=== PATIENT | female | born 1980 | race Caucasian/White ===

== ENCOUNTER 2017-06-19 18:15 | Inpatient (IN) | payer MEDICAID, OTHER ==
[~2017-06-19] VITALS: Ht 167.6 cm; Wt 62.0 kg
[2017-06-19 20:43] VITALS: BP 112/57
[2017-06-19] MEDS ORDERED: CYCLOBENZAPRINE 10 MG (FLEXERIL) TAB PO PRN (21:15)
[2017-06-19] MEDS: ALPRAZolam 1 MG (XANAX) TAB PO PRN (21:39)
[2017-06-19] MEDS: HYDROcodone/APAP 10 MG/325 MG (LORTAB) TAB PO PRN (21:40)
--- NOTE | 2017-06-20 04:54 | HISTORY AND PHYSICAL ---
DATE OF SERVICE: CHIEF COMPLAINT: Generalized weakness. HISTORY OF PRESENT ILLNESS: The patient is a 37-year-old female who was in her usual state of health until this past December when she developed progressive weakness. 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 She subsequently went on to rehab in [place], [place], and then also rehab at [facility] so as to be closer to her home in [place], [place]. She then went home, but her found it difficult to care for her as she was still nonambulatory and needed some assistance. Subsequently, the patient went to a local care center where she developed delirium due to her UTI with resulting admission to [facility] on 06/07/2017. Her UTI has now been treated. She is cognitively clear, but left with increased weakness from all this. She takes gabapentin and hydrocodone for neuropathic pain in her legs and hands and she is dependent for transfers at this point. She is now referred to inpatient rehabilitation unit with a goal of improving her strength and endurance prior to discharge home with her spouse and young children so as to lessen the burden of the caregivers. Her works as a senior mechanical engineer in [place], [place]. They live in a one-story home in [place], [place].She indicates that she had been on long acting Morphine sulphate in the past. PAST MEDICAL HISTORY: She reports that she has been healthy otherwise up until now. She does have tachycardia, leukocytosis and hallucinations associated with her UTI and her urine culture was positive for E. coli, which responded to Macrodantin and cephalosporins. The hospitalist from [facility] in [place], [place], discussed the case with Dr. Tineo today prior to transfer.The patient is currently on Hydrocodone for pain and flexeril for spasms and Gabapentin for neuropathic pain.She sandy currently on meds for anxiety and depression. PAST SURGICAL HISTORY: She denies any knee, hip or spinal surgery in the past.She has had rt rotator cuff repair in the past as well as a hysterectomy and a cholecystectomy. ALLERGIES: DOXYCYCLINE. FAMILY HISTORY: Denies any neurologic family history. SOCIAL HISTORY: Has a supportive spouse and young children. Had been independent and healthy prior to December. REVIEW OF SYSTEMS: Ten-point review of systems significant for weakness, neuropathic pain, aching pain depression and anxiety. MEDICATIONS: 1. Abilify 2.5 mg p.o. daily. 2. Remeron 15 mg p.o. at bedtime. 3. Coreg 6.25 mg p.o. b.i.d. 4. Simethicone 80 mg p.o. every 6 hours as needed for gas. 5. Hydrocodone/APAP 10/325 one tablet p.o. every 4 hours p.r.n. severe pain. 6. Senokot-S, 2 tablets p.o. b.i.d. 7. MiraLax 17 grams p.o. b.i.d. 9. Multivitamins with minerals 1 tablet p.o. daily. 10. Melatonin 9 mg p.o. at bedtime. 11. Mag-Ox 400 mg p.o. b.i.d. 12. Vitamin C 500 mg p.o. b.i.d. 13. Vitamin D 50,000 units p.o. every Friday. 14. Lidoderm patch topically daily, off in 12 hours to affected area. 15. Lotrisone cream b.i.d. as needed. 16. Vitamin E 400 units p.o. daily. 17. Vitamin A 10,000 units every morning. 18. Vitamin B6 50 mg p.o. daily. 19. Nystatin powder topically 3 times a day. 20. Xanax 1 mg p.o. every 6 hours p.r.n. as needed for anxiety. 21. Vitamin B1 100 mg p.o. daily. 22. Flexeril 10 mg p.o. t.i.d. as needed for spasms. 23. Folic acid 1 mg p.o. daily. 24. Zinc sulfate 220 mg p.o. daily. 25. Trazodone 100 mg p.o. at bedtime. 26. Gabapentin 800 mg p.o. every 6 hours p.r.n. pain. PHYSICAL EXAMINATION: GENERAL: Significant for a pleasant female, appearing her stated age, alert and oriented, in no acute distress, sitting up in bed. VITAL SIGNS: She is afebrile, pulse is 98, respirations 16, blood pressure 131/81. O2 sat 98% on room air. HEENT: Vision, speech, hearing grossly intact. No oral lesion is noted. NECK: Supple without mass. HEART: Regular rhythm. LUNGS: Clear. ABDOMEN: Soft, nontender. Bowel sounds present. EXTREMITIES: No leg edema. No calf tenderness. MUSCULOSKELETAL: The patient has functional and active range of motion in all 4 extremities. She does lack active dorsiflexion in both ankles. NEUROLOGIC: She has generalized weakness, lower extremities more than upper extremities and lacks dorsiflexion at both ankles with associated flexion contractures She has been provided with boots set at neutral. Sensation is grossly intact to touch, but she reports neuropathic-type pain in both legs and hands.Also an aching tight feeling in legs for which she takes flexeril and pain meds. Cognition appears grossly intact. IMPRESSION: 1. Delirium secondary to urinary tract infection, treated. 2. Late effects of Guillain-De Soto syndrome. 3Hypoklaemia as of 06-20-17-replacement ordered 4. 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 We will focus on wheelchair level of function and provide a strengthening program focusing on upper extremities to improve transfers and generalized conditioning program. The patient will have PT and OT 90 minutes per day each discipline 5 days a week for 2 weeks for gait as tolerated, strengthening, conditioning, balance, ADLs, any patient family caregiver training necessary, any adaptive equipment and training necessary a Stretching program as well for ankle contractures.. Speech therapy to do cognitive assessment and treat as indicated. Rehabilitation nursing to assist with bowel, bladder, skin care, medication administration, pain management. coordinator volunteer services to assist with discharge planning, community re-entry. Reviewed labs this morning and replaced K. Consult Dr. Saenz to assist with medical management as needed. The patient's admission to this rehab unit has been approved by her [place] Medicaid managed plan with the above goals in mind- specifically W/C level of function and Transfer training /family training The patients spouse works as a dynamometer mechanic in [employer] [facility] and their children are fairly young and school age.Pain management. DIET: Regular. CODE STATUS: Full code. Plan of care was discussed with the patient and spouse on evening of admission. Job ID: [id number] DocumentID: [id number] Dictated Date: 06/19/2017 21:57:51 Design Printer Balloon Date: 06/20/2017 04:53:58 Dictated By: ALEXUS TINEO MD MTDD
[2017-06-20 05:35] LABS: BASOPHILS % (AUTO) 0 % (0-10); EOSINOPHILS # (AUTO) 0.1 10^3/uL (0.0-0.3); EOSINOPHILS % (AUTO) 2 % (0-10); LYMPHOCYTES # (AUTO) 2.2 X 10^3 (1.0-4.0); LYMPHOCYTES % (AUTO) 41 % (12-44); MEAN CORPUSCULAR HEMOGLOBIN 32 PG (25-34); MEAN CORPUSCULAR HGB CONC 33 G/DL (32-36); MEAN CORPUSCULAR VOLUME 99 FL (80-99); MEAN PLATELET VOLUME 9.6 FL (7.4-10.4); MONOCYTES # (AUTO) 0.4 X 10^3 (0.0-1.0); MONOCYTES % (AUTO) 8 % (0-12); NEUTROPHILS # (AUTO) 2.6 X 10^3 (1.8-7.8); NEUTROPHILS % (AUTO) 48 % (42-75); PLATELET COUNT 214 10^3/uL (130-400); RED BLOOD COUNT 2.76 10^6/uL (4.35-5.85); RED CELL DISTRIBUTION WIDTH 15.1 % (10.0-14.5); WHITE BLOOD COUNT 5.3 10^3/uL (4.3-11.0)
[2017-06-20 05:55] LABS: ALANINE AMINOTRANSFERASE 43 U/L (0-55); ALBUMIN 2.8 GM/DL (3.2-4.5); ANION GAP 8 MMOL/L (5-14); ASPARTATE AMINO TRANSFERASE 101 U/L (5-34); BILIRUBIN,TOTAL 0.4 MG/DL (0.1-1.0); BLOOD UREA NITROGEN 4 MG/DL (7-18); BUN/CREATININE RATIO 5; CALCIUM 11.5 MG/DL (8.5-10.1); CARBON DIOXIDE 28 MMOL/L (21-32); CHLORIDE 106 MMOL/L (98-107); CREATININE SERUM 0.73 MG/DL (0.60-1.30); GFR ESTIMATED > 60; GLUCOSE 91 MG/DL (70-105); POTASSIUM 3.2 MMOL/L (3.6-5.0); SODIUM 142 MMOL/L (135-145); TOTAL PROTEIN 6.2 GM/DL (6.4-8.2)
[2017-06-20 06:00] VITALS: BP 128/86
[2017-06-20] MEDS: THIAMINE 100 MG (VITAMIN B-1) TAB PO SCH (06:12)
[2017-06-20] MEDS: MULTIVIT W/MINERALS TAB (THERAGRAN M) PO SCH (06:12)
[2017-06-20] MEDS: ZINC SULFATE 220 MG CAPSULE PO SCH (06:12)
[2017-06-20] MEDS: HYDROcodone/APAP 10 MG/325 MG (LORTAB) TAB PO PRN ×4 (06:15→20:58)
[2017-06-20] MEDS ORDERED: KCL 20 MEQ TAB (K-DUR) PO NR (08:15)
--- NOTE | 2017-06-20 08:28 | Consultation ---
History of Present Illness History of Present Illness Patient Consulted On(merary/time) 06/20/17 08:25 Time Seen by Provider: 08:20 History of Present Illness patient got Camila Poe last December. Patient's problems is with the legs the most in the hands is much. Surgeries right rotator cuff, hysterectomy, gallbladder,. Family history denies asthma TB diabetes heart disease lung disease cancer. Denies headaches dizziness fainting. Heart denies heart murmur chest pain shortness of breath lungs denies asthma TB coughing congestion and wheezing Allergies and Home Medications Allergies Coded Allergies: doxycycline (Verified Allergy, Intermediate, 06/19/17) Past Tgpkeah-Xufuwa-Qnojmc Hx Patient Social History Alcohol Use: Denies Use Recreational Drug Use: No Smoking Status: Never a Smoker Recent Foreign Travel: No Contact w/Someone Who Travel: No Recent Infectious Disease Expo: No Recent Hopitalizations: Yes ([facility] 1 day ago, [facility] 6 mo ago) Immunizations Up To Date Date of Pneumonia Vaccine: Sep 15, 2014 Seasonal Allergies Seasonal Allergies: No Surgeries History of Surgeries: Yes (Hysterectomy) Respiratory History of Respiratory Disorde: No Cardiovascular History of Cardiac Disorders: No Neurological History of Neurological Disord: Yes (Guillain-[place] syndrome) Reproductive System Sexually Transmitted Disease: No Genitourinary History of Genitourinary Disor: Yes (Cystocele) Genitourinary Disorders: UTI-Chronic Gastrointestinal History of Gastrointestinal Di: Yes Gastrointestinal Disorders: Gastroesophageal Reflux, Ulcer Musculoskeletal History of Musculoskeletal Dis: Yes (Severe lower extremity pain and weakness) Endocrine History of Endocrine Disorders: No HEENT History of HEENT Disorders: No Cancer History of Cancer: No Psychosocial History of Psychiatric Problem: Yes Behavioral Health Disorders: Anxiety, Depression Integumentary History of Skin or Integumenta: No Blood Transfusions History of Blood Disorders: No Adverse Reaction to a Blood Tr: No Family Medical History Family Medial History: Anxiety disorder 19 MOTHER FHx: depression 19 MOTHER Review of Systems-General Constitutional: weakness, other (inability to walk) EENTM: no symptoms reported Respiratory: no symptoms reported Cardiovascular: no symptoms reported Genitourinary: no symptoms reported : No Physical Exam-General Problems Physical Exam Vital Signs Vital Sign - Last 12Hours 06/19/17 20:43 Temp 97.5 Pulse 89 Resp 18 B/P (MAP) 112/57 Pulse Ox 98 O2 Delivery Room Air O2 Flow Rate 98.00 Capillary Refill : General Appearance: WD/WN, no apparent distress Eyes: Bilateral Eye Normal Inspection HEENT: normal ENT inspection Neck: non-tender, full range of motion Respiratory: chest non-tender, lungs clear, normal breath sounds, no respiratory distress, no accessory muscle use Cardiovascular: regular rate, rhythm Gastrointestinal: non tender, soft Assessment/Plan Assessment/Plan Admission Diagnosis/Plan [place] Poe syndrome. History of UTI causing hallucinations Clinical Quality Measures DVT/VTE Risk/Contraindication: Risk Factor Score Per Nursin RFS Level Per Nursing on Admit: 2=Moderate AFSANEH QUIJANO DO Jun 20, 2017 08:28
[2017-06-20] MEDS: SENNA W/DOCUSATE (SENOKOT S) TABLET PO SCH ×2 (08:57→20:59)
[2017-06-20] MEDS: VITAMIN E 400 INTLU CAP PO SCH (08:57)
[2017-06-20] MEDS: VITAMIN D2 50,000 UNITS (1.25 MG) CAP PO SCH (08:57)
[2017-06-20] MEDS: ASCORBIC ACID (VIT C) 500 MG TABLET PO SCH ×2 (08:57→20:59)
[2017-06-20] MEDS: ARIPIPRAZOLE 2 MG (ABILIFY) TAB PO SCH (08:57)
[2017-06-20] MEDS: PYRIDOXINE (VITAMIN B-6) 50 MG TABLET PO SCH (08:57)
[2017-06-20] MEDS: GABAPENTIN 600 MG (NEURONTIN) TAB PO SCH ×2 (08:57→20:59)
[2017-06-20] MEDS: FOLIC ACID 1 MG TAB PO SCH (08:57)
[2017-06-20] MEDS: LIDOCAINE (LIDODERM) 5% PATCH TOP SCH (08:59)
[2017-06-20] MEDS ORDERED: CARVEDILOL 3.125 MG (COREG) TABLET PO SCH (09:00)
[2017-06-20] MEDS: BETAMETHASONE/CLOTRIM CREAM (LOTRISONE) 45 GM TP SCH ×2 (09:02→21:03)
[2017-06-20] MEDS: POLYETHYLENE GLYCOL 17 GM (MIRALAX) PACK PO SCH ×2 (09:02→20:59)
[2017-06-20] MEDS: ALPRAZolam 1 MG (XANAX) TAB PO PRN ×2 (10:34→17:19)
--- NOTE | 2017-06-20 10:43 | ST Cognitive Linguistic Eval ---
Speech Evaluation-General Medical Diagnosis Weakness/Debility Onset Date: Jun 20, 2017 Therapy Diagnosis Therapy Diagnosis: Cognitive Linguistic Skills WNL Precautions Precautions/Isolations: Fall Prevention, Standard Precautions Referral Referring Physician: Dr. Austin Tineo Reason for Referral: Evaluation/Treatment Cognitive Evaluation Medical History Guillain [place] Reviewed History: Yes Speech PLF-Current Status Prior Level of Function Per patient, she experienced "a little confusion" following her initial hospitalization, however, she has returned to baseline at this time. The patient denied swallowing difficulties at this time. Subjective The patient was admitted to [facility] with a diagnosis of weakness and debility. The patient greeted the clinician appropriately and was agreeable to participation in the cognitive evaluation. To note: The patient demonstrates emotional periods throughout the evaluation, tearing up on several occasions. Per patient, "I am just ready to go home." Language Eval: Auditory Comprehends Simple Yes/No Ques: Functional Indent/Objects Multiple Saleh: Functional Ident/Pics in Multiple Saleh: Functional Follows 1-Step Commands: Functional Follows Complex Directions: Mild (Repetition required for increased accuracy.) Follows General Conversations: Functional Language Eval: Verbal Language Completes Spontaneous Greeting: Functional Produces Auto, Serial Info: Functional Imitates Simple Words/Phrases: Functional Word Finding: Functional Requests Basic Needs: Functional States Basic Personal Info: Functional Cognitive Patient Orientation The patient is oriented to month, day of week, and year. The patient stated she was in [place], however, self-corrected to the [place]. Objective Cognitive Domain Attention: Mild Memory: WNL Problem Solving: Functional (The patient does require redirection to task.) Objective Impression At this time, the patient demonstrates cognitive linguistic skills grossly within normal limits. The patient participated in limited periods of the evaluation, as she became tearful throughout. The patient stated her emotional state was secondary to her desire to return home. Communication/Social Cognition Comprehension: 4 Expression: 5 Social Interaction: 3 Problem Solvin Memory: 5 Speech Patient Assess Expression of Ideas/Wants: Expression (4) Understanding V[place]al Content: Usually Understands (3) Brief Interview-Mental Status: Yes Repetition of Three Words: Three (3) Temporal Orientation: Year: Correct (3) Temporal Orientation: Month: Accurate within 5 days(2) Temporal Orientation: Day: Correct (1) Recall : Wear to say "Sock": Yes, no cue required (2) Recall : Color: Yes, no cue required (2) Recall : Bed: Yes, no cue required (2) Speech-Plan Treatment Plan Speech Therapy Treatment Plan: Discontinue ST Evaluation, only. Frequency: Modified Program (IRF) (Evaluation, only.) Estimated Hrs Per Day: Other (Evaluation, only.) Rehab Potential: Guarded Safety Risks/Education Teaching Recipient: Patient Teaching Methods: Discussion Response to Teaching: Verbalize Understanding Education Topics Provided: Results, Recommendations, Plan of Care Time Speech Therapy Time In: 08:15 Speech Therapy Time Out: 08:30 Total Billed Time: 15 Billed Treatment Time 1, LAM HINOJOSA Jun 20, 2017 10:43
--- NOTE | 2017-06-20 12:06 | Physical Therapy Evaluation ---
PT Evaluation-General Medical Diagnosis Admission Date Jun 19, 2017 at 21:03 Medical Diagnosis: Weakness/Debility Onset Date: Dec 14, 2016 (sometime in december) Therapy Diagnosis Therapy Diagnosis: weakness/debility Height/Weight Height (Feet): 5 Height (Inches): 6.00 Weight (Pounds): 127 Weight (Ounces): 5.0 Precautions Precautions/Isolations: Fall Prevention, Standard Precautions Referral Physician: Noman Reason for Referral: Evaluation/Treatment Medical History Additional Medical History Guillain [place] Syndrome, Chronic UTI, gastroesophagial reflux, , Surgeries: right rotator cuff, hyserectomy, gall bladder. Current History Pt has been getting progressively weaker since December due to Guillain [place] Syndrome Reviewed History: Yes Social History Home: Single Level Current Living Status: Significant Other Entry Into Home: Level Entry PT Steps Into Home: 0 PT Steps Inside Home: 1 Pt lives with and 3 children, ages 10-16. Prior/Core FIM Prior Level of Function Functional [place] Measure 0=Not Assessed/NA 4=Minimal Assistance 1=Total Assistance 5=Supervision or Setup 2=Maximal Assistance 6=Modified [place] 3=Moderate Assistance 7=Complete [place] Bed Mobility: 6 Transfers (B,C,W/C) (FIM): 1 Gait: 1 Locomotion: 1 Wheelchair Mobility: 6 Patient has been progressively weaker since December. Pt has been non-ambulatory and using wheelchair since 05/01. PT Evaluation-Current Subjective Pt was laying in bed prior to treatment and agreeable to PT. Pt is very anxious throughout treatment. Pt becomes emotional 3x, tearing up throughout treatment about current condition and wanting to go home. Pain Numeric Pain Scale: 5-Moderate Pain Location Body Site: Foot Pain Description: Ache Pt/Family Goals to return home with independence with functional mobility Objective Patient Orientation: Normal For Age ROM/Strength ROM Lower Extremities LLE: (ankle has 34 degree plantarflexion contracture, inversion contracture, knee flexion 90 degree flexion) RLE: (ankle has 35 degree plantarflexion contracture, inversion contracture, knee flexion 88 degree flexion) Strenght Lower Extremities LLE: (DF 1/5, knee flexion 2+/5, knee extension 4/5, hip flexion 3+/5) RLE: (DF 1/5, knee flexion 2/5, knee extension 4/5, hip flexion 3+/5) Integumentary/Posture Integumentary refer to nursing note Bowel Incontinence: No Neuromuscular (Tone, Coordination, Reflexes) not tested Sensory Vision: Functional Hearing: Functional Sensation Right Upper Extremit: Intact Sensation Left Upper Extremity: Intact Sensation Right Lower Extremit: Intact Sensation Left Lower Extremity: Intact Transfers Functional [place] Measure 0=Not Assessed/NA 4=Minimal Assistance 1=Total Assistance 5=Supervision or Setup 2=Maximal Assistance 6=Modified [place] 3=Moderate Assistance 7=Complete IndependenceIRFPAI Quality Coding Scale 6 Independent with activity with or without an assistive device 5 Patient requires set up or clean up by helper. Patient completes activity by themselves 4 Supervision or touching assist (CGA). [place] provide cues , steadying assist 3 The helper provides less than half the effort to complete the activity 2 The helper provides more than half the effort to complete the activity 1 Dependent. The helper does all the effort to complete an activity 7 Patient refused to complete or attempt activity 9 The patient did not perform the activity before the current illness or injury 88 Not attempted due to Medical conditions or safety concerns Transfers (B, C, W/C) (FIM): 1 Scootin Rollin Supine to/from Sit: 2 Sit to/from Stand: 1 Pt completes transfers with total dependence, pt is verbally cued to assist with arms. Pt completes bed mobility with max assist, requires help lifting legs up to bed. Gait Does the Patient Walk?: No and Walking Goal IS indicated Mode of Locomotion: Both Anticipated Mode of Locomotion: Both Gait (FIM): 0 Comments/Gait Description Pt unable to attempt ambulation due to strength deficits. Pt stands in parallel bars with max assist. Pt ankles are in plantarflexion and inversion. Pt tolerates 5 seconds of standing before needing to sit due to pain and weakness. Wheelchair Training Does the Pt Use a Wheelchair?: Yes Wheelchair (FIM): 5 Wheelchair Distance (FIM): 3=150 ft Distance: 200' Wheelchair Level of Assist: 5 Wheel 50 ft with 2 turns (QC): 5 Wheel 150 ft (QC): 5 Type of Wheelchair: Manual Pt is able to propel wheelchair using arms with supervision for safety. Pt reports she has difficulty propelling over uneven surfaces or carpet due to weakness in arms. Stairs If not tested on admit;explain Pt unable to attempt due to strength deficits. Balance Sitting Static: Fair Sitting Dynamic: Fair Standing Static: Poor Standing Dynamic: Poor Treatment Pt completes transfer training using sliding board and max assist. Pt requires verbal cues for sequencing, hand placement and safety. Assessment/Needs Pt has decreased strength, balance, endurance, and ROM. Pt's gait, bed mobility and transfers are impaired. Pt therapy will include strengthening, therapeutic exercises, balance exercises, ROM, transfer training, bed mobility, and gait training to maximize functional mobility and independence. Rehab Potential: Fair PT Short Term Goals Short Term Goals Time Frame: Jun 27, 2017 Transfers (B,C,W/C) (FIM): 3 Gait (FIM): 1 Distance (FIM): 1=up to 49 ft Wheelchair (FIM): 6 Wheelchair Level of Assist: 6 PT Linux Systems Administrator Goals Penitentiary Goals PT Linux Systems Administrator Goals Time Frame: Jul 11, 2017 Transfers (B,C,W/C) (FIM): 4 Sit to Lying (QC): 4 Lying-Sitting on Side/Bed(QC): 4 Sit to Stand (QC): 4 Rollin Roll Left to Right (QC): 4 Chair/Gqu-gc-Wdear Xfer(QC): 4 Car Transfer (QC): 4 Does the Patient Walk: No and Walking Goal IS indicated Gait (FIM): 2 Gait distance (FIM): 3=473-27 ft Distance: 50' Walk 10 feet (QC): 3 Walk 10ft-Uneven Surface(QC): 3 Walk 50ft with 2 Turns (QC): 3 Gait Level of Assist: 4 Gait Assistive Device: FWW PT Plan Problem List Problem List: Activity Tolerance, Functional Strength, Safety, Balance, Gait, Transfer, Bed Mobility, ROM Treatment/Plan Treatment Plan: Continue Plan of Care Treatment Plan: Bed Mobility, Education, Functional Activity Yris, Functional Strength, Group Therapy, Gait, Safety, Therapeutic Exercise, Transfers Treatment Duration: Jul 11, 2017 Frequency: At least 5 of 7 days/Wk (IRF) Estimated Hrs Per Day: 1.5 hours per day Patient and/or Family Agrees t: Yes Safety Risks/Education Patient Education: Transfer Techniques, Reviewed Precautions, Correct Positioning, W/C Management, Disease Process, Safety Issues Teaching Recipient: Patient Teaching Methods: Demonstration, Discussion Response to Teaching: Verbalize Understanding, Reinforcement Needed Discharge Recommendations Plan Pt therapy will include strengthening, therapeutic exercises, balance exercises , ROM, safety education, transfer training, bed mobility, and gait training to maximize functional mobility and independence. Therapy D/C Recommendations: Home w/ Family Support, Group Home (TCU/NH) Time/GCodes Time In: 1100 Time Out: 1201 Total Billed Treatment Time: 61 Total Billed Treatment 1 visit EVM 16 FA [facility] 10 GERALDO FERRER PT Jun 20, 2017 12:06
--- NOTE | 2017-06-20 12:08 | PM&R Post Admission Assessment ---
Post Admission Physician Asses The preadmission screen agrees with the post admission assessment that the patient is a good candidate for inpatient rehabilitation. The patient will have a comprehensive program of inpatient rehabilitation with a goal of maximizing level of functional independence prior to discharge home with family. The patient will have PT/OT ninety minutes per day, each discipline, five days a week for gait, strengthening, conditioning, balance, ADLs, any patient/family/caregiver training as necessary. Speech therapy to do cognitive assessment and treat as indicated. Rehabilitation nursing to assist with bowel, bladder, skin, , medication administration, pain management. Sheep Farm Manager to assist with discharge planning, community reentry. SCD's for DVT prophylaxis. She appears to be well motivated to participate in three hours of therapy a day. She should be able to tolerate three hours of therapy a day from a medical standpoint. She should benefit from the three hours of therapy a day. She has a reasonable discharge plan, reasonable discharge rehabilitation goals and a supportive family. She has various comorbidities that need to be closely monitored with medications and treatments adjusted on a daily basis as needed. These include: Chronic pain as a rsult of GBS Contractures both ankles Anemia Hypokalemia Anxiety/depression Barriers to discharge for this patient who had been independent prior to this are for her to be modified independent to SBA for ADLs and mobility skills at the w/c level of function prior to discharge home with family, so as to lessen the burden of the caregivers. Risks for this patient include: 1. Fall 2. Fracture 3. DVT 4. Pulmonary embolism 5. Worsening anxiety and depression 6. Skin breakdown 7. Contractures 8. Poorly controlled pain 9. Urinary retention 10. Recurrent UTI 11. Respiratory infection 12. Aspiration Estimated Length of Stay: 14 days Prognosis: Rehab prognosis appears good for goal of discharge home with family modified independent to SBA for ADLs and mobility skills at the w/c level of function. ALEXUS MERCADO MD Jun 20, 2017 12:08
--- NOTE | 2017-06-20 12:15 | PM & R (SOAP) Progress Note ---
Subjective Time Seen by Provider: 09:30 Subjective/Events-last exam Patient was seen in her room,Case discussed with RN RN reports patient tearful re poor pain control States that she has been on Morphine po at home prior to this due to aching pain in legs uses Gabapentin for neuropathic pain and flexeril fos spasms.Patient has significant flexion contractures both ankles Patient has been w/c based and nonambulatory since 05-01-17,Patient dependent for transfers at this time. Review of Systems Musculoskeletal: leg pain Neurological: Weakness Objective Exam Last Set of Vital Signs Vital Signs Date Time Temp Pulse Resp B/P (MAP) Pulse Ox O2 Delivery O2 Flow Rate FiO2 06/20/17 06:00 99.0 107 14 128/86 94 Room Air 06/19/17 20:43 98.00 Capillary Refill : I&O Intake and Output 06/21/17 00:00 Intake Total 200 ml Output Total 400 ml Balance -200 ml Intake Oral 200 ml Output Urine Total 400 ml General: Alert, Oriented X3, Cooperative, Mild Distress HEENT: Atraumatic, PERRLA, EOMI, Mucous Memb Moist/Wisdom Neck: Supple, No JVD Lungs: Clear to Auscultation Heart: Regular Rate Abdomen: Normal Bowel Sounds, Soft, No Tenderness Extremities: No Edema, Other (contractures both ankles) Neuro: Sensation Intact, Other (Cant st Leg raise bilaterally Has flex contractures both ankles) Results Lab Laboratory Tests 06/20/17 05:15: White Blood Count 5.3, Red Blood Count 2.76L, Hemoglobin 8.9L, Hematocrit 27L, Mean Corpuscular Volume 99, Mean Corpuscular Hemoglobin 32, Mean Corpuscular Hemoglobin Concent 33, Red Cell Distribution Width 15.1H, Platelet Count 214, Mean Platelet Volume 9.6, Neutrophils (%) (Auto) 48, Lymphocytes (%) (Auto) 41, Monocytes (%) (Auto) 8, Eosinophils (%) (Auto) 2, Basophils (%) (Auto) 0, Neutrophils # (Auto) 2.6, Lymphocytes # (Auto) 2.2, Monocytes # (Auto) 0.4, Eosinophils # (Auto) 0.1, Basophils # (Auto) 0.0, Sodium Level 142, Potassium Level 3.2L, Chloride Level 106, Carbon Dioxide Level 28, Anion Gap 8, Blood Urea Nitrogen 4L, Creatinine 0.73, Estimat Glomerular Filtration Rate > 60, BUN/ Creatinine Ratio 5, Glucose Level 91, Calcium Level 11.5H, Total Bilirubin 0.4, Aspartate Amino Transf (AST/SGOT) 101H, Alanine Aminotransferase (ALT/SGPT) 43, Alkaline Phosphatase 391H, Total Protein 6.2L, Albumin 2.8L Assessment/Plan Assessment 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 ALEXUS MERCADO MD Jun 20, 2017 12:14
[2017-06-20] MEDS ORDERED: SENN-40 PO (13:12)
[2017-06-20] MEDS ORDERED: MORP15TA69 PO (13:12)
[2017-06-20] MEDS ORDERED: ZINC220T PO (13:12)
[2017-06-20] MEDS ORDERED: VITA400C60 PO (13:12)
[2017-06-20] MEDS ORDERED: ASCO-262 PO (13:12)
[2017-06-20] MEDS ORDERED: ACET325T38 PO (13:12)
[2017-06-20] MEDS ORDERED: CLOT15CR6 TP (13:12)
[2017-06-20] MEDS ORDERED: MAGN400T39 PO (13:12)
[2017-06-20] MEDS ORDERED: LIDO700A45 TP (13:12)
[2017-06-20] MEDS ORDERED: DIPH25CA79 PO (13:12)
[2017-06-20] MEDS ORDERED: VITA-203 PO (13:12)
[2017-06-20] MEDS ORDERED: HYDR-3820 PO (13:12)
[2017-06-20] MEDS ORDERED: PYRI50TA10 PO (13:12)
[2017-06-20] MEDS ORDERED: MULT-640 PO (13:12)
[2017-06-20] MEDS ORDERED: NYST1POW4 TOP (13:12)
[2017-06-20] MEDS ORDERED: MAG30ORA2 PO (13:12)
[2017-06-20] MEDS ORDERED: MELA3TAB PO (13:12)
[2017-06-20] MEDS ORDERED: THIA100T7 PO (13:12)
[2017-06-20] MEDS ORDERED: POLY17PO6 PO (13:12)
[2017-06-20] MEDS ORDERED: ZINC50TA4 PO (13:12)
[2017-06-20] MEDS ORDERED: FOLI1TAB24 PO (13:12)
[2017-06-20] MEDS ORDERED: TRAZ100T92 PO (13:12)
[2017-06-20] MEDS ORDERED: CYCL10TA9 PO (13:12)
[2017-06-20] MEDS ORDERED: SIME80TA16 PO (13:12)
[2017-06-20] MEDS ORDERED: ALPR1TAB7 PO (13:12)
[2017-06-20] MEDS ORDERED: GABA800T2 PO (13:12)
--- NOTE | 2017-06-20 13:14 | Occupational Therapy Eval ---
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 Pt can feed herself and perform UE ADLs. Dresses lower body while in bed. Pt states she completes pivot transfers with assistance. Pt states she completed rehab and returned home in April, but had been in and out of the hospital. Has most recently been in SNF. Pt has spouse (who works during day) and three children at home ages 16, 12, and 10. DME/Equipment: Bedside Commode, Shower, Tub/Shower DME/Equipment Comments manual w/c. OT Current Status Subjective Pt in bed with RN present when therapist arrives. Pt is tearful throughout session. Wants to go home and has many questions about returning home. Pt reports 8/10 pain in bilateral LE, states she has pins and needles sensation in feet. Mental Status/Objective Patient Orientation: Person, Place Current Glasses/Contacts: No Hearing Aids: No Dentures/Partials: Yes Hand Dominance: Right Upper Extremity ROM Pt has some stiffness and decreased ROM and in wrists and hands, but remainder is grossly functional. Upper Extremity Coordination Decreased Upper Extremity Strength grossly 3+/5 - 4-/5 ADL-Treatment ADL-Current Pt's meal tray arrived during session. Pt requires assist to open packages, but is able to feed self after set up. Supine to sit with moderate assistance. Pt requests shower this morning. Pivot transfer EOB to shower chair with total assistance. to shower via rolling shower chair. Pt able to wash bilateral UE, chest, abdomen, and no area, but requires assist for all other areas. Increased time required for bathing. Transfer to EOB with total assistance. Pt donned shirt with minimal assistance while seated EOB. Sit to supine with assist for bilateral LE. Pt donned underwear and shorts while in bed. Dependent to complete task. Pt rolled left and right with minimal assistance during pant hike. Total assist to doff/don socks. Pt requires increased time for all ADL tasks. Pt is often tearful when talking about her current abilities and future plans. Pt has frequent complaints of pain in LE, requests pain meds. RN notified. Pt resting in bed with needs met after session. Functional [place] Measure 0=Not Assessed/NA 4=Minimal Assistance 1=Total Assistance 5=Supervision or Setup 2=Maximal Assistance 6=Modified [place] 3=Moderate Assistance 7=Complete IndependenceIRFPAI Quality Coding Scale 6 Independent with activity with or without an assistive device 5 Patient requires set up or clean up by helper. Patient completes activity by themselves 4 Supervision or touching assist (CGA). [place] provide cues , steadying assist 3 The helper provides less than half the effort to complete the activity 2 The helper provides more than half the effort to complete the activity 1 Dependent. The helper does all the effort to complete an activity 7 Patient refused to complete or attempt activity 9 The patient did not perform the activity before the current illness or injury 88 Not attempted due to Medical conditions or safety concerns Eating (FIM): 5 Eating (QC): 5 Bathing (FIM): 3 Bathing Location: L Arm, R Arm, Chest, Abdomen, Perineal Area Shower/Bathe Self (QC): 3 Upper Body Dressing (FIM): 4 Upper Body Dressing (QC): 3 Lower Body Dressing (FIM): 1 Lower Body Dressing (QC): 1 On/Off Footwear (QC): 1 Shower Transfer (FIM): 1 Education OT Patient Education: Rehab process Teaching Recipient: Patient Teaching Methods: Discussion Response to Teaching: Verbalize Understanding OT Short Term Goals Short Term Goals Time Frame: Jun 27, 2017 Lower Body Dressing(FIM): 2 Toileting(FIM): 2 Toilet/Commode Transfer(FIM): 2 Shower Transfer(FIM): 2 Additional Short Term Goals: 2-Verbalize Understanding, 3-ImproveStrength/Yris 1=Demonstrate adherence to instructed precautions during ADL tasks. 2=Patient will verbalize/demonstrate understanding of assistive devices/ modifications for ADL. 3=Patient will improve strength/tolerance for activity to enable patient to perform ADL's. OT Shelter Goals Petroleum Analyst Goals Time Frame: Jul 11, 2017 Eating (FIM): 5 Eating (QC): 5 Groomin Oral Hygiene (QC): 5 Bathing(FIM): 4 Shower/Bathe Self (QC): 4 Upper Body Dressing(FIM): 5 Upper Body Dressing (QC): 5 Lower Body Dressing(FIM): 4 Lower Body Dressing (QC): 3 On/Off Footwear (QC): 4 Toileting(FIM): 4 Toileting Hygiene (QC): 4 Toilet/Commode Transfer(FIM): 4 Toilet/Commode Transfer (QC): 4 Shower Transfer(FIM): 4 Additional Goals: 1-Demonstrate ADL Tasks, 2-Verbalize Understanding, 3- ImproveStrength/Yris 1=Demonstrate adherence to instructed precautions during ADL tasks. 2=Patient will verbalize/demonstrate understanding of assistive devices/ modifications for ADL. 3=Patient will improve strength/tolerance for activity to enable patient to perform ADL's. OT Education/Plan Problem List/Assessment Assessment: Decreased Activ Tolerance, Decreased UE Strength, Dependent Transfers, Impaired Coordination, Impaired Funct Balance, Impaired I ADL's, Impaired Self-Care Skills Pt demonstrates impaired strength, mobility, activity tolerance, and ADL functioning. Pt to benefit from skilled OT intervention for ADL training, transfers, strengthening, adaptive equipment instruction as needed, and safety education to improve level of independence and allow safe discharge plan. Discharge Recommendations Plan/Recommendations: Continue POC Treatment Plan/Plan of Care Treatment,Training & Education: Yes Patient would benefit from OT for education, treatment and training to promote independence in ADL's, mobility, safety and/or upper extremity function for ADL' s. Plan of Care: ADL Retraining, Functional Mobility, Group Exercise/Act as Ind, UE Funct Exercise/Act Treatment Duration: Jul 11, 2017 Frequency: At least 5 of 7 days/Wk (IRF) Estimated Hrs Per Day: 1.5 hours per day Agreement: Yes Rehab Potential: Fair Time/GCodes Start Time: 09:00 Stop Time: 10:30 Total Time Billed (hr/min): 90 Billed Treatment Time 1 visit, EVM(15minutes), ADLx5(75minutes) SERENA MARES OT Jun 20, 2017 13:14
[2017-06-20] MEDS ORDERED: VITAMIN D 50,000 PO (13:24)
[2017-06-20] MEDS: morphine ER 15 MG (MS CONTIN) TAB PO SCH ×2 (13:26→21:26)
--- NOTE | 2017-06-20 15:11 | Physical Therapy Daily Note ---
PT Daily Note-Current Subjective Pt is lying in bed prior to tx and agreeable to PT. Pt reports she needs to use bathroom and completes toileting in bedpan during treatment. Pt was anxious throughout treatment about pain and current condition. Pt was lying in bed with nurse call, phone, tray, all needs met post tx. Pain Numeric Pain Scale: 8 Location Body Site: Generalized Pain Description: Ache Mental Status Patient Orientation: Normal For Age Transfers Functional [place] Measure 0=Not Assessed/NA 4=Minimal Assistance 1=Total Assistance 5=Supervision or Setup 2=Maximal Assistance 6=Modified [place] 3=Moderate Assistance 7=Complete IndependenceIRFPAI Quality Coding Scale 6 Independent with activity with or without an assistive device 5 Patient requires set up or clean up by helper. Patient completes activity by themselves 4 Supervision or touching assist (CGA). [place] provide cues , steadying assist 3 The helper provides less than half the effort to complete the activity 2 The helper provides more than half the effort to complete the activity 1 Dependent. The helper does all the effort to complete an activity 7 Patient refused to complete or attempt activity 9 The patient did not perform the activity before the current illness or injury 88 Not attempted due to Medical conditions or safety concerns Scootin Rollin Exercises Supine Ex: Bridging, Ankle pumps, Quad Set, Glut sets, Lower trunk rotation, Heel Slides, Short Arc Quads, Straight leg raise, Hip abd/add Supine Reps: 15 Treatments Pt completes toileting in bedpan during treatment. Pt also completes bed mobility and supine LE strengthening exercises. Assessment Current Status: Fair Progress Pt has to be verbally cued to stay on task throughout treatment, pt tends to chat a lot and gets distracted. Pt is mostly pleasant but will get emotional for brief periods of time due to pain and weakness. PT Short Term Goals Short Term Goals Time Frame: Jun 27, 2017 Gait (FIM): 1 Distance (FIM): 1=up to 49 ft Wheelchair (FIM): 6 Wheelchair Level of Assist: 6 PT Legal Department Manager Goals Legal Department Manager Goals PT Intermediate Goals Time Frame: Jul 11, 2017 Transfers (B,C,W/C) (FIM): 4 Sit to Lying (QC): 4 Lying-Sitting on Side/Bed(QC): 4 Sit to Stand (QC): 4 Rollin Roll Left to Right (QC): 4 Chair/Jys-bl-Ecpkh Xfer(QC): 4 Car Transfer (QC): 4 Does the Patient Walk: No and Walking Goal IS indicated Gait (FIM): 2 Gait distance (FIM): 7=617-03 ft Distance: 50' Walk 10 feet (QC): 3 Walk 10ft-Uneven Surface(QC): 3 Walk 50ft with 2 Turns (QC): 3 Gait Level of Assist: 4 Gait Assistive Device: FWW PT Plan Problem List Problem List: Activity Tolerance, Functional Strength, Safety, Balance, Gait, Transfer, Bed Mobility, ROM Treatment/Plan Treatment Plan: Continue Plan of Care Treatment Plan: Bed Mobility, Education, Functional Activity Yris, Functional Strength, Group Therapy, Gait, Safety, Therapeutic Exercise, Transfers Treatment Duration: Jul 11, 2017 Frequency: At least 5 of 7 days/Wk (IRF) Estimated Hrs Per Day: 1.5 hours per day Patient and/or Family Agrees t: Yes Safety Risks/Education Patient Education: Transfer Techniques, Reviewed Precautions, Correct Positioning, Safety Issues Teaching Recipient: Patient Teaching Methods: Demonstration, Discussion Response to Teaching: Verbalize Understanding, Reinforcement Needed Time/GCodes Time In: 1433 Time Out: 1502 Total Billed Treatment Time: 29 Total Billed Treatment 1 visit 15 FA 14 EX GERALDO FERRER PT Jun 20, 2017 15:11
[2017-06-20] MEDS: CYCLOBENZAPRINE 10 MG (FLEXERIL) TAB PO PRN ×2 (15:53→20:58)
[2017-06-20 18:49] VITALS: BP 95/61
[2017-06-20 20:56] VITALS: BP 110/66
[2017-06-20] MEDS: MELATONIN 3 MG TABLET PO SCH (20:58)
[2017-06-20] MEDS: CARVEDILOL 6.25 MG (COREG) TAB PO SCH (20:59)
[2017-06-20] MEDS: traZODone 100 MG (DESYREL) TAB PO SCH (20:59)
[2017-06-20] MEDS: MIRTAZAPINE 15 MG (REMERON) TAB PO SCH (20:59)
[2017-06-21] MEDS: HYDROcodone/APAP 10 MG/325 MG (LORTAB) TAB PO PRN ×3 (01:22→17:10)
[2017-06-21] MEDS: ALPRAZolam 1 MG (XANAX) TAB PO PRN ×3 (01:27→21:13)
[2017-06-21 05:00] VITALS: BP 103/70
[2017-06-21] MEDS: morphine ER 15 MG (MS CONTIN) TAB PO SCH ×3 (05:43→21:13)
[2017-06-21] MEDS: THIAMINE 100 MG (VITAMIN B-1) TAB PO SCH (05:43)
[2017-06-21] MEDS: CYCLOBENZAPRINE 10 MG (FLEXERIL) TAB PO PRN ×2 (05:44→17:10)
[2017-06-21] MEDS: MULTIVIT W/MINERALS TAB (THERAGRAN M) PO SCH (05:44)
[2017-06-21] MEDS: ZINC SULFATE 220 MG CAPSULE PO SCH (05:44)
[2017-06-21] MEDS: BETAMETHASONE/CLOTRIM CREAM (LOTRISONE) 45 GM TP SCH ×2 (09:44→20:15)
[2017-06-21] MEDS: CARVEDILOL 6.25 MG (COREG) TAB PO SCH ×2 (09:44→20:14)
[2017-06-21] MEDS: PYRIDOXINE (VITAMIN B-6) 50 MG TABLET PO SCH (09:44)
[2017-06-21] MEDS: SENNA W/DOCUSATE (SENOKOT S) TABLET PO SCH ×2 (09:44→20:14)
[2017-06-21] MEDS: VITAMIN E 400 INTLU CAP PO SCH (09:44)
[2017-06-21] MEDS: ASCORBIC ACID (VIT C) 500 MG TABLET PO SCH ×2 (09:44→20:14)
[2017-06-21] MEDS: ARIPIPRAZOLE 2 MG (ABILIFY) TAB PO SCH (09:44)
[2017-06-21] MEDS: FOLIC ACID 1 MG TAB PO SCH (09:44)
[2017-06-21] MEDS: GABAPENTIN 600 MG (NEURONTIN) TAB PO SCH ×2 (09:44→20:14)
[2017-06-21] MEDS: LIDOCAINE (LIDODERM) 5% PATCH TOP SCH (09:45)
[2017-06-21] MEDS: POLYETHYLENE GLYCOL 17 GM (MIRALAX) PACK PO SCH ×2 (09:49→20:15)
--- NOTE | 2017-06-21 11:31 | Occupational Ther Daily Note ---
OT Current Status-Daily Note Subjective Pt sitting in w/c, agrees to treatment. Pt reports 5/10 generalized pain. Mental Status/Objective Functional [place] Measure 0=Not Assessed/NA 4=Minimal Assistance 1=Total Assistance 5=Supervision or Setup 2=Maximal Assistance 6=Modified [place] 3=Moderate Assistance 7=Complete [place] ADL-Treatment Pt sitting in w/c eating when therapist arrived. Pt requires assist to open soda cans, but is able to feed self after set up. Pt declined bathing today. Pt transferred w/c to toilet with max assist. Pt able to use grab bars to pull up from chair and assist with balance. Assist required to pull pants down/up. Pt able to complete toileting hygiene. Total assist to transfer back to w/c. Pt sat at sink to complete grooming tasks. Pt washed hands, washed face, and combed hair with SBA. Pt requests to put hair up in ponytail, requires assist for task secondary to decreased coordination. Pt doffed shirt and donned clean shirt with set up. Functional [place] Measure 0=Not Assessed/NA 4=Minimal Assistance 1=Total Assistance 5=Supervision or Setup 2=Maximal Assistance 6=Modified [place] 3=Moderate Assistance 7=Complete IndependenceIRFPAI Quality Coding Scale 6 Independent with activity with or without an assistive device 5 Patient requires set up or clean up by helper. Patient completes activity by themselves 4 Supervision or touching assist (CGA). [place] provide cues , steadying assist 3 The helper provides less than half the effort to complete the activity 2 The helper provides more than half the effort to complete the activity 1 Dependent. The helper does all the effort to complete an activity 7 Patient refused to complete or attempt activity 9 The patient did not perform the activity before the current illness or injury 88 Not attempted due to Medical conditions or safety concerns Grooming (FIM): 4 Upper Body (FIM): 5 Upper Body Dressing (QC): 5 Toileting (FIM): 2 Toileting Hygiene (QC): 2 Toilet/Commode Transfer (FIM): 1 Toilet Transfer (QC): 1 Other Treatment Pt requests to go outside this morning, RN notified and agreeable. Pt performed w/c mobility to elevator with increased time. Pt able to push button on elevator with minimal assistance for positioning. Pt was taken outside with assist to get over threshold of door. Pt able to propel w/c with minimal assistance on sidewalk. Pt fatigues quickly and requires occasional rest breaks secondary to fatigue and pain in hands. Pt to therapy gym via w/c. Arm bike x5 minutes to increase overall strength and activity tolerance needed for functional tasks. Pt completed task with minimal resistance and slow pace. No rest breaks needed. Pt completed tabletop peg activity with bilateral hands to increase coordination skills. Pt able to place pegs into pegboard with increased. Pt has mild difficulty with task. Pt completed fine motor task with nuts and bolts to increase coordination/manipulation skills. Pt has difficulty with grasp at times and occasionally drops them, but is able to complete activity with increased time and effort. Pt requests to sit in recliner after session. Dependent transfer w/c to chair. Pt sitting in chair with needs met after session. OT Short Term Goals Short Term Goals Time Frame: Jun 27, 2017 Lower Body Dressing(FIM): 2 Toileting(FIM): 2 Toilet/Commode Transfer(FIM): 2 Shower Transfer(FIM): 2 Additional Short Term Goals: 2-Verbalize Understanding, 3-ImproveStrength/Yris 1=Demonstrate adherence to instructed precautions during ADL tasks. 2=Patient will verbalize/demonstrate understanding of assistive devices/ modifications for ADL. 3=Patient will improve strength/tolerance for activity to enable patient to perform ADL's. OT Halfway Goals Bolt Sorter Goals Time Frame: Jul 11, 2017 Eating (FIM): 5 Eating (QC): 5 Groomin Oral Hygiene (QC): 5 Bathing(FIM): 4 Shower/Bathe Self (QC): 4 Upper Body Dressing(FIM): 5 Upper Body Dressing (QC): 5 Lower Body Dressing(FIM): 4 Lower Body Dressing (QC): 3 On/Off Footwear (QC): 4 Toileting(FIM): 4 Toileting Hygiene (QC): 4 Toilet/Commode Transfer(FIM): 4 Toilet/Commode Transfer (QC): 4 Shower Transfer(FIM): 4 Additional Goals: 1-Demonstrate ADL Tasks, 2-Verbalize Understanding, 3- ImproveStrength/Yris 1=Demonstrate adherence to instructed precautions during ADL tasks. 2=Patient will verbalize/demonstrate understanding of assistive devices/ modifications for ADL. 3=Patient will improve strength/tolerance for activity to enable patient to perform ADL's. OT Education/Plan Discharge Recommendations Plan/Recommendations: Continue POC Treatment Plan/Plan of Care Patient would benefit from OT for education, treatment and training to promote independence in ADL's, mobility, safety and/or upper extremity function for ADL' s. Plan of Care: ADL Retraining, Functional Mobility, Group Exercise/Act as Ind, UE Funct Exercise/Act Treatment Duration: Jul 11, 2017 Frequency: At least 5 of 7 days/Wk (IRF) Estimated Hrs Per Day: 1.5 hours per day Agreement: Yes Rehab Potential: Fair Time/GCodes Start Time: 10:10 Stop Time: 11:40 Total Time Billed (hr/min): 90 Billed Treatment Time 1 visit, ADLx2(30minutes), FAx2(30minutes), EXx2(30minutes) SERENA MARES OT Jun 21, 2017 11:31
--- NOTE | 2017-06-21 13:05 | Physical Therapy Daily Note ---
PT Daily Note-Current Subjective Pt agreeable. Pain rated 4-5/10 upon arrival and 6-7/10 following treatment session located in legs. Pt occasionally and briefly emotional stating "I hope you guys don't get tired of me. I hope my fiance doesn't get tired of me." Mental Status Patient Orientation: Person, Place, Situation Pt lucy remember past hospitals she has spent time in. Transfers Functional [place] Measure 0=Not Assessed/NA 4=Minimal Assistance 1=Total Assistance 5=Supervision or Setup 2=Maximal Assistance 6=Modified [place] 3=Moderate Assistance 7=Complete IndependenceIRFPAI Quality Coding Scale 6 Independent with activity with or without an assistive device 5 Patient requires set up or clean up by helper. Patient completes activity by themselves 4 Supervision or touching assist (CGA). [place] provide cues , steadying assist 3 The helper provides less than half the effort to complete the activity 2 The helper provides more than half the effort to complete the activity 1 Dependent. The helper does all the effort to complete an activity 7 Patient refused to complete or attempt activity 9 The patient did not perform the activity before the current illness or injury 88 Not attempted due to Medical conditions or safety concerns Transfers squat pivot intially max A of 1, progressed to mod A of 1 over the course of the treatment. Transfers made bed->w/c, w/c<->nu-step, w/c<->toilet. Wheelchair Training Type of Wheelchair: Manual Pt practiced [facility] mobility 2 x 200ft. Practiced and instructed in proper approach, vc's for position and proximity to destination. Pt required min A for positoning only. Pt demonstrates ability to propel [facility] room to gym and back around obstacle and people without issue. Exercises NuStep Minutes: 20 NuStep Workload: 4 Treatments Mod A to don underware and shorts, max A to don socks and shoes. Gentle passive stretching (B) ankles, knee toward chest, hamstring, hip adductors x 20 each. Pt instructed in self stretching calves with blanket or belt. Pt demonstrated each x 30 sec. Ther ex: heel slide, hip abd, bridge, SAQ, alternating SLR, LTR, crunches x 20 each. Bathroom privileges: Mod A transfers w/c to and from toilet. Extra person to don/doff pants. Pt able to complete pericare and flush toilet. Assessment Current Status: Good Progress Pt marry well. Pt emotional at times but very brief. Pt demonstrated good participation. Pt up in w/c post therapy session with all needs met and call light in reach. PT Short Term Goals Short Term Goals Time Frame: Jun 27, 2017 Gait (FIM): 1 Distance (FIM): 1=up to 49 ft Wheelchair (FIM): 6 Wheelchair Level of Assist: 6 PT Half-Way Goals Pockets And Pieces Necktie Operator Goals PT Pockets And Pieces Necktie Operator Goals Time Frame: Jul 11, 2017 Transfers (B,C,W/C) (FIM): 4 Sit to Lying (QC): 4 Lying-Sitting on Side/Bed(QC): 4 Sit to Stand (QC): 4 Rollin Roll Left to Right (QC): 4 Chair/Akr-uq-Utqsy Xfer(QC): 4 Car Transfer (QC): 4 Does the Patient Walk: No and Walking Goal IS indicated Gait (FIM): 2 Gait distance (FIM): 7=088-30 ft Distance: 50' Walk 10 feet (QC): 3 Walk 10ft-Uneven Surface(QC): 3 Walk 50ft with 2 Turns (QC): 3 Gait Level of Assist: 4 Gait Assistive Device: FWW PT Plan Treatment/Plan Treatment Plan: Continue Plan of Care Treatment Plan: Bed Mobility, Education, Functional Activity Yris, Functional Strength, Group Therapy, Gait, Safety, Therapeutic Exercise, Transfers Treatment Duration: Jul 11, 2017 Frequency: At least 5 of 7 days/Wk (IRF) Estimated Hrs Per Day: 1.5 hours per day Patient and/or Family Agrees t: Yes Time/GCodes Time In: 745 Time Out: 915 Total Billed Treatment Time: 90 Total Billed Treatment 1, FA x 30min, Ther ex 30 min, [facility] x 30 min BRANDI YOU CPTA Jun 21, 2017 13:05
[2017-06-21 18:00] VITALS: BP 101/63
[2017-06-21] MEDS: traZODone 100 MG (DESYREL) TAB PO SCH (20:14)
[2017-06-21] MEDS: MIRTAZAPINE 15 MG (REMERON) TAB PO SCH (20:14)
[2017-06-21] MEDS: MELATONIN 3 MG TABLET PO SCH (20:14)
[2017-06-22] MEDS: HYDROcodone/APAP 10 MG/325 MG (LORTAB) TAB PO PRN ×3 (03:34→17:31)
[2017-06-22] MEDS: morphine ER 15 MG (MS CONTIN) TAB PO SCH ×3 (05:16→22:08)
[2017-06-22 05:25] VITALS: BP 107/66
[2017-06-22] MEDS: THIAMINE 100 MG (VITAMIN B-1) TAB PO SCH (06:00)
[2017-06-22] MEDS: ZINC SULFATE 220 MG CAPSULE PO SCH (06:00)
[2017-06-22] MEDS: MULTIVIT W/MINERALS TAB (THERAGRAN M) PO SCH (06:00)
[2017-06-22] MEDS: ALPRAZolam 1 MG (XANAX) TAB PO PRN ×2 (07:00→17:31)
[2017-06-22] MEDS: ARIPIPRAZOLE 2 MG (ABILIFY) TAB PO SCH (09:43)
[2017-06-22] MEDS: CARVEDILOL 6.25 MG (COREG) TAB PO SCH ×2 (09:43→20:29)
[2017-06-22] MEDS: FOLIC ACID 1 MG TAB PO SCH (09:43)
[2017-06-22] MEDS: ASCORBIC ACID (VIT C) 500 MG TABLET PO SCH ×2 (09:43→20:29)
[2017-06-22] MEDS: GABAPENTIN 600 MG (NEURONTIN) TAB PO SCH ×2 (09:43→20:31)
[2017-06-22] MEDS: SENNA W/DOCUSATE (SENOKOT S) TABLET PO SCH ×2 (09:44→20:29)
[2017-06-22] MEDS: VITAMIN E 400 INTLU CAP PO SCH (09:44)
[2017-06-22] MEDS: PYRIDOXINE (VITAMIN B-6) 50 MG TABLET PO SCH (09:44)
[2017-06-22] MEDS: LIDOCAINE (LIDODERM) 5% PATCH TOP SCH (09:50)
[2017-06-22] MEDS: BETAMETHASONE/CLOTRIM CREAM (LOTRISONE) 45 GM TP SCH ×2 (09:50→21:14)
[2017-06-22] MEDS: POLYETHYLENE GLYCOL 17 GM (MIRALAX) PACK PO SCH ×2 (09:50→20:29)
[2017-06-22] MEDS: CYCLOBENZAPRINE 10 MG (FLEXERIL) TAB PO PRN ×2 (11:42→20:29)
[2017-06-22 18:02] VITALS: BP 105/71
[2017-06-22] MEDS: traZODone 100 MG (DESYREL) TAB PO SCH (20:30)
[2017-06-22] MEDS: MELATONIN 3 MG TABLET PO SCH (20:30)
[2017-06-22] MEDS: MIRTAZAPINE 15 MG (REMERON) TAB PO SCH (20:30)
[2017-06-22] MEDS ORDERED: morphine IMMEDIATE RELEASE 15 MG TABLET PO PRN (20:30)
[2017-06-22] MEDS: morphine IMMEDIATE RELEASE 15 MG TABLET PO PRN (23:07)
[2017-06-23] MEDS: morphine IMMEDIATE RELEASE 15 MG TABLET PO PRN ×2 (02:56→08:03)
[2017-06-23 06:02] VITALS: BP 109/73
[2017-06-23] MEDS: morphine ER 15 MG (MS CONTIN) TAB PO SCH ×3 (06:04→22:07)
[2017-06-23] MEDS: MULTIVIT W/MINERALS TAB (THERAGRAN M) PO SCH (06:04)
[2017-06-23] MEDS: ZINC SULFATE 220 MG CAPSULE PO SCH (06:04)
[2017-06-23] MEDS: THIAMINE 100 MG (VITAMIN B-1) TAB PO SCH (06:04)
[2017-06-23] MEDS: ALPRAZolam 1 MG (XANAX) TAB PO PRN ×3 (06:04→22:07)
[2017-06-23] MEDS: FOLIC ACID 1 MG TAB PO SCH (07:51)
[2017-06-23] MEDS: BETAMETHASONE/CLOTRIM CREAM (LOTRISONE) 45 GM TP SCH ×2 (07:51→22:09)
[2017-06-23] MEDS: CARVEDILOL 6.25 MG (COREG) TAB PO SCH ×2 (07:51→22:06)
[2017-06-23] MEDS: PYRIDOXINE (VITAMIN B-6) 50 MG TABLET PO SCH (07:51)
[2017-06-23] MEDS: VITAMIN E 400 INTLU CAP PO SCH (07:51)
[2017-06-23] MEDS: CYCLOBENZAPRINE 10 MG (FLEXERIL) TAB PO PRN ×2 (07:51→18:15)
[2017-06-23] MEDS: ARIPIPRAZOLE 2 MG (ABILIFY) TAB PO SCH (07:51)
[2017-06-23] MEDS: SENNA W/DOCUSATE (SENOKOT S) TABLET PO SCH ×2 (07:51→22:06)
[2017-06-23] MEDS: ASCORBIC ACID (VIT C) 500 MG TABLET PO SCH ×2 (07:52→22:07)
[2017-06-23] MEDS: LIDOCAINE (LIDODERM) 5% PATCH TOP SCH (07:52)
[2017-06-23] MEDS: GABAPENTIN 600 MG (NEURONTIN) TAB PO SCH ×2 (07:52→22:07)
[2017-06-23] MEDS: POLYETHYLENE GLYCOL 17 GM (MIRALAX) PACK PO SCH ×2 (07:54→22:07)
--- NOTE | 2017-06-23 08:31 | Progress Note (SOAP) ---
Subjective Time Seen by Provider: 08:25 Subjective/Events-last exam Camila Poe. Patient working. 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 . 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 Patient a work in progress Clinical Quality Measures DVT/VTE Risk/Contraindication: Risk Factor Score Per Nursin RFS Level Per Nursing on Admit: 2=Moderate AFSANEH QUIJANO DO Jun 23, 2017 08:31
--- NOTE | 2017-06-23 08:32 | Physical Therapy Daily Note ---
PT Daily Note-Current Subjective Pt is lying in bed prior to tx and agreeable to PT. Pt reports 6/10 pain and that she has just received pain medications from nursing. Pt is sitting in wheelchair with nurse call, phone, tray, all needs met post tx. Patient has some bandages on her feet but states she just has some red spots and the bandages are a preventative measure. Pain Numeric Pain Scale: 6 Location Body Site: Generalized Pain Description: Ache Mental Status Patient Orientation: Normal For Age Transfers Functional [place] Measure 0=Not Assessed/NA 4=Minimal Assistance 1=Total Assistance 5=Supervision or Setup 2=Maximal Assistance 6=Modified [place] 3=Moderate Assistance 7=Complete IndependenceIRFPAI Quality Coding Scale 6 Independent with activity with or without an assistive device 5 Patient requires set up or clean up by helper. Patient completes activity by themselves 4 Supervision or touching assist (CGA). [place] provide cues , steadying assist 3 The helper provides less than half the effort to complete the activity 2 The helper provides more than half the effort to complete the activity 1 Dependent. The helper does all the effort to complete an activity 7 Patient refused to complete or attempt activity 9 The patient did not perform the activity before the current illness or injury 88 Not attempted due to Medical conditions or safety concerns Transfers (B, C, W/C) (FIM): 2 Scootin Sit to/from Stand: 2 Bed to/from Chair: 2 Pt completes sliding board transfers x8 with mod assist and verbal cues for hand placement and sequencing. Pt is cued to lean forward and use hands to assist. Treatments Pt completes transfer training to increase functional mobility. Pt uses sliding board and mod assist. Assessment Current Status: Good Progress Pt transfers are improving. PT Short Term Goals Short Term Goals Time Frame: Jun 27, 2017 Gait (FIM): 1 Distance (FIM): 1=up to 49 ft Wheelchair (FIM): 6 Wheelchair Level of Assist: 6 PT System Controller Goals System Controller Goals PT System Controller Goals Time Frame: Jul 11, 2017 Transfers (B,C,W/C) (FIM): 4 Sit to Lying (QC): 4 Lying-Sitting on Side/Bed(QC): 4 Sit to Stand (QC): 4 Rollin Roll Left to Right (QC): 4 Chair/Obz-sg-Hwcpt Xfer(QC): 4 Car Transfer (QC): 4 Does the Patient Walk: No and Walking Goal IS indicated Gait (FIM): 2 Gait distance (FIM): 9=539-83 ft Distance: 50' Walk 10 feet (QC): 3 Walk 10ft-Uneven Surface(QC): 3 Walk 50ft with 2 Turns (QC): 3 Gait Level of Assist: 4 Gait Assistive Device: FWW PT Plan Problem List Problem List: Activity Tolerance, Functional Strength, Safety, Balance, Gait, Transfer, Bed Mobility, ROM Treatment/Plan Treatment Plan: Continue Plan of Care Treatment Plan: Bed Mobility, Education, Functional Activity Yris, Functional Strength, Group Therapy, Gait, Safety, Therapeutic Exercise, Transfers Treatment Duration: Jul 11, 2017 Frequency: At least 5 of 7 days/Wk (IRF) Estimated Hrs Per Day: 1.5 hours per day Patient and/or Family Agrees t: Yes Safety Risks/Education Patient Education: Transfer Techniques, Reviewed Precautions, Correct Positioning, W/C Management, Safety Issues Teaching Recipient: Patient Teaching Methods: Demonstration, Discussion Response to Teaching: Verbalize Understanding, Reinforcement Needed Time/GCodes Time In: 800 Time Out: 831 Total Billed Treatment Time: 31 Total Billed Treatment 1 visit 31 GERALDO CEJA PT Jun 23, 2017 08:32
[2017-06-23] MEDS ORDERED: morphine IMMEDIATE RELEASE 15 MG TABLET PO PRN (08:45)
--- NOTE | 2017-06-23 11:43 | Occupational Ther Daily Note ---
OT Current Status-Daily Note Subjective Pt in bed, agrees to treatment. Pt reports 6/10 generalized pain. Mental Status/Objective Functional [place] Measure 0=Not Assessed/NA 4=Minimal Assistance 1=Total Assistance 5=Supervision or Setup 2=Maximal Assistance 6=Modified [place] 3=Moderate Assistance 7=Complete [place] ADL-Treatment Pt performs supine to sit with minimal assistance. Stand pivot transfer EOB to w /c with maximal assistance. Pt performed w/c mobility to therapy gym with SBA and increased time. Arm bike [id number] to increase overall strength and activity tolerance needed for ADLs and transfers. Pt performed activity with slow pace and minimal resistance. No rest breaks needed. Pt propelled w/c to therapy kitchen with SBA. Assist was required to get cup out of cabinet, but pt then able to fill cup with ice with SBA at w/c level. Pt then decided she would like to shower this morning. Pt sit to stand with mod assist using grab bar, total assist to pull pants down. Pt transferred w/c <->shower bench with max assist using grab bars. Seated bathing completed with increased time. Upper body bathing completed with set up. Pt able to wash no area and bilateral upper legs with SBA. Pt weight shifted right and left to wash buttocks. Used long handled sponge to wash lower legs and feet. Assist required to dry feet and buttocks. Pt donned pullover shirt with set up. Stood with grab bar for pant hike, required total assist to pull pants up over hips. Total assist to don shoes and socks. Pt transferred w/c <-> BSC over toilet with maximal assistance. Pt able to complete toileting hygiene, but requires assist for clothing management. Pt transferred to recliner chair with max assist. Sitting in chair with needs met after session. Functional [place] Measure 0=Not Assessed/NA 4=Minimal Assistance 1=Total Assistance 5=Supervision or Setup 2=Maximal Assistance 6=Modified [place] 3=Moderate Assistance 7=Complete IndependenceIRFPAI Quality Coding Scale 6 Independent with activity with or without an assistive device 5 Patient requires set up or clean up by helper. Patient completes activity by themselves 4 Supervision or touching assist (CGA). [place] provide cues , steadying assist 3 The helper provides less than half the effort to complete the activity 2 The helper provides more than half the effort to complete the activity 1 Dependent. The helper does all the effort to complete an activity 7 Patient refused to complete or attempt activity 9 The patient did not perform the activity before the current illness or injury 88 Not attempted due to Medical conditions or safety concerns Bathing (FIM): 3 Upper Body (FIM): 5 Upper Body Dressing (QC): 5 Lower Body Dressing (FIM): 1 Lower Body Dressing (QC): 1 On/Off Footwear (QC): 1 Toileting (FIM): 2 Toileting Hygiene (QC): 2 Toilet/Commode Transfer (FIM): 2 Toilet Transfer (QC): 2 Shower Transfer(FIM): 2 OT Short Term Goals Short Term Goals Time Frame: Jun 27, 2017 Lower Body Dressing(FIM): 2 Toileting(FIM): 2 Toilet/Commode Transfer(FIM): 2 Shower Transfer(FIM): 2 Additional Short Term Goals: 2-Verbalize Understanding, 3-ImproveStrength/Yris 1=Demonstrate adherence to instructed precautions during ADL tasks. 2=Patient will verbalize/demonstrate understanding of assistive devices/ modifications for ADL. 3=Patient will improve strength/tolerance for activity to enable patient to perform ADL's. OT Para Machine Operator Goals Para Machine Operator Goals Time Frame: Jul 11, 2017 Eating (FIM): 5 Eating (QC): 5 Groomin Oral Hygiene (QC): 5 Bathing(FIM): 4 Shower/Bathe Self (QC): 4 Upper Body Dressing(FIM): 5 Upper Body Dressing (QC): 5 Lower Body Dressing(FIM): 4 Lower Body Dressing (QC): 3 On/Off Footwear (QC): 4 Toileting(FIM): 4 Toileting Hygiene (QC): 4 Toilet/Commode Transfer(FIM): 4 Toilet/Commode Transfer (QC): 4 Shower Transfer(FIM): 4 Additional Goals: 1-Demonstrate ADL Tasks, 2-Verbalize Understanding, 3- ImproveStrength/Yris 1=Demonstrate adherence to instructed precautions during ADL tasks. 2=Patient will verbalize/demonstrate understanding of assistive devices/ modifications for ADL. 3=Patient will improve strength/tolerance for activity to enable patient to perform ADL's. OT Education/Plan Discharge Recommendations Plan/Recommendations: Continue POC Treatment Plan/Plan of Care Patient would benefit from OT for education, treatment and training to promote independence in ADL's, mobility, safety and/or upper extremity function for ADL' s. Plan of Care: ADL Retraining, Functional Mobility, Group Exercise/Act as Ind, UE Funct Exercise/Act Treatment Duration: Jul 11, 2017 Frequency: At least 5 of 7 days/Wk (IRF) Estimated Hrs Per Day: 1.5 hours per day Agreement: Yes Rehab Potential: Fair Time/GCodes Start Time: 10:15 Stop Time: 11:45 Total Time Billed (hr/min): 90 Billed Treatment Time 1 visit, FA(15minutes), EX(10minutes), ADLx4(65minutes) SERENA MARES OT Jun 23, 2017 11:43
--- NOTE | 2017-06-23 14:01 | Physical Therapy Daily Note ---
PT Daily Note-Current Subjective Pt is sitting in chair prior to tx and agreeable to PT. Pt reports 6/10 pain in arms and all throughout LEs. Pt is anxious and emotional throughout treatment, upset about current condition and weakness. Pt is lying in bed post tx with nurse call, phone, tray, all needs met post tx. Pain Numeric Pain Scale: 6 Location Body Site: Foot Pain Description: Ache Comment: Pt reports 6/10 pain in arms and all throughout LEs Mental Status Patient Orientation: Normal For Age Transfers Functional [place] Measure 0=Not Assessed/NA 4=Minimal Assistance 1=Total Assistance 5=Supervision or Setup 2=Maximal Assistance 6=Modified [place] 3=Moderate Assistance 7=Complete IndependenceIRFPAI Quality Coding Scale 6 Independent with activity with or without an assistive device 5 Patient requires set up or clean up by helper. Patient completes activity by themselves 4 Supervision or touching assist (CGA). [place] provide cues , steadying assist 3 The helper provides less than half the effort to complete the activity 2 The helper provides more than half the effort to complete the activity 1 Dependent. The helper does all the effort to complete an activity 7 Patient refused to complete or attempt activity 9 The patient did not perform the activity before the current illness or injury 88 Not attempted due to Medical conditions or safety concerns Scootin Rollin Supine to/from Sit: 4 Sit to/from Stand: 2 Bed to/from Chair: 2 Pt is max assist with sit<>stand and transfers. Pt completes bed mobility (sit<> supine, rolling, scooting)x4 with min assist. Exercises Supine Ex: Bridging (5), Heel Slides, Hip abd/add Supine Reps: 15 Seated Therapy Exercises: Ankle pumps (15), Long arc quads, Hip flexion, Hip abd/add, Glut set Treatments Pt completes toileting during treatment. PT attempts to stand pt in stand assist lift, but patient is not tolerant of pain. Pt completes bed mobility, seated, and supine exercises to increase functional LE strength. PT also manually stretches patient with ankle dorsiflexion and knee flexion, 3 sets of 1 min 30 seconds. Assessment Current Status: Poor Progress No change in mobility. Patient is very anxious throughout treatment, nervous about falling, and upset/tearful about weakness. PT Short Term Goals Short Term Goals Time Frame: Jun 27, 2017 Gait (FIM): 1 Distance (FIM): 1=up to 49 ft Wheelchair (FIM): 6 Wheelchair Level of Assist: 6 PT Quality Assurance Advisor Goals Usp Goals PT Usp Goals Time Frame: Jul 11, 2017 Transfers (B,C,W/C) (FIM): 4 Sit to Lying (QC): 4 Lying-Sitting on Side/Bed(QC): 4 Sit to Stand (QC): 4 Rollin Roll Left to Right (QC): 4 Chair/Ovm-iv-Pzvll Xfer(QC): 4 Car Transfer (QC): 4 Does the Patient Walk: No and Walking Goal IS indicated Gait (FIM): 2 Gait distance (FIM): 2=801-08 ft Distance: 50' Walk 10 feet (QC): 3 Walk 10ft-Uneven Surface(QC): 3 Walk 50ft with 2 Turns (QC): 3 Gait Level of Assist: 4 Gait Assistive Device: FWW PT Plan Problem List Problem List: Activity Tolerance, Functional Strength, Safety, Balance, Gait, Transfer, Bed Mobility, ROM Treatment/Plan Treatment Plan: Continue Plan of Care Treatment Plan: Bed Mobility, Education, Functional Activity Yris, Functional Strength, Group Therapy, Gait, Safety, Therapeutic Exercise, Transfers Treatment Duration: Jul 11, 2017 Frequency: At least 5 of 7 days/Wk (IRF) Estimated Hrs Per Day: 1.5 hours per day Patient and/or Family Agrees t: Yes Safety Risks/Education Patient Education: Transfer Techniques, Reviewed Precautions, Correct Positioning, W/C Management, Safety Issues Teaching Recipient: Patient Teaching Methods: Demonstration, Discussion Response to Teaching: Verbalize Understanding, Reinforcement Needed Time/GCodes Time In: 1300 Time Out: 1359 Total Billed Treatment Time: 59 Total Billed Treatment 1 visit FA 30 EX 29 GERALDO FERRER PT Jun 23, 2017 14:01
--- NOTE | 2017-06-23 17:54 | PM & R (SOAP) Progress Note ---
Subjective Time Seen by Provider: 17:45 Subjective/Events-last exam Patient was seen in her room this evening Patient mod assist for transfers.Pain control better with MS IR added for breakthrough pain Review of Systems Musculoskeletal: leg pain Neurological: Weakness Objective Exam Last Set of Vital Signs Vital Signs Date Time Temp Pulse Resp B/P (MAP) Pulse Ox O2 Delivery O2 Flow Rate FiO2 06/23/17 06:02 97.9 105 18 109/73 97 Room Air 06/19/17 20:43 98.00 Capillary Refill : I&O Intake and Output 06/24/17 00:00 Intake Total 450 ml Balance 450 ml Intake Oral 450 ml # Voids 5 General: Alert, Oriented X3, Cooperative, Mild Distress HEENT: Atraumatic, PERRLA, EOMI, Mucous Memb Moist/[place] Neck: Supple, No JVD Lungs: Clear to Auscultation Heart: Regular Rate Abdomen: Normal Bowel Sounds, Soft, No Tenderness Extremities: No Edema, Other (contractures both ankles) Neuro: Sensation Intact, Other (Cant st Leg raise bilaterally Has flex contractures both ankles) Assessment/Plan Assessment 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
--- NOTE | 2017-06-23 18:05 | Individualized Plan of Care ---
Individualized Plan of Care Rehab Nursing IPOC Order Admission Date Jun 19, 2017 at 21:03 Current Orders Orders Admission-Acute Rehab Unit (06/19/17 20:56) Vital Signs: Routine 08,16,00 (06/19/17 20:56) Sequential Compression Device 08,20 (06/19/17 20:56) Scheduler Conveyor-Inpt Rehab (06/19/17 20:56) Rehab Nursing Orders-Ipoc (06/19/17 20:56) Physical Therapy Rehab Orders (06/19/17 20:56) Occupational Therapy Rehab Ord (06/19/17 20:56) Speech Therapy Rehab Orders (06/19/17 20:56) General/Regular (06/20/17 Breakfast) Intake & Output 06,14,22 (06/19/17 20:56) Precautions (Aru) (06/19/17 20:56) Weekly Weight (Lbs) WEEK (06/19/17 20:56) Cbc With Automated Diff (06/20/17 06:00) Comprehensive Metabolic Panel (06/20/17 06:00) Consult Physician (06/19/17 21:01) Aripiprazole Tablet (Abilify Tablet) (06/20/17 09:00) Mirtazapine Tablet (Remeron Tablet) (06/20/17 21:00) Carvedilol Tablet (Coreg Tablet) (06/20/17 09:00) Hydrocodone/Apap 10/325 Tablet (Lortab 1 (06/19/17 21:15) Senna S Tablet (Senokot S Tablet) (06/20/17 09:00) Polyethylene Glycol Powder Pkt (Miralax (06/20/17 09:00) Therapeutic Multivitamin Tab (Vitamins, (06/20/17 07:00) Melatonin Tablet (Melatonin Tablet) (06/20/17 21:00) Ascorbic Acid Tablet (Vitamin C Tablet) (06/20/17 09:00) Ergocalciferol Capsule (Vitamin D2 Capsu (06/20/17 09:00) Lidocaine Patch (Lidoderm 5% Patch) (06/20/17 09:00) Betamethasone/Clotrimazole Crm (Lotrison (06/20/17 09:00) D-Alpha Tochopheryl Capsule (Vitamin E C (06/20/17 09:00) Pyridoxine Tablet (Vitamin B-6 Tablet) (06/20/17 09:00) Thiamine Tablet (Vitamin B-1 Tablet) (06/20/17 07:00) Cyclobenzaprine Tablet (Flexeril Tablet) (06/19/17 21:15) Folic Acid Tablet (Folic Acid Tablet) (06/20/17 09:00) Zinc Sulfate Capsule (Zinc 50 Mg Capsule (06/20/17 07:00) Trazodone Tablet (Desyrel Tablet) (06/20/17 21:00) Gabapentin Capsule/Tablet (Neurontin Cap (06/20/17 09:00) Pharmacy Communication (Pharmacy Communi (06/19/17 21:15) Alprazolam Tablet (Xanax Tablet) (06/19/17 21:30) Dvt/Vte Risk - Notifiy Physici ONCE (06/20/17 08:00) Potassium Chloride (Tablet) (K Dur Table (06/20/17 08:15) Cyclobenzaprine Tablet (Flexeril Tablet) (06/20/17 09:15) Morphine Er Tablet (Ms Contin Tablet) (06/20/17 14:00) Patient Visit (06/20/17 ) Speech Sound Lang Comp (06/20/17 ) Behavorial Health Consult (06/20/17 12:19) Ensure High Protein (06/20/17 Dinner) Carvedilol Tablet (Coreg Tablet) (06/20/17 21:00) Patient Visit (06/20/17 ) Pt Eval Moderate Complexity (06/20/17 ) Functional Activities, Ea 15 (06/20/17 ) Exercise Therap, Ea 15 Min (06/20/17 ) Wheelchair Mgmt/Propulsn 15min (06/20/17 ) Patient Visit (06/21/17 ) Wheelchair Mgmt/Propulsn 15min (06/21/17 ) Functional Activities, Ea 15 (06/21/17 ) Morphine Immediate Release Tab (Morphine (06/22/17 20:30) Morphine Immediate Release Tab (Morphine (06/22/17 21:30) Exercise Therap, Ea 15 Min (06/21/17 ) Morphine Immediate Release Tab (Morphine (06/23/17 08:45) Patient Visit (06/23/17 ) Functional Activities, Ea 15 (06/23/17 ) Exercise Therap, Ea 15 Min (06/23/17 ) Rehab Nursing Orders: Diseage Management, Edu in Press Rel Techn, Hydration Management, Nutrition Management, Pain Management Other Nursing Orders: Monitor for Opioid induced constipation and for urinary retention Intensity of Therapy to be met Patient to be seen: Min.3h per day/5 of 7d PT IPOC Problem List: Activity Tolerance, Functional Strength, Safety, Balance, Gait, Transfer, Bed Mobility, ROM Treatment Plan: Continue Plan of Care Bed Mobility, Education, Functional Activity Yris, Functional Strength, Group Therapy, Gait, Safety, Therapeutic Exercise, Transfers Treatment Duration: Jul 11, 2017 Frequency: At least 5 of 7 days/Wk (IRF) Estimated Hrs Per Day: 1.5 hours per day OT IPOC Problems: Decreased Activ Tolerance, Decreased UE Strength, Dependent Transfers , Impaired Coordination, Impaired Funct Balance, Impaired I ADL's, Impaired Self -Care Skills OT Treatment, Training and Edu: Yes Plan of Care: ADL Retraining, Functional Mobility, Group Exercise/Act as Ind, UE Funct Exercise/Act Treatment Duration: Jul 11, 2017 Frequency: At least 5 of 7 days/Wk (IRF) Estimated Hrs Per Day: 1.[address] IPOC Speech Therapy Treatment Plan: Discontinue ST Treatment Duration: Jun 20, 2017 Frequency: Modified Program (IRF) (Evaluation, only.) Estimated Hrs Per Day: Other (Evaluation, only.) Scheduler Conveyor/Case Mgmt Scheduler Conveyor/Case Managemen: Discharge Planning, Patient/Family Counseling Physician IPOC Medical Issues being managed closely and that require the 24 hour availability of a physician: Hypokalemia 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 Medical Issues: Bowel/Bladder Function, DVT Prophylaxis, Falls Precautions, Fluid/Electrolyte/Nutrition Balance, Infection Protection, Pain Management, Other (List) (as per above) Brief Synthesis of Preadmission Screen, Post-Admission Evaluation, and Therapy Evaluations: 37 yo female with GBS since this past December who has had recurrent utis with the last one associated with delirium requiring hosptilalization at OSH for treatment Has chronic neuropathic pain for which she takes Gabapentin and Morphine Patients spouse works as a control valve mechanic in [place] and patient nonambulatory but had been more Independent for w/c transfers prior to this Medical Prognosis: Good Anticipated Length of Stay: 07-11-17 Rehab Goals Modified Independent to supervision for adls and mobility skills at the W/ Clevel of function with enhanced pain control Anticipated discharge destinat: Home with spouse and [facility] ALEXUS MERCADO MD Jun 23, 2017 18:05
[2017-06-23] MEDS: morphine (ROXINOL) 10 MG/0.5 ML oral conc 0.5 ML PO PRN (18:33)
[2017-06-23 18:40] VITALS: BP 103/69
[2017-06-23] MEDS: MELATONIN 3 MG TABLET PO SCH (22:06)
[2017-06-23] MEDS: traZODone 100 MG (DESYREL) TAB PO SCH (22:06)
[2017-06-23] MEDS: MIRTAZAPINE 15 MG (REMERON) TAB PO SCH (22:07)
[2017-06-24] MEDS: morphine (ROXINOL) 10 MG/0.5 ML oral conc 0.5 ML PO PRN ×4 (01:37→21:00)
[2017-06-24] MEDS: ALPRAZolam 1 MG (XANAX) TAB PO PRN ×3 (03:57→20:23)
[2017-06-24] MEDS: CYCLOBENZAPRINE 10 MG (FLEXERIL) TAB PO PRN ×3 (03:57→20:22)
[2017-06-24] MEDS: MULTIVIT W/MINERALS TAB (THERAGRAN M) PO SCH (06:11)
[2017-06-24] MEDS: morphine ER 15 MG (MS CONTIN) TAB PO SCH ×3 (06:11→21:00)
[2017-06-24] MEDS: THIAMINE 100 MG (VITAMIN B-1) TAB PO SCH (06:11)
[2017-06-24] MEDS: ZINC SULFATE 220 MG CAPSULE PO SCH (06:11)
[2017-06-24 06:43] VITALS: BP 94/64
[2017-06-24] MEDS: ASCORBIC ACID (VIT C) 500 MG TABLET PO SCH ×2 (07:58→20:22)
[2017-06-24] MEDS: GABAPENTIN 600 MG (NEURONTIN) TAB PO SCH ×2 (07:58→20:23)
[2017-06-24] MEDS: ARIPIPRAZOLE 2 MG (ABILIFY) TAB PO SCH (07:59)
[2017-06-24] MEDS: VITAMIN E 400 INTLU CAP PO SCH (07:59)
[2017-06-24] MEDS: POLYETHYLENE GLYCOL 17 GM (MIRALAX) PACK PO SCH ×2 (07:59→20:27)
[2017-06-24] MEDS: FOLIC ACID 1 MG TAB PO SCH (07:59)
[2017-06-24] MEDS: SENNA W/DOCUSATE (SENOKOT S) TABLET PO SCH ×2 (07:59→20:23)
[2017-06-24] MEDS: BETAMETHASONE/CLOTRIM CREAM (LOTRISONE) 45 GM TP SCH ×2 (08:00→20:27)
[2017-06-24] MEDS: LIDOCAINE (LIDODERM) 5% PATCH TOP SCH (08:03)
[2017-06-24 08:04] VITALS: BP 96/59
[2017-06-24] MEDS: PYRIDOXINE (VITAMIN B-6) 50 MG TABLET PO SCH (08:07)
--- NOTE | 2017-06-24 08:36 | PM & R (SOAP) Progress Note ---
Subjective Time Seen by Provider: 07:50 Subjective/Events-last exam Patient was seen in common area of unit Requesting pain med for breakthrough pain in legs Sitting in w/c in NAD Discussed with RN 10 mg to be given Patient self-propelling w/c on unit using upper limbs Objective Exam Last Set of Vital Signs Vital Signs Date Time Temp Pulse Resp B/P (MAP) Pulse Ox O2 Delivery O2 Flow Rate FiO2 06/24/17 08:04 110 96/59 98 06/24/17 06:43 98.6 18 Room Air 06/19/17 20:43 98.00 Capillary Refill : I&O Intake and Output 06/24/17 23:59 Intake Total 300 ml Balance 300 ml Intake Oral 300 ml # Voids 4 # Bowel Movements 1 General: Alert, Oriented X3, Cooperative, Mild Distress HEENT: Atraumatic, PERRLA, EOMI, Mucous Memb Moist/[place] Neck: Supple, No JVD Lungs: Clear to Auscultation Heart: Regular Rate Abdomen: Normal Bowel Sounds, Soft, No Tenderness Extremities: No Edema, Other (contractures both ankles) Neuro: Sensation Intact, Other (Cant st Leg raise bilaterally Has flex contractures both ankles) Assessment/Plan Assessment 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 07-02-17 ALEXUS MERCADO MD Jun 24, 2017 08:36
--- NOTE | 2017-06-24 08:57 | Progress Note (SOAP) ---
Subjective Time Seen by Provider: 08:50 Objective Exam Vital Signs Date Time Temp Pulse Resp B/P (MAP) Pulse Ox O2 Delivery O2 Flow Rate FiO2 06/24/17 08:04 110 96/59 98 06/24/17 06:43 98.6 101 18 94/64 100 Room Air 06/23/17 21:09 Room Air 06/23/17 18:40 97.3 115 16 103/69 96 Room Air Capillary Refill : General Appearance: No Apparent Distress HEENT: Normal ENT Inspection Neck: Full Range of Motion, Normal Inspection Assessment/Plan Assessment/Plan Assess & Plan/Chief Complaint 06/24/17. Patient doing better with therapy o of upper extremities. Camila Poe. History of hallucinations. Patient legs needs more work Clinical Quality Measures DVT/VTE Risk/Contraindication: Risk Factor Score Per Nursin RFS Level Per Nursing on Admit: 2=Moderate AFSANEH QUIJANO DO Jun 24, 2017 08:57
--- NOTE | 2017-06-24 09:31 | Occupational Ther Daily Note ---
OT Current Status-Daily Note Subjective Pt up in w/c, maneuvering around ARU. Pt was asking physician to increase dosage on break thru pain meds. Nrsg notified that pt wanted pain meds. Pt rated pain at 4-5/10. Pt in tears at times. Pt agreed to therapy. Pt requested some sweat pants, EDWARD looked for some and could not find any. Mental Status/Objective Patient Orientation: Person, Place, Time, Situation Functional [place] Measure 0=Not Assessed/NA 4=Minimal Assistance 1=Total Assistance 5=Supervision or Setup 2=Maximal Assistance 6=Modified [place] 3=Moderate Assistance 7=Complete [place] ADL-Treatment Max A to transfer from w/c to shower bench. Pt doffed shirt by self. Pt pulled self up slightly off of bench, assist to pull pants over hips. Assist to doff sock/shoes. Pt able to complete shower with SBA, assist to dry feet. During transfer from shower to w/c (max A), nrsg assisted with drying pt's buttocks. Pt able to don shirt by self. Max A to don pants, assist x2 to hike over hips. Pt able to don socks with assist to keep LE crossed over knee. Assist to don/doff shoes. Pt c/o pain in lower legs and feet. Massage to area , tightness noted in arch of B feet. Increase swelling noted, no pitting. Pt left in care of PT after OT session. All needs met. Functional [place] Measure 0=Not Assessed/NA 4=Minimal Assistance 1=Total Assistance 5=Supervision or Setup 2=Maximal Assistance 6=Modified [place] 3=Moderate Assistance 7=Complete IndependenceIRFPAI Quality Coding Scale 6 Independent with activity with or without an assistive device 5 Patient requires set up or clean up by helper. Patient completes activity by themselves 4 Supervision or touching assist (CGA). [place] provide cues , steadying assist 3 The helper provides less than half the effort to complete the activity 2 The helper provides more than half the effort to complete the activity 1 Dependent. The helper does all the effort to complete an activity 7 Patient refused to complete or attempt activity 9 The patient did not perform the activity before the current illness or injury 88 Not attempted due to Medical conditions or safety concerns Bathing (FIM): 1 (Completed all with SBA except 2 person assist to dry buttocks.) Upper Body (FIM): 5 Upper Body Dressing (QC): 4 Lower Body Dressing (FIM): 1 Toileting (FIM): 1 Transfers (B, C, W/C) (FIM): 2 Toilet/Commode Transfer (FIM): 2 Shower Transfer(FIM): 2 OT Short Term Goals Short Term Goals Time Frame: Jun 27, 2017 Lower Body Dressing(FIM): 2 Toileting(FIM): 2 Toilet/Commode Transfer(FIM): 2 Shower Transfer(FIM): 2 Additional Short Term Goals: 2-Verbalize Understanding, 3-ImproveStrength/Yris 1=Demonstrate adherence to instructed precautions during ADL tasks. 2=Patient will verbalize/demonstrate understanding of assistive devices/ modifications for ADL. 3=Patient will improve strength/tolerance for activity to enable patient to perform ADL's. OT Review Coordinator Goals Review Coordinator Goals Time Frame: Jul 11, 2017 Eating (FIM): 5 Eating (QC): 5 Groomin Oral Hygiene (QC): 5 Bathing(FIM): 4 Shower/Bathe Self (QC): 4 Upper Body Dressing(FIM): 5 Upper Body Dressing (QC): 5 Lower Body Dressing(FIM): 4 Lower Body Dressing (QC): 3 On/Off Footwear (QC): 4 Toileting(FIM): 4 Toileting Hygiene (QC): 4 Toilet/Commode Transfer(FIM): 4 Toilet/Commode Transfer (QC): 4 Shower Transfer(FIM): 4 Additional Goals: 1-Demonstrate ADL Tasks, 2-Verbalize Understanding, 3- ImproveStrength/Yris 1=Demonstrate adherence to instructed precautions during ADL tasks. 2=Patient will verbalize/demonstrate understanding of assistive devices/ modifications for ADL. 3=Patient will improve strength/tolerance for activity to enable patient to perform ADL's. OT Education/Plan Discharge Recommendations Plan/Recommendations: Continue POC Treatment Plan/Plan of Care Patient would benefit from OT for education, treatment and training to promote independence in ADL's, mobility, safety and/or upper extremity function for ADL' s. Plan of Care: ADL Retraining, Functional Mobility, Group Exercise/Act as Ind, UE Funct Exercise/Act Treatment Duration: Jul 11, 2017 Frequency: At least 5 of 7 days/Wk (IRF) Estimated Hrs Per Day: 1.5 hours per day Agreement: Yes Rehab Potential: Fair Time/GCodes Start Time: 07:58 Stop Time: 09:00 Total Time Billed (hr/min): 62 Billed Treatment Time 1 visit-ADL 3 (50 min) FA 1 (12 min) JAME SIERRA Jun 24, 2017 09:31
--- NOTE | 2017-06-24 10:05 | Physical Therapy Daily Note ---
PT Daily Note-Current Subjective Pt is sitting in wheelchair prior to PT (just finished with OT) and agreeable to tx. Pt is sitting in chair in room with nurse call, phone, tray, all needs met post tx. Pain Numeric Pain Scale: 6 Location Body Site: Generalized Pain Description: Ache Comment: arms, legs, feet Mental Status Patient Orientation: Normal For Age Transfers Functional [place] Measure 0=Not Assessed/NA 4=Minimal Assistance 1=Total Assistance 5=Supervision or Setup 2=Maximal Assistance 6=Modified [place] 3=Moderate Assistance 7=Complete IndependenceIRFPAI Quality Coding Scale 6 Independent with activity with or without an assistive device 5 Patient requires set up or clean up by helper. Patient completes activity by themselves 4 Supervision or touching assist (CGA). [place] provide cues , steadying assist 3 The helper provides less than half the effort to complete the activity 2 The helper provides more than half the effort to complete the activity 1 Dependent. The helper does all the effort to complete an activity 7 Patient refused to complete or attempt activity 9 The patient did not perform the activity before the current illness or injury 88 Not attempted due to Medical conditions or safety concerns Transfers (B, C, W/C) (FIM): 2 Scootin Sit to/from Stand: 3 Bed to/from Chair: 2 Pt completes squat pivot transfers with max assist. Pt requires verbal cues for hand placement, safety and sequencing. Exercises Seated Therapy Exercises: Sit to stand, Long arc quads, Hip flexion, Hip abd/ add, Glut set Seated Reps: 15 Standing: Sit to Stand Standing Reps: 4 NuStep Minutes: 15 NuStep Workload: 5 Treatments Pt completes seated exercises and tx on Nustep to increase functional LE strengthening and endurance. Pt completes 4 sit<>stands in parallel bars. Pt uses heel lift to allow patient to stand without excessive stretching of her bilateral plantarflexion contractures. Pt tolerates 45-60 seconds of standing each time. Patient tends to hyperextend knees, push hips out and leans backs, is verbally cued to bring hips in and stand up straight. Assessment Current Status: Good Progress Pt gets discouraged very easily, requires encouragement throughout treatment. Pt is very emotional and anxious throughout treatment, reports high levels of pain. PT Short Term Goals Short Term Goals Time Frame: Jun 27, 2017 Gait (FIM): 1 Distance (FIM): 1=up to 49 ft Wheelchair (FIM): 6 Wheelchair Level of Assist: 6 PT Fci Goals Molder Apprentice Goals PT Fci Goals Time Frame: Jul 11, 2017 Transfers (B,C,W/C) (FIM): 4 Sit to Lying (QC): 4 Lying-Sitting on Side/Bed(QC): 4 Sit to Stand (QC): 4 Rollin Roll Left to Right (QC): 4 Chair/Sye-su-Yyhwr Xfer(QC): 4 Car Transfer (QC): 4 Does the Patient Walk: No and Walking Goal IS indicated Gait (FIM): 2 Gait distance (FIM): 3=228-01 ft Distance: 50' Walk 10 feet (QC): 3 Walk 10ft-Uneven Surface(QC): 3 Walk 50ft with 2 Turns (QC): 3 Gait Level of Assist: 4 Gait Assistive Device: FWW PT Plan Problem List Problem List: Activity Tolerance, Functional Strength, Safety, Balance, Gait, Transfer, Bed Mobility, ROM Treatment/Plan Treatment Plan: Continue Plan of Care Treatment Plan: Bed Mobility, Education, Functional Activity Yris, Functional Strength, Group Therapy, Gait, Safety, Therapeutic Exercise, Transfers Treatment Duration: Jul 11, 2017 Frequency: At least 5 of 7 days/Wk (IRF) Estimated Hrs Per Day: 1.5 hours per day Patient and/or Family Agrees t: Yes Safety Risks/Education Patient Education: Transfer Techniques, Reviewed Precautions, Correct Positioning, W/C Management, Safety Issues Teaching Recipient: Patient Teaching Methods: Demonstration, Discussion Response to Teaching: Verbalize Understanding, Reinforcement Needed Time/GCodes Time In: 900 Time Out: 1001 Total Billed Treatment Time: 61 Total Billed Treatment 1 visit EX 20 FA 41 GERALDO FERRER PT Jun 24, 2017 10:05
[2017-06-24] MEDS: CARVEDILOL 6.25 MG (COREG) TAB PO SCH ×2 (10:07→20:23)
[2017-06-24 10:09] VITALS: BP 107/64
--- NOTE | 2017-06-24 14:16 | Occupational Ther Daily Note ---
OT Current Status-Daily Note Subjective Pt requested to use BSC. Pt agreed to therapy. Pt c/o pain in LE's and elbows , did not rate, asked for pain meds. Notified nrsg. Mental Status/Objective Patient Orientation: Person, Place, Time, Situation Functional [place] Measure 0=Not Assessed/NA 4=Minimal Assistance 1=Total Assistance 5=Supervision or Setup 2=Maximal Assistance 6=Modified [place] 3=Moderate Assistance 7=Complete [place] ADL-Treatment Functional [place] Measure 0=Not Assessed/NA 4=Minimal Assistance 1=Total Assistance 5=Supervision or Setup 2=Maximal Assistance 6=Modified [place] 3=Moderate Assistance 7=Complete IndependenceIRFPAI Quality Coding Scale 6 Independent with activity with or without an assistive device 5 Patient requires set up or clean up by helper. Patient completes activity by themselves 4 Supervision or touching assist (CGA). [place] provide cues , steadying assist 3 The helper provides less than half the effort to complete the activity 2 The helper provides more than half the effort to complete the activity 1 Dependent. The helper does all the effort to complete an activity 7 Patient refused to complete or attempt activity 9 The patient did not perform the activity before the current illness or injury 88 Not attempted due to Medical conditions or safety concerns Toileting (FIM): 1 (Pt requires assist x2 to manipulate clothing and cleanse self.) Toileting Hygiene (QC): 1 Toilet/Commode Transfer (FIM): 2 (Max A for transfers.) Other Treatment Massage to hands, wrist and forearms to decrease sensitivity and increase ROM. Pt had increased tone in ulnar side of palm of B hands. After therapy, pt sitting in w/c with late lunch in front of her. Call light/phone in reach. Nrsg present in room. All needs met in room. OT Short Term Goals Short Term Goals Time Frame: Jun 27, 2017 Lower Body Dressing(FIM): 2 Toileting(FIM): 2 Toilet/Commode Transfer(FIM): 2 Shower Transfer(FIM): 2 Additional Short Term Goals: 2-Verbalize Understanding, 3-ImproveStrength/Yris 1=Demonstrate adherence to instructed precautions during ADL tasks. 2=Patient will verbalize/demonstrate understanding of assistive devices/ modifications for ADL. 3=Patient will improve strength/tolerance for activity to enable patient to perform ADL's. OT Supervisor Liquid Yeast Goals Nursing Home Goals Time Frame: Jul 11, 2017 Eating (FIM): 5 Eating (QC): 5 Groomin Oral Hygiene (QC): 5 Bathing(FIM): 4 Shower/Bathe Self (QC): 4 Upper Body Dressing(FIM): 5 Upper Body Dressing (QC): 5 Lower Body Dressing(FIM): 4 Lower Body Dressing (QC): 3 On/Off Footwear (QC): 4 Toileting(FIM): 4 Toileting Hygiene (QC): 4 Toilet/Commode Transfer(FIM): 4 Toilet/Commode Transfer (QC): 4 Shower Transfer(FIM): 4 Additional Goals: 1-Demonstrate ADL Tasks, 2-Verbalize Understanding, 3- ImproveStrength/Yris 1=Demonstrate adherence to instructed precautions during ADL tasks. 2=Patient will verbalize/demonstrate understanding of assistive devices/ modifications for ADL. 3=Patient will improve strength/tolerance for activity to enable patient to perform ADL's. OT Education/Plan Discharge Recommendations Plan/Recommendations: Continue POC Treatment Plan/Plan of Care Patient would benefit from OT for education, treatment and training to promote independence in ADL's, mobility, safety and/or upper extremity function for ADL' s. Plan of Care: ADL Retraining, Functional Mobility, Group Exercise/Act as Ind, UE Funct Exercise/Act Treatment Duration: Jul 11, 2017 Frequency: At least 5 of 7 days/Wk (IRF) Estimated Hrs Per Day: 1.5 hours per day Agreement: Yes Rehab Potential: Fair Time/GCodes Start Time: 13:00 Stop Time: 13:30 Total Time Billed (hr/min): 30 Billed Treatment Time 1 visit-FA 2 (30 min) JAME SIERRA Jun 24, 2017 14:16
--- NOTE | 2017-06-24 14:56 | Physical Therapy Daily Note ---
PT Daily Note-Current Subjective Pt is sitting in chair prior to PT and agreeable to tx. Pt is lying in bed with nurse call, phone, tray, all needs met post tx. Mental Status Patient Orientation: Normal For Age Transfers Functional [place] Measure 0=Not Assessed/NA 4=Minimal Assistance 1=Total Assistance 5=Supervision or Setup 2=Maximal Assistance 6=Modified [place] 3=Moderate Assistance 7=Complete IndependenceIRFPAI Quality Coding Scale 6 Independent with activity with or without an assistive device 5 Patient requires set up or clean up by helper. Patient completes activity by themselves 4 Supervision or touching assist (CGA). [place] provide cues , steadying assist 3 The helper provides less than half the effort to complete the activity 2 The helper provides more than half the effort to complete the activity 1 Dependent. The helper does all the effort to complete an activity 7 Patient refused to complete or attempt activity 9 The patient did not perform the activity before the current illness or injury 88 Not attempted due to Medical conditions or safety concerns Transfers (B, C, W/C) (FIM): 2 Scootin Rollin Supine to/from Sit: 4 Bed to/from Chair: 3 Pt completes sliding board transfer with mod assist and verbal cues for hand placement and safety. Pt tends to let knees extend and slides forward in seat, requires guarding and in front of knees so they stay flexed. Pt completes sit<> supine with min assist. Exercises Supine Ex: Bridging, Ankle pumps, Quad Set, Rolling, Heel Slides, Short Arc Quads, Hip abd/add Supine Reps: 10 Seated Therapy Exercises: Long arc quads, Hip flexion, Hip abd/add, Glut set Seated Reps: 15 Treatments Patient completes sliding board transfers to increase functional mobility. Pt completes supine and seated exercises to increase functional LE strength. Assessment Current Status: Fair Progress Pt transfers are improving. Pts movements are very guarded and slow due to pain and fear of pain. Patient is anxious throughout treatment. PT Short Term Goals Short Term Goals Time Frame: Jun 27, 2017 Gait (FIM): 1 Distance (FIM): 1=up to 49 ft Wheelchair (FIM): 6 Wheelchair Level of Assist: 6 PT Alf Goals Box Estimator Goals PT Box Estimator Goals Time Frame: Jul 11, 2017 Transfers (B,C,W/C) (FIM): 4 Sit to Lying (QC): 4 Lying-Sitting on Side/Bed(QC): 4 Sit to Stand (QC): 4 Rollin Roll Left to Right (QC): 4 Chair/Erx-li-Wxjkk Xfer(QC): 4 Car Transfer (QC): 4 Does the Patient Walk: No and Walking Goal IS indicated Gait (FIM): 2 Gait distance (FIM): 5=684-96 ft Distance: 50' Walk 10 feet (QC): 3 Walk 10ft-Uneven Surface(QC): 3 Walk 50ft with 2 Turns (QC): 3 Gait Level of Assist: 4 Gait Assistive Device: FWW PT Plan Problem List Problem List: Activity Tolerance, Functional Strength, Safety, Balance, Gait, Transfer, Bed Mobility, ROM Treatment/Plan Treatment Plan: Continue Plan of Care Treatment Plan: Bed Mobility, Education, Functional Activity Yris, Functional Strength, Group Therapy, Gait, Safety, Therapeutic Exercise, Transfers Treatment Duration: Jul 11, 2017 Frequency: At least 5 of 7 days/Wk (IRF) Estimated Hrs Per Day: 1.5 hours per day Patient and/or Family Agrees t: Yes Safety Risks/Education Patient Education: Transfer Techniques, Reviewed Precautions, Correct Positioning, W/C Management, Safety Issues Teaching Recipient: Patient Teaching Methods: Demonstration, Discussion Response to Teaching: Verbalize Understanding, Reinforcement Needed Time/GCodes Time In: 1345 Time Out: 1414 Total Billed Treatment Time: 29 Total Billed Treatment 1 visit 15 EX 14 GERALDO CEJA PT Jun 24, 2017 14:55
[2017-06-24 18:27] VITALS: BP 121/61
[2017-06-24] MEDS: MELATONIN 3 MG TABLET PO SCH (20:23)
[2017-06-24] MEDS: MIRTAZAPINE 15 MG (REMERON) TAB PO SCH (20:23)
[2017-06-24] MEDS: traZODone 100 MG (DESYREL) TAB PO SCH (20:24)
[2017-06-24] MEDS: LIDODERM PATCH REMOVAL TP SCH (20:34)
[2017-06-25] MEDS: morphine (ROXINOL) 10 MG/0.5 ML oral conc 0.5 ML PO PRN (02:51)
[2017-06-25] MEDS: ALPRAZolam 1 MG (XANAX) TAB PO PRN ×3 (02:52→17:42)
[2017-06-25] MEDS: CYCLOBENZAPRINE 10 MG (FLEXERIL) TAB PO PRN ×2 (02:52→09:26)
[2017-06-25 05:06] VITALS: BP 111/70
[2017-06-25] MEDS: THIAMINE 100 MG (VITAMIN B-1) TAB PO SCH (05:56)
[2017-06-25] MEDS: ZINC SULFATE 220 MG CAPSULE PO SCH (05:56)
[2017-06-25] MEDS: morphine ER 15 MG (MS CONTIN) TAB PO SCH ×2 (05:56→20:38)
[2017-06-25] MEDS: MULTIVIT W/MINERALS TAB (THERAGRAN M) PO SCH (05:56)
--- NOTE | 2017-06-25 08:33 | Physical Therapy Daily Note ---
PT Daily Note-Current Subjective Pt was lying in bed prior to tx and agreeable to PT. Pt is in shower room with OT post tx, all needs met. Mental Status Patient Orientation: Normal For Age Transfers Functional [place] Measure 0=Not Assessed/NA 4=Minimal Assistance 1=Total Assistance 5=Supervision or Setup 2=Maximal Assistance 6=Modified [place] 3=Moderate Assistance 7=Complete IndependenceIRFPAI Quality Coding Scale 6 Independent with activity with or without an assistive device 5 Patient requires set up or clean up by helper. Patient completes activity by themselves 4 Supervision or touching assist (CGA). [place] provide cues , steadying assist 3 The helper provides less than half the effort to complete the activity 2 The helper provides more than half the effort to complete the activity 1 Dependent. The helper does all the effort to complete an activity 7 Patient refused to complete or attempt activity 9 The patient did not perform the activity before the current illness or injury 88 Not attempted due to Medical conditions or safety concerns Transfers (B, C, W/C) (FIM): 2 Scootin Supine to/from Sit: 4 Bed to/from Chair: 2 Pt completes squat pivot transfers and sliding board transfers with max assist. Pt requires verbal cues for hand placement and safety. Pt tends to let knees straighten with transfer, requires close guarding. Exercises Seated Therapy Exercises: Long arc quads Seated Reps: 5 (5 min) Treatments Pt completes transfer training and 5 min LAQ for functional strengthening. Assessment Current Status: Fair Progress Pt is anxious with transfers, requires encouragement to assist with transfers. She tends to extend her knees during transfers, making them much harder. PT Short Term Goals Short Term Goals Time Frame: Jun 27, 2017 Gait (FIM): 1 Distance (FIM): 1=up to 49 ft Wheelchair (FIM): 6 Wheelchair Level of Assist: 6 PT Detention Goals Mannequin Sander And Finisher Goals PT Mannequin Sander And Finisher Goals Time Frame: Jul 11, 2017 Transfers (B,C,W/C) (FIM): 4 Sit to Lying (QC): 4 Lying-Sitting on Side/Bed(QC): 4 Sit to Stand (QC): 4 Rollin Roll Left to Right (QC): 4 Chair/Afn-qw-Rvlad Xfer(QC): 4 Car Transfer (QC): 4 Does the Patient Walk: No and Walking Goal IS indicated Gait (FIM): 2 Gait distance (FIM): 4=342-82 ft Distance: 50' Walk 10 feet (QC): 3 Walk 10ft-Uneven Surface(QC): 3 Walk 50ft with 2 Turns (QC): 3 Gait Level of Assist: 4 Gait Assistive Device: FWW PT Plan Problem List Problem List: Activity Tolerance, Functional Strength, Safety, Balance, Gait, Transfer, Bed Mobility, ROM Treatment/Plan Treatment Plan: Continue Plan of Care Treatment Plan: Bed Mobility, Education, Functional Activity Yris, Functional Strength, Group Therapy, Gait, Safety, Therapeutic Exercise, Transfers Treatment Duration: Jul 11, 2017 Frequency: At least 5 of 7 days/Wk (IRF) Estimated Hrs Per Day: 1.5 hours per day Patient and/or Family Agrees t: Yes Safety Risks/Education Patient Education: Transfer Techniques, Reviewed Precautions, Correct Positioning, W/C Management, Safety Issues Teaching Recipient: Patient Teaching Methods: Demonstration, Discussion Response to Teaching: Verbalize Understanding, Reinforcement Needed Time/GCodes Time In: 800 Time Out: 829 Total Billed Treatment Time: 29 Total Billed Treatment 1 visit 29 GERALDO CEJA PT Jun 25, 2017 08:33
--- NOTE | 2017-06-25 08:40 | Progress Note (SOAP) ---
Subjective Time Seen by Provider: 08:40 Subjective/Events-last exam Camila Poe. Patient improving with upper body and extremities Objective Exam Vital Signs Date Time Temp Pulse Resp B/P (MAP) Pulse Ox O2 Delivery O2 Flow Rate FiO2 06/25/17 05:06 98.9 107 20 111/70 92 Room Air 06/24/17 21:05 Room Air 06/24/17 18:27 98.5 113 16 121/61 98 06/24/17 10:09 116 107/64 06/24/17 09:12 Room Air Capillary Refill : General Appearance: No Apparent Distress, Thin Assessment/Plan Assessment/Plan Assess & Plan/Chief Complaint 06/24/17. Patient doing better with therapy o of upper extremities. Camila Poe. History of hallucinations. Patient legs needs more work. . 06/25/17. Camila Poe.. Upper extremity therapy improving Clinical Quality Measures DVT/VTE Risk/Contraindication: Risk Factor Score Per Nursin RFS Level Per Nursing on Admit: 2=Moderate AFSANEH QUIJANO DO Jun 25, 2017 08:40
[2017-06-25] MEDS ORDERED: morphine (ROXINOL) 10 MG/0.5 ML oral conc 0.5 ML PO PRN (08:45)
[2017-06-25] MEDS: SENNA W/DOCUSATE (SENOKOT S) TABLET PO SCH ×2 (09:24→20:37)
[2017-06-25] MEDS: GABAPENTIN 600 MG (NEURONTIN) TAB PO SCH ×3 (09:24→20:38)
[2017-06-25] MEDS: ARIPIPRAZOLE 2 MG (ABILIFY) TAB PO SCH (09:26)
[2017-06-25] MEDS: FOLIC ACID 1 MG TAB PO SCH (09:26)
[2017-06-25] MEDS: LIDOCAINE (LIDODERM) 5% PATCH TOP SCH (09:26)
[2017-06-25] MEDS: ASCORBIC ACID (VIT C) 500 MG TABLET PO SCH ×2 (09:26→20:38)
[2017-06-25] MEDS: CARVEDILOL 6.25 MG (COREG) TAB PO SCH ×2 (09:26→20:40)
[2017-06-25] MEDS: POLYETHYLENE GLYCOL 17 GM (MIRALAX) PACK PO SCH ×3 (09:26→20:38)
[2017-06-25] MEDS: PYRIDOXINE (VITAMIN B-6) 50 MG TABLET PO SCH (09:26)
[2017-06-25] MEDS: VITAMIN E 400 INTLU CAP PO SCH (09:26)
[2017-06-25] MEDS: BETAMETHASONE/CLOTRIM CREAM (LOTRISONE) 45 GM TP SCH ×2 (09:27→20:39)
--- NOTE | 2017-06-25 10:27 | Occupational Ther Daily Note ---
OT Current Status-Daily Note Subjective Pt finishing up with PT. Pt agreed to therapy. No c/o pain at this time. Pt perseverated on when she gets her pain meds. Physician discussed with pt pain meds which upset pt. Attempted to calm pt down, pt would not calm down. Mental Status/Objective Patient Orientation: Person, Place, Time, Situation Functional [place] Measure 0=Not Assessed/NA 4=Minimal Assistance 1=Total Assistance 5=Supervision or Setup 2=Maximal Assistance 6=Modified [place] 3=Moderate Assistance 7=Complete [place] ADL-Treatment Pt took bath in walk-in tub. Used sandra lift to get pt in tub. Pt was able to bathe self and shampoo hair while in tub. Pt dried upper body and upper legs, assist to dry rest of body. Pt doffed socks and shirt by self, assist to don/ doff pants and don socks. Pt was able to brush hair. Pt was able to tolerate tub well and stated that it relaxed her. Nrsg came in to give pt meds and discuss physicians plan for pain meds. Pt was very upset, attempted to explain to pt that she needed to think about how she felt now not about when she should get her pain meds in the future. This did not distract pt. Massage to feet to decrease tightness. Decrease in tightness area after massage. After therapy, pt sitting in recliner with call light/phone in reach. All needs met in room. Functional [place] Measure 0=Not Assessed/NA 4=Minimal Assistance 1=Total Assistance 5=Supervision or Setup 2=Maximal Assistance 6=Modified [place] 3=Moderate Assistance 7=Complete IndependenceIRFPAI Quality Coding Scale 6 Independent with activity with or without an assistive device 5 Patient requires set up or clean up by helper. Patient completes activity by themselves 4 Supervision or touching assist (CGA). [place] provide cues , steadying assist 3 The helper provides less than half the effort to complete the activity 2 The helper provides more than half the effort to complete the activity 1 Dependent. The helper does all the effort to complete an activity 7 Patient refused to complete or attempt activity 9 The patient did not perform the activity before the current illness or injury 88 Not attempted due to Medical conditions or safety concerns Bathing (FIM): 3 Bathing Location: L Arm, R Arm, L Upper Leg, R Upper Leg, Chest, Abdomen, Buttocks, Perineal Area Upper Body (FIM): 5 Lower Body Dressing (FIM): 1 On/Off Footwear (QC): 1 Transfers (B, C, W/C) (FIM): 2 Shower Transfer(FIM): 1 OT Short Term Goals Short Term Goals Time Frame: Jun 27, 2017 Lower Body Dressing(FIM): 2 Toileting(FIM): 2 Toilet/Commode Transfer(FIM): 2 Shower Transfer(FIM): 2 Additional Short Term Goals: 2-Verbalize Understanding, 3-ImproveStrength/Yris 1=Demonstrate adherence to instructed precautions during ADL tasks. 2=Patient will verbalize/demonstrate understanding of assistive devices/ modifications for ADL. 3=Patient will improve strength/tolerance for activity to enable patient to perform ADL's. OT Funeral Greeter Goals Correction Goals Time Frame: Jul 11, 2017 Eating (FIM): 5 Eating (QC): 5 Groomin Oral Hygiene (QC): 5 Bathing(FIM): 4 Shower/Bathe Self (QC): 4 Upper Body Dressing(FIM): 5 Upper Body Dressing (QC): 5 Lower Body Dressing(FIM): 4 Lower Body Dressing (QC): 3 On/Off Footwear (QC): 4 Toileting(FIM): 4 Toileting Hygiene (QC): 4 Toilet/Commode Transfer(FIM): 4 Toilet/Commode Transfer (QC): 4 Shower Transfer(FIM): 4 Additional Goals: 1-Demonstrate ADL Tasks, 2-Verbalize Understanding, 3- ImproveStrength/Yris 1=Demonstrate adherence to instructed precautions during ADL tasks. 2=Patient will verbalize/demonstrate understanding of assistive devices/ modifications for ADL. 3=Patient will improve strength/tolerance for activity to enable patient to perform ADL's. OT Education/Plan Discharge Recommendations Plan/Recommendations: Continue POC Treatment Plan/Plan of Care Patient would benefit from OT for education, treatment and training to promote independence in ADL's, mobility, safety and/or upper extremity function for ADL' s. Plan of Care: ADL Retraining, Functional Mobility, Group Exercise/Act as Ind, UE Funct Exercise/Act Treatment Duration: Jul 11, 2017 Frequency: At least 5 of 7 days/Wk (IRF) Estimated Hrs Per Day: 1.5 hours per day Agreement: Yes Rehab Potential: Fair Time/GCodes Start Time: 08:30 Stop Time: 10:00 Total Time Billed (hr/min): 90 Billed Treatment Time 1 visit-ADL 5 (75 min) FA 1 (15 min) JAME SIERRA Jun 25, 2017 10:26
--- NOTE | 2017-06-25 10:32 | Physical Therapy Daily Note ---
PT Daily Note-Current Subjective Pt is sitting up in wheelchair, crying upon PT entrance to room. Pt reports high levels of pain throughout entire body. Pt is lying in bed post tx, with nurse call, phone, tray,all needs met post tx. Pain Numeric Pain Scale: 6 Location Body Site: Generalized Pain Description: Ache Mental Status Patient Orientation: Normal For Age Transfers Functional [place] Measure 0=Not Assessed/NA 4=Minimal Assistance 1=Total Assistance 5=Supervision or Setup 2=Maximal Assistance 6=Modified [place] 3=Moderate Assistance 7=Complete IndependenceIRFPAI Quality Coding Scale 6 Independent with activity with or without an assistive device 5 Patient requires set up or clean up by helper. Patient completes activity by themselves 4 Supervision or touching assist (CGA). [place] provide cues , steadying assist 3 The helper provides less than half the effort to complete the activity 2 The helper provides more than half the effort to complete the activity 1 Dependent. The helper does all the effort to complete an activity 7 Patient refused to complete or attempt activity 9 The patient did not perform the activity before the current illness or injury 88 Not attempted due to Medical conditions or safety concerns Transfers (B, C, W/C) (FIM): 2 Scootin Supine to/from Sit: 4 Bed to/from Chair: 2 Pt completes transfers with max assist. Pt tends to extend knees with transfers , requires guarding by PT. Pt requires verbal cues for hand placement. Exercises NuStep Minutes: 10 NuStep Workload: 5 Treatments Pt completes transfer training and tx on Nustep to increase functional strength and endurance. Assessment Current Status: Fair Progress Pt is very anxious, emotional throughout treatment, states "I just want to be normal again." PT Short Term Goals Short Term Goals Time Frame: Jun 27, 2017 Gait (FIM): 1 Distance (FIM): 1=up to 49 ft Wheelchair (FIM): 6 Wheelchair Level of Assist: [address] Goals Longterm Goals PT Longterm Goals Time Frame: Jul 11, 2017 Transfers (B,C,W/C) (FIM): 4 Sit to Lying (QC): 4 Lying-Sitting on Side/Bed(QC): 4 Sit to Stand (QC): 4 Rollin Roll Left to Right (QC): 4 Chair/Emq-wp-Pdagz Xfer(QC): 4 Car Transfer (QC): 4 Does the Patient Walk: No and Walking Goal IS indicated Gait (FIM): 2 Gait distance (FIM): 6=797-30 ft Distance: 50' Walk 10 feet (QC): 3 Walk 10ft-Uneven Surface(QC): 3 Walk 50ft with 2 Turns (QC): 3 Gait Level of Assist: 4 Gait Assistive Device: FWW PT Plan Problem List Problem List: Activity Tolerance, Functional Strength, Safety, Balance, Gait, Transfer, Bed Mobility, ROM Treatment/Plan Treatment Plan: Continue Plan of Care Treatment Plan: Bed Mobility, Education, Functional Activity Yris, Functional Strength, Group Therapy, Gait, Safety, Therapeutic Exercise, Transfers Treatment Duration: Jul 11, 2017 Frequency: At least 5 of 7 days/Wk (IRF) Estimated Hrs Per Day: 1.5 hours per day Patient and/or Family Agrees t: Yes Safety Risks/Education Patient Education: Transfer Techniques, Reviewed Precautions, Correct Positioning, W/C Management, Safety Issues Teaching Recipient: Patient Teaching Methods: Demonstration, Discussion Response to Teaching: Verbalize Understanding, Reinforcement Needed Time/GCodes Time In: 1000 Time Out: 1031 Total Billed Treatment Time: 31 Total Billed Treatment 1 visit 10 EX 21 FA GERALDO FERRER PT Jun 25, 2017 10:32
[2017-06-25] MEDS: HYDROcodone/APAP 10 MG/325 MG (LORTAB) TAB PO PRN ×2 (14:49→19:52)
--- NOTE | 2017-06-25 15:43 | Therapy Group Daily Note ---
Therapy Daily Group Note Patient Education Topic Fall Prevention Exercises LE Seated Exercise, UE Exercise Other/Notes Pt was an active participant in OT/PT group. She introduced herself by sharing a story about a personal fall. She contributed to education/discussion about fall risks and ways to prevent falls. At the end of the group, she was able to identify steps he will take to be safer from falls when she goes home. She also did seated UE and LE exercises to strengthen arms and legs for decreasing risks of falling. She was wheeled back to room in [facility], SPT into bed at Mod A, and is resting with alarm on, all needs met. Start Time: 13:00 Stop Time: 14:20 Total Billed Treatment Time: 80 Total Billed Treatment visit, FAZAL MCNULTY IV TECHNICIAN Jun 25, 2017 15:43
[2017-06-25 17:00] VITALS: BP 105/65
[2017-06-25] MEDS: MELATONIN 3 MG TABLET PO SCH (20:37)
[2017-06-25] MEDS: MIRTAZAPINE 15 MG (REMERON) TAB PO SCH (20:37)
[2017-06-25] MEDS: traZODone 100 MG (DESYREL) TAB PO SCH (20:38)
[2017-06-25] MEDS: LIDODERM PATCH REMOVAL TP SCH (20:39)
[2017-06-26] MEDS: HYDROcodone/APAP 10 MG/325 MG (LORTAB) TAB PO PRN ×5 (01:00→19:55)
[2017-06-26] MEDS: ALPRAZolam 1 MG (XANAX) TAB PO PRN ×3 (03:07→19:55)
[2017-06-26] MEDS: CYCLOBENZAPRINE 10 MG (FLEXERIL) TAB PO PRN ×3 (03:07→23:28)
[2017-06-26 04:48] VITALS: BP 101/63
[2017-06-26] MEDS: THIAMINE 100 MG (VITAMIN B-1) TAB PO SCH (05:43)
[2017-06-26] MEDS: MULTIVIT W/MINERALS TAB (THERAGRAN M) PO SCH (05:43)
[2017-06-26] MEDS: ZINC SULFATE 220 MG CAPSULE PO SCH (05:43)
[2017-06-26] MEDS: VITAMIN E 400 INTLU CAP PO SCH (08:22)
[2017-06-26] MEDS: GABAPENTIN 600 MG (NEURONTIN) TAB PO SCH ×3 (08:22→20:58)
[2017-06-26] MEDS: PYRIDOXINE (VITAMIN B-6) 50 MG TABLET PO SCH (08:22)
[2017-06-26] MEDS: morphine ER 15 MG (MS CONTIN) TAB PO SCH ×2 (08:23→20:58)
[2017-06-26] MEDS: ASCORBIC ACID (VIT C) 500 MG TABLET PO SCH ×2 (08:23→20:57)
[2017-06-26] MEDS: ARIPIPRAZOLE 2 MG (ABILIFY) TAB PO SCH (08:23)
[2017-06-26] MEDS: FOLIC ACID 1 MG TAB PO SCH (08:23)
[2017-06-26] MEDS: CARVEDILOL 6.25 MG (COREG) TAB PO SCH ×2 (08:23→20:58)
[2017-06-26] MEDS: SENNA W/DOCUSATE (SENOKOT S) TABLET PO SCH ×2 (08:23→20:57)
[2017-06-26] MEDS: POLYETHYLENE GLYCOL 17 GM (MIRALAX) PACK PO SCH ×2 (08:24→20:58)
[2017-06-26] MEDS: LIDOCAINE (LIDODERM) 5% PATCH TOP SCH (08:24)
[2017-06-26] MEDS: BETAMETHASONE/CLOTRIM CREAM (LOTRISONE) 45 GM TP SCH ×2 (08:25→20:59)
--- NOTE | 2017-06-26 08:46 | Progress Note (SOAP) ---
Subjective Time Seen by Provider: 08:30 Subjective/Events-last exam Camila Poe. Patient happy today. Patient's thought processes better. Patient not complaining of severe pain Objective Exam Vital Signs Date Time Temp Pulse Resp B/P (MAP) Pulse Ox O2 Delivery O2 Flow Rate FiO2 06/26/17 08:19 99 18 100 Room Air 06/26/17 04:48 98.8 104 18 101/63 96 Room Air 06/25/17 21:21 Room Air 06/25/17 17:00 97.8 109 18 105/65 96 Room Air 06/25/17 09:41 Room Air Capillary Refill : General Appearance: No Apparent Distress, Thin Assessment/Plan Assessment/Plan Assess & Plan/Chief Complaint 06/24/17. Patient doing better with therapy o of upper extremities. Camila Poe. History of hallucinations. Patient legs needs more work. . 06/25/17. Camila Poe.. Upper extremity therapy improving. . 06/26/17. Patient positive today. Patient not complaining of much pain. Patient happy. Patient a work in progress Clinical Quality Measures DVT/VTE Risk/Contraindication: Risk Factor Score Per Nursin RFS Level Per Nursing on Admit: 2=Moderate AFSANEH QUIJANO DO Jun 26, 2017 08:46
--- NOTE | 2017-06-26 09:36 | Physical Therapy Daily Note ---
PT Daily Note-Current Subjective Pt is lying in bed prior to tx and agreeable to PT. Pt reports 4/10 throughout both LEs. Pt is sitting in wheelchair in room (has OT next) with nurse call, phone, tray, all needs met post tx. Pain Numeric Pain Scale: 4 Location Body Site: Calf Pain Description: Ache Comment: 4/10 throughout both LEs Mental Status Patient Orientation: Normal For Age Transfers Functional [place] Measure 0=Not Assessed/NA 4=Minimal Assistance 1=Total Assistance 5=Supervision or Setup 2=Maximal Assistance 6=Modified [place] 3=Moderate Assistance 7=Complete IndependenceIRFPAI Quality Coding Scale 6 Independent with activity with or without an assistive device 5 Patient requires set up or clean up by helper. Patient completes activity by themselves 4 Supervision or touching assist (CGA). [place] provide cues , steadying assist 3 The helper provides less than half the effort to complete the activity 2 The helper provides more than half the effort to complete the activity 1 Dependent. The helper does all the effort to complete an activity 7 Patient refused to complete or attempt activity 9 The patient did not perform the activity before the current illness or injury 88 Not attempted due to Medical conditions or safety concerns Transfers (B, C, W/C) (FIM): 2 Rollin Supine to/from Sit: 4 Bed to/from Chair: 2 Pt completes squat pivot transfer with max assist. Pt requires verbal cues for hand placement and sequencing. Pt completes rolling and supine<>sit with min assist. Exercises Standing: Sit to Stand Standing Reps: 4 Treatments Pt is dressed (upper and lower body) prior to tx. Pt completes 4 sit to stands in parallel bars with foam wedges under heels to prevent excessive stretch of plantarflexion contractures with standing. Pt tolerates 90-120 seconds of standing each time. Pt requires verbal cues to lean forward, shift weight over legs and bring hips in, patient has tendency to lean back and stick hips out posteriorly. Assessment Current Status: Fair Progress Patient is improving with standing in parallel bars. Patient is in higher spirits this morning, reports pain but is able to tolerate it better. PT Short Term Goals Short Term Goals Time Frame: Jun 27, 2017 Gait (FIM): 1 Distance (FIM): 1=up to 49 ft Wheelchair (FIM): 6 Wheelchair Level of Assist: 6 PT Grocery Caddy Goals Grocery Caddy Goals PT Chcf Goals Time Frame: Jul 11, 2017 Transfers (B,C,W/C) (FIM): 4 Sit to Lying (QC): 4 Lying-Sitting on Side/Bed(QC): 4 Sit to Stand (QC): 4 Rollin Roll Left to Right (QC): 4 Chair/Bnr-nn-Nwxor Xfer(QC): 4 Car Transfer (QC): 4 Does the Patient Walk: No and Walking Goal IS indicated Gait (FIM): 2 Gait distance (FIM): 8=863-66 ft Distance: 50' Walk 10 feet (QC): 3 Walk 10ft-Uneven Surface(QC): 3 Walk 50ft with 2 Turns (QC): 3 Gait Level of Assist: 4 Gait Assistive Device: FWW PT Plan Problem List Problem List: Activity Tolerance, Functional Strength, Safety, Balance, Gait, Transfer, Bed Mobility, ROM Treatment/Plan Treatment Plan: Continue Plan of Care Treatment Plan: Bed Mobility, Education, Functional Activity Yris, Functional Strength, Group Therapy, Gait, Safety, Therapeutic Exercise, Transfers Treatment Duration: Jul 11, 2017 Frequency: At least 5 of 7 days/Wk (IRF) Estimated Hrs Per Day: 1.5 hours per day Patient and/or Family Agrees t: Yes Safety Risks/Education Patient Education: Transfer Techniques, Reviewed Precautions, Correct Positioning, W/C Management, Safety Issues Teaching Recipient: Patient Teaching Methods: Demonstration, Discussion Response to Teaching: Verbalize Understanding, Reinforcement Needed Time/GCodes Time In: 830 Time Out: 858 Total Billed Treatment Time: 28 Total Billed Treatment 1 visit FA 28 GERALDO FERRER PT Jun 26, 2017 09:36
--- NOTE | 2017-06-26 10:13 | Occupational Ther Daily Note ---
OT Current Status-Daily Note Subjective Pt alert, sitting up in w/c. EDWARD took over care from PT. Pt agreed to therapy. C/o pain in hands and feet, pt became tearful. Did not rate pain. Mental Status/Objective Patient Orientation: Person, Place, Time, Situation Functional [place] Measure 0=Not Assessed/NA 4=Minimal Assistance 1=Total Assistance 5=Supervision or Setup 2=Maximal Assistance 6=Modified [place] 3=Moderate Assistance 7=Complete [place] ADL-Treatment Functional [place] Measure 0=Not Assessed/NA 4=Minimal Assistance 1=Total Assistance 5=Supervision or Setup 2=Maximal Assistance 6=Modified [place] 3=Moderate Assistance 7=Complete IndependenceIRFPAI Quality Coding Scale 6 Independent with activity with or without an assistive device 5 Patient requires set up or clean up by helper. Patient completes activity by themselves 4 Supervision or touching assist (CGA). [place] provide cues , steadying assist 3 The helper provides less than half the effort to complete the activity 2 The helper provides more than half the effort to complete the activity 1 Dependent. The helper does all the effort to complete an activity 7 Patient refused to complete or attempt activity 9 The patient did not perform the activity before the current illness or injury 88 Not attempted due to Medical conditions or safety concerns Other Treatment Pt transported to therapy gym via w/c. Pt completed arm bike duration 8 min at 15 drummond resistance (1 break) to increase strength and activity tolerance. MHP completed to increase ROM and decrease pain. Massage to hands after. Tightness in hands appeared decreased, tenderness in hands decreased, increased digit extension noted. OT Short Term Goals Short Term Goals Time Frame: Jun 27, 2017 Lower Body Dressing(FIM): 2 Toileting(FIM): 2 Toilet/Commode Transfer(FIM): 2 Shower Transfer(FIM): 2 Additional Short Term Goals: 2-Verbalize Understanding, 3-ImproveStrength/Yris 1=Demonstrate adherence to instructed precautions during ADL tasks. 2=Patient will verbalize/demonstrate understanding of assistive devices/ modifications for ADL. 3=Patient will improve strength/tolerance for activity to enable patient to perform ADL's. OT Detention Goals Detention Goals Time Frame: Jul 11, 2017 Eating (FIM): 5 Eating (QC): 5 Groomin Oral Hygiene (QC): 5 Bathing(FIM): 4 Shower/Bathe Self (QC): 4 Upper Body Dressing(FIM): 5 Upper Body Dressing (QC): 5 Lower Body Dressing(FIM): 4 Lower Body Dressing (QC): 3 On/Off Footwear (QC): 4 Toileting(FIM): 4 Toileting Hygiene (QC): 4 Toilet/Commode Transfer(FIM): 4 Toilet/Commode Transfer (QC): 4 Shower Transfer(FIM): 4 Additional Goals: 1-Demonstrate ADL Tasks, 2-Verbalize Understanding, 3- ImproveStrength/Yris 1=Demonstrate adherence to instructed precautions during ADL tasks. 2=Patient will verbalize/demonstrate understanding of assistive devices/ modifications for ADL. 3=Patient will improve strength/tolerance for activity to enable patient to perform ADL's. OT Education/Plan Discharge Recommendations Plan/Recommendations: Continue POC Treatment Plan/Plan of Care Patient would benefit from OT for education, treatment and training to promote independence in ADL's, mobility, safety and/or upper extremity function for ADL' s. Plan of Care: ADL Retraining, Functional Mobility, Group Exercise/Act as Ind, UE Funct Exercise/Act Treatment Duration: Jul 11, 2017 Frequency: At least 5 of 7 days/Wk (IRF) Estimated Hrs Per Day: 1.5 hours per day Agreement: Yes Rehab Potential: Fair Time/GCodes Start Time: 09:00 Stop Time: 09:56 Total Time Billed (hr/min): 56 Billed Treatment Time 1 visit-FA 3 (45 min) EX 1 (11 min) JAME SIERRA Jun 26, 2017 10:13
[2017-06-26 11:25] LABS: RED BLOOD COUNT 2.79 10^6/uL (4.35-5.85); WHITE BLOOD COUNT 7.7 10^3/uL (4.3-11.0)
[2017-06-26 11:42] LABS: ANION GAP 6 MMOL/L (5-14); BLOOD UREA NITROGEN 10 MG/DL (7-18); BUN/CREATININE RATIO 16; CALCIUM 10.8 MG/DL (8.5-10.1); CARBON DIOXIDE 28 MMOL/L (21-32); CHLORIDE 105 MMOL/L (98-107); CREATININE SERUM 0.63 MG/DL (0.60-1.30); GFR ESTIMATED > 60; GLUCOSE 94 MG/DL (70-105); POTASSIUM 3.5 MMOL/L (3.6-5.0); SODIUM 139 MMOL/L (135-145)
--- NOTE | 2017-06-26 12:17 | Physical Therapy Daily Note ---
PT Daily Note-Current Subjective Pt laying in bed trying to use bed salazar upon arrival. Pt agrees to PT. Pt reports varying pain due to dx. Pain Numeric Pain Scale: 7 Location: Right, Left Location Body Site: Foot Pain Description: Ache, Cramping Mental Status Patient Orientation: Person, Place, Situation Transfers Functional [place] Measure 0=Not Assessed/NA 4=Minimal Assistance 1=Total Assistance 5=Supervision or Setup 2=Maximal Assistance 6=Modified [place] 3=Moderate Assistance 7=Complete IndependenceIRFPAI Quality Coding Scale 6 Independent with activity with or without an assistive device 5 Patient requires set up or clean up by helper. Patient completes activity by themselves 4 Supervision or touching assist (CGA). [place] provide cues , steadying assist 3 The helper provides less than half the effort to complete the activity 2 The helper provides more than half the effort to complete the activity 1 Dependent. The helper does all the effort to complete an activity 7 Patient refused to complete or attempt activity 9 The patient did not perform the activity before the current illness or injury 88 Not attempted due to Medical conditions or safety concerns Scootin Rollin Roll Left to Right (QC): 3 Supine to/from Sit: 4 Sit to/from Stand: 2 Sit to Lying (QC): 4 Sit to Stand (QC): 2 Chair/Hvm-ku-Sabjr Xfer(QC): 2 Bed to/from Chair: 2 Weight Bearing Right Lower Extremity: Right Weight Bearing/Tolerated Left Lower Extremity: Left Weight Bearing/Tolerated Wheelchair Training Does the Pt Use a Wheelchair?: Yes Wheelchair Distance: 3=150 ft Distance: 150' Wheelchair Level of Assist: 2 Wheel 50 ft with 2 turns (QC): 2 Wheel 150 ft (QC): 2 Type of Wheelchair: Manual Treatments Pt is laying on bed salazar upon arrival. Pt is able to turn on side to remove bed salazar after use. Pt can roll side to side with time and at Mod A. Pt transfers from Supine to EOB at Min A but is Mod-Max A from EOB to Standing. Pt cannot propel [facility] due to lack of feeling in hands. Pt transfers from [facility] to mat at Mod -Max A. PT stretches pt's feet due to PF contractures. Pt returns to [facility] to return to room. Pt transfers back to bed at Mod-Max A to rest and eat lunch. Pt resting sitting up in bed with all needs met at end of tx. Assessment Current Status: Fair Progress tearful during tx and reports increased pain and cramping especially in feet. Pt can transfer from Supine to EOB with some assistance but requires much more to stand from seated surface. PT Short Term Goals Short Term Goals Time Frame: Jun 27, 2017 Gait (FIM): 1 Distance (FIM): 1=up to 49 ft Wheelchair (FIM): 6 Wheelchair Level of Assist: 6 PT Cutter Tender Goals Fpc Goals PT Fpc Goals Time Frame: Jul 11, 2017 Transfers (B,C,W/C) (FIM): 4 Sit to Lying (QC): 4 Lying-Sitting on Side/Bed(QC): 4 Sit to Stand (QC): 4 Rollin Roll Left to Right (QC): 4 Chair/Mbt-wl-Nptno Xfer(QC): 4 Car Transfer (QC): 4 Does the Patient Walk: No and Walking Goal IS indicated Gait (FIM): 2 Gait distance (FIM): 4=192-55 ft Distance: 50' Walk 10 feet (QC): 3 Walk 10ft-Uneven Surface(QC): 3 Walk 50ft with 2 Turns (QC): 3 Gait Level of Assist: 4 Gait Assistive Device: FWW PT Plan Problem List Problem List: Activity Tolerance, Functional Strength, Safety, Balance, Gait, Transfer, Bed Mobility Treatment/Plan Treatment Plan: Continue Plan of Care Treatment Plan: Bed Mobility, Education, Functional Activity Yris, Functional Strength, Group Therapy, Gait, Safety, Therapeutic Exercise, Transfers Treatment Duration: Jul 11, 2017 Frequency: At least 5 of 7 days/Wk (IRF) Estimated Hrs Per Day: 1.5 hours per day Patient and/or Family Agrees t: Yes Safety Risks/Education Patient Education: Gait Training, Transfer Techniques, Correct Positioning, Safety Issues Teaching Recipient: Patient Teaching Methods: Discussion Response to Teaching: Verbalize Understanding Time/GCodes Time In: 1045 Time Out: 1130 Total Billed Treatment Time: 45 Total Billed Treatment visit, FA x3 (45m) FAZAL HENSLEY PTA Jun 26, 2017 12:17
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
--- NOTE | 2017-06-26 13:55 | Occupational Ther Daily Note ---
OT Current Status-Daily Note Subjective Pt lying in bed. Nrsg students present in room. Pt c/o pain 5/10 in feet and pins/needle feeling going up B LE's. Pt agreed to therapy. Mental Status/Objective Patient Orientation: Person, Place, Time, Situation Functional [place] Measure 0=Not Assessed/NA 4=Minimal Assistance 1=Total Assistance 5=Supervision or Setup 2=Maximal Assistance 6=Modified [place] 3=Moderate Assistance 7=Complete [place] ADL-Treatment Pt able to go from supine to sitting EOB with min A and HOB raised. Max A for stand pivot transfer. Transported pt via w/c to therapy gym. Paraffin bath completed to hands and feet to decrease pain and increase ROM. Massage to each after paraffin off. Increased ROM noted and decreased pain. Pt reported no hand pain and feet decreased to 2/10 rated pain. Pt then requested to use BSC. Pt assist x2 to manipulate clothing. Pt able to cleanse self when seated for toileting. Max A for stand pivot transfer. After therapy, pt sitting in w/c with call light/phone in reach. All needs met in room. Functional [place] Measure 0=Not Assessed/NA 4=Minimal Assistance 1=Total Assistance 5=Supervision or Setup 2=Maximal Assistance 6=Modified [place] 3=Moderate Assistance 7=Complete IndependenceIRFPAI Quality Coding Scale 6 Independent with activity with or without an assistive device 5 Patient requires set up or clean up by helper. Patient completes activity by themselves 4 Supervision or touching assist (CGA). [place] provide cues , steadying assist 3 The helper provides less than half the effort to complete the activity 2 The helper provides more than half the effort to complete the activity 1 Dependent. The helper does all the effort to complete an activity 7 Patient refused to complete or attempt activity 9 The patient did not perform the activity before the current illness or injury 88 Not attempted due to Medical conditions or safety concerns Toileting (FIM): 1 Toileting Hygiene (QC): 1 Transfers (B, C, W/C) (FIM): 2 Toilet/Commode Transfer (FIM): 2 OT Short Term Goals Short Term Goals Time Frame: Jun 27, 2017 Lower Body Dressing(FIM): 2 Toileting(FIM): 2 Toilet/Commode Transfer(FIM): 2 Shower Transfer(FIM): 2 Additional Short Term Goals: 2-Verbalize Understanding, 3-ImproveStrength/Yris 1=Demonstrate adherence to instructed precautions during ADL tasks. 2=Patient will verbalize/demonstrate understanding of assistive devices/ modifications for ADL. 3=Patient will improve strength/tolerance for activity to enable patient to perform ADL's. OT Tier In Goals Fpc Goals Time Frame: Jul 11, 2017 Eating (FIM): 5 Eating (QC): 5 Groomin Oral Hygiene (QC): 5 Bathing(FIM): 4 Shower/Bathe Self (QC): 4 Upper Body Dressing(FIM): 5 Upper Body Dressing (QC): 5 Lower Body Dressing(FIM): 4 Lower Body Dressing (QC): 3 On/Off Footwear (QC): 4 Toileting(FIM): 4 Toileting Hygiene (QC): 4 Toilet/Commode Transfer(FIM): 4 Toilet/Commode Transfer (QC): 4 Shower Transfer(FIM): 4 Additional Goals: 1-Demonstrate ADL Tasks, 2-Verbalize Understanding, 3- ImproveStrength/Yris 1=Demonstrate adherence to instructed precautions during ADL tasks. 2=Patient will verbalize/demonstrate understanding of assistive devices/ modifications for ADL. 3=Patient will improve strength/tolerance for activity to enable patient to perform ADL's. OT Education/Plan Discharge Recommendations Plan/Recommendations: Continue POC Treatment Plan/Plan of Care Patient would benefit from OT for education, treatment and training to promote independence in ADL's, mobility, safety and/or upper extremity function for ADL' s. Plan of Care: ADL Retraining, Functional Mobility, Group Exercise/Act as Ind, UE Funct Exercise/Act Treatment Duration: Jul 11, 2017 Frequency: At least 5 of 7 days/Wk (IRF) Estimated Hrs Per Day: 1.5 hours per day Agreement: Yes Rehab Potential: Fair Time/GCodes Start Time: 12:40 Stop Time: 13:45 Total Time Billed (hr/min): 65 Billed Treatment Time 1 visit-ADL 3 (45 min) SHELL (20 min) JAME SIERRA Jun 26, 2017 13:55
--- NOTE | 2017-06-26 15:42 | Physical Therapy Daily Note ---
PT Daily Note-Current Subjective Pt is sitting in chair prior to tx and agreeable to PT. Pt reports 3/10 pain in bilateral LEs. Pt is lying in bed post tx with nurse call, phone, tray, all needs met post tx. Pain Numeric Pain Scale: 3 Location Body Site: Calf (bilateral LEs) Pain Description: Ache Mental Status Patient Orientation: Normal For Age Transfers Functional [place] Measure 0=Not Assessed/NA 4=Minimal Assistance 1=Total Assistance 5=Supervision or Setup 2=Maximal Assistance 6=Modified [place] 3=Moderate Assistance 7=Complete IndependenceIRFPAI Quality Coding Scale 6 Independent with activity with or without an assistive device 5 Patient requires set up or clean up by helper. Patient completes activity by themselves 4 Supervision or touching assist (CGA). [place] provide cues , steadying assist 3 The helper provides less than half the effort to complete the activity 2 The helper provides more than half the effort to complete the activity 1 Dependent. The helper does all the effort to complete an activity 7 Patient refused to complete or attempt activity 9 The patient did not perform the activity before the current illness or injury 88 Not attempted due to Medical conditions or safety concerns Transfers (B, C, W/C) (FIM): 2 Supine to/from Sit: 4 Bed to/from Chair: 2 Pt completes squat pivot transfer with max assist. Pt requires verbal cues for hand placement and sequencing. Pt tends to extend both knees with transfer, requires close guarding. Weight Bearing Weight Bearing/Tolerated Exercises NuStep Minutes: 13 NuStep Workload: 6 Treatments Pt completes transfer training to increase functional mobility. Pt completes tx on Nustep to increase endurance. Assessment Current Status: Good Progress Pt transfers are improving. Pt is still anxious and guarded with all movement and transfers. PT Short Term Goals Short Term Goals Time Frame: Jun 27, 2017 Gait (FIM): 1 Distance (FIM): 1=up to 49 ft Wheelchair (FIM): 6 Wheelchair Distance: 150' Wheelchair Level of Assist: 6 PT Chcf Goals Chcf Goals PT Chcf Goals Time Frame: Jul 11, 2017 Transfers (B,C,W/C) (FIM): 4 Sit to Lying (QC): 4 Lying-Sitting on Side/Bed(QC): 4 Sit to Stand (QC): 4 Rollin Roll Left to Right (QC): 4 Chair/Flx-uw-Wkode Xfer(QC): 4 Car Transfer (QC): 4 Does the Patient Walk: No and Walking Goal IS indicated Gait (FIM): 2 Gait distance (FIM): 1=795-80 ft Distance: 50' Walk 10 feet (QC): 3 Walk 10ft-Uneven Surface(QC): 3 Walk 50ft with 2 Turns (QC): 3 Gait Level of Assist: 4 Gait Assistive Device: FWW PT Plan Problem List Problem List: Activity Tolerance, Functional Strength, Safety, Balance, Gait, Transfer, Bed Mobility, ROM Treatment/Plan Treatment Plan: Continue Plan of Care Treatment Plan: Bed Mobility, Education, Functional Activity Yris, Functional Strength, Group Therapy, Gait, Safety, Therapeutic Exercise, Transfers Treatment Duration: Jul 11, 2017 Frequency: At least 5 of 7 days/Wk (IRF) Estimated Hrs Per Day: 1.5 hours per day Patient and/or Family Agrees t: Yes Safety Risks/Education Patient Education: Transfer Techniques, Reviewed Precautions, Correct Positioning, W/C Management, Safety Issues Teaching Recipient: Patient Teaching Methods: Demonstration, Discussion Response to Teaching: Verbalize Understanding, Reinforcement Needed Time/GCodes Time In: 1358 Time Out: 1430 Total Billed Treatment Time: 32 Total Billed Treatment 1 visit 13 EX 19 FA SHELLY OJEDA PT Jun 26, 2017 15:42
[2017-06-26 18:46] VITALS: BP 110/66
[2017-06-26] MEDS: MELATONIN 3 MG TABLET PO SCH (20:57)
[2017-06-26] MEDS: MIRTAZAPINE 15 MG (REMERON) TAB PO SCH (20:57)
[2017-06-26] MEDS: traZODone 100 MG (DESYREL) TAB PO SCH (20:58)
[2017-06-26] MEDS: LIDODERM PATCH REMOVAL TP SCH (20:59)
[2017-06-27] MEDS: HYDROcodone/APAP 10 MG/325 MG (LORTAB) TAB PO PRN ×4 (00:39→17:48)
[2017-06-27] MEDS: ALPRAZolam 1 MG (XANAX) TAB PO PRN ×3 (04:00→17:47)
[2017-06-27] MEDS: MULTIVIT W/MINERALS TAB (THERAGRAN M) PO SCH (06:02)
[2017-06-27] MEDS: ZINC SULFATE 220 MG CAPSULE PO SCH (06:02)
[2017-06-27] MEDS: THIAMINE 100 MG (VITAMIN B-1) TAB PO SCH (06:02)
[2017-06-27 06:25] VITALS: BP 95/66
[2017-06-27] MEDS: LIDOCAINE (LIDODERM) 5% PATCH TOP SCH (08:12)
[2017-06-27] MEDS: POLYETHYLENE GLYCOL 17 GM (MIRALAX) PACK PO SCH ×2 (08:12→21:05)
[2017-06-27] MEDS: morphine ER 15 MG (MS CONTIN) TAB PO SCH ×2 (08:13→21:03)
[2017-06-27] MEDS: PYRIDOXINE (VITAMIN B-6) 50 MG TABLET PO SCH (08:13)
[2017-06-27] MEDS: SENNA W/DOCUSATE (SENOKOT S) TABLET PO SCH ×2 (08:13→21:05)
[2017-06-27] MEDS: ASCORBIC ACID (VIT C) 500 MG TABLET PO SCH ×2 (08:13→21:02)
[2017-06-27] MEDS: GABAPENTIN 600 MG (NEURONTIN) TAB PO SCH ×3 (08:13→21:02)
[2017-06-27] MEDS: VITAMIN D2 50,000 UNITS (1.25 MG) CAP PO SCH (08:13)
[2017-06-27] MEDS: ARIPIPRAZOLE 2 MG (ABILIFY) TAB PO SCH (08:13)
[2017-06-27] MEDS: FOLIC ACID 1 MG TAB PO SCH (08:14)
[2017-06-27] MEDS: CARVEDILOL 6.25 MG (COREG) TAB PO SCH ×2 (08:14→21:02)
[2017-06-27] MEDS: BETAMETHASONE/CLOTRIM CREAM (LOTRISONE) 45 GM TP SCH ×2 (08:18→21:08)
--- NOTE | 2017-06-27 08:41 | Progress Note (SOAP) ---
Subjective Time Seen by Provider: 08:37 Subjective/Events-last exam Camila Poe. Patient is continuing working. Patient shows improvement. parafin is helping Objective Exam Vital Signs Date Time Temp Pulse Resp B/P (MAP) Pulse Ox O2 Delivery O2 Flow Rate FiO2 06/27/17 06:25 97.2 108 20 95/66 97 Room Air 06/26/17 20:55 Room Air 06/26/17 18:46 99.4 99 16 110/66 93 Room Air Capillary Refill : General Appearance: No Apparent Distress HEENT: Normal ENT Inspection Results Lab Laboratory Tests 06/26/17 11:16: White Blood Count 7.7, Red Blood Count 2.79L, Hemoglobin 9.1L, Hematocrit 28L, Mean Corpuscular Volume 101H, Mean Corpuscular Hemoglobin 33, Mean Corpuscular Hemoglobin Concent 32, Red Cell Distribution Width 15.0H, Platelet Count 245, Mean Platelet Volume 9.0, Sodium Level 139, Potassium Level 3.5L, Chloride Level 105, Carbon Dioxide Level 28, Anion Gap 6, Blood Urea Nitrogen 10, Creatinine 0.63, Estimat Glomerular Filtration Rate > 60, BUN/Creatinine Ratio 16, Glucose Level 94, Calcium Level 10.8H Assessment/Plan Assessment/Plan Assess & Plan/Chief Complaint 06/24/17. Patient doing better with therapy o of upper extremities. Camila Poe. History of hallucinations. Patient legs needs more work. . 06/25/17. Camila Poe.. Upper extremity therapy improving. . 06/26/17. Patient positive today. Patient not complaining of much pain. Patient happy. Patient a work in progress. . . 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 Patient states she's working hard. Patient improved with upper extremity. Patient a work in progress Clinical Quality Measures DVT/VTE Risk/Contraindication: Risk Factor Score Per Nursin RFS Level Per Nursing on Admit: 2=Moderate AFSANEH QUIJANO DO Jun 27, 2017 08:40
--- NOTE | 2017-06-27 09:56 | Physical Therapy Daily Note ---
PT Daily Note-Current Subjective Pt is sitting in wheelchair in rehab gym (just finished with OT) and agreeable to PT. Pt reports high levels of pain throughout body but reports she received pain medications from nurse this morning. Pt is lying in bed with nurse call, phone, tray, all needs met post tx. Pain Numeric Pain Scale: 4 Location Body Site: Generalized Pain Description: Ache Mental Status Patient Orientation: Normal For Age Transfers Functional [place] Measure 0=Not Assessed/NA 4=Minimal Assistance 1=Total Assistance 5=Supervision or Setup 2=Maximal Assistance 6=Modified [place] 3=Moderate Assistance 7=Complete IndependenceIRFPAI Quality Coding Scale 6 Independent with activity with or without an assistive device 5 Patient requires set up or clean up by helper. Patient completes activity by themselves 4 Supervision or touching assist (CGA). [place] provide cues , steadying assist 3 The helper provides less than half the effort to complete the activity 2 The helper provides more than half the effort to complete the activity 1 Dependent. The helper does all the effort to complete an activity 7 Patient refused to complete or attempt activity 9 The patient did not perform the activity before the current illness or injury 88 Not attempted due to Medical conditions or safety concerns Transfers (B, C, W/C) (FIM): 3 Supine to/from Sit: 4 Sit to/from Stand: 3 Bed to/from Chair: 2 Pt completes sliding board transferx5 with min-mod assist, requires verbal cues for positioning and hand placement. Pt tends to extend knees, needs verbal cues and guarding to keep them bent with transfer. Pt completes supine<>sit, scooting with min assist. Pt completes squat pivot transfersx2 with max assist. Exercises Supine Ex: Ankle pumps, Heel Slides, Hip abd/add Supine Reps: 10 Treatments Pt completes sliding board transfers x5 to increase functional mobility. PT applies manual stretch with knee flexion bilaterally, holding 90 seconds x3. Pt also completes dorsiflexion/knee flexion stretching sitting edge of mat, holding for 45 seconds to increase knee and ankle mobility. Pt also completes toileting on commode during treatment, requires max assist with squat pivot transfers. Assessment Current Status: Fair Progress Pt sliding board transfers are improving. Patient requires frequent encouragement, tends to get discouraged and anxious throughout treatment due to pain and weakness. PT Short Term Goals Short Term Goals Time Frame: Jun 27, 2017 Gait (FIM): 1 Distance (FIM): 1=up to 49 ft Wheelchair (FIM): 6 Wheelchair Distance: 150' Wheelchair Level of Assist: 6 PT Retirement Goals Retirement Goals PT Retirement Goals Time Frame: Jul 11, 2017 Transfers (B,C,W/C) (FIM): 4 Sit to Lying (QC): 4 Lying-Sitting on Side/Bed(QC): 4 Sit to Stand (QC): 4 Rollin Roll Left to Right (QC): 4 Chair/Qhq-mx-Aqqym Xfer(QC): 4 Car Transfer (QC): 4 Does the Patient Walk: No and Walking Goal IS indicated Gait (FIM): 2 Gait distance (FIM): 6=429-42 ft Distance: 50' Walk 10 feet (QC): 3 Walk 10ft-Uneven Surface(QC): 3 Walk 50ft with 2 Turns (QC): 3 Gait Level of Assist: 4 Gait Assistive Device: FWW PT Plan Problem List Problem List: Activity Tolerance, Functional Strength, Safety, Balance, Gait, Transfer, Bed Mobility, ROM Treatment/Plan Treatment Plan: Continue Plan of Care Treatment Plan: Bed Mobility, Education, Functional Activity Yris, Functional Strength, Group Therapy, Gait, Safety, Therapeutic Exercise, Transfers Treatment Duration: Jul 11, 2017 Frequency: At least 5 of 7 days/Wk (IRF) Estimated Hrs Per Day: 1.5 hours per day Patient and/or Family Agrees t: Yes Safety Risks/Education Patient Education: Transfer Techniques, Reviewed Precautions, Correct Positioning, W/C Management, Safety Issues Teaching Recipient: Patient Teaching Methods: Demonstration, Discussion Response to Teaching: Verbalize Understanding, Reinforcement Needed Time/GCodes Time In: 859 Time Out: 1000 Total Billed Treatment Time: 61 Total Billed Treatment 1 visit FA 48 EX 13 GERALDO FERRER PT Jun 27, 2017 09:56
[2017-06-27] MEDS: CYCLOBENZAPRINE 10 MG (FLEXERIL) TAB PO PRN ×2 (10:38→21:02)
[2017-06-27] MEDS: VITAMIN E 400 INTLU CAP PO SCH (10:53)
--- NOTE | 2017-06-27 13:26 | Occupational Ther Daily Note ---
OT Current Status-Daily Note Subjective Pt lying in bed, nrsg present dressing pt. EDWARD reminded pt that she wanted to take a shower today, pt stated that she had forgotten. Pt agreed to therapy. Pt c/o whole body was stiff and painful. EDWARD encouraged pt to take shower and let the warm water run over LE's to relax pt. Pt states that she cannot rate her pain because it fluctuates to much. Mental Status/Objective Patient Orientation: Person, Place, Time, Situation Functional [place] Measure 0=Not Assessed/NA 4=Minimal Assistance 1=Total Assistance 5=Supervision or Setup 2=Maximal Assistance 6=Modified [place] 3=Moderate Assistance 7=Complete [place] ADL-Treatment Pt able to go from supine to sitting EOB with HOB raised with supervision. Max A for stand pivot transfer. Assist x2 for hiking pants over hips with dressing and toileting. Max A to transfer into shower. Supervision for bathing using long handle sponge, shower bench grabbars and hand held shower. Assist x2 to dry lower legs/feet and buttocks. Set up to dress upper body. Assist x2 for lower body dressing. Sitting in w/c pt is able to complete oral care and brushing hair. Pt like hair to be in ponytail so assist is needed to put hair in ponytail. Functional [place] Measure 0=Not Assessed/NA 4=Minimal Assistance 1=Total Assistance 5=Supervision or Setup 2=Maximal Assistance 6=Modified [place] 3=Moderate Assistance 7=Complete IndependenceIRFPAI Quality Coding Scale 6 Independent with activity with or without an assistive device 5 Patient requires set up or clean up by helper. Patient completes activity by themselves 4 Supervision or touching assist (CGA). [place] provide cues , steadying assist 3 The helper provides less than half the effort to complete the activity 2 The helper provides more than half the effort to complete the activity 1 Dependent. The helper does all the effort to complete an activity 7 Patient refused to complete or attempt activity 9 The patient did not perform the activity before the current illness or injury 88 Not attempted due to Medical conditions or safety concerns Grooming (FIM): 6 Oral Hygiene (QC): 6 Bathing (FIM): 1 Bathing Location: L Arm, R Arm, L Upper Leg, R Upper Leg, L Lower Leg ( including foot), R Lower Leg (including foot), Chest, Abdomen, Buttocks, Perineal Area Shower/Bathe Self (QC): 1 Upper Body (FIM): 5 Upper Body Dressing (QC): 5 Lower Body Dressing (FIM): 1 Lower Body Dressing (QC): 1 On/Off Footwear (QC): 2 Toileting (FIM): 1 Toileting Hygiene (QC): 1 Transfers (B, C, W/C) (FIM): 2 Toilet/Commode Transfer (FIM): 2 Toilet Transfer (QC): 2 Shower Transfer(FIM): 2 Other Treatment Pt able to complete B UE tasks working on increasing strength for gross and fine motor. Pt complete ROM arc, 3 dowel gayla exercises without resistance and resistive rubber band task. Pt c/o pain in elbows with dowel gayla exercises. After session PT took over care of pt. All needs met. OT Short Term Goals Short Term Goals Time Frame: Jun 27, 2017 Lower Body Dressing(FIM): 2 Toileting(FIM): 2 Toilet/Commode Transfer(FIM): 2 Shower Transfer(FIM): 2 Additional Short Term Goals: 2-Verbalize Understanding, 3-ImproveStrength/Yris 1=Demonstrate adherence to instructed precautions during ADL tasks. 2=Patient will verbalize/demonstrate understanding of assistive devices/ modifications for ADL. 3=Patient will improve strength/tolerance for activity to enable patient to perform ADL's. OT Usp Goals Foreman/Project Manager Goals Time Frame: Jul 11, 2017 Eating (FIM): 5 Eating (QC): 5 Groomin Oral Hygiene (QC): 5 Bathing(FIM): 4 Shower/Bathe Self (QC): 4 Upper Body Dressing(FIM): 5 Upper Body Dressing (QC): 5 Lower Body Dressing(FIM): 4 Lower Body Dressing (QC): 3 On/Off Footwear (QC): 4 Toileting(FIM): 4 Toileting Hygiene (QC): 4 Toilet/Commode Transfer(FIM): 4 Toilet/Commode Transfer (QC): 4 Shower Transfer(FIM): 4 Additional Goals: 1-Demonstrate ADL Tasks, 2-Verbalize Understanding, 3- ImproveStrength/Yris 1=Demonstrate adherence to instructed precautions during ADL tasks. 2=Patient will verbalize/demonstrate understanding of assistive devices/ modifications for ADL. 3=Patient will improve strength/tolerance for activity to enable patient to perform ADL's. OT Education/Plan Discharge Recommendations Plan/Recommendations: Continue POC Treatment Plan/Plan of Care Patient would benefit from OT for education, treatment and training to promote independence in ADL's, mobility, safety and/or upper extremity function for ADL' s. Plan of Care: ADL Retraining, Functional Mobility, Group Exercise/Act as Ind, UE Funct Exercise/Act Treatment Duration: Jul 11, 2017 Frequency: At least 5 of 7 days/Wk (IRF) Estimated Hrs Per Day: 1.5 hours per day Agreement: Yes Rehab Potential: Fair Time/GCodes Start Time: 07:50 Stop Time: 09:00 Total Time Billed (hr/min): 70 Billed Treatment Time 1 visit-ADL 4 (50 min) EX 1 (20 min) JAME SIERRA Jun 27, 2017 13:26
--- NOTE | 2017-06-27 13:37 | Occupational Ther Daily Note ---
OT Current Status-Daily Note Subjective Pt alert, lying in bed. Pt agreed to therapy. C/o pain in LE's, did not rate. Mental Status/Objective Patient Orientation: Person, Place, Time, Situation Functional [place] Measure 0=Not Assessed/NA 4=Minimal Assistance 1=Total Assistance 5=Supervision or Setup 2=Maximal Assistance 6=Modified [place] 3=Moderate Assistance 7=Complete [place] ADL-Treatment Functional [place] Measure 0=Not Assessed/NA 4=Minimal Assistance 1=Total Assistance 5=Supervision or Setup 2=Maximal Assistance 6=Modified [place] 3=Moderate Assistance 7=Complete IndependenceIRFPAI Quality Coding Scale 6 Independent with activity with or without an assistive device 5 Patient requires set up or clean up by helper. Patient completes activity by themselves 4 Supervision or touching assist (CGA). [place] provide cues , steadying assist 3 The helper provides less than half the effort to complete the activity 2 The helper provides more than half the effort to complete the activity 1 Dependent. The helper does all the effort to complete an activity 7 Patient refused to complete or attempt activity 9 The patient did not perform the activity before the current illness or injury 88 Not attempted due to Medical conditions or safety concerns Eating (FIM): 6 (Dentures. Pt able to open containers/packages then using regular utensils to cut food and feed self.) Eating (QC): 6 After session, pt lying in bed with call light/phone in reach. All needs met in room. OT Short Term Goals Short Term Goals Time Frame: Jun 27, 2017 Lower Body Dressing(FIM): 2 Toileting(FIM): 2 Toilet/Commode Transfer(FIM): 2 Shower Transfer(FIM): 2 Additional Short Term Goals: 2-Verbalize Understanding, 3-ImproveStrength/Yris 1=Demonstrate adherence to instructed precautions during ADL tasks. 2=Patient will verbalize/demonstrate understanding of assistive devices/ modifications for ADL. 3=Patient will improve strength/tolerance for activity to enable patient to perform ADL's. OT Halfway Goals Halfway Goals Time Frame: Jul 11, 2017 Eating (FIM): 5 Eating (QC): 5 Groomin Oral Hygiene (QC): 5 Bathing(FIM): 4 Shower/Bathe Self (QC): 4 Upper Body Dressing(FIM): 5 Upper Body Dressing (QC): 5 Lower Body Dressing(FIM): 4 Lower Body Dressing (QC): 3 On/Off Footwear (QC): 4 Toileting(FIM): 4 Toileting Hygiene (QC): 4 Toilet/Commode Transfer(FIM): 4 Toilet/Commode Transfer (QC): 4 Shower Transfer(FIM): 4 Additional Goals: 1-Demonstrate ADL Tasks, 2-Verbalize Understanding, 3- ImproveStrength/Yris 1=Demonstrate adherence to instructed precautions during ADL tasks. 2=Patient will verbalize/demonstrate understanding of assistive devices/ modifications for ADL. 3=Patient will improve strength/tolerance for activity to enable patient to perform ADL's. OT Education/Plan Discharge Recommendations Plan/Recommendations: Continue POC Treatment Plan/Plan of Care Patient would benefit from OT for education, treatment and training to promote independence in ADL's, mobility, safety and/or upper extremity function for ADL' s. Plan of Care: ADL Retraining, Functional Mobility, Group Exercise/Act as Ind, UE Funct Exercise/Act Treatment Duration: Jul 11, 2017 Frequency: At least 5 of 7 days/Wk (IRF) Estimated Hrs Per Day: 1.5 hours per day Agreement: Yes Rehab Potential: Fair Time/GCodes Start Time: 11:35 Stop Time: 12:00 Total Time Billed (hr/min): 25 Billed Treatment Time 1 visit-FA 2 (25 min) JAME SIERRA Jun 27, 2017 13:37
--- NOTE | 2017-06-27 14:35 | Physical Therapy Daily Note ---
PT Daily Note-Current Subjective Pt is lying in bed prior to tx and agreeable to PT. Pt reports 3/10 pain in LEs. Pt is lying in bed with nurse call, phone, tray in reach, all needs met post tx. Pain Numeric Pain Scale: 3 Location Body Site: Foot (bilateral LEs) Pain Description: Ache Mental Status Patient Orientation: Normal For Age Transfers Functional [place] Measure 0=Not Assessed/NA 4=Minimal Assistance 1=Total Assistance 5=Supervision or Setup 2=Maximal Assistance 6=Modified [place] 3=Moderate Assistance 7=Complete IndependenceIRFPAI Quality Coding Scale 6 Independent with activity with or without an assistive device 5 Patient requires set up or clean up by helper. Patient completes activity by themselves 4 Supervision or touching assist (CGA). [place] provide cues , steadying assist 3 The helper provides less than half the effort to complete the activity 2 The helper provides more than half the effort to complete the activity 1 Dependent. The helper does all the effort to complete an activity 7 Patient refused to complete or attempt activity 9 The patient did not perform the activity before the current illness or injury 88 Not attempted due to Medical conditions or safety concerns Transfers (B, C, W/C) (FIM): 2 Rollin Supine to/from Sit: 4 Bed to/from Chair: 2 Pt completes squat pivot transfer with mod assist. Pt requires verbal cues for hand placement and positioning. Pt has tendency to extend knees, requires guarding. Exercises NuStep Minutes: 12 NuStep Workload: 6 Treatments Pt completes bed mobility, transfers to increase functional mobility. tx on Nustep to increase functional strength and endurance. Assessment Current Status: Fair Progress Pt transfers are improving. PT Short Term Goals Short Term Goals Time Frame: Jun 27, 2017 Gait (FIM): 1 Distance (FIM): 1=up to 49 ft Wheelchair (FIM): 6 Wheelchair Distance: 150' Wheelchair Level of Assist: 6 PT Research Program Assistant Goals Research Program Assistant Goals PT Research Program Assistant Goals Time Frame: Jul 11, 2017 Transfers (B,C,W/C) (FIM): 4 Sit to Lying (QC): 4 Lying-Sitting on Side/Bed(QC): 4 Sit to Stand (QC): 4 Rollin Roll Left to Right (QC): 4 Chair/Axv-py-Qqbbd Xfer(QC): 4 Car Transfer (QC): 4 Does the Patient Walk: No and Walking Goal IS indicated Gait (FIM): 2 Gait distance (FIM): 2=207-97 ft Distance: 50' Walk 10 feet (QC): 3 Walk 10ft-Uneven Surface(QC): 3 Walk 50ft with 2 Turns (QC): 3 Gait Level of Assist: 4 Gait Assistive Device: FWW PT Plan Problem List Problem List: Activity Tolerance, Functional Strength, Safety, Balance, Gait, Transfer, Bed Mobility, ROM Treatment/Plan Treatment Plan: Continue Plan of Care Treatment Plan: Bed Mobility, Education, Functional Activity Yris, Functional Strength, Group Therapy, Gait, Safety, Therapeutic Exercise, Transfers Treatment Duration: Jul 11, 2017 Frequency: At least 5 of 7 days/Wk (IRF) Estimated Hrs Per Day: 1.5 hours per day Patient and/or Family Agrees t: Yes Safety Risks/Education Patient Education: Transfer Techniques, Correct Positioning, W/C Management, Safety Issues Teaching Recipient: Patient Teaching Methods: Demonstration, Discussion Response to Teaching: Verbalize Understanding, Reinforcement Needed Time/GCodes Time In: 1401 Time Out: 1430 Total Billed Treatment Time: 29 Total Billed Treatment 1 visit EX 12 FA 17 GERALDO FERRER PT Jun 27, 2017 14:35
[2017-06-27 15:45] VITALS: BP 106/71
[2017-06-27] MEDS: MIRTAZAPINE 15 MG (REMERON) TAB PO SCH (21:02)
[2017-06-27] MEDS: MELATONIN 3 MG TABLET PO SCH (21:02)
[2017-06-27] MEDS: traZODone 100 MG (DESYREL) TAB PO SCH (21:03)
[2017-06-27] MEDS: LIDODERM PATCH REMOVAL TP SCH (21:09)
[2017-06-28 06:00] VITALS: BP 108/76
[2017-06-28] MEDS: THIAMINE 100 MG (VITAMIN B-1) TAB PO SCH (06:45)
[2017-06-28] MEDS: ZINC SULFATE 220 MG CAPSULE PO SCH (06:45)
[2017-06-28] MEDS: MULTIVIT W/MINERALS TAB (THERAGRAN M) PO SCH (06:45)
[2017-06-28] MEDS: HYDROcodone/APAP 10 MG/325 MG (LORTAB) TAB PO PRN ×4 (06:46→21:09)
[2017-06-28] MEDS: CARVEDILOL 6.25 MG (COREG) TAB PO SCH ×2 (08:24→21:09)
[2017-06-28] MEDS: ALPRAZolam 1 MG (XANAX) TAB PO PRN ×3 (08:24→21:09)
[2017-06-28] MEDS: FOLIC ACID 1 MG TAB PO SCH (08:24)
[2017-06-28] MEDS: PYRIDOXINE (VITAMIN B-6) 50 MG TABLET PO SCH (08:25)
[2017-06-28] MEDS: GABAPENTIN 600 MG (NEURONTIN) TAB PO SCH ×3 (08:25→21:09)
[2017-06-28] MEDS: SENNA W/DOCUSATE (SENOKOT S) TABLET PO SCH ×2 (08:25→21:09)
[2017-06-28] MEDS: morphine ER 15 MG (MS CONTIN) TAB PO SCH ×2 (08:25→21:09)
[2017-06-28] MEDS: ARIPIPRAZOLE 2 MG (ABILIFY) TAB PO SCH (08:25)
[2017-06-28] MEDS: VITAMIN E 400 INTLU CAP PO SCH (08:25)
[2017-06-28] MEDS: POLYETHYLENE GLYCOL 17 GM (MIRALAX) PACK PO SCH ×2 (08:26→21:09)
[2017-06-28] MEDS: ASCORBIC ACID (VIT C) 500 MG TABLET PO SCH ×2 (08:26→21:09)
[2017-06-28] MEDS: LIDOCAINE (LIDODERM) 5% PATCH TOP SCH (08:27)
[2017-06-28] MEDS: BETAMETHASONE/CLOTRIM CREAM (LOTRISONE) 45 GM TP SCH ×2 (08:27→21:10)
[2017-06-28] MEDS: CYCLOBENZAPRINE 10 MG (FLEXERIL) TAB PO PRN (08:31)
--- NOTE | 2017-06-28 10:57 | Physical Therapy Daily Note ---
PT Daily Note-Current Subjective Pt in bed, agreeable. Wants to go home on day pass this weekend. Pt reports her fiance has been doing SB transfers prior to admission. She also reports she has a BSC and sandra lift "for emergencies". Reports occasional knee pain but no pain rating provided. Mental Status Patient Orientation: Person, Place, Time, Situation Transfers Functional [place] Measure 0=Not Assessed/NA 4=Minimal Assistance 1=Total Assistance 5=Supervision or Setup 2=Maximal Assistance 6=Modified [place] 3=Moderate Assistance 7=Complete IndependenceIRFPAI Quality Coding Scale 6 Independent with activity with or without an assistive device 5 Patient requires set up or clean up by helper. Patient completes activity by themselves 4 Supervision or touching assist (CGA). [place] provide cues , steadying assist 3 The helper provides less than half the effort to complete the activity 2 The helper provides more than half the effort to complete the activity 1 Dependent. The helper does all the effort to complete an activity 7 Patient refused to complete or attempt activity 9 The patient did not perform the activity before the current illness or injury 88 Not attempted due to Medical conditions or safety concerns Transfers (B, C, W/C) (FIM): 2 Supine to/from Sit: 5 Sit to/from Stand: 3 Sit to Lying (QC): 5 Sit to Stand (QC): 2 Chair/Vxy-lw-Zykru Xfer(QC): 2 Bed to/from Chair: 2 Weight Bearing Right Lower Extremity: Right Weight Bearing/Tolerated Left Lower Extremity: Left Weight Bearing/Tolerated Exercises (B) gastroc stretch NuStep Minutes: 16 NuStep Workload: 6 Treatments Transfer training with squat pivot with mod-max A x 1 bed<->[facility]<->NuStep. NuStep for (B) reciprocal integration, functional strengthening, functional activity tolerance. Returned to bed with all needs met. Assessment Current Status: Good Progress Pt tolerated well. Very motivated to improve. Mod->max A for squat pivot TFR. Improving functional activity tolerance. PT Short Term Goals Short Term Goals Time Frame: Jun 27, 2017 Gait (FIM): 1 Distance (FIM): 1=up to 49 ft Wheelchair (FIM): 6 Wheelchair Distance: 150' Wheelchair Level of Assist: 6 PT Business Developer Goals Business Developer Goals PT Mcfp Goals Time Frame: Jul 11, 2017 Transfers (B,C,W/C) (FIM): 4 Sit to Lying (QC): 4 Lying-Sitting on Side/Bed(QC): 4 Sit to Stand (QC): 4 Rollin Roll Left to Right (QC): 4 Chair/Xrs-ej-Cgeir Xfer(QC): 4 Car Transfer (QC): 4 Does the Patient Walk: No and Walking Goal IS indicated Gait (FIM): 2 Gait distance (FIM): 9=517-41 ft Distance: 50' Walk 10 feet (QC): 3 Walk 10ft-Uneven Surface(QC): 3 Walk 50ft with 2 Turns (QC): 3 Gait Level of Assist: 4 Gait Assistive Device: FWW PT Plan Problem List Problem List: Activity Tolerance, Functional Strength, Safety, Balance, Gait, Transfer, Bed Mobility, ROM Treatment/Plan Treatment Plan: Continue Plan of Care Treatment Plan: Bed Mobility, Education, Functional Activity Yris, Functional Strength, Group Therapy, Gait, Safety, Therapeutic Exercise, Transfers Treatment Duration: Jul 11, 2017 Frequency: At least 5 of 7 days/Wk (IRF) Estimated Hrs Per Day: 1.5 hours per day Patient and/or Family Agrees t: Yes Safety Risks/Education Patient Education: Transfer Techniques Teaching Recipient: Patient Teaching Methods: Demonstration, Discussion Response to Teaching: Verbalize Understanding, Return Demonstration, Reinforcement Needed Time/GCodes Time In: 1007 Time Out: 1049 Total Billed Treatment Time: 42 Total Billed Treatment 1, FA x 23', Ex x 19' G Codes Necessary: EDDIE Aguilar DPT Jun 28, 2017 10:57
--- NOTE | 2017-06-28 14:08 | Progress Note-Hospitalist ---
Progress Note Progress Notes/Assess & Plan Date Seen 06/28/17 Time Seen by Provider: 12:15 Diagonsis/Assessment & Plan supervisor home economics: Pt is okay for her day pass Pt has a wheel chair available Patient Interview: Pt states her fianc will come pick her up Pt states they were unsure how she got sick, there are many possibilities. 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 Valle. MOHAN VALLE DO Jun 28, 2017 14:08
[2017-06-28 17:53] VITALS: BP 107/69
[2017-06-28] MEDS: MELATONIN 3 MG TABLET PO SCH (21:09)
[2017-06-28] MEDS: traZODone 100 MG (DESYREL) TAB PO SCH (21:09)
[2017-06-28] MEDS: MIRTAZAPINE 15 MG (REMERON) TAB PO SCH (21:09)
[2017-06-28] MEDS: LIDODERM PATCH REMOVAL TP SCH (21:10)
[2017-06-29] MEDS: HYDROcodone/APAP 10 MG/325 MG (LORTAB) TAB PO PRN ×5 (02:35→21:00)
[2017-06-29] MEDS: CYCLOBENZAPRINE 10 MG (FLEXERIL) TAB PO PRN ×2 (05:17→14:21)
[2017-06-29 06:00] VITALS: BP 112/72
[2017-06-29] MEDS: MULTIVIT W/MINERALS TAB (THERAGRAN M) PO SCH (06:56)
[2017-06-29] MEDS: ZINC SULFATE 220 MG CAPSULE PO SCH (06:56)
[2017-06-29] MEDS: THIAMINE 100 MG (VITAMIN B-1) TAB PO SCH (06:56)
[2017-06-29] MEDS: ALPRAZolam 1 MG (XANAX) TAB PO PRN ×3 (07:14→21:01)
[2017-06-29] MEDS: CARVEDILOL 6.25 MG (COREG) TAB PO SCH ×2 (08:29→21:02)
[2017-06-29] MEDS: PYRIDOXINE (VITAMIN B-6) 50 MG TABLET PO SCH (08:29)
[2017-06-29] MEDS: morphine ER 15 MG (MS CONTIN) TAB PO SCH ×2 (08:29→21:02)
[2017-06-29] MEDS: VITAMIN E 400 INTLU CAP PO SCH (08:29)
[2017-06-29] MEDS: FOLIC ACID 1 MG TAB PO SCH (08:29)
[2017-06-29] MEDS: ARIPIPRAZOLE 2 MG (ABILIFY) TAB PO SCH (08:30)
[2017-06-29] MEDS: SENNA W/DOCUSATE (SENOKOT S) TABLET PO SCH ×2 (08:30→21:00)
[2017-06-29] MEDS: ASCORBIC ACID (VIT C) 500 MG TABLET PO SCH ×2 (08:30→21:00)
[2017-06-29] MEDS: GABAPENTIN 600 MG (NEURONTIN) TAB PO SCH ×3 (08:30→21:01)
[2017-06-29] MEDS: LIDOCAINE (LIDODERM) 5% PATCH TOP SCH (08:32)
[2017-06-29] MEDS: POLYETHYLENE GLYCOL 17 GM (MIRALAX) PACK PO SCH ×2 (08:32→21:03)
[2017-06-29] MEDS: BETAMETHASONE/CLOTRIM CREAM (LOTRISONE) 45 GM TP SCH ×2 (08:33→21:03)
[2017-06-29 18:35] VITALS: BP 108/70
[2017-06-29] MEDS: MELATONIN 3 MG TABLET PO SCH (21:02)
[2017-06-29] MEDS: traZODone 100 MG (DESYREL) TAB PO SCH (21:02)
[2017-06-29] MEDS: MIRTAZAPINE 15 MG (REMERON) TAB PO SCH (21:02)
[2017-06-29] MEDS: LIDODERM PATCH REMOVAL TP SCH (21:02)
[2017-06-30] MEDS: CYCLOBENZAPRINE 10 MG (FLEXERIL) TAB PO PRN ×3 (00:18→18:11)
[2017-06-30] MEDS: HYDROcodone/APAP 10 MG/325 MG (LORTAB) TAB PO PRN ×5 (01:57→18:11)
[2017-06-30 05:56] VITALS: BP 100/64
[2017-06-30] MEDS: THIAMINE 100 MG (VITAMIN B-1) TAB PO SCH (06:30)
[2017-06-30] MEDS: ZINC SULFATE 220 MG CAPSULE PO SCH (06:30)
[2017-06-30] MEDS: MULTIVIT W/MINERALS TAB (THERAGRAN M) PO SCH (06:30)
--- NOTE | 2017-06-30 08:20 | Progress Note (SOAP) ---
Subjective Time Seen by Provider: 08:15 Subjective/Events-last exam Patient continues to improve. Patient transferring better. Patient moving upper extremity better. 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 Patient doing better with therapy o of upper extremities. [place] Poe. History of hallucinations. Patient legs needs more work. . 06/25/17. [place] Poe.. Upper extremity therapy improving. . 06/26/17. Patient positive today. Patient not complaining of much pain. Patient happy. Patient a work in progress. . . 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 Patient states she's working hard. Patient improved with upper extremity. Patient a work in progress. . 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 Patient transferring better Clinical Quality Measures DVT/VTE Risk/Contraindication: Risk Factor Score Per Nursin RFS Level Per Nursing on Admit: 2=Moderate AFSANEH QUIJANO DO Jun 30, 2017 08:20
[2017-06-30] MEDS: ALPRAZolam 1 MG (XANAX) TAB PO PRN ×2 (08:23→14:22)
[2017-06-30] MEDS: PYRIDOXINE (VITAMIN B-6) 50 MG TABLET PO SCH (08:23)
[2017-06-30] MEDS: CARVEDILOL 6.25 MG (COREG) TAB PO SCH ×2 (08:23→22:00)
[2017-06-30] MEDS: ASCORBIC ACID (VIT C) 500 MG TABLET PO SCH ×2 (08:23→21:59)
[2017-06-30] MEDS: SENNA W/DOCUSATE (SENOKOT S) TABLET PO SCH ×2 (08:23→22:00)
[2017-06-30] MEDS: morphine ER 15 MG (MS CONTIN) TAB PO SCH ×2 (08:23→21:59)
[2017-06-30] MEDS: GABAPENTIN 600 MG (NEURONTIN) TAB PO SCH ×3 (08:24→21:59)
[2017-06-30] MEDS: LIDODERM PATCH REMOVAL TP SCH (08:24)
[2017-06-30] MEDS: ARIPIPRAZOLE 2 MG (ABILIFY) TAB PO SCH (08:24)
[2017-06-30] MEDS: LIDOCAINE (LIDODERM) 5% PATCH TOP SCH (08:24)
[2017-06-30] MEDS: POLYETHYLENE GLYCOL 17 GM (MIRALAX) PACK PO SCH ×2 (08:24→22:00)
[2017-06-30] MEDS: BETAMETHASONE/CLOTRIM CREAM (LOTRISONE) 45 GM TP SCH ×2 (08:25→22:01)
--- NOTE | 2017-06-30 08:39 | Occupational Ther Daily Note ---
OT Current Status-Daily Note Subjective Pt alert, lying in bed. Finishing up breakfast in bed. Pt agreed to therapy. Pt stated that she felt stiff this morning after not having any stretching over the weekend. Did not rate pain. Nrsg came in to administer pt's meds after shower/bath. Mental Status/Objective Patient Orientation: Person, Place, Time, Situation Functional [place] Measure 0=Not Assessed/NA 4=Minimal Assistance 1=Total Assistance 5=Supervision or Setup 2=Maximal Assistance 6=Modified [place] 3=Moderate Assistance 7=Complete [place] ADL-Treatment Functional [place] Measure 0=Not Assessed/NA 4=Minimal Assistance 1=Total Assistance 5=Supervision or Setup 2=Maximal Assistance 6=Modified [place] 3=Moderate Assistance 7=Complete IndependenceIRFPAI Quality Coding Scale 6 Independent with activity with or without an assistive device 5 Patient requires set up or clean up by helper. Patient completes activity by themselves 4 Supervision or touching assist (CGA). [place] provide cues , steadying assist 3 The helper provides less than half the effort to complete the activity 2 The helper provides more than half the effort to complete the activity 1 Dependent. The helper does all the effort to complete an activity 7 Patient refused to complete or attempt activity 9 The patient did not perform the activity before the current illness or injury 88 Not attempted due to Medical conditions or safety concerns Grooming (FIM): 6 (Sitting in w/c at sink. Pt completes oral care and brushing hair by self.) Oral Hygiene (QC): 6 Bathing (FIM): 3 (Sitting on transfer bench, pt is able to cleanse body using hand held shower and long handle sponge. Then assist to dry feet. Pt able to dry other areas then transferred to bed to dry buttocks/no area.) Bathing Location: L Arm, R Arm, L Upper Leg, R Upper Leg, L Lower Leg ( including foot), R Lower Leg (including foot), Chest, Abdomen, Buttocks, Perineal Area Shower/Bathe Self (QC): 3 Upper Body (FIM): 5 (After set up, pt able to don/doff upper body clothing.) Upper Body Dressing (QC): 5 Lower Body Dressing (FIM): 3 (Assist needed to doff all clothing then was able to pants by self laying in bed. Assist to initiate socks over feet then able to pull up over heel and leg. Assist to don shoes.) Lower Body Dressing (QC): 2 On/Off Footwear (QC): 2 Transfers (B, C, W/C) (FIM): 2 (Pt able to push up from surface then extended legs, with shoes on, verbal cues to tuck buttocks under in standing. Assist to pivot feet.) Tub Transfer(FIM): 2 (Assist to transfer from w/c to tub transfer bench then pt able to lift legs in/out and scoot self across bench with grabbars.) After therapy, pt sitting in w/c with call light/phone in reach. All needs met in room. OT Short Term Goals Short Term Goals Time Frame: Jun 27, 2017 Lower Body Dressing(FIM): 2 Toileting(FIM): 2 Toilet/Commode Transfer(FIM): 2 Shower Transfer(FIM): 2 Additional Short Term Goals: 2-Verbalize Understanding, 3-ImproveStrength/Yris 1=Demonstrate adherence to instructed precautions during ADL tasks. 2=Patient will verbalize/demonstrate understanding of assistive devices/ modifications for ADL. 3=Patient will improve strength/tolerance for activity to enable patient to perform ADL's. OT Toggle Press Operator Goals Toggle Press Operator Goals Time Frame: Jul 11, 2017 Eating (FIM): 5 Eating (QC): 5 Groomin Oral Hygiene (QC): 5 Bathing(FIM): 4 Shower/Bathe Self (QC): 4 Upper Body Dressing(FIM): 5 Upper Body Dressing (QC): 5 Lower Body Dressing(FIM): 4 Lower Body Dressing (QC): 3 On/Off Footwear (QC): 4 Toileting(FIM): 4 Toileting Hygiene (QC): 4 Toilet/Commode Transfer(FIM): 4 Toilet/Commode Transfer (QC): 4 Shower Transfer(FIM): 4 Additional Goals: 1-Demonstrate ADL Tasks, 2-Verbalize Understanding, 3- ImproveStrength/Yris 1=Demonstrate adherence to instructed precautions during ADL tasks. 2=Patient will verbalize/demonstrate understanding of assistive devices/ modifications for ADL. 3=Patient will improve strength/tolerance for activity to enable patient to perform ADL's. OT Education/Plan Discharge Recommendations Plan/Recommendations: Continue POC Treatment Plan/Plan of Care Patient would benefit from OT for education, treatment and training to promote independence in ADL's, mobility, safety and/or upper extremity function for ADL' s. Plan of Care: ADL Retraining, Functional Mobility, Group Exercise/Act as Ind, UE Funct Exercise/Act Treatment Duration: Jul 11, 2017 Frequency: At least 5 of 7 days/Wk (IRF) Estimated Hrs Per Day: 1.5 hours per day Agreement: Yes Rehab Potential: Fair Time/GCodes Start Time: 07:00 Stop Time: 08:30 Total Time Billed (hr/min): 90 Billed Treatment Time 1 visit-ADL 6 (90 min) JAME SIERRA Jun 30, 2017 08:39
[2017-06-30] MEDS: FOLIC ACID 1 MG TAB PO SCH (08:40)
--- NOTE | 2017-06-30 09:15 | Physical Therapy Daily Note ---
PT Daily Note-Current Subjective Patient in wheelchair at bedside pre tx, agrees to PT, has pain 7/10 "all over" . She has gotten pain meds from nurse. Appearance Patient in bed post tx with nurse call, phone, tray, all needs met. Mental Status Patient Orientation: Normal For Age Transfers Functional [place] Measure 0=Not Assessed/NA 4=Minimal Assistance 1=Total Assistance 5=Supervision or Setup 2=Maximal Assistance 6=Modified [place] 3=Moderate Assistance 7=Complete IndependenceIRFPAI Quality Coding Scale 6 Independent with activity with or without an assistive device 5 Patient requires set up or clean up by helper. Patient completes activity by themselves 4 Supervision or touching assist (CGA). [place] provide cues , steadying assist 3 The helper provides less than half the effort to complete the activity 2 The helper provides more than half the effort to complete the activity 1 Dependent. The helper does all the effort to complete an activity 7 Patient refused to complete or attempt activity 9 The patient did not perform the activity before the current illness or injury 88 Not attempted due to Medical conditions or safety concerns Transfers (B, C, W/C) (FIM): 3 Bed to/from Chair: 3 Stand pivot mod assist. Patient can perform a sliding board transfer with min assist, cues for positioning and safety. Weight Bearing Right Lower Extremity: Right Weight Bearing/Tolerated Left Lower Extremity: Left Weight Bearing/Tolerated Gait Training Gait (FIM): 1 Distance: 10' Gait Level of Assist: 4 Gait Persons Needed: 1 Gait Assistive Device: Walker Platform Patient ambulated 10' with a bilateral platform walker with min assist. She had quite a bit of difficulty standing to get on the walker due to her ankle contractures and could not really step through very good also due to them. Wheelchair Training Does the Pt Use a Wheelchair?: Yes Wheelchair (FIM): 5 Distance: 150'x2 Type of Wheelchair: Manual Exercises LAQ alternating for 5 min NuStep Minutes: 15 NuStep Workload: 6 Treatments functional strengthening, gait training, transfers, wheelchair mobility Assessment Current Status: Fair Progress Patient was able to ambulated today and is improving with sliding board and stand pivot transfers PT Short Term Goals Short Term Goals Time Frame: Jun 27, 2017 Gait (FIM): 1 Distance (FIM): 1=up to 49 ft Wheelchair (FIM): 6 Wheelchair Distance: 150' Wheelchair Level of Assist: 6 PT Fpc Goals [place]yline Operator Goals PT Guyline Operator Goals Time Frame: Jul 11, 2017 Transfers (B,C,W/C) (FIM): 4 Sit to Lying (QC): 4 Lying-Sitting on Side/Bed(QC): 4 Sit to Stand (QC): 4 Rollin Roll Left to Right (QC): 4 Chair/Lce-vp-Jzgmi Xfer(QC): 4 Car Transfer (QC): 4 Does the Patient Walk: No and Walking Goal IS indicated Gait (FIM): 2 Gait distance (FIM): 9=437-19 ft Distance: 50' Walk 10 feet (QC): 3 Walk 10ft-Uneven Surface(QC): 3 Walk 50ft with 2 Turns (QC): 3 Gait Level of Assist: 4 Gait Assistive Device: FWW PT Plan Problem List Problem List: Activity Tolerance, Functional Strength, Safety, Balance, Gait, Transfer, Bed Mobility, ROM Treatment/Plan Treatment Plan: Continue Plan of Care Treatment Plan: Bed Mobility, Education, Functional Activity Yris, Functional Strength, Group Therapy, Gait, Safety, Therapeutic Exercise, Transfers Treatment Duration: Jul 11, 2017 Frequency: At least 5 of 7 days/Wk (IRF) Estimated Hrs Per Day: 1.5 hours per day Patient and/or Family Agrees t: Yes Safety Risks/Education Patient Education: Gait Training, Transfer Techniques, Correct Positioning, W/ C Management, Disease Process, Safety Issues Teaching Recipient: Patient Teaching Methods: Demonstration, Discussion Response to Teaching: Reinforcement Needed Time/GCodes Time In: 830 Time Out: 928 Total Billed Treatment Time: 58 Total Billed Treatment 1 visit EX 20' GT 15' FA 23' GERALDO FERRER PT Jun 30, 2017 09:15
[2017-06-30] MEDS: VITAMIN E 400 INTLU CAP PO SCH (09:32)
--- NOTE | 2017-06-30 14:27 | Physical Therapy Daily Note ---
PT Daily Note-Current Subjective Patient sitting EOB and is ready for therapy. Pain Numeric Pain Scale: 10-Worst Possible Pain Location: Right, Left Location Body Site: Foot Pain Description: Burning, Sharp Comment: patient crying Mental Status Patient Orientation: Normal For Age Transfers Functional [place] Measure 0=Not Assessed/NA 4=Minimal Assistance 1=Total Assistance 5=Supervision or Setup 2=Maximal Assistance 6=Modified [place] 3=Moderate Assistance 7=Complete IndependenceIRFPAI Quality Coding Scale 6 Independent with activity with or without an assistive device 5 Patient requires set up or clean up by helper. Patient completes activity by themselves 4 Supervision or touching assist (CGA). [place] provide cues , steadying assist 3 The helper provides less than half the effort to complete the activity 2 The helper provides more than half the effort to complete the activity 1 Dependent. The helper does all the effort to complete an activity 7 Patient refused to complete or attempt activity 9 The patient did not perform the activity before the current illness or injury 88 Not attempted due to Medical conditions or safety concerns Transfers (B, C, W/C) (FIM): 3 Scootin Rollin Roll Left to Right (QC): 4 Supine to/from Sit: 5 Sit to/from Stand: 3 Sit to Lying (QC): 4 Sit to Stand (QC): 3 Chair/Kca-jt-Lxkfj Xfer(QC): 3 Bed to/from Chair: 3 Weight Bearing Right Lower Extremity: Right Weight Bearing/Tolerated Left Lower Extremity: Left Weight Bearing/Tolerated Gait Training Does the Patient Walk?: No and Walking Goal IS indicated Gait (FIM): 1 Distance (FIM): 1=up to 49 ft Distance: 25' x 3 Walk 10 feet (QC): 2 Gait Level of Assist: 3 Gait Persons Needed: 1 Gait Assistive Device: Walker Platform (bilateral) scissor gait sequence due to neuropathy and diminished proprioception Wheelchair Training Does the Pt Use a Wheelchair?: Yes Wheelchair (FIM): 5 Wheelchair Distance: 3=150 ft Wheelchair Level of Assist: 5 Assessment Current Status: Good Progress Patient appears to be motivated with progress. Improvement with demonstration of ambulation with bilateral platform FWW. PT to increase activity as tolerated by patient. PT Short Term Goals Short Term Goals Time Frame: Jun 27, 2017 Gait (FIM): 1 Distance (FIM): 1=up to 49 ft Wheelchair (FIM): 6 Wheelchair Distance: 150'x2 Wheelchair Level of Assist: 6 PT Work Ticket Distributor Goals Usp Goals PT Work Ticket Distributor Goals Time Frame: Jul 11, 2017 Transfers (B,C,W/C) (FIM): 4 Sit to Lying (QC): 4 Lying-Sitting on Side/Bed(QC): 4 Sit to Stand (QC): 4 Rollin Roll Left to Right (QC): 4 Chair/Fsk-me-Jrtdq Xfer(QC): 4 Car Transfer (QC): 4 Does the Patient Walk: No and Walking Goal IS indicated Gait (FIM): 2 Gait distance (FIM): 5=738-96 ft Distance: 50' Walk 10 feet (QC): 3 Walk 10ft-Uneven Surface(QC): 3 Walk 50ft with 2 Turns (QC): 3 Gait Level of Assist: 4 Gait Assistive Device: FWW PT Plan Treatment/Plan Treatment Plan: Continue Plan of Care Treatment Plan: Bed Mobility, Education, Functional Activity Yris, Functional Strength, Group Therapy, Gait, Safety, Therapeutic Exercise, Transfers Treatment Duration: Jul 11, 2017 Frequency: At least 5 of 7 days/Wk (IRF) Estimated Hrs Per Day: 1.5 hours per day Patient and/or Family Agrees t: Yes Time/GCodes Time In: 1350 Time Out: 1422 Total Billed Treatment Time: 32 Total Billed Treatment 1 visit GT x 2 32 min SHELLY OJEDA PT Jun 30, 2017 14:27
[2017-06-30 18:00] VITALS: BP 118/67
[2017-06-30] MEDS ORDERED: KETOROLAC 15 MG/ML VIAL IVP NR (18:30)
[2017-06-30] MEDS: MIRTAZAPINE 15 MG (REMERON) TAB PO SCH (21:58)
[2017-06-30] MEDS: MELATONIN 3 MG TABLET PO SCH (21:59)
[2017-06-30] MEDS: traZODone 100 MG (DESYREL) TAB PO SCH (21:59)
[2017-07-01 06:15] VITALS: BP 102/65
[2017-07-01] MEDS: MULTIVIT W/MINERALS TAB (THERAGRAN M) PO SCH (06:17)
[2017-07-01] MEDS: ZINC SULFATE 220 MG CAPSULE PO SCH (06:17)
[2017-07-01] MEDS: THIAMINE 100 MG (VITAMIN B-1) TAB PO SCH (06:17)
[2017-07-01] MEDS: HYDROcodone/APAP 10 MG/325 MG (LORTAB) TAB PO PRN ×4 (06:21→22:14)
[2017-07-01] MEDS: CYCLOBENZAPRINE 10 MG (FLEXERIL) TAB PO PRN ×3 (06:21→20:31)
[2017-07-01] MEDS: GABAPENTIN 600 MG (NEURONTIN) TAB PO SCH ×3 (08:24→20:32)
[2017-07-01] MEDS: SENNA W/DOCUSATE (SENOKOT S) TABLET PO SCH ×2 (08:24→20:32)
[2017-07-01] MEDS: ASCORBIC ACID (VIT C) 500 MG TABLET PO SCH ×2 (08:24→20:32)
[2017-07-01] MEDS: PYRIDOXINE (VITAMIN B-6) 50 MG TABLET PO SCH (08:24)
[2017-07-01] MEDS: FOLIC ACID 1 MG TAB PO SCH (08:24)
[2017-07-01] MEDS: VITAMIN E 400 INTLU CAP PO SCH (08:24)
[2017-07-01] MEDS: ARIPIPRAZOLE 2 MG (ABILIFY) TAB PO SCH (08:24)
[2017-07-01] MEDS: CARVEDILOL 6.25 MG (COREG) TAB PO SCH ×2 (08:25→20:32)
[2017-07-01] MEDS: ALPRAZolam 1 MG (XANAX) TAB PO PRN ×2 (08:25→14:47)
[2017-07-01] MEDS: POLYETHYLENE GLYCOL 17 GM (MIRALAX) PACK PO SCH ×2 (08:25→20:33)
[2017-07-01] MEDS: morphine ER 15 MG (MS CONTIN) TAB PO SCH ×2 (08:25→20:32)
[2017-07-01] MEDS: BETAMETHASONE/CLOTRIM CREAM (LOTRISONE) 45 GM TP SCH ×2 (08:28→20:44)
[2017-07-01] MEDS: LIDOCAINE (LIDODERM) 5% PATCH TOP SCH (08:28)
[2017-07-01 08:29] VITALS: BP 113/79
--- NOTE | 2017-07-01 09:46 | Occupational Ther Daily Note ---
OT Current Status-Daily Note Subjective Pt sleeping in bed, woke to name. Pt agreed to therapy. Pt c/o being stiff . Mental Status/Objective Patient Orientation: Person, Place, Time, Situation Functional [place] Measure 0=Not Assessed/NA 4=Minimal Assistance 1=Total Assistance 5=Supervision or Setup 2=Maximal Assistance 6=Modified [place] 3=Moderate Assistance 7=Complete [place] ADL-Treatment Pt max A for stand pivot transfer from EOB to [facility] then w/c. Pt required assist x2 to manipulate clothing then was able to cleanse self while sitting on toilet.Pt transferred into walk-in tub with sandra lift. Pt able to bathe self after set up to turn on water and squeeze soap onto washcloth. Assist to dry feet. Pt transferred with max A into bed to dress self and dry buttocks and no area. Pt was able to don upper body clothing and pants/underwear by self. Assist to don/doff socks. Pt requires assistance to doff pants/underwear over hips then is able to kick off of feet. Pt is able to brush hair by self. Pt took increased time to complete bath due to soaking in warm water to decrease pain and increase AROM. After therapy, pt lying in bed with call light /phone in reach. All needs met in room. Functional [place] Measure 0=Not Assessed/NA 4=Minimal Assistance 1=Total Assistance 5=Supervision or Setup 2=Maximal Assistance 6=Modified [place] 3=Moderate Assistance 7=Complete IndependenceIRFPAI Quality Coding Scale 6 Independent with activity with or without an assistive device 5 Patient requires set up or clean up by helper. Patient completes activity by themselves 4 Supervision or touching assist (CGA). [place] provide cues , steadying assist 3 The helper provides less than half the effort to complete the activity 2 The helper provides more than half the effort to complete the activity 1 Dependent. The helper does all the effort to complete an activity 7 Patient refused to complete or attempt activity 9 The patient did not perform the activity before the current illness or injury 88 Not attempted due to Medical conditions or safety concerns Grooming (FIM): 6 Bathing (FIM): 4 Bathing Location: L Arm, R Arm, L Upper Leg, R Upper Leg, L Lower Leg ( including foot), R Lower Leg (including foot), Chest, Abdomen, Buttocks, Perineal Area Shower/Bathe Self (QC): 4 Upper Body (FIM): 5 Upper Body Dressing (QC): 5 Lower Body Dressing (FIM): 3 Lower Body Dressing (QC): 3 On/Off Footwear (QC): 3 Toileting (FIM): 1 Toileting Hygiene (QC): 1 Transfers (B, C, W/C) (FIM): 2 Toilet/Commode Transfer (FIM): 2 Toilet Transfer (QC): 2 OT Short Term Goals Short Term Goals Time Frame: Jun 27, 2017 Lower Body Dressing(FIM): 2 Toileting(FIM): 2 Toilet/Commode Transfer(FIM): 2 Shower Transfer(FIM): 2 Additional Short Term Goals: 2-Verbalize Understanding, 3-ImproveStrength/Yris 1=Demonstrate adherence to instructed precautions during ADL tasks. 2=Patient will verbalize/demonstrate understanding of assistive devices/ modifications for ADL. 3=Patient will improve strength/tolerance for activity to enable patient to perform ADL's. OT [facility] Goals Feed Grinder Goals Time Frame: Jul 11, 2017 Eating (FIM): 5 Eating (QC): 5 Groomin Oral Hygiene (QC): 5 Bathing(FIM): 4 Shower/Bathe Self (QC): 4 Upper Body Dressing(FIM): 5 Upper Body Dressing (QC): 5 Lower Body Dressing(FIM): 4 Lower Body Dressing (QC): 3 On/Off Footwear (QC): 4 Toileting(FIM): 4 Toileting Hygiene (QC): 4 Toilet/Commode Transfer(FIM): 4 Toilet/Commode Transfer (QC): 4 Shower Transfer(FIM): 4 Additional Goals: 1-Demonstrate ADL Tasks, 2-Verbalize Understanding, 3- ImproveStrength/Yris 1=Demonstrate adherence to instructed precautions during ADL tasks. 2=Patient will verbalize/demonstrate understanding of assistive devices/ modifications for ADL. 3=Patient will improve strength/tolerance for activity to enable patient to perform ADL's. OT Education/Plan Discharge Recommendations Plan/Recommendations: Continue POC Treatment Plan/Plan of Care Patient would benefit from OT for education, treatment and training to promote independence in ADL's, mobility, safety and/or upper extremity function for ADL' s. Plan of Care: ADL Retraining, Functional Mobility, Group Exercise/Act as Ind, UE Funct Exercise/Act Treatment Duration: Jul 11, 2017 Frequency: At least 5 of 7 days/Wk (IRF) Estimated Hrs Per Day: 1.5 hours per day Agreement: Yes Rehab Potential: Fair Time/GCodes Start Time: 07:00 Stop Time: 08:30 Total Time Billed (hr/min): 90 Billed Treatment Time 1 visit-ADL 6 (90 min) JAME SIERRA Jul 01, 2017 09:46
--- NOTE | 2017-07-01 12:04 | Physical Therapy Daily Note ---
PT Daily Note-Current Subjective Patient in bed pre tx, agrees to PT, has no complaints of pain but seems depressed and states that she misses her family. Appearance Patient in bed post tx with nurse call, phone, tray, all needs met. Mental Status Patient Orientation: Normal For Age Transfers Functional [place] Measure 0=Not Assessed/NA 4=Minimal Assistance 1=Total Assistance 5=Supervision or Setup 2=Maximal Assistance 6=Modified [place] 3=Moderate Assistance 7=Complete IndependenceIRFPAI Quality Coding Scale 6 Independent with activity with or without an assistive device 5 Patient requires set up or clean up by helper. Patient completes activity by themselves 4 Supervision or touching assist (CGA). [place] provide cues , steadying assist 3 The helper provides less than half the effort to complete the activity 2 The helper provides more than half the effort to complete the activity 1 Dependent. The helper does all the effort to complete an activity 7 Patient refused to complete or attempt activity 9 The patient did not perform the activity before the current illness or injury 88 Not attempted due to Medical conditions or safety concerns Transfers (B, C, W/C) (FIM): 3 Scootin Rollin Supine to/from Sit: 5 Sit to/from Stand: 3 Bed to/from Chair: 3 cues for safety and hand placement, patient tends to lean her hips backward when performing a transfer due to her bilateral ankle contractures Weight Bearing Right Lower Extremity: Right Weight Bearing/Tolerated Left Lower Extremity: Left Weight Bearing/Tolerated Gait Training Gait (FIM): 1 Distance: 10'x2 Gait Level of Assist: 3 Gait Persons Needed: 1 Gait Assistive Device: Walker Platform Patient uses a bilateral platform walker with wheelchair follow, needs assist advancing the walker and close supervision with her left ankle. Wheelchair Training Does the Pt Use a Wheelchair?: Yes Wheelchair (FIM): 6 Distance: 150'x2 Type of Wheelchair: Manual Exercises Seated Therapy Exercises: Ankle pumps, Hip flexion Seated Reps: 20 LAQ x20 with 2# ankle weights each side, hip abd and add using RTB and pillow x20 NuStep Minutes: 15 NuStep Workload: 7 Treatments bed mobility and transfers, ambulation, functional strengthening Assessment Current Status: Fair Progress improving ambulation and strength, still severe ankle contractures PT Short Term Goals Short Term Goals Time Frame: Jun 27, 2017 Gait (FIM): 1 Distance (FIM): 1=up to 49 ft Wheelchair (FIM): 6 Wheelchair Distance: 150'x2 Wheelchair Level of Assist: 6 PT Scale Expert Goals Scale Expert Goals PT Scale Expert Goals Time Frame: Jul 11, 2017 Transfers (B,C,W/C) (FIM): 4 Sit to Lying (QC): 4 Lying-Sitting on Side/Bed(QC): 4 Sit to Stand (QC): 4 Rollin Roll Left to Right (QC): 4 Chair/Mqs-sh-Kywrs Xfer(QC): 4 Car Transfer (QC): 4 Does the Patient Walk: No and Walking Goal IS indicated Gait (FIM): 2 Gait distance (FIM): 8=660-92 ft Distance: 50' Walk 10 feet (QC): 3 Walk 10ft-Uneven Surface(QC): 3 Walk 50ft with 2 Turns (QC): 3 Gait Level of Assist: 4 Gait Assistive Device: FWW PT Plan Problem List Problem List: Activity Tolerance, Functional Strength, Safety, Balance, Gait, Transfer, Bed Mobility, ROM Treatment/Plan Treatment Plan: Continue Plan of Care Treatment Plan: Bed Mobility, Education, Functional Activity Yris, Functional Strength, Group Therapy, Gait, Safety, Therapeutic Exercise, Transfers Treatment Duration: Jul 11, 2017 Frequency: At least 5 of 7 days/Wk (IRF) Estimated Hrs Per Day: 1.5 hours per day Patient and/or Family Agrees t: Yes Safety Risks/Education Patient Education: Gait Training, Transfer Techniques, Correct Positioning, W/ C Management, Disease Process, Safety Issues Teaching Recipient: Patient Teaching Methods: Demonstration, Discussion Response to Teaching: Reinforcement Needed Time/GCodes Time In: 1100 Time Out: 1200 Total Billed Treatment Time: 60 Total Billed Treatment 1 visit GT 20' EX 30' WCH 10' GERALDO FERRER PT Jul 01, 2017 12:04
--- NOTE | 2017-07-01 15:02 | Therapy Group Daily Note ---
Therapy Daily Group Note Patient Education Topic Other List Below (ARU description) Exercises LE Seated Exercise, UE Exercise Other/Notes Pt maneuvered w/c to OT/PT group by self. Group consisted of introductions ( name, place living/born, what states have you visited), socialization, UE/LE seated exercises, ARU expectations and description and group interactive US information activity. Pt appropriately introduced self then listened to other group members as they introduced themselves. Pt attempted to complete seated exercises with only c/o pain when completing ankle pumps. Pt was able to verbalize understanding of ARU and give examples. Pt participated and contributed to activity, was able to give correct answers. After group, pt requested to use BSC. Pt able to cleanse self after toileting though required assist x2 to manipulate clothing. After therapy session, pt lying in bed with call light/phone in reach. All needs met in room. Start Time: 13:00 Stop Time: 14:05 Total Billed Treatment Time: 65 Total Billed Treatment 1-GRP JAME SIERRA Jul 01, 2017 15:02
[2017-07-01] MEDS ORDERED: KETOROLAC 15 MG/ML VIAL IM NR (18:30)
[2017-07-01 18:51] VITALS: BP 114/76
[2017-07-01] MEDS: MIRTAZAPINE 15 MG (REMERON) TAB PO SCH (20:32)
[2017-07-01] MEDS: MELATONIN 3 MG TABLET PO SCH (20:32)
[2017-07-01] MEDS: traZODone 100 MG (DESYREL) TAB PO SCH (20:32)
[2017-07-01] MEDS: LIDODERM PATCH REMOVAL TP SCH (20:44)
[2017-07-02] MEDS: ALPRAZolam 1 MG (XANAX) TAB PO PRN ×4 (00:01→20:32)
[2017-07-02] MEDS: HYDROcodone/APAP 10 MG/325 MG (LORTAB) TAB PO PRN ×3 (02:42→12:35)
[2017-07-02 06:00] VITALS: BP 95/52
[2017-07-02] MEDS: MULTIVIT W/MINERALS TAB (THERAGRAN M) PO SCH (06:17)
[2017-07-02] MEDS: THIAMINE 100 MG (VITAMIN B-1) TAB PO SCH (06:17)
[2017-07-02] MEDS: ZINC SULFATE 220 MG CAPSULE PO SCH (06:17)
[2017-07-02] MEDS: CYCLOBENZAPRINE 10 MG (FLEXERIL) TAB PO PRN ×3 (06:20→22:16)
[2017-07-02] MEDS: VITAMIN E 400 INTLU CAP PO SCH (08:07)
[2017-07-02] MEDS: GABAPENTIN 600 MG (NEURONTIN) TAB PO SCH ×3 (08:07→20:32)
[2017-07-02] MEDS: ASCORBIC ACID (VIT C) 500 MG TABLET PO SCH ×2 (08:07→20:32)
[2017-07-02] MEDS: CARVEDILOL 6.25 MG (COREG) TAB PO SCH ×2 (08:07→20:32)
[2017-07-02] MEDS: morphine ER 15 MG (MS CONTIN) TAB PO SCH (08:07)
[2017-07-02] MEDS: FOLIC ACID 1 MG TAB PO SCH (08:07)
[2017-07-02] MEDS: SENNA W/DOCUSATE (SENOKOT S) TABLET PO SCH ×2 (08:07→20:32)
[2017-07-02] MEDS: ARIPIPRAZOLE 2 MG (ABILIFY) TAB PO SCH (08:07)
[2017-07-02] MEDS: POLYETHYLENE GLYCOL 17 GM (MIRALAX) PACK PO SCH ×2 (08:07→20:32)
[2017-07-02] MEDS: PYRIDOXINE (VITAMIN B-6) 50 MG TABLET PO SCH (08:07)
[2017-07-02] MEDS: LIDOCAINE (LIDODERM) 5% PATCH TOP SCH (08:08)
[2017-07-02] MEDS: BETAMETHASONE/CLOTRIM CREAM (LOTRISONE) 45 GM TP SCH ×2 (08:12→20:34)
--- NOTE | 2017-07-02 08:21 | Progress Note (SOAP) ---
Subjective Time Seen by Provider: 08:15 Subjective/Events-last exam Camila Poe. Patient feels she has improved. Patient complaints of pain. Patient had bowel movement the othe Objective Exam Vital Signs Date Time Temp Pulse Resp B/P (MAP) Pulse Ox O2 Delivery O2 Flow Rate FiO2 07/02/17 06:00 97.7 94 18 95/52 97 Room Air 07/01/17 20:25 Room Air 07/01/17 18:51 98.8 117 16 114/76 97 Room Air 07/01/17 08:56 Room Air 07/01/17 08:29 108 113/79 Capillary Refill : Less Than 3 Seconds General Appearance: No Apparent Distress, Thin HEENT: Normal ENT Inspection Neck: Full Range of Motion, Normal Inspection Respiratory: Chest Non Tender, Lungs Clear, No Accessory Muscle Use, No Respiratory Distress Cardiovascular: Regular Rate, Rhythm, No Murmur Assessment/Plan Assessment/Plan Assess & Plan/Chief Complaint 06/24/17. Patient doing better with therapy o of upper extremities. Camila Poe. History of hallucinations. Patient legs needs more work. . 06/25/17. Camila Poe.. Upper extremity therapy improving. . 06/26/17. Patient positive today. Patient not complaining of much pain. Patient happy. Patient a work in progress. . . 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 Patient improved with upper extremity. Patient a work in progress. . 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 Patient transferring better. . 07/02/17. 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 Patient doing better with her upper extremities. Patient complaining of pain in leg Clinical Quality Measures DVT/VTE Risk/Contraindication: Risk Factor Score Per Nursin RFS Level Per Nursing on Admit: 2=Moderate AFSANEH QUIJANO DO Jul 02, 2017 08:21
--- NOTE | 2017-07-02 09:06 | Occupational Ther Daily Note ---
OT Current Status-Daily Note Subjective Pt alert, eating breakfast in bed. Pt agreed to therapy. Pt stated that she had gotten her medications earlier, but have not taken affect. Pt worried about physician taking away her pain medications and being 'kicked' out of rehab. Mental Status/Objective Patient Orientation: Person, Place, Time, Situation Functional [place] Measure 0=Not Assessed/NA 4=Minimal Assistance 1=Total Assistance 5=Supervision or Setup 2=Maximal Assistance 6=Modified [place] 3=Moderate Assistance 7=Complete [place] ADL-Treatment Functional [place] Measure 0=Not Assessed/NA 4=Minimal Assistance 1=Total Assistance 5=Supervision or Setup 2=Maximal Assistance 6=Modified [place] 3=Moderate Assistance 7=Complete IndependenceIRFPAI Quality Coding Scale 6 Independent with activity with or without an assistive device 5 Patient requires set up or clean up by helper. Patient completes activity by themselves 4 Supervision or touching assist (CGA). [place] provide cues , steadying assist 3 The helper provides less than half the effort to complete the activity 2 The helper provides more than half the effort to complete the activity 1 Dependent. The helper does all the effort to complete an activity 7 Patient refused to complete or attempt activity 9 The patient did not perform the activity before the current illness or injury 88 Not attempted due to Medical conditions or safety concerns Eating (FIM): 6 (Pt able to open containers) Eating (QC): 6 Grooming (FIM): 6 (Sitting in w/c, pt is able to complete all grooming.) Oral Hygiene (QC): 6 Bathing (FIM): 5 (Supervision. Using shower bench, grabbar, hand held shower, long handle sponge and shower bench pt is able to complete own bathing. Leaning side to side to cleanse buttocks. Pt is able to dry self sitting on bench then finished drying no area/buttocks while lying on bed before dressing.) Bathing Location: L Arm, R Arm, L Upper Leg, R Upper Leg, L Lower Leg ( including foot), R Lower Leg (including foot), Chest, Abdomen, Buttocks, Perineal Area Shower/Bathe Self (QC): 4 Upper Body (FIM): 5 (After set up, pt is able to complete upper body dressing.) Upper Body Dressing (QC): 5 Lower Body Dressing (FIM): 3 (After set up, pt is able to don/doff pants/ underwear in sitting or lying on bed. Pt is inconsistent with doffing socks by self. Assist to initiate socks over toes then pt is able to char puller heel and up leg. Pt is able to doff shoes by pushing off with opposite foot. Assist to don shoes. Pt requires assist to transfer onto bed to be able to don clothing. ) Lower Body Dressing (QC): 3 On/Off Footwear (QC): 2 Transfers (B, C, W/C) (FIM): 2 (With tennis shoes on, pt is able to push through feet to extended legs and tuck buttocks under. Pt does have a tendency to lean backwards during transfer. At times pt unable to pivot or step feet during transfer and ankle rolls.) Shower Transfer(FIM): 2 (Using w/c and shower bench, pt requires max A to transfer.) Pt able to open and apply lotion to LE's. After therapy, pt sitting in w/c and going to maneuver around ARU by self. All needs met. OT Short Term Goals Short Term Goals Time Frame: Jun 27, 2017 Lower Body Dressing(FIM): 2 Toileting(FIM): 2 Toilet/Commode Transfer(FIM): 2 Shower Transfer(FIM): 2 Additional Short Term Goals: 2-Verbalize Understanding, 3-ImproveStrength/Yris 1=Demonstrate adherence to instructed precautions during ADL tasks. 2=Patient will verbalize/demonstrate understanding of assistive devices/ modifications for ADL. 3=Patient will improve strength/tolerance for activity to enable patient to perform ADL's. OT Ground Wood Supervisor Goals Fpc Goals Time Frame: Jul 11, 2017 Eating (FIM): 5 Eating (QC): 5 Groomin Oral Hygiene (QC): 5 Bathing(FIM): 4 Shower/Bathe Self (QC): 4 Upper Body Dressing(FIM): 5 Upper Body Dressing (QC): 5 Lower Body Dressing(FIM): 4 Lower Body Dressing (QC): 3 On/Off Footwear (QC): 4 Toileting(FIM): 4 Toileting Hygiene (QC): 4 Toilet/Commode Transfer(FIM): 4 Toilet/Commode Transfer (QC): 4 Shower Transfer(FIM): 4 Additional Goals: 1-Demonstrate ADL Tasks, 2-Verbalize Understanding, 3- ImproveStrength/Yris 1=Demonstrate adherence to instructed precautions during ADL tasks. 2=Patient will verbalize/demonstrate understanding of assistive devices/ modifications for ADL. 3=Patient will improve strength/tolerance for activity to enable patient to perform ADL's. OT Education/Plan Discharge Recommendations Plan/Recommendations: Continue POC Treatment Plan/Plan of Care Patient would benefit from OT for education, treatment and training to promote independence in ADL's, mobility, safety and/or upper extremity function for ADL' s. Plan of Care: ADL Retraining, Functional Mobility, Group Exercise/Act as Ind, UE Funct Exercise/Act Treatment Duration: Jul 11, 2017 Frequency: At least 5 of 7 days/Wk (IRF) Estimated Hrs Per Day: 1.5 hours per day Agreement: Yes Rehab Potential: Fair Time/GCodes Start Time: 07:03 Stop Time: 08:30 Total Time Billed (hr/min): 87 Billed Treatment Time 1 visit-ADL 6 (87 min) JAME SIERRA Jul 02, 2017 09:06
--- NOTE | 2017-07-02 09:32 | Physical Therapy Daily Note ---
PT Daily Note-Current Subjective Patient in wheelchair pre tx, agrees to PT, has pain of 5/10 in legs. Appearance Patient BTB post tx with nurse call, phone, tray, all needs met. Mental Status Patient Orientation: Normal For Age Transfers Functional [place] Measure 0=Not Assessed/NA 4=Minimal Assistance 1=Total Assistance 5=Supervision or Setup 2=Maximal Assistance 6=Modified [place] 3=Moderate Assistance 7=Complete IndependenceIRFPAI Quality Coding Scale 6 Independent with activity with or without an assistive device 5 Patient requires set up or clean up by helper. Patient completes activity by themselves 4 Supervision or touching assist (CGA). [place] provide cues , steadying assist 3 The helper provides less than half the effort to complete the activity 2 The helper provides more than half the effort to complete the activity 1 Dependent. The helper does all the effort to complete an activity 7 Patient refused to complete or attempt activity 9 The patient did not perform the activity before the current illness or injury 88 Not attempted due to Medical conditions or safety concerns Transfers (B, C, W/C) (FIM): 3 Scootin Rollin Supine to/from Sit: 6 Sit to/from Stand: 3 Bed to/from Chair: 3 cues for safety and hand placement, patient tends to flex at the hips and lean her bottom out backward due to her ankle contractures Weight Bearing Right Lower Extremity: Right Weight Bearing/Tolerated Left Lower Extremity: Left Weight Bearing/Tolerated Gait Training Gait (FIM): 1 Distance: 20', 10' Gait Level of Assist: 3 Gait Persons Needed: 1 Gait Assistive Device: Parallel Bars bilateral platform walker, left ankle tends to roll, uncoordinated Wheelchair Training Does the Pt Use a Wheelchair?: Yes Wheelchair (FIM): 6 Distance: 150'x2 Type of Wheelchair: Manual Exercises Seated Therapy Exercises: Ankle pumps, Long arc quads, Hip flexion Seated Reps: 20 NuStep Minutes: 10 NuStep Workload: 7 Treatments patient was toileted, ambulation, transfers, functional strengthening Assessment Current Status: Fair Progress improving ambulation, patient was very emotional today, does not want to discharge PT Short Term Goals Short Term Goals Time Frame: Jun 27, 2017 Gait (FIM): 1 Distance (FIM): 1=up to 49 ft Wheelchair (FIM): 6 Wheelchair Distance: 150'x2 Wheelchair Level of Assist: 6 PT Underwriter Mortgage Loan Goals Mcc Goals PT Underwriter [employer] Goals Time Frame: Jul 11, 2017 Transfers (B,C,W/C) (FIM): 4 Sit to Lying (QC): 4 Lying-Sitting on Side/Bed(QC): 4 Sit to Stand (QC): 4 Rollin Roll Left to Right (QC): 4 Chair/Xfh-jz-Bngnh Xfer(QC): 4 Car Transfer (QC): 4 Does the Patient Walk: No and Walking Goal IS indicated Gait (FIM): 2 Gait distance (FIM): 3=425-86 ft Distance: 50' Walk 10 feet (QC): 3 Walk 10ft-Uneven Surface(QC): 3 Walk 50ft with 2 Turns (QC): 3 Gait Level of Assist: 4 Gait Assistive Device: FWW PT Plan Problem List Problem List: Activity Tolerance, Functional Strength, Safety, Balance, Gait, Transfer, ROM Treatment/Plan Treatment Plan: Continue Plan of Care Treatment Plan: Bed Mobility, Education, Functional Activity Yris, Functional Strength, Group Therapy, Gait, Safety, Therapeutic Exercise, Transfers Treatment Duration: Jul 11, 2017 Frequency: At least 5 of 7 days/Wk (IRF) Estimated Hrs Per Day: 1.5 hours per day Patient and/or Family Agrees t: Yes Safety Risks/Education Patient Education: Gait Training, Transfer Techniques, Correct Positioning, W/ C Management, Disease Process, Safety Issues Teaching Recipient: Patient Teaching Methods: Demonstration, Discussion Response to Teaching: Reinforcement Needed Time/GCodes Time In: 845 Time Out: 930 Total Billed Treatment Time: 45 Total Billed Treatment 1 visit GT 15' EX 20' FA 10' GERALDO FERRER PT Jul 02, 2017 09:32
--- NOTE | 2017-07-02 10:35 | PM & R (SOAP) Progress Note ---
Subjective Time Seen by Provider: 08:45 Subjective/Events-last exam Patient was seen in GYM this AM Case discussed with PT and OT .Patient with fixed contractures both ankles Patient may benefit from custom AFOOS due to plantar contracture fractures. Will f/u with SW re any Benefits this patient may have through [place] Medicaid for this.Patient min to mod assist for transfers- varies. Review of Systems Musculoskeletal: leg pain Objective Exam Last Set of Vital Signs Vital Signs Date Time Temp Pulse Resp B/P (MAP) Pulse Ox O2 Delivery O2 Flow Rate FiO2 07/02/17 06:00 97.7 94 18 95/52 97 Room Air Capillary Refill : Less Than 3 Seconds I&O Intake and Output 07/03/17 00:00 Intake Total 900 ml Output Total 600 ml Balance 300 ml Intake Oral 900 ml Output Urine Total 600 ml # Voids 2 General: Alert, Oriented X3, Cooperative, Mild Distress HEENT: Atraumatic, PERRLA, EOMI, Mucous Memb Moist/[place] Neck: Supple, No JVD Lungs: Clear to Auscultation Heart: Regular Rate Abdomen: Normal Bowel Sounds, Soft, No Tenderness Extremities: No Edema, Other (contractures both ankles) Neuro: Sensation Intact, Other (Cant st Leg raise bilaterally Has flex contractures both ankles) Assessment/Plan Assessment 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
--- NOTE | 2017-07-02 15:45 | Therapy Group Daily Note ---
Therapy Daily Group Note Patient Education Topic Other List Below (Memory Strategies) Exercises LE Seated Exercise, UE Exercise Other/Notes Pt was transported to OT/PT group via w/c. Group consisted of introductions, socialization, UE/LE seated exercises, education on memory strategies and completing memory activity that incorporates strategies. Pt was able to introduce self appropriately. Pt contributed to group conversation and interacted with peers. Pt verbalized understanding of memory strategies and was able to describe own personal strategy used. Pt was able to give an inspiration for the end of group question, 'my kids' was her inspiration. After therapy, pt requested to use BSC. Pt was able to hike pants down hips sitting in w/c then max A with transfer. Assist x2 to hike pants over hips then transferred back to w/c. Pt maneuvered w/c around [place]. All needs met. Start Time: 13:00 Stop Time: 14:20 Total Billed Treatment Time: 80 Total Billed Treatment 1-GRP JAME SIERRA Jul 02, 2017 15:45
[2017-07-02] MEDS: HYDROcodone/APAP 5 MG/325 MG (LORTAB) TAB PO PRN ×2 (16:26→20:32)
[2017-07-02 18:00] VITALS: BP 114/65
[2017-07-02] MEDS: MIRTAZAPINE 15 MG (REMERON) TAB PO SCH (20:31)
[2017-07-02] MEDS: traZODone 100 MG (DESYREL) TAB PO SCH (20:32)
[2017-07-02] MEDS: MELATONIN 3 MG TABLET PO SCH (20:32)
[2017-07-02] MEDS: LIDODERM PATCH REMOVAL TP SCH (20:33)
[2017-07-03 05:13] VITALS: BP 100/65
[2017-07-03] MEDS: ALPRAZolam 1 MG (XANAX) TAB PO PRN ×2 (05:42→18:12)
[2017-07-03] MEDS: MULTIVIT W/MINERALS TAB (THERAGRAN M) PO SCH (05:42)
[2017-07-03] MEDS: ZINC SULFATE 220 MG CAPSULE PO SCH (05:42)
[2017-07-03] MEDS: HYDROcodone/APAP 5 MG/325 MG (LORTAB) TAB PO PRN ×3 (05:42→20:36)
[2017-07-03] MEDS: THIAMINE 100 MG (VITAMIN B-1) TAB PO SCH (05:43)
[2017-07-03] MEDS: CYCLOBENZAPRINE 10 MG (FLEXERIL) TAB PO PRN ×2 (07:07→18:14)
--- NOTE | 2017-07-03 08:34 | Progress Note (SOAP) ---
Subjective Time Seen by Provider: 08:35 Subjective/Events-last exam Camila Poe. Talked about pain medications. To increase the gabapentin Objective Exam Vital Signs Date Time Temp Pulse Resp B/P (MAP) Pulse Ox O2 Delivery O2 Flow Rate FiO2 07/03/17 05:13 98.9 113 16 100/65 93 Room Air 07/02/17 20:30 Room Air 07/02/17 18:00 97.8 107 18 114/65 92 Room Air 07/02/17 09:00 97 Room Air 98.00 Capillary Refill : Less Than 3 Seconds General Appearance: No Apparent Distress, Thin Assessment/Plan Assessment/Plan Assess & Plan/Chief Complaint 06/24/17. Patient doing better with therapy o of upper extremities. Camila Poe. History of hallucinations. Patient legs needs more work. . 06/25/17. Camila Poe.. Upper extremity therapy improving. . 06/26/17. Patient positive today. Patient not complaining of much pain. Patient happy. Patient a work in progress. . . 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 Patient states she's working hard. Patient improved with upper extremity. Patient a work in progress. . 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 Patient transferring better. . 07/02/17. 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 Patient doing better with her upper extremities. Patient complaining of pain in leg. . 07/03/17. 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 Talk to patient about pain medication. Increased gabapentin Clinical Quality Measures DVT/VTE Risk/Contraindication: Risk Factor Score Per Nursin RFS Level Per Nursing on Admit: 2=Moderate AFSANEH QUIJANO DO Jul 03, 2017 08:34
--- NOTE | 2017-07-03 08:47 | Physical Therapy Daily Note ---
PT Daily Note-Current Subjective Patient in wheelchair pre tx, agrees to PT, has pain of 6/10 in legs. Appearance Patient BTB post tx with nurse call, phone, tray, all needs met. Mental Status Patient Orientation: Normal For Age Transfers Functional [place] Measure 0=Not Assessed/NA 4=Minimal Assistance 1=Total Assistance 5=Supervision or Setup 2=Maximal Assistance 6=Modified [place] 3=Moderate Assistance 7=Complete IndependenceIRFPAI Quality Coding Scale 6 Independent with activity with or without an assistive device 5 Patient requires set up or clean up by helper. Patient completes activity by themselves 4 Supervision or touching assist (CGA). [place] provide cues , steadying assist 3 The helper provides less than half the effort to complete the activity 2 The helper provides more than half the effort to complete the activity 1 Dependent. The helper does all the effort to complete an activity 7 Patient refused to complete or attempt activity 9 The patient did not perform the activity before the current illness or injury 88 Not attempted due to Medical conditions or safety concerns Transfers (B, C, W/C) (FIM): 3 Scootin Rollin Supine to/from Sit: 5 Sit to/from Stand: 3 Bed to/from Chair: 3 Stand pivot transfer mod assist but can now perform a sliding board transfer with min assist (performed once during this treatment) Weight Bearing Right Lower Extremity: Right Weight Bearing/Tolerated Left Lower Extremity: Left Weight Bearing/Tolerated Gait Training Patient did not ambulated this morning due to bilateral ankle pain. Wheelchair Training Does the Pt Use a Wheelchair?: Yes Wheelchair (FIM): 6 Distance: 150'x2 Type of Wheelchair: Manual Exercises Supine Ex: Bridging, Ankle pumps, Quad Set, Glut sets, Heel Slides, Straight leg raise, Hip abd/add Supine Reps: 20 Seated Therapy Exercises: Hip flexion Seated Reps: 20 LAQ alternating for 5 min with 2# ankle weights Treatments bed mobility and transfers, functional strengthening, wheelchair mobility Assessment Current Status: Fair Progress improving transfers PT Short Term Goals Short Term Goals Time Frame: Jun 27, 2017 Gait (FIM): 1 Distance (FIM): 1=up to 49 ft Wheelchair (FIM): 6 Wheelchair Distance: 150'x2 Wheelchair Level of Assist: 6 PT Topology Teacher Goals [place] Goals PT Topology Teacher Goals Time Frame: Jul 11, 2017 Transfers (B,C,W/C) (FIM): 4 Sit to Lying (QC): 4 Lying-Sitting on Side/Bed(QC): 4 Sit to Stand (QC): 4 Rollin Roll Left to Right (QC): 4 Chair/Are-jl-Evoat Xfer(QC): 4 Car Transfer (QC): 4 Does the Patient Walk: No and Walking Goal IS indicated Gait (FIM): 2 Gait distance (FIM): 7=197-76 ft Distance: 50' Walk 10 feet (QC): 3 Walk 10ft-Uneven Surface(QC): 3 Walk 50ft with 2 Turns (QC): 3 Gait Level of Assist: 4 Gait Assistive Device: FWW PT Plan Problem List Problem List: Activity Tolerance, Functional Strength, Safety, Balance, Gait, Transfer, Bed Mobility, ROM Treatment/Plan Treatment Plan: Continue Plan of Care Treatment Plan: Bed Mobility, Education, Functional Activity Yris, Functional Strength, Group Therapy, Gait, Safety, Therapeutic Exercise, Transfers Treatment Duration: Jul 11, 2017 Frequency: At least 5 of 7 days/Wk (IRF) Estimated Hrs Per Day: 1.5 hours per day Patient and/or Family Agrees t: Yes Safety Risks/Education Patient Education: Transfer Techniques, Correct Positioning, W/C Management, Safety Issues Teaching Recipient: Patient Teaching Methods: Demonstration, Discussion Response to Teaching: Reinforcement Needed Time/GCodes Time In: 800 Time Out: 845 Total Billed Treatment Time: 45 Total Billed Treatment 1 visit [facility] 15' FA 10' EX 20' GERALDO FERRER PT Jul 03, 2017 08:47
[2017-07-03] MEDS: PYRIDOXINE (VITAMIN B-6) 50 MG TABLET PO SCH (09:19)
[2017-07-03] MEDS: VITAMIN E 400 INTLU CAP PO SCH (09:19)
[2017-07-03] MEDS: ARIPIPRAZOLE 2 MG (ABILIFY) TAB PO SCH (09:19)
[2017-07-03] MEDS: LIDOCAINE (LIDODERM) 5% PATCH TOP SCH (09:20)
[2017-07-03] MEDS: CARVEDILOL 6.25 MG (COREG) TAB PO SCH ×2 (09:20→20:35)
[2017-07-03] MEDS: FOLIC ACID 1 MG TAB PO SCH (09:20)
[2017-07-03] MEDS: SENNA W/DOCUSATE (SENOKOT S) TABLET PO SCH ×2 (09:20→20:35)
[2017-07-03] MEDS: POLYETHYLENE GLYCOL 17 GM (MIRALAX) PACK PO SCH ×2 (09:21→20:36)
[2017-07-03] MEDS: ASCORBIC ACID (VIT C) 500 MG TABLET PO SCH ×2 (09:28→20:35)
[2017-07-03] MEDS: BETAMETHASONE/CLOTRIM CREAM (LOTRISONE) 45 GM TP SCH ×2 (09:28→20:37)
[2017-07-03] MEDS: GABAPENTIN 600 MG (NEURONTIN) TAB PO SCH ×2 (09:56→13:37)
--- NOTE | 2017-07-03 10:29 | PM & R (SOAP) Progress Note ---
Subjective Time Seen by Provider: 10:15 Subjective/Events-last exam Patient was seen in her room this AM Discussed case with LINA Patient tearful and feels a crushing pain in her legs and back Doesnt feel that Hydrocodone q 8 hours is helping.LINA Has obtained prior records of patients pain management For now will provide a 1 time dose of Toradol if not too soon since previous injection of same. Review of Systems Musculoskeletal: back pain, leg pain Objective Exam Last Set of Vital Signs Vital Signs Date Time Temp Pulse Resp B/P (MAP) Pulse Ox O2 Delivery O2 Flow Rate FiO2 07/03/17 09:00 Room Air 07/03/17 05:13 98.9 113 16 100/65 93 07/02/17 09:00 98.00 Capillary Refill : Less Than 3 Seconds I&O Intake and Output 07/04/17 00:00 Intake Total 450 ml Balance 450 ml Intake Oral 450 ml # Voids 2 # Bowel Movements 1 General: Alert, Oriented X3, Cooperative, Mild Distress HEENT: Atraumatic, PERRLA, EOMI, Mucous Memb Moist/[place] Neck: Supple, No JVD Lungs: Clear to Auscultation Heart: Regular Rate Abdomen: Normal Bowel Sounds, Soft, No Tenderness Extremities: No Edema, Other (contractures both ankles) Neuro: Sensation Intact, Other (Cant st Leg raise bilaterally Has flex contractures both ankles) Assessment/Plan Assessment 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 Neuropathic pain BLES Anxiety/depression Anemia Hypokalemia-replacement ordered Hypoalbuminemia-supplement ordered Prior rt rotator cuff injury and repair Plan Continue PT/OT-gradually improving but with setback today ST has signed off Supplement due to low albumin Pain management-Adjust Pain meds uoxo-[id number] orders Replaced K Consult [facility]-done appreciate thier report F/U with DR wandy GUTIERREZ-Appreciate his note and orders Monitor po intake and wt Team Conference held yesterday -See report for full functional update and POC and ELOS LINA has indicated that Patients insurance has approved another week of inpatient stay on BRENDAU ALEXUS MERCADO MD Jul 03, 2017 10:29
[2017-07-03] MEDS ORDERED: KETOROLAC 60 MG/2 ML VIAL IM NR (10:30)
[2017-07-03] MEDS: fentaNYL PATCH 50 MCG (DURAGESIC) TD SCH (10:45)
--- NOTE | 2017-07-03 12:25 | Occupational Ther Daily Note ---
OT Current Status-Daily Note Subjective Pt alert, sitting up in bed. Pt just had received breakfast, but stated that she could wait until after therapy. Pt agreed to therapy. Pt c/o pain and wanted Flexoral, reported to nrsg. Mental Status/Objective Patient Orientation: Person, Place, Time, Situation Functional [place] Measure 0=Not Assessed/NA 4=Minimal Assistance 1=Total Assistance 5=Supervision or Setup 2=Maximal Assistance 6=Modified [place] 3=Moderate Assistance 7=Complete [place] ADL-Treatment Pt completed own sponge bath in bed. Pt dressed self in bed. Pt emotional today worried about the doctor taking away pain meds and being kicked out of therapy. Attempted to reassure pt. Pt required assistance to don shoes. Max A for stand pivot transfer to/from toilet and assist to manipulate clothing. Pt able to complete own hygiene while sitting. Pt then was able to maneuver w/ c from room to therapy gym. Paraffin completed to increase AROM and decrease pt 's pain. Pt stated after paraffin that hands did feel better. Pt transported back to room via w/c and transferred with max A to bed. Call light/phone in reach. All needs met in room. Functional [place] Measure 0=Not Assessed/NA 4=Minimal Assistance 1=Total Assistance 5=Supervision or Setup 2=Maximal Assistance 6=Modified [place] 3=Moderate Assistance 7=Complete IndependenceIRFPAI Quality Coding Scale 6 Independent with activity with or without an assistive device 5 Patient requires set up or clean up by helper. Patient completes activity by themselves 4 Supervision or touching assist (CGA). [place] provide cues , steadying assist 3 The helper provides less than half the effort to complete the activity 2 The helper provides more than half the effort to complete the activity 1 Dependent. The helper does all the effort to complete an activity 7 Patient refused to complete or attempt activity 9 The patient did not perform the activity before the current illness or injury 88 Not attempted due to Medical conditions or safety concerns Bathing (FIM): 5 Bathing Location: L Arm, R Arm, L Upper Leg, R Upper Leg, L Lower Leg ( including foot), R Lower Leg (including foot), Chest, Abdomen, Buttocks, Perineal Area Shower/Bathe Self (QC): 4 Upper Body (FIM): 5 Upper Body Dressing (QC): 5 Lower Body Dressing (FIM): 3 Lower Body Dressing (QC): 3 On/Off Footwear (QC): 2 Toileting (FIM): 1 Transfers (B, C, W/C) (FIM): 2 Toilet/Commode Transfer (FIM): 2 Toilet Transfer (QC): 2 OT Short Term Goals Short Term Goals Time Frame: Jun 27, 2017 Lower Body Dressing(FIM): 2 Toileting(FIM): 2 Toilet/Commode Transfer(FIM): 2 Shower Transfer(FIM): 2 Additional Short Term Goals: 2-Verbalize Understanding, 3-ImproveStrength/Yris 1=Demonstrate adherence to instructed precautions during ADL tasks. 2=Patient will verbalize/demonstrate understanding of assistive devices/ modifications for ADL. 3=Patient will improve strength/tolerance for activity to enable patient to perform ADL's. OT Manager Internal Goals Custodial Goals Time Frame: Jul 11, 2017 Eating (FIM): 5 Eating (QC): 5 Groomin Oral Hygiene (QC): 5 Bathing(FIM): 4 Shower/Bathe Self (QC): 4 Upper Body Dressing(FIM): 5 Upper Body Dressing (QC): 5 Lower Body Dressing(FIM): 4 Lower Body Dressing (QC): 3 On/Off Footwear (QC): 4 Toileting(FIM): 4 Toileting Hygiene (QC): 4 Toilet/Commode Transfer(FIM): 4 Toilet/Commode Transfer (QC): 4 Shower Transfer(FIM): 4 Additional Goals: 1-Demonstrate ADL Tasks, 2-Verbalize Understanding, 3- ImproveStrength/Yris 1=Demonstrate adherence to instructed precautions during ADL tasks. 2=Patient will verbalize/demonstrate understanding of assistive devices/ modifications for ADL. 3=Patient will improve strength/tolerance for activity to enable patient to perform ADL's. OT Education/Plan Discharge Recommendations Plan/Recommendations: Continue POC Treatment Plan/Plan of Care Patient would benefit from OT for education, treatment and training to promote independence in ADL's, mobility, safety and/or upper extremity function for ADL' s. Plan of Care: ADL Retraining, Functional Mobility, Group Exercise/Act as Ind, UE Funct Exercise/Act Treatment Duration: Jul 11, 2017 Frequency: At least 5 of 7 days/Wk (IRF) Estimated Hrs Per Day: 1.5 hours per day Agreement: Yes Rehab Potential: Fair Time/GCodes Start Time: 07:00 Stop Time: 08:00 Total Time Billed (hr/min): 60 Billed Treatment Time 1 visit-ADL 3 (40 min) FA 1 (20 min) JAME SIERRA Jul 03, 2017 12:24
[2017-07-03] MEDS ORDERED: GABAPENTIN 600 MG (NEURONTIN) TAB PO SCH (13:00)
--- NOTE | 2017-07-03 14:44 | Physical Therapy Daily Note ---
PT Daily Note-Current Subjective Pt excited because she can perform a slide board transfer without assist. Transfers Functional [place] Measure 0=Not Assessed/NA 4=Minimal Assistance 1=Total Assistance 5=Supervision or Setup 2=Maximal Assistance 6=Modified [place] 3=Moderate Assistance 7=Complete IndependenceIRFPAI Quality Coding Scale 6 Independent with activity with or without an assistive device 5 Patient requires set up or clean up by helper. Patient completes activity by themselves 4 Supervision or touching assist (CGA). [place] provide cues , steadying assist 3 The helper provides less than half the effort to complete the activity 2 The helper provides more than half the effort to complete the activity 1 Dependent. The helper does all the effort to complete an activity 7 Patient refused to complete or attempt activity 9 The patient did not perform the activity before the current illness or injury 88 Not attempted due to Medical conditions or safety concerns Weight Bearing Right Lower Extremity: Right Weight Bearing/Tolerated Left Lower Extremity: Left Weight Bearing/Tolerated Treatments Slide board transfer left and right x 4 reps. with SBA and skilled cues for safety. Pt then rode nu step on level 7 x 15 minutes to promote LE strength and functional activity tolerance. Wheelchair mobility 250 ft x 3 reps mod indep. Pt in room post treatment. Educated to continue to be supervised with slide board transfer until we deem her safe to transfer alone. Verbalized understanding and agreement. Assessment Current Status: Good Progress Improved ability to use the slide board. PT Short Term Goals Short Term Goals Time Frame: Jun 27, 2017 Gait (FIM): 1 Distance (FIM): 1=up to 49 ft Wheelchair (FIM): 6 (met) Wheelchair Distance: 150'x2 Wheelchair Level of Assist: 6 PT Rubber Roller Grinder Goals Rubber Roller Grinder Goals PT Rubber Roller Grinder Goals Time Frame: Jul 11, 2017 Transfers (B,C,W/C) (FIM): 4 Sit to Lying (QC): 4 Lying-Sitting on Side/Bed(QC): 4 Sit to Stand (QC): 4 Rollin Roll Left to Right (QC): 4 Chair/Ygf-fn-Hqnuw Xfer(QC): 4 Car Transfer (QC): 4 Does the Patient Walk: No and Walking Goal IS indicated Gait (FIM): 2 Gait distance (FIM): 0=751-96 ft Distance: 50' Walk 10 feet (QC): 3 Walk 10ft-Uneven Surface(QC): 3 Walk 50ft with 2 Turns (QC): 3 Gait Level of Assist: 4 Gait Assistive Device: FWW PT Plan Problem List Problem List: Activity Tolerance, Functional Strength, Safety, Transfer Treatment/Plan Treatment Plan: Continue Plan of Care Treatment Plan: Bed Mobility, Education, Functional Activity Yris, Functional Strength, Group Therapy, Gait, Safety, Therapeutic Exercise, Transfers Treatment Duration: Jul 11, 2017 Frequency: At least 5 of 7 days/Wk (IRF) Estimated Hrs Per Day: 1.5 hours per day Patient and/or Family Agrees t: Yes Safety Risks/Education Patient Education: Safety Issues Teaching Recipient: Patient Teaching Methods: Discussion Response to Teaching: Verbalize Understanding Time/GCodes Time In: 1358 Time Out: 1444 Total Billed Treatment Time: 46 Total Billed Treatment visit EX 15 FA 20 WC 10 JAME MITCHELL PT Jul 03, 2017 14:43
--- NOTE | 2017-07-03 14:46 | Occupational Ther Daily Note ---
OT Current Status-Daily Note Subjective Pt alert, sitting up in bed. Pt stated this was a bad day for her. Pt continued to ask questions about people being annoyed with her and not liking her. Attempted to reassure pt. Agreed to therapy. Pt stated that pain patch that had been place on L shldr was working. Mental Status/Objective Patient Orientation: Person, Place, Time, Situation Functional [place] Measure 0=Not Assessed/NA 4=Minimal Assistance 1=Total Assistance 5=Supervision or Setup 2=Maximal Assistance 6=Modified [place] 3=Moderate Assistance 7=Complete [place] ADL-Treatment Pt working on sliding board transfer. Pt was initially upset that she was expected to place transfer board by herself stating that "she always had help before and she couldn't do it herself". EDWARD encouraged pt to try and would assist if needed. Pt was able to place board with assist to make sure shorts were pulled down over skin. Then with supervision and led raised slightly higher than w/c pt was able to complete transfer. Then she c/o about how tall her bed was at home and started to cry that she still wouldn't be able to do it. Pt was redirected about what she had just accomplished and that we would continue to work on different transfers. She then remembered that she had talked with social media coordinator about getting a hospital bed. Discussion about what pt needed to accomplish in transfers to toilet and shower to be successful. Pt then maneuvered w/c throughout hospital with min A due to fatigue and pain of UE 's. After therapy, pt transferred back to bed with min A using transfer board. Call light/phone in reach, all needs met in room. Functional [place] Measure 0=Not Assessed/NA 4=Minimal Assistance 1=Total Assistance 5=Supervision or Setup 2=Maximal Assistance 6=Modified [place] 3=Moderate Assistance 7=Complete IndependenceIRFPAI Quality Coding Scale 6 Independent with activity with or without an assistive device 5 Patient requires set up or clean up by helper. Patient completes activity by themselves 4 Supervision or touching assist (CGA). [place] provide cues , steadying assist 3 The helper provides less than half the effort to complete the activity 2 The helper provides more than half the effort to complete the activity 1 Dependent. The helper does all the effort to complete an activity 7 Patient refused to complete or attempt activity 9 The patient did not perform the activity before the current illness or injury 88 Not attempted due to Medical conditions or safety concerns OT Short Term Goals Short Term Goals Time Frame: Jun 27, 2017 Lower Body Dressing(FIM): 2 Toileting(FIM): 2 Toilet/Commode Transfer(FIM): 2 Shower Transfer(FIM): 2 Additional Short Term Goals: 2-Verbalize Understanding, 3-ImproveStrength/Yris 1=Demonstrate adherence to instructed precautions during ADL tasks. 2=Patient will verbalize/demonstrate understanding of assistive devices/ modifications for ADL. 3=Patient will improve strength/tolerance for activity to enable patient to perform ADL's. OT [facility] Goals Mental Health Clinician Goals Time Frame: Jul 11, 2017 Eating (FIM): 5 Eating (QC): 5 Groomin Oral Hygiene (QC): 5 Bathing(FIM): 4 Shower/Bathe Self (QC): 4 Upper Body Dressing(FIM): 5 Upper Body Dressing (QC): 5 Lower Body Dressing(FIM): 4 Lower Body Dressing (QC): 3 On/Off Footwear (QC): 4 Toileting(FIM): 4 Toileting Hygiene (QC): 4 Toilet/Commode Transfer(FIM): 4 Toilet/Commode Transfer (QC): 4 Shower Transfer(FIM): 4 Additional Goals: 1-Demonstrate ADL Tasks, 2-Verbalize Understanding, 3- ImproveStrength/Yris 1=Demonstrate adherence to instructed precautions during ADL tasks. 2=Patient will verbalize/demonstrate understanding of assistive devices/ modifications for ADL. 3=Patient will improve strength/tolerance for activity to enable patient to perform ADL's. OT Education/Plan Discharge Recommendations Plan/Recommendations: Continue POC Treatment Plan/Plan of Care Patient would benefit from OT for education, treatment and training to promote independence in ADL's, mobility, safety and/or upper extremity function for ADL' s. Plan of Care: ADL Retraining, Functional Mobility, Group Exercise/Act as Ind, UE Funct Exercise/Act Treatment Duration: Jul 11, 2017 Frequency: At least 5 of 7 days/Wk (IRF) Estimated Hrs Per Day: 1.5 hours per day Agreement: Yes Rehab Potential: Fair Time/GCodes Start Time: 13:00 Stop Time: 13:35 Total Time Billed (hr/min): 35 Billed Treatment Time 1 visit-EX 1 (15 min) FA 1 (20 min) JAME SIERRA Jul 03, 2017 14:46
[2017-07-03] MEDS: OLANZapine 2.5 MG (ZyPREXA) TAB PO SCH (17:14)
[2017-07-03 18:28] VITALS: BP 122/73
[2017-07-03] MEDS: MIRTAZAPINE 15 MG (REMERON) TAB PO SCH (20:35)
[2017-07-03] MEDS: traZODone 100 MG (DESYREL) TAB PO SCH (20:35)
[2017-07-03] MEDS: GABAPENTIN 300 MG (NEURONTIN) CAP PO SCH (20:35)
[2017-07-03] MEDS: MELATONIN 3 MG TABLET PO SCH (20:35)
[2017-07-03] MEDS: LIDODERM PATCH REMOVAL TP SCH (20:36)
[2017-07-04] MEDS: HYDROcodone/APAP 5 MG/325 MG (LORTAB) TAB PO PRN ×3 (01:49→20:03)
[2017-07-04] MEDS: ALPRAZolam 1 MG (XANAX) TAB PO PRN ×3 (01:49→17:46)
[2017-07-04 05:00] VITALS: BP 104/70
[2017-07-04] MEDS: THIAMINE 100 MG (VITAMIN B-1) TAB PO SCH (06:01)
[2017-07-04] MEDS: MULTIVIT W/MINERALS TAB (THERAGRAN M) PO SCH (06:01)
[2017-07-04] MEDS: ZINC SULFATE 220 MG CAPSULE PO SCH (06:01)
[2017-07-04] MEDS: CYCLOBENZAPRINE 10 MG (FLEXERIL) TAB PO PRN ×2 (06:01→16:01)
--- NOTE | 2017-07-04 07:58 | Progress Note (SOAP) ---
Subjective Time Seen by Provider: 07:45 Subjective/Events-last exam Camila Poe. Patient voices no complaints today. Patient doing her own shower once on chair Objective Exam Vital Signs Date Time Temp Pulse Resp B/P (MAP) Pulse Ox O2 Delivery O2 Flow Rate FiO2 07/04/17 05:00 97.2 101 14 104/70 96 Room Air 07/03/17 20:30 Room Air 07/03/17 18:28 97.3 114 16 122/73 97 Room Air 07/03/17 09:00 Room Air Capillary Refill : Less Than 3 Seconds General Appearance: No Apparent Distress, Thin Assessment/Plan Assessment/Plan Assess & Plan/Chief Complaint 06/24/17. Patient doing better with therapy o of upper extremities. Camila Poe. History of hallucinations. Patient legs needs more work. . 06/25/17. [place] Poe.. Upper extremity therapy improving. . 06/26/17. Patient positive today. Patient not complaining of much pain. Patient happy. Patient a work in progress. . . 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 Patient states she's working hard. Patient improved with upper extremity. Patient a work in progress. . 06/30/17. [place] Poe syndrome. Patient is improving. Patient transferring better. . 07/02/17. 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 Patient doing better with her upper extremities. Patient complaining of pain in leg. . 07/03/17. 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 Talk to patient about pain medication. Increased gabapentin. . 07/04/17. Camila Poe. Patient improving with upper extremities Clinical Quality Measures DVT/VTE Risk/Contraindication: Risk Factor Score Per Nursin RFS Level Per Nursing on Admit: 2=Moderate AFSANEH QUIJANO DO Jul 04, 2017 07:58
--- NOTE | 2017-07-04 08:23 | Occupational Ther Daily Note ---
OT Current Status-Daily Note Subjective Pt alert, sitting in bed. Pt has had difficulty getting breakfast tray today. Finally got it when EDWARD arrived, pt agreed to complete therapy. Pt very positive today. Pt was excited about being able to don socks by self. Mental Status/Objective Patient Orientation: Person, Place, Time, Situation Functional [place] Measure 0=Not Assessed/NA 4=Minimal Assistance 1=Total Assistance 5=Supervision or Setup 2=Maximal Assistance 6=Modified [place] 3=Moderate Assistance 7=Complete [place] ADL-Treatment Pt was able to place transfer board, take off w/c arm to transfer then transferred with supervision. Pt transported to large therapy gym to complete bath. Pt transferred with board to tub transfer bench with supervision. Pt undressed on bench by self. Pt complete bathing/drying self. Pt shaved legs and underarms by self. Pt required CGA to keep feet from sliding on floor when transferring back to w/c with sliding board. Transported pt back to room via w/ c and pt transferred self back to bed with CGA. Pt dressed self in bed except shoes. Pt then ate breakfast in bed. Pt was able to open containers/packages by self and used regular utensils to feed self and cut food. After therapy, pt sitting up in bed with call light/phone in reach. All needs met in room. Functional [place] Measure 0=Not Assessed/NA 4=Minimal Assistance 1=Total Assistance 5=Supervision or Setup 2=Maximal Assistance 6=Modified [place] 3=Moderate Assistance 7=Complete IndependenceIRFPAI Quality Coding Scale 6 Independent with activity with or without an assistive device 5 Patient requires set up or clean up by helper. Patient completes activity by themselves 4 Supervision or touching assist (CGA). [place] provide cues , steadying assist 3 The helper provides less than half the effort to complete the activity 2 The helper provides more than half the effort to complete the activity 1 Dependent. The helper does all the effort to complete an activity 7 Patient refused to complete or attempt activity 9 The patient did not perform the activity before the current illness or injury 88 Not attempted due to Medical conditions or safety concerns Eating (FIM): 6 Eating (QC): 6 Grooming (FIM): 6 Oral Hygiene (QC): 6 Bathing (FIM): 5 Bathing Location: L Arm, R Arm, L Upper Leg, R Upper Leg, L Lower Leg ( including foot), R Lower Leg (including foot), Chest, Abdomen, Buttocks, Perineal Area Shower/Bathe Self (QC): 4 Upper Body (FIM): 5 Upper Body Dressing (QC): 5 Lower Body Dressing (FIM): 4 Lower Body Dressing (QC): 4 Transfers (B, C, W/C) (FIM): 5 (with sliding board) Tub Transfer(FIM): 4 (with sliding board and transfer bench) OT Short Term Goals Short Term Goals Time Frame: Jun 27, 2017 Lower Body Dressing(FIM): 2 Toileting(FIM): 2 Toilet/Commode Transfer(FIM): 2 Shower Transfer(FIM): 2 Additional Short Term Goals: 2-Verbalize Understanding, 3-ImproveStrength/Yris 1=Demonstrate adherence to instructed precautions during ADL tasks. 2=Patient will verbalize/demonstrate understanding of assistive devices/ modifications for ADL. 3=Patient will improve strength/tolerance for activity to enable patient to perform ADL's. OT Mixer Runner Goals Jail Goals Time Frame: Jul 11, 2017 Eating (FIM): 5 Eating (QC): 5 Groomin Oral Hygiene (QC): 5 Bathing(FIM): 4 Shower/Bathe Self (QC): 4 Upper Body Dressing(FIM): 5 Upper Body Dressing (QC): 5 Lower Body Dressing(FIM): 4 Lower Body Dressing (QC): 3 On/Off Footwear (QC): 4 Toileting(FIM): 4 Toileting Hygiene (QC): 4 Toilet/Commode Transfer(FIM): 4 Toilet/Commode Transfer (QC): 4 Shower Transfer(FIM): 4 Additional Goals: 1-Demonstrate ADL Tasks, 2-Verbalize Understanding, 3- ImproveStrength/Yris 1=Demonstrate adherence to instructed precautions during ADL tasks. 2=Patient will verbalize/demonstrate understanding of assistive devices/ modifications for ADL. 3=Patient will improve strength/tolerance for activity to enable patient to perform ADL's. OT Education/Plan Discharge Recommendations Plan/Recommendations: Continue POC Treatment Plan/Plan of Care Patient would benefit from OT for education, treatment and training to promote independence in ADL's, mobility, safety and/or upper extremity function for ADL' s. Plan of Care: ADL Retraining, Functional Mobility, Group Exercise/Act as Ind, UE Funct Exercise/Act Treatment Duration: Jul 11, 2017 Frequency: At least 5 of 7 days/Wk (IRF) Estimated Hrs Per Day: 1.5 hours per day Agreement: Yes Rehab Potential: Fair Time/GCodes Start Time: 07:00 Stop Time: 08:10 Total Time Billed (hr/min): 70 Billed Treatment Time 1 visit-ADL 5 (70 min) JAME SIERRA Jul 04, 2017 08:23
[2017-07-04] MEDS: ASCORBIC ACID (VIT C) 500 MG TABLET PO SCH ×2 (08:45→20:04)
[2017-07-04] MEDS: ARIPIPRAZOLE 2 MG (ABILIFY) TAB PO SCH (08:45)
[2017-07-04] MEDS: SENNA W/DOCUSATE (SENOKOT S) TABLET PO SCH ×2 (08:45→20:04)
[2017-07-04] MEDS: VITAMIN D2 50,000 UNITS (1.25 MG) CAP PO SCH (08:45)
[2017-07-04] MEDS: LIDOCAINE (LIDODERM) 5% PATCH TOP SCH (08:45)
[2017-07-04] MEDS: CARVEDILOL 6.25 MG (COREG) TAB PO SCH ×2 (08:46→20:03)
[2017-07-04] MEDS: FOLIC ACID 1 MG TAB PO SCH (08:46)
[2017-07-04] MEDS: OLANZapine 2.5 MG (ZyPREXA) TAB PO SCH (08:46)
[2017-07-04] MEDS: GABAPENTIN 600 MG (NEURONTIN) TAB PO SCH ×2 (08:46→12:19)
[2017-07-04] MEDS: POLYETHYLENE GLYCOL 17 GM (MIRALAX) PACK PO SCH ×2 (08:47→20:05)
[2017-07-04] MEDS: VITAMIN E 400 INTLU CAP PO SCH (08:47)
[2017-07-04] MEDS: PYRIDOXINE (VITAMIN B-6) 50 MG TABLET PO SCH (08:50)
--- NOTE | 2017-07-04 09:01 | PM & R (SOAP) Progress Note ---
Subjective Time Seen by Provider: 08:15 Subjective/Events-last exam Patient was seen in her room this AM Pain control much better with D Patch and patient able to participate in therapies.Discussed case with DR Saenz by phone.Patient SBA for transfers Objective Exam Last Set of Vital Signs Vital Signs Date Time Temp Pulse Resp B/P (MAP) Pulse Ox O2 Delivery O2 Flow Rate FiO2 07/04/17 05:00 97.2 101 14 104/70 96 Room Air 07/02/17 09:00 98.00 Capillary Refill : Less Than 3 Seconds I&O Intake and Output 07/05/17 00:00 Intake Total 400 ml Balance 400 ml Intake Oral 400 ml # Voids 3 General: Alert, Oriented X3, Cooperative, Mild Distress HEENT: Atraumatic, PERRLA, EOMI, Mucous Memb Moist/[place] Neck: Supple, No JVD Lungs: Clear to Auscultation Heart: Regular Rate Abdomen: Normal Bowel Sounds, Soft, No Tenderness Extremities: No Edema, Other (contractures both ankles) Neuro: Sensation Intact, Other (Cant st Leg raise bilaterally Has flex contractures both ankles) Assessment/Plan Assessment 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 Neuropathic pain BLES Anxiety/depression Anemia Hypokalemia-replacement ordered Hypoalbuminemia-supplement ordered Prior rt rotator cuff injury and repair Plan Continue PT/OT-gradually improving but with setback today ST has signed off Supplement due to low albumin Pain management-Adjust Pain meds [id number] orders [facility]placed [facility]done appreciate their report F/U with DR saenz PRN-Appreciate his note and orders Monitor po intake and wt Team Conference held 07-02-17 -See report for full functional update and POC and ELOS SW has indicated that Patients insurance has approved another week of inpatient stay on IRU Maintain on current dose of pain medicine and avoid increasing dosage. ALEXUS MERCADO MD Jul 04, 2017 09:01
--- NOTE | 2017-07-04 09:32 | Physical Therapy Daily Note ---
PT Daily Note-Current Subjective Patient in bed pre tx, agrees to PT, has pain of 6/10 in both legs. Appearance Patient BTB post tx with nurse call, phone, tray, all needs met. Mental Status Patient Orientation: Normal For Age Transfers Functional [place] Measure 0=Not Assessed/NA 4=Minimal Assistance 1=Total Assistance 5=Supervision or Setup 2=Maximal Assistance 6=Modified [place] 3=Moderate Assistance 7=Complete IndependenceIRFPAI Quality Coding Scale 6 Independent with activity with or without an assistive device 5 Patient requires set up or clean up by helper. Patient completes activity by themselves 4 Supervision or touching assist (CGA). [place] provide cues , steadying assist 3 The helper provides less than half the effort to complete the activity 2 The helper provides more than half the effort to complete the activity 1 Dependent. The helper does all the effort to complete an activity 7 Patient refused to complete or attempt activity 9 The patient did not perform the activity before the current illness or injury 88 Not attempted due to Medical conditions or safety concerns Transfers (B, C, W/C) (FIM): 3 Scootin Supine to/from Sit: 5 Sit to/from Stand: 3 Bed to/from Chair: 4 Patient performed a sliding board transfers x2 with CGA Weight Bearing Right Lower Extremity: Right Weight Bearing/Tolerated Left Lower Extremity: Left Weight Bearing/Tolerated Gait Training Gait (FIM): 1 Distance: 20'x3 Gait Level of Assist: 4 Gait Persons Needed: 1 uses bilateral platform walker, left ankle tends to roll, has to keep both knees locked in extension Wheelchair Training Wheelchair (FIM): 6 Distance: 200'x2 Type of Wheelchair: Manual Exercises stood in the parallel bars for 1 min with heel lift bilaterally, and performed LAQ alternating for 5 min Treatments bed mobility and transfers, ambulation, functional strengthening, wheelchair mobility Assessment Current Status: Fair Progress improving ambulation and sliding board transfers PT Short Term Goals Short Term Goals Time Frame: Jun 27, 2017 Gait (FIM): 1 Distance (FIM): 1=up to 49 ft Wheelchair (FIM): 6 (met) Wheelchair Distance: 150'x2 Wheelchair Level of Assist: 6 PT Unemployment Examiner Goals Unemployment Examiner Goals PT Unemployment Examiner Goals Time Frame: Jul 11, 2017 Transfers (B,C,W/C) (FIM): 4 Sit to Lying (QC): 4 Lying-Sitting on Side/Bed(QC): 4 Sit to Stand (QC): 4 Rollin Roll Left to Right (QC): 4 Chair/[id number] Xfer(QC): 4 Car Transfer (QC): 4 Does the Patient Walk: No and Walking Goal IS indicated Gait (FIM): 2 Gait distance (FIM): 6=077-25 ft Distance: 50' Walk 10 feet (QC): 3 Walk 10ft-Uneven Surface(QC): 3 Walk 50ft with 2 Turns (QC): 3 Gait Level of Assist: 4 Gait Assistive Device: FWW PT Plan Problem List Problem List: Activity Tolerance, Functional Strength, Safety, Balance, Gait, Transfer, Bed Mobility, ROM Treatment/Plan Treatment Plan: Continue Plan of Care Treatment Plan: Bed Mobility, Education, Functional Activity Yris, Functional Strength, Group Therapy, Gait, Safety, Therapeutic Exercise, Transfers Treatment Duration: Jul 11, 2017 Frequency: At least 5 of 7 days/Wk (IRF) Estimated Hrs Per Day: 1.5 hours per day Patient and/or Family Agrees t: Yes Safety Risks/Education Patient Education: Gait Training, Transfer Techniques, Correct Positioning, W/ C Management, Safety Issues Teaching Recipient: Patient Teaching Methods: Demonstration, Discussion Response to Teaching: Reinforcement Needed Time/GCodes Time In: 845 Time Out: 930 Total Billed Treatment Time: 45 Total Billed Treatment 1 visit GT 15' EX 10' FA 20' GERALDO FERRER PT Jul 04, 2017 09:32
[2017-07-04] MEDS: BETAMETHASONE/CLOTRIM CREAM (LOTRISONE) 45 GM TP SCH ×2 (10:31→20:05)
--- NOTE | 2017-07-04 15:36 | Therapy Group Daily Note ---
Therapy Daily Group Note Exercises LE Seated Exercise, UE Exercise Other/Notes Pt propels [facility] to PT/OT Group in Therapy Commons Area. Group consists of Introductions (Name, Where you are from & Favorite Game- Childhood or Otherwise) , Socialization, UE/LE Seated EX, Activities that focus on Core Strengthening, Dynamic Sitting, Fine Motor w/UE AROM, Peer discussions during Activities and Opening Containers & Packages. Pt participated in Group by participating in discussions with peer, Exercising as well as activity when it was pt's turn. Pt propelled [facility] back to room at end of Group to use BSC then returns to Therapy Commons to relax. Start Time: 13:00 Stop Time: 14:30 Total Billed Treatment Time: 90 Total Billed Treatment 1, GRP FAZAL HENSLEY MANAGER TRAVEL Jul 04, 2017 15:36
[2017-07-04 18:48] VITALS: BP 99/58
[2017-07-04] MEDS: traZODone 100 MG (DESYREL) TAB PO SCH (20:03)
[2017-07-04] MEDS: GABAPENTIN 300 MG (NEURONTIN) CAP PO SCH (20:03)
[2017-07-04] MEDS: MELATONIN 3 MG TABLET PO SCH (20:03)
[2017-07-04] MEDS: MIRTAZAPINE 15 MG (REMERON) TAB PO SCH (20:04)
[2017-07-04] MEDS: LIDODERM PATCH REMOVAL TP SCH (20:05)
[2017-07-05] MEDS: ALPRAZolam 1 MG (XANAX) TAB PO PRN ×3 (02:01→20:21)
[2017-07-05] MEDS: CYCLOBENZAPRINE 10 MG (FLEXERIL) TAB PO PRN ×3 (02:01→20:21)
[2017-07-05 05:00] VITALS: BP 133/81
[2017-07-05] MEDS: THIAMINE 100 MG (VITAMIN B-1) TAB PO SCH (05:38)
[2017-07-05] MEDS: HYDROcodone/APAP 5 MG/325 MG (LORTAB) TAB PO PRN ×2 (05:38→15:18)
[2017-07-05] MEDS: MULTIVIT W/MINERALS TAB (THERAGRAN M) PO SCH (05:38)
[2017-07-05] MEDS: ZINC SULFATE 220 MG CAPSULE PO SCH (05:38)
--- NOTE | 2017-07-05 08:47 | Physical Therapy Daily Note ---
PT Daily Note-Current Subjective Patient in bed pre tx, agrees to PT, has pain of 6/10 in legs, especially her right ankle. She will need to be toileted and dressed. Appearance Patient in wheelchair at bedside post tx finishing up breakfast, has nurse call , phone, tray, all needs met. Mental Status Patient Orientation: Normal For Age Transfers Functional [place] Measure 0=Not Assessed/NA 4=Minimal Assistance 1=Total Assistance 5=Supervision or Setup 2=Maximal Assistance 6=Modified [place] 3=Moderate Assistance 7=Complete IndependenceIRFPAI Quality Coding Scale 6 Independent with activity with or without an assistive device 5 Patient requires set up or clean up by helper. Patient completes activity by themselves 4 Supervision or touching assist (CGA). [place] provide cues , steadying assist 3 The helper provides less than half the effort to complete the activity 2 The helper provides more than half the effort to complete the activity 1 Dependent. The helper does all the effort to complete an activity 7 Patient refused to complete or attempt activity 9 The patient did not perform the activity before the current illness or injury 88 Not attempted due to Medical conditions or safety concerns Transfers (B, C, W/C) (FIM): 3 Scootin Rollin Supine to/from Sit: 6 Sit to/from Stand: 3 Bed to/from Chair: 3 cues for safety and hand placement Weight Bearing Right Lower Extremity: Right Weight Bearing/Tolerated Left Lower Extremity: Left Weight Bearing/Tolerated Exercises Seated Therapy Exercises: Ankle pumps, Long arc quads, Hip flexion Seated Reps: 20 Treatments functional strengthening, bed mobility and transfers, patient was dressed and toileted with nurse assist Assessment Current Status: Fair Progress improving bed mobility PT Short Term Goals Short Term Goals Time Frame: Jun 27, 2017 Gait (FIM): 1 Distance (FIM): 1=up to 49 ft Wheelchair (FIM): 6 (met) Wheelchair Distance: 200'x2 Wheelchair Level of Assist: 6 PT Decal Decorator Goals Decal Decorator Goals PT Decal Decorator Goals Time Frame: Jul 11, 2017 Transfers (B,C,W/C) (FIM): 4 Sit to Lying (QC): 4 Lying-Sitting on Side/Bed(QC): 4 Sit to Stand (QC): 4 Rollin Roll Left to Right (QC): 4 Chair/[id number]-Kwgqc Xfer(QC): 4 Car Transfer (QC): 4 Does the Patient Walk: No and Walking Goal IS indicated Gait (FIM): 2 Gait distance (FIM): 3=643-85 ft Distance: 50' Walk 10 feet (QC): 3 Walk 10ft-Uneven Surface(QC): 3 Walk 50ft with 2 Turns (QC): 3 Gait Level of Assist: 4 Gait Assistive Device: FWW PT Plan Problem List Problem List: Activity Tolerance, Functional Strength, Safety, Balance, Gait, Transfer, Bed Mobility, ROM Treatment/Plan Treatment Plan: Continue Plan of Care Treatment Plan: Bed Mobility, Education, Functional Activity Yris, Functional Strength, Group Therapy, Gait, Safety, Therapeutic Exercise, Transfers Treatment Duration: Jul 11, 2017 Frequency: At least 5 of 7 days/Wk (IRF) Estimated Hrs Per Day: 1.5 hours per day Patient and/or Family Agrees t: Yes Safety Risks/Education Patient Education: Transfer Techniques, Correct Positioning, Safety Issues Teaching Recipient: Patient Teaching Methods: Demonstration, Discussion Response to Teaching: Reinforcement Needed Time/GCodes Time In: 825 Time Out: 840 Total Billed Treatment Time: 15 Total Billed Treatment 1 visit FA 15' GERALDO FERRER PT Jul 05, 2017 08:47
[2017-07-05] MEDS: VITAMIN E 400 INTLU CAP PO SCH (09:46)
[2017-07-05] MEDS: ARIPIPRAZOLE 2 MG (ABILIFY) TAB PO SCH (09:46)
[2017-07-05] MEDS: CARVEDILOL 6.25 MG (COREG) TAB PO SCH ×2 (09:46→20:21)
[2017-07-05] MEDS: OLANZapine 2.5 MG (ZyPREXA) TAB PO SCH (09:46)
[2017-07-05] MEDS: ASCORBIC ACID (VIT C) 500 MG TABLET PO SCH ×2 (09:47→20:21)
[2017-07-05] MEDS: BETAMETHASONE/CLOTRIM CREAM (LOTRISONE) 45 GM TP SCH ×2 (09:47→20:21)
[2017-07-05] MEDS: SENNA W/DOCUSATE (SENOKOT S) TABLET PO SCH ×2 (09:47→20:21)
[2017-07-05] MEDS: PYRIDOXINE (VITAMIN B-6) 50 MG TABLET PO SCH (09:47)
[2017-07-05] MEDS: FOLIC ACID 1 MG TAB PO SCH (09:47)
[2017-07-05] MEDS: GABAPENTIN 600 MG (NEURONTIN) TAB PO SCH ×2 (09:47→13:43)
[2017-07-05] MEDS: LIDOCAINE (LIDODERM) 5% PATCH TOP SCH (09:47)
[2017-07-05] MEDS: POLYETHYLENE GLYCOL 17 GM (MIRALAX) PACK PO SCH ×2 (09:51→20:22)
[2017-07-05 18:00] VITALS: BP 109/70
[2017-07-05] MEDS: GABAPENTIN 300 MG (NEURONTIN) CAP PO SCH (20:21)
[2017-07-05] MEDS: traZODone 100 MG (DESYREL) TAB PO SCH (20:21)
[2017-07-05] MEDS: MELATONIN 3 MG TABLET PO SCH (20:21)
[2017-07-05] MEDS: MIRTAZAPINE 15 MG (REMERON) TAB PO SCH (20:22)
[2017-07-05] MEDS: LIDODERM PATCH REMOVAL TP SCH (20:22)
[2017-07-06] MEDS: HYDROcodone/APAP 5 MG/325 MG (LORTAB) TAB PO PRN ×3 (02:36→15:55)
[2017-07-06 05:00] VITALS: BP 114/72
[2017-07-06] MEDS: THIAMINE 100 MG (VITAMIN B-1) TAB PO SCH (06:31)
[2017-07-06] MEDS: ZINC SULFATE 220 MG CAPSULE PO SCH (06:31)
[2017-07-06] MEDS: MULTIVIT W/MINERALS TAB (THERAGRAN M) PO SCH (06:31)
[2017-07-06] MEDS: ARIPIPRAZOLE 2 MG (ABILIFY) TAB PO SCH (08:19)
[2017-07-06] MEDS: PYRIDOXINE (VITAMIN B-6) 50 MG TABLET PO SCH (08:19)
[2017-07-06] MEDS: LIDOCAINE (LIDODERM) 5% PATCH TOP SCH (08:19)
[2017-07-06] MEDS: ASCORBIC ACID (VIT C) 500 MG TABLET PO SCH ×2 (08:19→21:14)
[2017-07-06] MEDS: VITAMIN E 400 INTLU CAP PO SCH (08:19)
[2017-07-06] MEDS: SENNA W/DOCUSATE (SENOKOT S) TABLET PO SCH ×2 (08:19→21:15)
[2017-07-06] MEDS: CARVEDILOL 6.25 MG (COREG) TAB PO SCH ×2 (08:20→21:15)
[2017-07-06] MEDS: OLANZapine 2.5 MG (ZyPREXA) TAB PO SCH (08:20)
[2017-07-06] MEDS: POLYETHYLENE GLYCOL 17 GM (MIRALAX) PACK PO SCH ×2 (08:20→21:15)
[2017-07-06] MEDS: FOLIC ACID 1 MG TAB PO SCH (08:20)
[2017-07-06] MEDS: GABAPENTIN 600 MG (NEURONTIN) TAB PO SCH ×2 (08:23→13:05)
[2017-07-06] MEDS: BETAMETHASONE/CLOTRIM CREAM (LOTRISONE) 45 GM TP SCH ×2 (08:23→21:15)
[2017-07-06] MEDS: fentaNYL PATCH 50 MCG (DURAGESIC) TD SCH (10:37)
[2017-07-06] MEDS: ALPRAZolam 1 MG (XANAX) TAB PO PRN ×2 (13:25→19:56)
[2017-07-06] MEDS: CYCLOBENZAPRINE 10 MG (FLEXERIL) TAB PO PRN ×2 (13:25→21:14)
[2017-07-06 18:02] VITALS: BP 115/77
[2017-07-06] MEDS: GABAPENTIN 300 MG (NEURONTIN) CAP PO SCH (21:15)
[2017-07-06] MEDS: LIDODERM PATCH REMOVAL TP SCH (21:15)
[2017-07-06] MEDS: MIRTAZAPINE 15 MG (REMERON) TAB PO SCH (21:15)
[2017-07-06] MEDS: MELATONIN 3 MG TABLET PO SCH (21:15)
[2017-07-06] MEDS: traZODone 100 MG (DESYREL) TAB PO SCH (21:15)
[2017-07-07] MEDS: HYDROcodone/APAP 5 MG/325 MG (LORTAB) TAB PO PRN ×3 (02:55→18:49)
[2017-07-07] MEDS: THIAMINE 100 MG (VITAMIN B-1) TAB PO SCH (05:00)
[2017-07-07] MEDS: ZINC SULFATE 220 MG CAPSULE PO SCH (05:00)
[2017-07-07] MEDS: MULTIVIT W/MINERALS TAB (THERAGRAN M) PO SCH (05:01)
[2017-07-07 05:17] VITALS: BP 98/64
[2017-07-07] MEDS: ALPRAZolam 1 MG (XANAX) TAB PO PRN ×2 (06:57→15:25)
[2017-07-07] MEDS: CARVEDILOL 6.25 MG (COREG) TAB PO SCH ×2 (06:59→20:48)
[2017-07-07] MEDS: CYCLOBENZAPRINE 10 MG (FLEXERIL) TAB PO PRN ×2 (06:59→20:48)
--- NOTE | 2017-07-07 08:22 | Occupational Ther Daily Note ---
OT Current Status-Daily Note Subjective Pt alert, lying in bed. Pt agreed to therapy. C/o stiffness throughout body, but stated she had just gotten her medications. Mental Status/Objective Patient Orientation: Person, Place, Time, Situation Functional [place] Measure 0=Not Assessed/NA 4=Minimal Assistance 1=Total Assistance 5=Supervision or Setup 2=Maximal Assistance 6=Modified [place] 3=Moderate Assistance 7=Complete [place] ADL-Treatment Pt transferred with CGA to stabilize LE using transfer board to w/c. Pt transported to large shower room for bath in walk-in tub. Transfer with lift into/out of tub. Pt then was able to bathe self. Pt washed hands, face and shampooed hair in the tub. Pt then transported back to room via w/c and transferred with max A to [facility]. Pt was able to cleanse self, did not have lower body clothing on to manipulate. Max A stand pivot transfer to bed. Pt then was able to don upper body clothing by self after set up. Pt donned underwear and pants by self after set up. Required assist to don socks and shoes due to decreased feeling in fingers. After therapy, pt sitting up in bed with call light/phone in reach. All needs met in room. Functional [place] Measure 0=Not Assessed/NA 4=Minimal Assistance 1=Total Assistance 5=Supervision or Setup 2=Maximal Assistance 6=Modified [place] 3=Moderate Assistance 7=Complete IndependenceIRFPAI Quality Coding Scale 6 Independent with activity with or without an assistive device 5 Patient requires set up or clean up by helper. Patient completes activity by themselves 4 Supervision or touching assist (CGA). [place] provide cues , steadying assist 3 The helper provides less than half the effort to complete the activity 2 The helper provides more than half the effort to complete the activity 1 Dependent. The helper does all the effort to complete an activity 7 Patient refused to complete or attempt activity 9 The patient did not perform the activity before the current illness or injury 88 Not attempted due to Medical conditions or safety concerns Grooming (FIM): 6 Bathing (FIM): 5 Bathing Location: L Arm, R Arm, L Upper Leg, R Upper Leg, L Lower Leg ( including foot), R Lower Leg (including foot), Chest, Abdomen, Buttocks, Perineal Area Shower/Bathe Self (QC): 4 Upper Body (FIM): 5 Upper Body Dressing (QC): 5 Lower Body Dressing (FIM): 3 Lower Body Dressing (QC): 3 On/Off Footwear (QC): 2 Transfers (B, C, W/C) (FIM): 2 (Max A with stand pivot transfers. CGA using sliding board) Toilet/Commode Transfer (FIM): 2 Toilet Transfer (QC): 2 OT Short Term Goals Short Term Goals Time Frame: Jun 27, 2017 Lower Body Dressing(FIM): 2 Toileting(FIM): 2 Toilet/Commode Transfer(FIM): 2 Shower Transfer(FIM): 2 Additional Short Term Goals: 2-Verbalize Understanding, 3-ImproveStrength/Yris 1=Demonstrate adherence to instructed precautions during ADL tasks. 2=Patient will verbalize/demonstrate understanding of assistive devices/ modifications for ADL. 3=Patient will improve strength/tolerance for activity to enable patient to perform ADL's. OT Assisted Goals [employer] Goals Time Frame: Jul 11, 2017 Eating (FIM): 5 Eating (QC): 5 Groomin Oral Hygiene (QC): 5 Bathing(FIM): 4 Shower/Bathe Self (QC): 4 Upper Body Dressing(FIM): 5 Upper Body Dressing (QC): 5 Lower Body Dressing(FIM): 4 Lower Body Dressing (QC): 3 On/Off Footwear (QC): 4 Toileting(FIM): 4 Toileting Hygiene (QC): 4 Toilet/Commode Transfer(FIM): 4 Toilet/Commode Transfer (QC): 4 Shower Transfer(FIM): 4 Additional Goals: 1-Demonstrate ADL Tasks, 2-Verbalize Understanding, 3- ImproveStrength/Yris 1=Demonstrate adherence to instructed precautions during ADL tasks. 2=Patient will verbalize/demonstrate understanding of assistive devices/ modifications for ADL. 3=Patient will improve strength/tolerance for activity to enable patient to perform ADL's. OT Education/Plan Discharge Recommendations Plan/Recommendations: Continue POC Treatment Plan/Plan of Care Patient would benefit from OT for education, treatment and training to promote independence in ADL's, mobility, safety and/or upper extremity function for ADL' s. Plan of Care: ADL Retraining, Functional Mobility, Group Exercise/Act as Ind, UE Funct Exercise/Act Treatment Duration: Jul 11, 2017 Frequency: At least 5 of 7 days/Wk (IRF) Estimated Hrs Per Day: 1.5 hours per day Agreement: Yes Rehab Potential: Fair Time/GCodes Start Time: 07:00 Stop Time: 08:00 Total Time Billed (hr/min): 60 Billed Treatment Time 1 visit-ADL 4 (60 min) JAME SIERRA Jul 07, 2017 08:21
--- NOTE | 2017-07-07 08:37 | Progress Note (SOAP) ---
Subjective Time Seen by Provider: 08:37 Subjective/Events-last exam patient feeling better today. Camila Poe disease. Patient using upper extremities better. Patient getting around with walker somewhat Objective Exam Vital Signs Date Time Temp Pulse Resp B/P (MAP) Pulse Ox O2 Delivery O2 Flow Rate FiO2 07/07/17 05:17 98.1 112 17 98/64 96 Room Air 07/06/17 21:00 Room Air 07/06/17 18:02 99.1 122 18 115/77 98 Room Air 07/06/17 09:00 95 Room Air 98.00 Capillary Refill : Less Than 3 Seconds General Appearance: No Apparent Distress, Thin HEENT: Normal ENT Inspection Assessment/Plan Assessment/Plan Assess & Plan/Chief Complaint 06/24/17. Patient doing better with therapy o of upper extremities. [place] Poe. History of hallucinations. Patient legs needs more work. . 06/25/17. [place] Poe.. Upper extremity therapy improving. . 06/26/17. Patient positive today. Patient not complaining of much pain. Patient happy. Patient a work in progress. . . 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 Patient states she's working hard. Patient improved with upper extremity. Patient a work in progress. . 06/30/17. 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 Patient is improving. Patient transferring better. . 07/02/17. 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 Patient doing better with her upper extremities. Patient complaining of pain in leg. . 07/03/17. 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 Talk to patient about pain medication. Increased gabapentin. . 07/04/17. [place] Poe. Patient improving with upper extremities. . 07/07/17. [place] Poe. patient improving. Patient working Clinical Quality Measures DVT/VTE Risk/Contraindication: Risk Factor Score Per Nursin RFS Level Per Nursing on Admit: 2=Moderate AFSANEH QUIJANO DO Jul 07, 2017 08:37
--- NOTE | 2017-07-07 08:45 | Physical Therapy Daily Note ---
PT Daily Note-Current Subjective Patient in bed pre tx, agrees to PT, finishing up dressing. Patient has pain of 3/10 in her legs. Appearance Patient in wheelchair post tx, she is mod I with wheelchair mobility. Mental Status Patient Orientation: Normal For Age Transfers Functional [place] Measure 0=Not Assessed/NA 4=Minimal Assistance 1=Total Assistance 5=Supervision or Setup 2=Maximal Assistance 6=Modified [place] 3=Moderate Assistance 7=Complete IndependenceIRFPAI Quality Coding Scale 6 Independent with activity with or without an assistive device 5 Patient requires set up or clean up by helper. Patient completes activity by themselves 4 Supervision or touching assist (CGA). [place] provide cues , steadying assist 3 The helper provides less than half the effort to complete the activity 2 The helper provides more than half the effort to complete the activity 1 Dependent. The helper does all the effort to complete an activity 7 Patient refused to complete or attempt activity 9 The patient did not perform the activity before the current illness or injury 88 Not attempted due to Medical conditions or safety concerns Transfers (B, C, W/C) (FIM): 4 Scootin Rollin Supine to/from Sit: 5 Sit to/from Stand: 4 Bed to/from Chair: 4 Patient performs a stand pivot transfer with min assist and a sliding board transfer with setup Weight Bearing Right Lower Extremity: Right Weight Bearing/Tolerated Left Lower Extremity: Left Weight Bearing/Tolerated Gait Training Gait (FIM): 1 Distance: 20'x3 Gait Level of Assist: 4 Gait Persons Needed: 1 bilateral platform walker, min assist, left ankle tends to roll, has bilateral plantarflexion contractures Wheelchair Training Does the Pt Use a Wheelchair?: Yes Wheelchair (FIM): 6 Distance: 200'x2 Type of Wheelchair: Manual Exercises NuStep Minutes: 15 NuStep Workload: 7 Treatments bed mobility and transfers, ambulation, functional strengthening Assessment Current Status: Fair Progress improving mobility PT Short Term Goals Short Term Goals Time Frame: Jun 27, 2017 Gait (FIM): 1 Distance (FIM): 1=up to 49 ft Wheelchair (FIM): 6 (met) Wheelchair Distance: 200'x2 Wheelchair Level of Assist: 6 PT Care Home Goals Certified Optician Goals PT Certified Optician Goals Time Frame: Jul 11, 2017 Transfers (B,C,W/C) (FIM): 4 Sit to Lying (QC): 4 Lying-Sitting on Side/Bed(QC): 4 Sit to Stand (QC): 4 Rollin Roll Left to Right (QC): 4 Chair/[id number]-[id number] Xfer(QC): 4 Car Transfer (QC): 4 Does the Patient Walk: No and Walking Goal IS indicated Gait (FIM): 2 Gait distance (FIM): 0=127-90 ft Distance: 50' Walk 10 feet (QC): 3 Walk 10ft-Uneven Surface(QC): 3 Walk 50ft with 2 Turns (QC): 3 Gait Level of Assist: 4 Gait Assistive Device: FWW PT Plan Problem List Problem List: Activity Tolerance, Functional Strength, Safety, Balance, Gait, Transfer, Bed Mobility, ROM Treatment/Plan Treatment Plan: Continue Plan of Care Treatment Plan: Bed Mobility, Education, Functional Activity Yris, Functional Strength, Group Therapy, Gait, Safety, Therapeutic Exercise, Transfers Treatment Duration: Jul 11, 2017 Frequency: At least 5 of 7 days/Wk (IRF) Estimated Hrs Per Day: 1.5 hours per day Patient and/or Family Agrees t: Yes Safety Risks/Education Patient Education: Gait Training, Transfer Techniques, Correct Positioning, W/ C Management, Safety Issues Teaching Recipient: Patient Teaching Methods: Demonstration, Discussion Response to Teaching: Reinforcement Needed Time/GCodes Time In: 800 Time Out: 845 Total Billed Treatment Time: 45 Total Billed Treatment 1 visit EX 15' GT 30' GERALDO FERRER PT Jul 07, 2017 08:45
[2017-07-07] MEDS: VITAMIN E 400 INTLU CAP PO SCH (08:55)
[2017-07-07] MEDS: ARIPIPRAZOLE 2 MG (ABILIFY) TAB PO SCH (08:55)
[2017-07-07] MEDS: PYRIDOXINE (VITAMIN B-6) 50 MG TABLET PO SCH (08:55)
[2017-07-07] MEDS: OLANZapine 2.5 MG (ZyPREXA) TAB PO SCH (08:55)
[2017-07-07] MEDS: ASCORBIC ACID (VIT C) 500 MG TABLET PO SCH ×2 (08:56→20:48)
[2017-07-07] MEDS: GABAPENTIN 600 MG (NEURONTIN) TAB PO SCH ×2 (08:56→12:52)
[2017-07-07] MEDS: SENNA W/DOCUSATE (SENOKOT S) TABLET PO SCH ×2 (08:56→20:48)
[2017-07-07] MEDS: FOLIC ACID 1 MG TAB PO SCH (08:56)
[2017-07-07] MEDS: BETAMETHASONE/CLOTRIM CREAM (LOTRISONE) 45 GM TP SCH ×2 (08:58→20:51)
[2017-07-07] MEDS: LIDOCAINE (LIDODERM) 5% PATCH TOP SCH (08:58)
[2017-07-07] MEDS: POLYETHYLENE GLYCOL 17 GM (MIRALAX) PACK PO SCH ×2 (08:59→20:49)
--- NOTE | 2017-07-07 15:51 | Therapy Group Daily Note ---
Therapy Daily Group Note Patient Education Topic Other List Below Exercises LE Seated Exercise, UE Exercise Other/Notes Pt maneuvered w/c to OT/PT group via w/c. Group consisted of introductions ( name, place living, first thing pt does in the fall), socialization, seated UE/ LE exercises, posture while seated, benefits of exercises, ARU description/ expectations, breathing posture and peer conversations. Pt was able to introduce self appropriately. Pt answered questions and was able to verbalize understanding of education that was discussed. Pt completed exercises without difficulty and led exercises. Pt contributed to discussions and gave own strategies and opinions. Pt then transported to room via w/c. After therapy, pt lying in bed with call light/phone in reach. All needs met in room. Start Time: 13:00 Stop Time: 14:15 Total Billed Treatment Time: 75 Total Billed Treatment 1-GRP JAME SIERRA Jul 07, 2017 15:51
[2017-07-07 18:35] VITALS: BP 123/75
--- NOTE | 2017-07-07 19:44 | PM & R (SOAP) Progress Note ---
Subjective Time Seen by Provider: 19:30 Subjective/Events-last exam Patient was seen in her room this evening Patient min assist for transfers Mood much improved Pain control better Review of Systems Musculoskeletal: leg pain Neurological: Weakness Objective Exam Last Set of Vital Signs Vital Signs Date Time Temp Pulse Resp B/P (MAP) Pulse Ox O2 Delivery O2 Flow Rate FiO2 07/07/17 18:35 98.3 116 16 123/75 96 Room Air 07/06/17 09:00 98.00 Capillary Refill : Less Than 3 Seconds I&O Intake and Output 07/08/17 00:00 Intake Total 1100 ml Output Total 750 ml Balance 350 ml Intake Oral 1100 ml Output Urine Total 750 ml # Voids 4 General: Alert, Oriented X3, Cooperative, Mild Distress HEENT: Atraumatic, PERRLA, EOMI, Mucous Memb Moist/[place] Neck: Supple, No JVD Lungs: Clear to Auscultation Heart: Regular Rate Abdomen: Normal Bowel Sounds, Soft, No Tenderness Extremities: No Edema, Other (contractures both ankles) Neuro: Sensation Intact, Other (SLR bilate to 30 degrees) Assessment/Plan Assessment 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 Neuropathic pain BLES Anxiety/depression Anemia Hypokalemia-replacement ordered Hypoalbuminemia-supplement ordered Prior rt rotator cuff injury and repair Plan Continue PT/OT-gradually improving but with setback today ST has signed off Supplement due to low albumin Pain management-Adjust Pain meds [id number] orders Replaced K [facility]-done appreciate their report F/U with DR wandy GUTIERREZ-Appreciate his note and orders Monitor po intake and weight SW has indicated last week that Patients insurance has approved another week of inpatient stay on IRU Maintain on current dose of pain medicine and avoid increasing dosage. Next Team Conference 07-09-17 ALEXUS MERCADO MD Jul 07, 2017 19:44
[2017-07-07] MEDS: MIRTAZAPINE 15 MG (REMERON) TAB PO SCH (20:48)
[2017-07-07] MEDS: traZODone 100 MG (DESYREL) TAB PO SCH (20:48)
[2017-07-07] MEDS: MELATONIN 3 MG TABLET PO SCH (20:48)
[2017-07-07] MEDS: GABAPENTIN 300 MG (NEURONTIN) CAP PO SCH (20:49)
[2017-07-07] MEDS: LIDODERM PATCH REMOVAL TP SCH (20:49)
[2017-07-08] MEDS: ALPRAZolam 1 MG (XANAX) TAB PO PRN ×3 (01:48→16:06)
[2017-07-08] MEDS: HYDROcodone/APAP 5 MG/325 MG (LORTAB) TAB PO PRN ×3 (01:48→18:48)
[2017-07-08] MEDS: MULTIVIT W/MINERALS TAB (THERAGRAN M) PO SCH (05:43)
[2017-07-08] MEDS: CYCLOBENZAPRINE 10 MG (FLEXERIL) TAB PO PRN ×3 (05:43→20:59)
[2017-07-08] MEDS: THIAMINE 100 MG (VITAMIN B-1) TAB PO SCH (05:43)
[2017-07-08] MEDS: ZINC SULFATE 220 MG CAPSULE PO SCH (05:43)
[2017-07-08 06:41] VITALS: BP 103/64
--- NOTE | 2017-07-08 07:56 | Occupational Ther Daily Note ---
OT Current Status-Daily Note Subjective Pt alert, lying in bed. Pt agreed to therapy. No c/o pain at this time. Mental Status/Objective Patient Orientation: Person, Place, Time, Situation Functional [place] Measure 0=Not Assessed/NA 4=Minimal Assistance 1=Total Assistance 5=Supervision or Setup 2=Maximal Assistance 6=Modified [place] 3=Moderate Assistance 7=Complete [place] ADL-Treatment Functional [place] Measure 0=Not Assessed/NA 4=Minimal Assistance 1=Total Assistance 5=Supervision or Setup 2=Maximal Assistance 6=Modified [place] 3=Moderate Assistance 7=Complete IndependenceIRFPAI Quality Coding Scale 6 Independent with activity with or without an assistive device 5 Patient requires set up or clean up by helper. Patient completes activity by themselves 4 Supervision or touching assist (CGA). [place] provide cues , steadying assist 3 The helper provides less than half the effort to complete the activity 2 The helper provides more than half the effort to complete the activity 1 Dependent. The helper does all the effort to complete an activity 7 Patient refused to complete or attempt activity 9 The patient did not perform the activity before the current illness or injury 88 Not attempted due to Medical conditions or safety concerns Eating (FIM): 6 (Dentures. Pt able to open packages/containers by self. Uses regular utensils to feed self and cut food.) Eating (QC): 6 Grooming (FIM): 6 (Sitting at w/c level, pt is able to complete by self.) Oral Hygiene (QC): 6 Bathing (FIM): 6 (Using shower bench, hand held shower, long handle sponge and grabbars pt is able to complete by self.) Bathing Location: L Arm, R Arm, L Upper Leg, R Upper Leg, L Lower Leg ( including foot), R Lower Leg (including foot), Chest, Abdomen, Buttocks, Perineal Area Shower/Bathe Self (QC): 6 Upper Body (FIM): 5 (Set up only. Pt able to complete upper body dressing by self.) Upper Body Dressing (QC): 5 Lower Body Dressing (FIM): 4 (Pt is able to doff lower body clothing in sitting or in bed. Pt is able to don most lower body clothing in sitting or bed except unable to don shoes by self.) Lower Body Dressing (QC): 3 On/Off Footwear (QC): 3 Transfers (B, C, W/C) (FIM): 5 (Using sliding board, pt is able to complete with SBA/Supervision.) Tub Transfer(FIM): 4 (Supervision using tub transfer bench and sliding board. Assist to position board while on tub bench and CGA to block feet for safety.) After therapy, pt sitting in bed with call light/phone in reach. All needs met in room. OT Short Term Goals Short Term Goals Time Frame: Jun 27, 2017 Lower Body Dressing(FIM): 2 Toileting(FIM): 2 Toilet/Commode Transfer(FIM): 2 Shower Transfer(FIM): 2 Additional Short Term Goals: 2-Verbalize Understanding, 3-ImproveStrength/Yris 1=Demonstrate adherence to instructed precautions during ADL tasks. 2=Patient will verbalize/demonstrate understanding of assistive devices/ modifications for ADL. 3=Patient will improve strength/tolerance for activity to enable patient to perform ADL's. OT Detention Goals Detention Goals Time Frame: Jul 11, 2017 Eating (FIM): 5 Eating (QC): 5 Groomin Oral Hygiene (QC): 5 Bathing(FIM): 4 Shower/Bathe Self (QC): 4 Upper Body Dressing(FIM): 5 Upper Body Dressing (QC): 5 Lower Body Dressing(FIM): 4 Lower Body Dressing (QC): 3 On/Off Footwear (QC): 4 Toileting(FIM): 4 Toileting Hygiene (QC): 4 Toilet/Commode Transfer(FIM): 4 Toilet/Commode Transfer (QC): 4 Shower Transfer(FIM): 4 Additional Goals: 1-Demonstrate ADL Tasks, 2-Verbalize Understanding, 3- ImproveStrength/Yris 1=Demonstrate adherence to instructed precautions during ADL tasks. 2=Patient will verbalize/demonstrate understanding of assistive devices/ modifications for ADL. 3=Patient will improve strength/tolerance for activity to enable patient to perform ADL's. OT Education/Plan Discharge Recommendations Plan/Recommendations: Continue POC Treatment Plan/Plan of Care Patient would benefit from OT for education, treatment and training to promote independence in ADL's, mobility, safety and/or upper extremity function for ADL' s. Plan of Care: ADL Retraining, Functional Mobility, Group Exercise/Act as Ind, UE Funct Exercise/Act Treatment Duration: Jul 11, 2017 Frequency: At least 5 of 7 days/Wk (IRF) Estimated Hrs Per Day: 1.5 hours per day Agreement: Yes Rehab Potential: Fair Time/GCodes Start Time: 06:55 Stop Time: 07:59 Total Time Billed (hr/min): 64 Billed Treatment Time 1 visit-ADL 4 (64 min) JAME SIERRA Jul 08, 2017 07:56
--- NOTE | 2017-07-08 08:38 | Progress Note (SOAP) ---
Subjective Time Seen by Provider: 08:35 Subjective/Events-last exam [place] Poe. Patient doing better and doing more things. Patient moving feet. Upper extremity better Objective Exam Vital Signs Date Time Temp Pulse Resp B/P (MAP) Pulse Ox O2 Delivery O2 Flow Rate FiO2 07/08/17 06:41 98.5 113 18 103/64 94 Room Air 07/07/17 19:56 Room Air 07/07/17 18:35 98.3 116 16 123/75 96 Room Air 07/07/17 09:00 Room Air Capillary Refill : Less Than 3 Seconds General Appearance: No Apparent Distress, WD/WN HEENT: Normal ENT Inspection Neck: Normal Inspection Respiratory: Chest Non Tender, Lungs Clear, No Accessory Muscle Use Cardiovascular: Regular Rate, Rhythm Assessment/Plan Assessment/Plan Assess & Plan/Chief Complaint 06/24/17. Patient doing better with therapy o of upper extremities. [place] Poe. History of hallucinations. Patient legs needs more work. . 06/25/17. [place] Poe.. Upper extremity therapy improving. . 06/26/17. Patient positive today. Patient not complaining of much pain. Patient happy. Patient a work in progress. . . 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 Patient states she's working hard. Patient improved with upper extremity. Patient a work in progress. . 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 Patient transferring better. . 07/02/17. 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 Patient doing better with her upper extremities. Patient complaining of pain in leg. . 07/03/17. 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 Talk to patient about pain medication. Increased gabapentin. . 07/04/17. [place] Poe. Patient improving with upper extremities. . 07/07/17. [place] Poe. patient improving. Patient working area . 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 Patient doing more. 07/08/17. Patient states she's doing things that she couldn't do before Clinical Quality Measures DVT/VTE Risk/Contraindication: Risk Factor Score Per Nursin RFS Level Per Nursing on Admit: 2=Moderate AFSANEH QUIJANO DO Jul 08, 2017 08:38
[2017-07-08] MEDS: OLANZapine 2.5 MG (ZyPREXA) TAB PO SCH (08:48)
[2017-07-08] MEDS: SENNA W/DOCUSATE (SENOKOT S) TABLET PO SCH ×2 (08:48→20:59)
[2017-07-08] MEDS: CARVEDILOL 6.25 MG (COREG) TAB PO SCH ×2 (08:48→20:59)
[2017-07-08] MEDS: ASCORBIC ACID (VIT C) 500 MG TABLET PO SCH ×2 (08:48→20:59)
[2017-07-08] MEDS: FOLIC ACID 1 MG TAB PO SCH (08:48)
[2017-07-08] MEDS: GABAPENTIN 600 MG (NEURONTIN) TAB PO SCH ×2 (08:48→13:16)
[2017-07-08] MEDS: VITAMIN E 400 INTLU CAP PO SCH (08:48)
[2017-07-08] MEDS: PYRIDOXINE (VITAMIN B-6) 50 MG TABLET PO SCH (08:48)
[2017-07-08] MEDS: ARIPIPRAZOLE 2 MG (ABILIFY) TAB PO SCH (08:48)
[2017-07-08] MEDS: LIDOCAINE (LIDODERM) 5% PATCH TOP SCH (08:48)
[2017-07-08] MEDS: POLYETHYLENE GLYCOL 17 GM (MIRALAX) PACK PO SCH ×2 (08:49→23:41)
[2017-07-08] MEDS: BETAMETHASONE/CLOTRIM CREAM (LOTRISONE) 45 GM TP SCH ×2 (08:49→21:00)
[2017-07-08 08:50] VITALS: BP 122/68
--- NOTE | 2017-07-08 08:57 | Physical Therapy Daily Note ---
PT Daily Note-Current Subjective Patient in bed pre tx, agrees to PT, has 3/10 pain in her legs. Appearance Patient in wheelchair post tx with nursing in her room, meds are being passed and her bed is getting made. Mental Status Patient Orientation: Normal For Age Transfers Functional [place] Measure 0=Not Assessed/NA 4=Minimal Assistance 1=Total Assistance 5=Supervision or Setup 2=Maximal Assistance 6=Modified [place] 3=Moderate Assistance 7=Complete IndependenceIRFPAI Quality Coding Scale 6 Independent with activity with or without an assistive device 5 Patient requires set up or clean up by helper. Patient completes activity by themselves 4 Supervision or touching assist (CGA). [place] provide cues , steadying assist 3 The helper provides less than half the effort to complete the activity 2 The helper provides more than half the effort to complete the activity 1 Dependent. The helper does all the effort to complete an activity 7 Patient refused to complete or attempt activity 9 The patient did not perform the activity before the current illness or injury 88 Not attempted due to Medical conditions or safety concerns Transfers (B, C, W/C) (FIM): 4 Scootin Rollin Supine to/from Sit: 6 Sit to/from Stand: 4 Bed to/from Chair: 4 Patient now can perform a stand pivot transfer with min assist and a sliding board transfer with SBA Weight Bearing Right Lower Extremity: Right Weight Bearing/Tolerated Left Lower Extremity: Left Weight Bearing/Tolerated Gait Training Gait (FIM): 1 Distance: 20'x2 Gait Level of Assist: 4 Gait Persons Needed: 1 Gait Assistive Device: Walker Platform bilateral platform walker with wheelchair follow, min assist to stand and help direct the walker Wheelchair Training Does the Pt Use a Wheelchair?: Yes Wheelchair (FIM): 6 Distance: 150'x2 Type of Wheelchair: Manual Exercises Supine Ex: Bridging, Ankle pumps, Heel Slides, Short Arc Quads, Straight leg raise, Hip abd/add Supine Reps: 15 LAQ alternating with 2# ankle weights for 5 min, hooklying hip abd/add with RTB and pillow x15 each Treatments bed mobility and transfers, ambulation, wheelchair mobility, functional strengthening Assessment Current Status: Fair Progress improving mobility and transfers PT Short Term Goals Short Term Goals Time Frame: Jun 27, 2017 Gait (FIM): 1 Distance (FIM): 1=up to 49 ft Wheelchair (FIM): 6 (met) Wheelchair Distance: 200'x2 Wheelchair Level of Assist: 6 PT Final [place] Goals Senior Living Goals PT Final [place] Goals Time Frame: Jul 11, 2017 Transfers (B,C,W/C) (FIM): 4 Sit to Lying (QC): 4 Lying-Sitting on Side/Bed(QC): 4 Sit to Stand (QC): 4 Rollin Roll Left to Right (QC): 4 Chair/Fng-fr-Mkqdo Xfer(QC): 4 Car Transfer (QC): 4 Does the Patient Walk: No and Walking Goal IS indicated Gait (FIM): 2 Gait distance (FIM): 2=888-18 ft Distance: 50' Walk 10 feet (QC): 3 Walk 10ft-Uneven Surface(QC): 3 Walk 50ft with 2 Turns (QC): 3 Gait Level of Assist: 4 Gait Assistive Device: FWW PT Plan Problem List Problem List: Activity Tolerance, Functional Strength, Safety, Balance, Gait, Transfer, Bed Mobility, ROM Treatment/Plan Treatment Plan: Continue Plan of Care Treatment Plan: Bed Mobility, Education, Functional Activity Yris, Functional Strength, Group Therapy, Gait, Safety, Therapeutic Exercise, Transfers Treatment Duration: Jul 11, 2017 Frequency: At least 5 of 7 days/Wk (IRF) Estimated Hrs Per Day: 1.5 hours per day Patient and/or Family Agrees t: Yes Safety Risks/Education Patient Education: Gait Training, Transfer Techniques, Correct Positioning, W/ C Management, Safety Issues Teaching Recipient: Patient Teaching Methods: Demonstration, Discussion Response to Teaching: Reinforcement Needed Time/GCodes Time In: 759 Time Out: 859 Total Billed Treatment Time: 60 Total Billed Treatment 1 visit GT 15' FA 15' EX 30' GERALDO FERRER PT Jul 08, 2017 08:57
--- NOTE | 2017-07-08 12:11 | Occupational Ther Daily Note ---
OT Current Status-Daily Note Subjective Pt alert, sitting EOB. Pt agreed to therapy. No c/o pain at this time. Mental Status/Objective Patient Orientation: Person, Place, Time, Situation Functional Pearson Measure 0=Not Assessed/NA 4=Minimal Assistance 1=Total Assistance 5=Supervision or Setup 2=Maximal Assistance 6=Modified Pearson 3=Moderate Assistance 7=Complete Pearson ADL-Treatment Functional Pearson Measure 0=Not Assessed/NA 4=Minimal Assistance 1=Total Assistance 5=Supervision or Setup 2=Maximal Assistance 6=Modified [place] 3=Moderate Assistance 7=Complete IndependenceIRFPAI Quality Coding Scale 6 Independent with activity with or without an assistive device 5 Patient requires set up or clean up by helper. Patient completes activity by themselves 4 Supervision or touching assist (CGA). [place] provide cues , steadying assist 3 The helper provides less than half the effort to complete the activity 2 The helper provides more than half the effort to complete the activity 1 Dependent. The helper does all the effort to complete an activity 7 Patient refused to complete or attempt activity 9 The patient did not perform the activity before the current illness or injury 88 Not attempted due to Medical conditions or safety concerns Toileting (FIM): 6 (Pt able to manipulate clothing while sitting on BSC. Completed hygiene by self.) Toileting Hygiene (QC): 6 Transfers (B, C, W/C) (FIM): 5 (Using sliding board transfer, pt is able to transfer with supervision.) Toilet/Commode Transfer (FIM): 5 (Using sliding board, pt is able to transfer with SBA.) Toilet Transfer (QC): 4 Pt then worked on maneuvering w/c throughout hospital to work on UE strengthening. Then completed arm bike 8 min duration at 10 drummond resistance without breaks to increase strength and activity tolerance for daily functional tasks. After therapy, pt sitting in w/c in room with call light/phone in reach. All needs met in room. OT Short Term Goals Short Term Goals Time Frame: Jun 27, 2017 Lower Body Dressing(FIM): 2 Toileting(FIM): 2 Toilet/Commode Transfer(FIM): 2 Shower Transfer(FIM): 2 Additional Short Term Goals: 2-Verbalize Understanding, 3-ImproveStrength/Yris 1=Demonstrate adherence to instructed precautions during ADL tasks. 2=Patient will verbalize/demonstrate understanding of assistive devices/ modifications for ADL. 3=Patient will improve strength/tolerance for activity to enable patient to perform ADL's. OT Grease Maker Head Goals Grease Maker Head Goals Time Frame: Jul 11, 2017 Eating (FIM): 5 Eating (QC): 5 Groomin Oral Hygiene (QC): 5 Bathing(FIM): 4 Shower/Bathe Self (QC): 4 Upper Body Dressing(FIM): 5 Upper Body Dressing (QC): 5 Lower Body Dressing(FIM): 4 Lower Body Dressing (QC): 3 On/Off Footwear (QC): 4 Toileting(FIM): 4 Toileting Hygiene (QC): 4 Toilet/Commode Transfer(FIM): 4 Toilet/Commode Transfer (QC): 4 Shower Transfer(FIM): 4 Additional Goals: 1-Demonstrate ADL Tasks, 2-Verbalize Understanding, 3- ImproveStrength/Yris 1=Demonstrate adherence to instructed precautions during ADL tasks. 2=Patient will verbalize/demonstrate understanding of assistive devices/ modifications for ADL. 3=Patient will improve strength/tolerance for activity to enable patient to perform ADL's. OT Education/Plan Discharge Recommendations Plan/Recommendations: Continue POC Treatment Plan/Plan of Care Patient would benefit from OT for education, treatment and training to promote independence in ADL's, mobility, safety and/or upper extremity function for ADL' s. Plan of Care: ADL Retraining, Functional Mobility, Group Exercise/Act as Ind, UE Funct Exercise/Act Treatment Duration: Jul 11, 2017 Frequency: At least 5 of 7 days/Wk (IRF) Estimated Hrs Per Day: 1.5 hours per day Agreement: Yes Rehab Potential: Fair Time/GCodes Start Time: 11:10 Stop Time: 11:40 Total Time Billed (hr/min): 30 Billed Treatment Time 1 visit-FA 1 (15 min) EX 1 (15 min) JAME SIERRA Jul 08, 2017 12:11
--- NOTE | 2017-07-08 12:44 | PM & R (SOAP) Progress Note ---
Subjective Time Seen by Provider: 11:35 Subjective/Events-last exam Patient was seen in gym this AM Patient min assist for transfers and setup for transfers with sliding board Objective Exam Last Set of Vital Signs Vital Signs Date Time Temp Pulse Resp B/P (MAP) Pulse Ox O2 Delivery O2 Flow Rate FiO2 07/08/17 08:50 128 122/68 07/08/17 08:00 Room Air 07/08/17 06:41 98.5 18 94 07/06/17 09:00 98.00 Capillary Refill : Less Than 3 Seconds I&O Intake and Output 07/09/17 00:00 Intake Total 500 ml Output Total 225 ml Balance 275 ml Intake Oral 500 ml Output Urine Total 225 ml # Voids 3 General: Alert, Oriented X3, Cooperative, Mild Distress HEENT: Atraumatic, PERRLA, EOMI, Mucous Memb Moist/[place] Neck: Supple, No JVD Lungs: Clear to Auscultation Heart: Regular Rate Abdomen: Normal Bowel Sounds, Soft, No Tenderness Extremities: No Edema, Other (contractures both ankles) Neuro: Sensation Intact, Other (SLR bilate to 30 degrees) Assessment/Plan Assessment 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 Neuropathic pain BLES Anxiety/depression Anemia Hypokalemia-replacement ordered Hypoalbuminemia-supplement ordered Prior rt rotator cuff injury and repair Plan Continue PT/OT-gradually improving but with setback today ST has signed off Supplement due to low albumin Pain management-Adjust Pain meds [id number] orders Replaced K Consult [facility]-done appreciate their report F/U with DR wandy GUTIERREZ-Appreciate his note and orders Monitor po intake and weight SW has indicated last week that Patients insurance has approved another week of inpatient stay on IRU Maintain on current dose of pain medicine and avoid increasing dosage. Next Team Conference tomorrow 07-09-17-doing much better with current meds ALEXUS MERCADO MD Jul 08, 2017 12:44
--- NOTE | 2017-07-08 14:22 | Physical Therapy Daily Note ---
PT Daily Note-Current Subjective Patient in bed pre tx, agrees to PT, has pain of 5/10 in her legs. Appearance Patient BTB post tx with nurse call, phone, tray, all needs met. Mental Status Patient Orientation: Normal For Age Transfers Functional [place] Measure 0=Not Assessed/NA 4=Minimal Assistance 1=Total Assistance 5=Supervision or Setup 2=Maximal Assistance 6=Modified [place] 3=Moderate Assistance 7=Complete IndependenceIRFPAI Quality Coding Scale 6 Independent with activity with or without an assistive device 5 Patient requires set up or clean up by helper. Patient completes activity by themselves 4 Supervision or touching assist (CGA). [place] provide cues , steadying assist 3 The helper provides less than half the effort to complete the activity 2 The helper provides more than half the effort to complete the activity 1 Dependent. The helper does all the effort to complete an activity 7 Patient refused to complete or attempt activity 9 The patient did not perform the activity before the current illness or injury 88 Not attempted due to Medical conditions or safety concerns Transfers (B, C, W/C) (FIM): 4 Scootin Rollin Supine to/from Sit: 6 Sit to/from Stand: 4 Bed to/from Chair: 4 min assist for stand pivot and sliding board transfers Weight Bearing Right Lower Extremity: Right Weight Bearing/Tolerated Left Lower Extremity: Left Weight Bearing/Tolerated Exercises NuStep Minutes: 15 NuStep Workload: 7 Treatments patient transferred from laying in bed to the side of the bed and then sliding board to wheelchair, propelled to gym and stand pivot to stepper, then stand pivot to wheelchair, propelled to room and sliding board to bed Assessment Current Status: Fair Progress slow but steady improvement in mobility PT Short Term Goals Short Term Goals Time Frame: Jun 27, 2017 Gait (FIM): 1 Distance (FIM): 1=up to 49 ft Wheelchair (FIM): 6 (met) Wheelchair Distance: 150'x2 Wheelchair Level of Assist: 6 PT Sebd Teacher Goals Sebd Teacher Goals PT Sebd Teacher Goals Time Frame: Jul 11, 2017 Transfers (B,C,W/C) (FIM): 4 Sit to Lying (QC): 4 Lying-Sitting on Side/Bed(QC): 4 Sit to Stand (QC): 4 Rollin Roll Left to Right (QC): 4 Chair/Bij-vm-Kamae Xfer(QC): 4 Car Transfer (QC): 4 Does the Patient Walk: No and Walking Goal IS indicated Gait (FIM): 2 Gait distance (FIM): 9=268-63 ft Distance: 50' Walk 10 feet (QC): 3 Walk 10ft-Uneven Surface(QC): 3 Walk 50ft with 2 Turns (QC): 3 Gait Level of Assist: 4 Gait Assistive Device: FWW PT Plan Problem List Problem List: Activity Tolerance, Functional Strength, Safety, Balance, Gait, Transfer, Bed Mobility, ROM Treatment/Plan Treatment Plan: Continue Plan of Care Treatment Plan: Bed Mobility, Education, Functional Activity Yris, Functional Strength, Group Therapy, Gait, Safety, Therapeutic Exercise, Transfers Treatment Duration: Jul 11, 2017 Frequency: At least 5 of 7 days/Wk (IRF) Estimated Hrs Per Day: 1.5 hours per day Patient and/or Family Agrees t: Yes Safety Risks/Education Patient Education: Transfer Techniques, Correct Positioning, W/C Management, Safety Issues Teaching Recipient: Patient Teaching Methods: Demonstration, Discussion Response to Teaching: Reinforcement Needed Time/GCodes Time In: 1330 Time Out: 1400 Total Billed Treatment Time: 30 Total Billed Treatment 1 visit EX 15' FA 15' GERALDO FERRER PT Jul 08, 2017 14:22
[2017-07-08 17:59] VITALS: BP 118/81
[2017-07-08] MEDS: traZODone 100 MG (DESYREL) TAB PO SCH (20:59)
[2017-07-08] MEDS: MELATONIN 3 MG TABLET PO SCH (20:59)
[2017-07-08] MEDS: GABAPENTIN 300 MG (NEURONTIN) CAP PO SCH (20:59)
[2017-07-08] MEDS: MIRTAZAPINE 15 MG (REMERON) TAB PO SCH (20:59)
[2017-07-08] MEDS: LIDODERM PATCH REMOVAL TP SCH (21:00)
[2017-07-09] MEDS: ALPRAZolam 1 MG (XANAX) TAB PO PRN ×3 (04:14→17:53)
[2017-07-09] MEDS: HYDROcodone/APAP 5 MG/325 MG (LORTAB) TAB PO PRN ×3 (04:14→20:07)
[2017-07-09 06:00] VITALS: BP 113/73
[2017-07-09] MEDS: CYCLOBENZAPRINE 10 MG (FLEXERIL) TAB PO PRN ×3 (06:19→17:53)
[2017-07-09] MEDS: ZINC SULFATE 220 MG CAPSULE PO SCH (06:19)
[2017-07-09] MEDS: MULTIVIT W/MINERALS TAB (THERAGRAN M) PO SCH (06:19)
[2017-07-09] MEDS: THIAMINE 100 MG (VITAMIN B-1) TAB PO SCH (06:20)
--- NOTE | 2017-07-09 08:05 | PM & R (SOAP) Progress Note ---
Subjective Time Seen by Provider: 07:30 Subjective/Events-last exam Patient was seen in her roomthis AM Patient Min assist for transfers Pain control much better at this time Objective Exam Last Set of Vital Signs Vital Signs Date Time Temp Pulse Resp B/P (MAP) Pulse Ox O2 Delivery O2 Flow Rate FiO2 07/09/17 06:00 98.7 111 16 113/73 94 Room Air 07/06/17 09:00 98.00 Capillary Refill : Less Than 3 Seconds I&O Intake and Output 07/10/17 00:00 Intake Total 120 ml Balance 120 ml Intake Oral 120 ml # Voids 4 # Bowel Movements 1 General: Alert, Oriented X3, Cooperative, Mild Distress HEENT: Atraumatic, PERRLA, EOMI, Mucous Memb Moist/[place] Neck: Supple, No JVD Lungs: Clear to Auscultation Heart: Regular Rate Abdomen: Normal Bowel Sounds, Soft, No Tenderness Extremities: No Edema, Other (contractures both ankles) Neuro: Sensation Intact, Other (SLR bilate to 30 degrees) Assessment/Plan Assessment 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 Neuropathic pain BLES Anxiety/depression Anemia Hypokalemia-replacement ordered Hypoalbuminemia-supplement ordered Prior rt rotator cuff injury and repair Plan Continue PT/OT-gradually improving but with setback today ST has signed off Supplement due to low albumin Pain management-Adjust Pain meds [id number] orders Replaced K Consult [facility]-done appreciate their report F/U with DR wandy GUTIERREZ-Appreciate his note and orders Monitor po intake and weight SW has indicated last week that Patients insurance has approved another week of inpatient stay on IRU Maintain on current dose of pain medicine and avoid increasing dosage. Next Team Conference later today-See report for full functional update and POC and ALEXUS SANFORD MD Jul 09, 2017 08:05
--- NOTE | 2017-07-09 08:39 | Progress Note (SOAP) ---
Subjective Time Seen by Provider: 08:35 Subjective/Events-last exam Camila Poe. Patient doing much better. Able to transfer by herself. Moving her legs. Patient voicing no complaints Objective Exam Vital Signs Date Time Temp Pulse Resp B/P (MAP) Pulse Ox O2 Delivery O2 Flow Rate FiO2 07/09/17 06:00 98.7 111 16 113/73 94 Room Air 07/08/17 20:10 Room Air 07/08/17 17:59 98.0 118 18 118/81 96 Room Air 07/08/17 08:50 128 122/68 Capillary Refill : Less Than 3 Seconds General Appearance: No Apparent Distress, WD/WN Assessment/Plan Assessment/Plan Assess & Plan/Chief Complaint 06/24/17. Patient doing better with therapy o of upper extremities. Camila Poe. History of hallucinations. Patient legs needs more work. . 06/25/17. [place] Poe.. Upper extremity therapy improving. . 06/26/17. Patient positive today. Patient not complaining of much pain. Patient happy. Patient a work in progress. . . 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 Patient states she's working hard. Patient improved with upper extremity. Patient a work in progress. . 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 Patient transferring better. . 07/02/17. 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 Patient doing better with her upper extremities. Patient complaining of pain in leg. . 07/03/17. 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 Talk to patient about pain medication. Increased gabapentin. . 07/04/17. [place]ila Poe. Patient improving with upper extremities. . 07/07/17. Camila Poe. patient improving. Patient working area . 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 Patient doing more. 07/08/17. Patient states she's doing things that she couldn't do before. . 07/09/17. 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 Patient doing more. Patient voicing no complaints Clinical Quality Measures DVT/VTE Risk/Contraindication: Risk Factor Score Per Nursin RFS Level Per Nursing on Admit: 2=Moderate AFSANEH QUIJANO DO Jul 09, 2017 08:39
--- NOTE | 2017-07-09 08:51 | Occupational Ther Daily Note ---
OT Current Status-Daily Note Subjective Pt alert, sitting up in bed. Pt agreed to therapy. Pt was anxious, but with encouragement was able to calm down. No c/o pain at this time. Mental Status/Objective Patient Orientation: Person, Place, Time, Situation Functional [place] Measure 0=Not Assessed/NA 4=Minimal Assistance 1=Total Assistance 5=Supervision or Setup 2=Maximal Assistance 6=Modified [place] 3=Moderate Assistance 7=Complete [place] ADL-Treatment Pt transferred with sliding board from bed to w/c then from w/c to tub transfer bench and back with SBA. Pt completed all grooming sitting in w/c at sink. Pt doffed clothing while sitting on tub transfer bench. Pt was able to complete all bathing by self. Transported back to room and transferred back to bed with sliding board and donned all clothing in bed. After therapy, pt lying in bed with call light/phone in reach. All needs met in room. Functional [place] Measure 0=Not Assessed/NA 4=Minimal Assistance 1=Total Assistance 5=Supervision or Setup 2=Maximal Assistance 6=Modified [place] 3=Moderate Assistance 7=Complete IndependenceIRFPAI Quality Coding Scale 6 Independent with activity with or without an assistive device 5 Patient requires set up or clean up by helper. Patient completes activity by themselves 4 Supervision or touching assist (CGA). [place] provide cues , steadying assist 3 The helper provides less than half the effort to complete the activity 2 The helper provides more than half the effort to complete the activity 1 Dependent. The helper does all the effort to complete an activity 7 Patient refused to complete or attempt activity 9 The patient did not perform the activity before the current illness or injury 88 Not attempted due to Medical conditions or safety concerns Grooming (FIM): 6 Oral Hygiene (QC): 6 Bathing (FIM): 6 Bathing Location: L Arm, R Arm, L Upper Leg, R Upper Leg, L Lower Leg ( including foot), R Lower Leg (including foot), Chest, Abdomen, Buttocks, Perineal Area Shower/Bathe Self (QC): 6 Upper Body (FIM): 5 Upper Body Dressing (QC): 5 Lower Body Dressing (FIM): 4 Lower Body Dressing (QC): 3 On/Off Footwear (QC): 3 Tub Transfer(FIM): 4 OT Short Term Goals Short Term Goals Time Frame: Jun 27, 2017 Lower Body Dressing(FIM): 2 Toileting(FIM): 2 Toilet/Commode Transfer(FIM): 2 Shower Transfer(FIM): 2 Additional Short Term Goals: 2-Verbalize Understanding, 3-ImproveStrength/Yris 1=Demonstrate adherence to instructed precautions during ADL tasks. 2=Patient will verbalize/demonstrate understanding of assistive devices/ modifications for ADL. 3=Patient will improve strength/tolerance for activity to enable patient to perform ADL's. OT Negotiator Sales Goals Negotiator Sales Goals Time Frame: Jul 11, 2017 Eating (FIM): 5 Eating (QC): 5 Groomin Oral Hygiene (QC): 5 Bathing(FIM): 4 Shower/Bathe Self (QC): 4 Upper Body Dressing(FIM): 5 Upper Body Dressing (QC): 5 Lower Body Dressing(FIM): 4 Lower Body Dressing (QC): 3 On/Off Footwear (QC): 4 Toileting(FIM): 4 Toileting Hygiene (QC): 4 Toilet/Commode Transfer(FIM): 4 Toilet/Commode Transfer (QC): 4 Shower Transfer(FIM): 4 Additional Goals: 1-Demonstrate ADL Tasks, 2-Verbalize Understanding, 3- ImproveStrength/Yris 1=Demonstrate adherence to instructed precautions during ADL tasks. 2=Patient will verbalize/demonstrate understanding of assistive devices/ modifications for ADL. 3=Patient will improve strength/tolerance for activity to enable patient to perform ADL's. OT Education/Plan Discharge Recommendations Plan/Recommendations: Continue POC Treatment Plan/Plan of Care Patient would benefit from OT for education, treatment and training to promote independence in ADL's, mobility, safety and/or upper extremity function for ADL' s. Plan of Care: ADL Retraining, Functional Mobility, Group Exercise/Act as Ind, UE Funct Exercise/Act Treatment Duration: Jul 11, 2017 Frequency: At least 5 of 7 days/Wk (IRF) Estimated Hrs Per Day: 1.5 hours per day Agreement: Yes Rehab Potential: Fair Time/GCodes Start Time: 08:00 Stop Time: 09:00 Total Time Billed (hr/min): 60 Billed Treatment Time 1 visit-ADL 4 (60 min) JAME SIERRA Jul 09, 2017 08:51
[2017-07-09] MEDS: POLYETHYLENE GLYCOL 17 GM (MIRALAX) PACK PO SCH ×2 (09:05→20:08)
[2017-07-09] MEDS: VITAMIN E 400 INTLU CAP PO SCH (09:06)
[2017-07-09] MEDS: PYRIDOXINE (VITAMIN B-6) 50 MG TABLET PO SCH (09:07)
[2017-07-09] MEDS: ARIPIPRAZOLE 2 MG (ABILIFY) TAB PO SCH (09:07)
[2017-07-09] MEDS: ASCORBIC ACID (VIT C) 500 MG TABLET PO SCH ×2 (09:08→20:07)
[2017-07-09] MEDS: SENNA W/DOCUSATE (SENOKOT S) TABLET PO SCH ×2 (09:08→20:07)
[2017-07-09] MEDS: fentaNYL PATCH 50 MCG (DURAGESIC) TD SCH (09:08)
[2017-07-09] MEDS: OLANZapine 2.5 MG (ZyPREXA) TAB PO SCH (09:08)
[2017-07-09] MEDS: FOLIC ACID 1 MG TAB PO SCH (09:08)
[2017-07-09] MEDS: CARVEDILOL 6.25 MG (COREG) TAB PO SCH ×2 (09:08→20:08)
[2017-07-09] MEDS: LIDOCAINE (LIDODERM) 5% PATCH TOP SCH (09:09)
[2017-07-09] MEDS: GABAPENTIN 600 MG (NEURONTIN) TAB PO SCH ×2 (09:19→13:33)
[2017-07-09] MEDS: BETAMETHASONE/CLOTRIM CREAM (LOTRISONE) 45 GM TP SCH ×2 (09:19→20:09)
--- NOTE | 2017-07-09 11:01 | Physical Therapy Daily Note ---
PT Daily Note-Current Subjective Patient is alert seated in bed upon PT entering the room. She states that she did not sleep very well last night. She agrees to PT. Patient has 2-3/10 pain in her legs. Pain Numeric Pain Scale: 3 Comment: Some numbness in fingers, bilateral LE. Appearance Patient appears oriented and in good health. Mental Status Patient Orientation: Normal For Age Transfers Functional [place] Measure 0=Not Assessed/NA 4=Minimal Assistance 1=Total Assistance 5=Supervision or Setup 2=Maximal Assistance 6=Modified [place] 3=Moderate Assistance 7=Complete IndependenceIRFPAI Quality Coding Scale 6 Independent with activity with or without an assistive device 5 Patient requires set up or clean up by helper. Patient completes activity by themselves 4 Supervision or touching assist (CGA). [place] provide cues , steadying assist 3 The helper provides less than half the effort to complete the activity 2 The helper provides more than half the effort to complete the activity 1 Dependent. The helper does all the effort to complete an activity 7 Patient refused to complete or attempt activity 9 The patient did not perform the activity before the current illness or injury 88 Not attempted due to Medical conditions or safety concerns Transfers (B, C, W/C) (FIM): 4 Scootin Sit to/from Stand: 4 Patient scoots in the bed with SBA from PT. Patient performs sit to stand with min assist from PT. Weight Bearing Right Lower Extremity: Right Weight Bearing/Tolerated Left Lower Extremity: Left Weight Bearing/Tolerated Gait Training Does the Patient Walk?: Yes Gait (FIM): 1 Distance (FIM): 1=up to 49 ft Distance: 20'x3 Gait Level of Assist: 4 Gait Persons Needed: 1 Gait Assistive Device: Walker Platform Patient ambulates with a bilateral platform walker and min assist. Wheelchair Training Does the Pt Use a Wheelchair?: Yes Wheelchair (FIM): 6 Distance: 150'x2 Wheelchair Level of Assist: 6 Type of Wheelchair: Manual Exercises Seated Therapy Exercises: Long arc quads (2# weight bilateral), Hip flexion (2 # weight bilateral), Kicking activity (against PT resistance), Hamstring Curls ( against PT resistance) Seated Reps: 20 NuStep Minutes: 15 NuStep Workload: 7 Assessment Current Status: Fair Progress Patient has good tolerance for PT. Patient becomes discourages at times, but she is progressing well with PT. PT will continue to progress interventions as the patient tolerates. PT Short Term Goals Short Term Goals Time Frame: Jun 27, 2017 Gait (FIM): 1 Distance (FIM): 1=up to 49 ft Wheelchair (FIM): 6 (met) Wheelchair Distance: 150'x2 Wheelchair Level of Assist: 6 PT Mail Teller Goals Mcc Goals PT Mcc Goals Time Frame: Jul 11, 2017 Transfers (B,C,W/C) (FIM): 4 Sit to Lying (QC): 4 Lying-Sitting on Side/Bed(QC): 4 Sit to Stand (QC): 4 Rollin Roll Left to Right (QC): 4 Chair/Bqe-zg-Fpcon Xfer(QC): 4 Car Transfer (QC): 4 Does the Patient Walk: No and Walking Goal IS indicated Gait (FIM): 2 Gait distance (FIM): 8=899-98 ft Distance: 50' Walk 10 feet (QC): 3 Walk 10ft-Uneven Surface(QC): 3 Walk 50ft with 2 Turns (QC): 3 Gait Level of Assist: 4 Gait Assistive Device: FWW PT Plan Problem List Problem List: Activity Tolerance, Functional Strength, Safety, Balance, Gait, Transfer, ROM Treatment/Plan Treatment Plan: Continue Plan of Care Treatment Plan: Bed Mobility, Education, Functional Activity Yris, Functional Strength, Group Therapy, Gait, Safety, Therapeutic Exercise, Transfers Treatment Duration: Jul 11, 2017 Frequency: At least 5 of 7 days/Wk (IRF) Estimated Hrs Per Day: 1.5 hours per day Patient and/or Family Agrees t: Yes Safety Risks/Education Patient Education: Gait Training, Transfer Techniques, Correct Positioning, W/ C Management, Safety Issues Teaching Recipient: Patient Teaching Methods: Demonstration, Discussion Response to Teaching: Reinforcement Needed Time/GCodes Time In: 1000 Time Out: 1100 Total Billed Treatment Time: 60 Total Billed Treatment 1 visit EX 30' GT 30' GERALDO FERRER PT Jul 09, 2017 11:01
--- NOTE | 2017-07-09 14:55 | Therapy Group Daily Note ---
Therapy Daily Group Note Patient Education Topic Fall Prevention, Other List Below (transfers) Exercises LE Seated Exercise, UE Exercise Other/Notes Pt maneuvered w/c to OT/PT group. Group consisted of introductions (name, place born, worst fall), socialization, eduction on safety transfers, education on home safety and UE/LE seated exercises. Pt contributed to peer discussion appropriately. Pt able to introduce self and answer question without difficulty. Pt verbalized understanding of home safety and transfers. Gave examples of what pt would use for home safety and ideas to increase safety at home. Pt was able to complete AROM exercises, decreased ROM. Pt gave many examples throughout group and assisted other pt's with ideas. Pt demonstrated safe transfers coming to group and leaving. After therapy, pt sitting in w/c in [facility]. All needs met. Start Time: 13:00 Stop Time: 14:15 Total Billed Treatment Time: 75 Total Billed Treatment 1-GRP JAME SIERRA Jul 09, 2017 14:55
[2017-07-09 18:48] VITALS: BP 112/76
[2017-07-09] MEDS: traZODone 100 MG (DESYREL) TAB PO SCH (20:07)
[2017-07-09] MEDS: GABAPENTIN 300 MG (NEURONTIN) CAP PO SCH (20:07)
[2017-07-09] MEDS: MIRTAZAPINE 15 MG (REMERON) TAB PO SCH (20:07)
[2017-07-09] MEDS: MELATONIN 3 MG TABLET PO SCH (20:08)
[2017-07-09] MEDS: LIDODERM PATCH REMOVAL TP SCH (20:08)
[2017-07-10] MEDS: ALPRAZolam 1 MG (XANAX) TAB PO PRN ×3 (01:05→21:15)
[2017-07-10] MEDS: CYCLOBENZAPRINE 10 MG (FLEXERIL) TAB PO PRN ×3 (01:05→21:15)
[2017-07-10 06:00] VITALS: BP 111/73
[2017-07-10] MEDS: MULTIVIT W/MINERALS TAB (THERAGRAN M) PO SCH (06:33)
[2017-07-10] MEDS: ZINC SULFATE 220 MG CAPSULE PO SCH (06:33)
[2017-07-10] MEDS: THIAMINE 100 MG (VITAMIN B-1) TAB PO SCH (06:33)
[2017-07-10] MEDS: HYDROcodone/APAP 5 MG/325 MG (LORTAB) TAB PO PRN ×2 (06:39→15:13)
--- NOTE | 2017-07-10 07:51 | Occupational Ther Daily Note ---
OT Current Status-Daily Note Subjective Pt alert, just finishing up in bathroom. Pt agreed to therapy. No c/o pain at this time. Mental Status/Objective Patient Orientation: Person, Place, Time, Situation Functional [place] Measure 0=Not Assessed/NA 4=Minimal Assistance 1=Total Assistance 5=Supervision or Setup 2=Maximal Assistance 6=Modified [place] 3=Moderate Assistance 7=Complete [place] ADL-Treatment Pt up in w/c finishing up with brushing teeth at sink by self. Pt had already gotten clothes ready for the day. Pt used sliding board to transfer onto tub transfer bench with SBA for safety. Pt completed own bathing/drying sitting on tub transfer bench. Pt transferred back to w/c then transferred back to bed to dress with sliding board. Pt able to dress self. Pt able to don/doff shoes but not tie. After therapy, pt finishing up breakfast sitting on EOB. Functional [place] Measure 0=Not Assessed/NA 4=Minimal Assistance 1=Total Assistance 5=Supervision or Setup 2=Maximal Assistance 6=Modified [place] 3=Moderate Assistance 7=Complete IndependenceIRFPAI Quality Coding Scale 6 Independent with activity with or without an assistive device 5 Patient requires set up or clean up by helper. Patient completes activity by themselves 4 Supervision or touching assist (CGA). [place] provide cues , steadying assist 3 The helper provides less than half the effort to complete the activity 2 The helper provides more than half the effort to complete the activity 1 Dependent. The helper does all the effort to complete an activity 7 Patient refused to complete or attempt activity 9 The patient did not perform the activity before the current illness or injury 88 Not attempted due to Medical conditions or safety concerns Eating (FIM): 6 Eating (QC): 6 Grooming (FIM): 6 Oral Hygiene (QC): 6 Bathing (FIM): 6 Bathing Location: L Arm, R Arm, L Upper Leg, R Upper Leg, L Lower Leg ( including foot), R Lower Leg (including foot), Chest, Abdomen, Buttocks, Perineal Area Shower/Bathe Self (QC): 6 Upper Body (FIM): 6 Upper Body Dressing (QC): 6 Lower Body Dressing (FIM): 6 Lower Body Dressing (QC): 6 On/Off Footwear (QC): 4 Toileting (FIM): 5 Transfers (B, C, W/C) (FIM): 5 (Using sliding board pt is able to complete with SBA/Supervision.) Tub Transfer(FIM): 4 OT Short Term Goals Short Term Goals Time Frame: Jun 27, 2017 Lower Body Dressing(FIM): 2 Toileting(FIM): 2 Toilet/Commode Transfer(FIM): 2 Shower Transfer(FIM): 2 Additional Short Term Goals: 2-Verbalize Understanding, 3-ImproveStrength/Yris 1=Demonstrate adherence to instructed precautions during ADL tasks. 2=Patient will verbalize/demonstrate understanding of assistive devices/ modifications for ADL. 3=Patient will improve strength/tolerance for activity to enable patient to perform ADL's. OT Care Home Goals Deputy Jailer Goals Time Frame: Jul 11, 2017 Eating (FIM): 5 Eating (QC): 5 Groomin Oral Hygiene (QC): 5 Bathing(FIM): 4 Shower/Bathe Self (QC): 4 Upper Body Dressing(FIM): 5 Upper Body Dressing (QC): 5 Lower Body Dressing(FIM): 4 Lower Body Dressing (QC): 3 On/Off Footwear (QC): 4 Toileting(FIM): 4 Toileting Hygiene (QC): 4 Toilet/Commode Transfer(FIM): 4 Toilet/Commode Transfer (QC): 4 Shower Transfer(FIM): 4 Additional Goals: 1-Demonstrate ADL Tasks, 2-Verbalize Understanding, 3- ImproveStrength/Yris 1=Demonstrate adherence to instructed precautions during ADL tasks. 2=Patient will verbalize/demonstrate understanding of assistive devices/ modifications for ADL. 3=Patient will improve strength/tolerance for activity to enable patient to perform ADL's. OT Education/Plan Discharge Recommendations Plan/Recommendations: Continue POC Treatment Plan/Plan of Care Patient would benefit from OT for education, treatment and training to promote independence in ADL's, mobility, safety and/or upper extremity function for ADL' s. Plan of Care: ADL Retraining, Functional Mobility, Group Exercise/Act as Ind, UE Funct Exercise/Act Treatment Duration: Jul 11, 2017 Frequency: At least 5 of 7 days/Wk (IRF) Estimated Hrs Per Day: 1.5 hours per day Agreement: Yes Rehab Potential: Fair Time/GCodes Start Time: 07:00 Stop Time: 08:00 Total Time Billed (hr/min): 60 Billed Treatment Time 1 visit-ADL 4 (60 min) JAME SIERRA Jul 10, 2017 07:51
--- NOTE | 2017-07-10 08:22 | Progress Note (SOAP) ---
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 patient mentally doing better. Patient physically doing better. patient willing to work hard Objective Exam Vital Signs Date Time Temp Pulse Resp B/P (MAP) Pulse Ox O2 Delivery O2 Flow Rate FiO2 07/10/17 06:00 98.1 98 20 111/73 95 Room Air 07/09/17 20:00 Room Air 07/09/17 18:48 98.4 112 18 112/76 97 Room Air 07/09/17 09:38 98.7 07/09/17 09:00 Room Air Capillary Refill : Less Than 3 Seconds General Appearance: No Apparent Distress, WD/WN Assessment/Plan Assessment/Plan Assess & Plan/Chief Complaint 06/24/17. Patient doing better with therapy o of upper extremities. [place] Poe. History of hallucinations. Patient legs needs more work. . 06/25/17. [place] Poe.. Upper extremity therapy improving. . 06/26/17. Patient positive today. Patient not complaining of much pain. Patient happy. Patient a work in progress. . . 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 Patient states she's working hard. Patient improved with upper extremity. Patient a work in progress. . 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 Patient transferring better. . 07/02/17. 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 Patient doing better with her upper extremities. Patient complaining of pain in leg. . 07/03/17. 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 Talk to patient about pain medication. Increased gabapentin. . 07/04/17. [place] Poe. Patient improving with upper extremities. . 07/07/17. [place] Poe. patient improving. Patient working area . 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 Patient doing more. 07/08/17. Patient states she's doing things that she couldn't do before. . 07/09/17. 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 Patient doing more. Patient voicing no complaints . . 07/10/17. 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 Patient mentally doing better. Patient physically doing better. Patient positive about herself Clinical Quality Measures DVT/VTE Risk/Contraindication: Risk Factor Score Per Nursin RFS Level Per Nursing on Admit: 2=Moderate AFSANEH QUIJANO DO Jul 10, 2017 08:22
[2017-07-10] MEDS: ARIPIPRAZOLE 2 MG (ABILIFY) TAB PO SCH (09:53)
[2017-07-10] MEDS: PYRIDOXINE (VITAMIN B-6) 50 MG TABLET PO SCH (09:53)
[2017-07-10] MEDS: OLANZapine 2.5 MG (ZyPREXA) TAB PO SCH (09:53)
[2017-07-10] MEDS: CARVEDILOL 6.25 MG (COREG) TAB PO SCH ×2 (09:53→21:15)
[2017-07-10] MEDS: ASCORBIC ACID (VIT C) 500 MG TABLET PO SCH ×2 (09:53→21:15)
[2017-07-10] MEDS: SENNA W/DOCUSATE (SENOKOT S) TABLET PO SCH ×2 (09:53→21:15)
[2017-07-10] MEDS: GABAPENTIN 600 MG (NEURONTIN) TAB PO SCH ×2 (09:53→12:57)
[2017-07-10] MEDS: LIDOCAINE (LIDODERM) 5% PATCH TOP SCH (09:53)
[2017-07-10] MEDS: FOLIC ACID 1 MG TAB PO SCH (09:53)
[2017-07-10] MEDS: VITAMIN E 400 INTLU CAP PO SCH (09:53)
[2017-07-10] MEDS: BETAMETHASONE/CLOTRIM CREAM (LOTRISONE) 45 GM TP SCH ×2 (09:54→21:18)
[2017-07-10] MEDS: POLYETHYLENE GLYCOL 17 GM (MIRALAX) PACK PO SCH ×2 (09:54→21:18)
--- NOTE | 2017-07-10 10:55 | Physical Therapy Daily Note ---
PT Daily Note-Current Subjective Patient in wheelchair pre tx, agrees to PT, has pain of 2/10 in her legs. Appearance Patient in wheelchair post tx, going back to her room by herself, patient is mod I with wheelchair mobility Mental Status Patient Orientation: Normal For Age Transfers Functional [place] Measure 0=Not Assessed/NA 4=Minimal Assistance 1=Total Assistance 5=Supervision or Setup 2=Maximal Assistance 6=Modified [place] 3=Moderate Assistance 7=Complete IndependenceIRFPAI Quality Coding Scale 6 Independent with activity with or without an assistive device 5 Patient requires set up or clean up by helper. Patient completes activity by themselves 4 Supervision or touching assist (CGA). [place] provide cues , steadying assist 3 The helper provides less than half the effort to complete the activity 2 The helper provides more than half the effort to complete the activity 1 Dependent. The helper does all the effort to complete an activity 7 Patient refused to complete or attempt activity 9 The patient did not perform the activity before the current illness or injury 88 Not attempted due to Medical conditions or safety concerns Transfers (B, C, W/C) (FIM): 4 Sit to/from Stand: 4 Bed to/from Chair: 4 Patient performed a seated "hop" from the wheelchair to therapy table. Weight Bearing Right Lower Extremity: Right Weight Bearing/Tolerated Left Lower Extremity: Left Weight Bearing/Tolerated Gait Training Gait (FIM): 1 Distance: 20'x2 Gait Level of Assist: 4 Gait Persons Needed: 1 Bilateral platform walker, min assist, patient was having more difficulty with her left ankle instability so she only ambulated twice. Exercises Supine Ex: Bridging, Ankle pumps, Quad Set, Glut sets, Heel Slides, Straight leg raise, Hip abd/add Supine Reps: 20 LAQ alternating for 5 min with 2# ankle weights, sit to stand 3 sets of 5 Treatments transfers, functional strengthening, ambulation Assessment Current Status: Fair Progress improving transfers and strength PT Short Term Goals Short Term Goals Time Frame: Jun 27, 2017 Gait (FIM): 1 Distance (FIM): 1=up to 49 ft Wheelchair (FIM): 6 (met) Wheelchair Distance: 150'x2 Wheelchair Level of Assist: 6 PT Snf Goals Snf Goals PT Mixer Attendant Goals Time Frame: Jul 11, 2017 Transfers (B,C,W/C) (FIM): 4 Sit to Lying (QC): 4 Lying-Sitting on Side/Bed(QC): 4 Sit to Stand (QC): 4 Rollin Roll Left to Right (QC): 4 Chair/Msz-bp-[place] Xfer(QC): 4 Car Transfer (QC): 4 Does the Patient Walk: No and Walking Goal IS indicated Gait (FIM): 2 Gait distance (FIM): 6=828-27 ft Distance: 50' Walk 10 feet (QC): 3 Walk 10ft-Uneven Surface(QC): 3 Walk 50ft with 2 Turns (QC): 3 Gait Level of Assist: 4 Gait Assistive Device: FWW PT Plan Problem List Problem List: Activity Tolerance, Functional Strength, Safety, Balance, Gait, Transfer, Bed Mobility, ROM Treatment/Plan Treatment Plan: Continue Plan of Care Treatment Plan: Bed Mobility, Education, Functional Activity Yris, Functional Strength, Group Therapy, Gait, Safety, Therapeutic Exercise, Transfers Treatment Duration: Jul 11, 2017 Frequency: At least 5 of 7 days/Wk (IRF) Estimated Hrs Per Day: 1.5 hours per day Patient and/or Family Agrees t: Yes Safety Risks/Education Patient Education: Gait Training, Transfer Techniques, Correct Positioning, Safety Issues Teaching Recipient: Patient Teaching Methods: Demonstration, Discussion Response to Teaching: Reinforcement Needed Time/GCodes Time In: 1000 Time Out: 1100 Total Billed Treatment Time: 60 Total Billed Treatment 1 visit EX 30' GT 20' FA 10' GERALDO FERRER PT Jul 10, 2017 10:55
--- NOTE | 2017-07-10 14:33 | Occupational Ther Daily Note ---
OT Current Status-Daily Note Subjective Pt sitting at ARU table. Cleaned area up and took items back to room and maneuvered to therapy gym. Pt was anxious about staff and not being allowed to go home on Friday. EDWARD reassured pt, but pt still anxious. No c/o pain at this time. Mental Status/Objective Patient Orientation: Person, Place, Time, Situation Functional [place] Measure 0=Not Assessed/NA 4=Minimal Assistance 1=Total Assistance 5=Supervision or Setup 2=Maximal Assistance 6=Modified [place] 3=Moderate Assistance 7=Complete [place] ADL-Treatment Functional [place] Measure 0=Not Assessed/NA 4=Minimal Assistance 1=Total Assistance 5=Supervision or Setup 2=Maximal Assistance 6=Modified [place] 3=Moderate Assistance 7=Complete IndependenceIRFPAI Quality Coding Scale 6 Independent with activity with or without an assistive device 5 Patient requires set up or clean up by helper. Patient completes activity by themselves 4 Supervision or touching assist (CGA). [place] provide cues , steadying assist 3 The helper provides less than half the effort to complete the activity 2 The helper provides more than half the effort to complete the activity 1 Dependent. The helper does all the effort to complete an activity 7 Patient refused to complete or attempt activity 9 The patient did not perform the activity before the current illness or injury 88 Not attempted due to Medical conditions or safety concerns Other Treatment Pt able to use UE to hold onto items then transport them to room using w/c. Pt completed paraffin for 20 min to increase AROM and decrease pain. Pt stated that pain has decreased after paraffin and was able to use hands more. After therapy, pt sitting up in w/c. Nrsg in room. Call light/phone in reach. All needs met in room. OT Short Term Goals Short Term Goals Time Frame: Jun 27, 2017 Lower Body Dressing(FIM): 2 Toileting(FIM): 2 Toilet/Commode Transfer(FIM): 2 Shower Transfer(FIM): 2 Additional Short Term Goals: 2-Verbalize Understanding, 3-ImproveStrength/Yris 1=Demonstrate adherence to instructed precautions during ADL tasks. 2=Patient will verbalize/demonstrate understanding of assistive devices/ modifications for ADL. 3=Patient will improve strength/tolerance for activity to enable patient to perform ADL's. OT Food Manager Goals Food Manager Goals Time Frame: Jul 11, 2017 Eating (FIM): 5 Eating (QC): 5 Groomin Oral Hygiene (QC): 5 Bathing(FIM): 4 Shower/Bathe Self (QC): 4 Upper Body Dressing(FIM): 5 Upper Body Dressing (QC): 5 Lower Body Dressing(FIM): 4 Lower Body Dressing (QC): 3 On/Off Footwear (QC): 4 Toileting(FIM): 4 Toileting Hygiene (QC): 4 Toilet/Commode Transfer(FIM): 4 Toilet/Commode Transfer (QC): 4 Shower Transfer(FIM): 4 Additional Goals: 1-Demonstrate ADL Tasks, 2-Verbalize Understanding, 3- ImproveStrength/Yris 1=Demonstrate adherence to instructed precautions during ADL tasks. 2=Patient will verbalize/demonstrate understanding of assistive devices/ modifications for ADL. 3=Patient will improve strength/tolerance for activity to enable patient to perform ADL's. OT Education/Plan Discharge Recommendations Plan/Recommendations: Continue POC Treatment Plan/Plan of Care Patient would benefit from OT for education, treatment and training to promote independence in ADL's, mobility, safety and/or upper extremity function for ADL' s. Plan of Care: ADL Retraining, Functional Mobility, Group Exercise/Act as Ind, UE Funct Exercise/Act Treatment Duration: Jul 11, 2017 Frequency: At least 5 of 7 days/Wk (IRF) Estimated Hrs Per Day: 1.5 hours per day Agreement: Yes Rehab Potential: Fair Time/GCodes Start Time: 12:30 Stop Time: 13:00 Total Time Billed (hr/min): 30 Billed Treatment Time 1 visit-FA 2 (30 min) JAME SIERRA Jul 10, 2017 14:33
--- NOTE | 2017-07-10 15:07 | Physical Therapy Daily Note ---
PT Daily Note-Current Subjective Patient is in her W/C upon PT entering the room. Patient agrees to PT. Patient states she is doing well this afternoon. Pain Numeric Pain Scale: 0-No Pain Location: No Pain Reported Appearance Patient appears healthy this p.m. Mental Status Patient Orientation: Normal For Age Transfers Functional [place] Measure 0=Not Assessed/NA 4=Minimal Assistance 1=Total Assistance 5=Supervision or Setup 2=Maximal Assistance 6=Modified [place] 3=Moderate Assistance 7=Complete IndependenceIRFPAI Quality Coding Scale 6 Independent with activity with or without an assistive device 5 Patient requires set up or clean up by helper. Patient completes activity by themselves 4 Supervision or touching assist (CGA). [place] provide cues , steadying assist 3 The helper provides less than half the effort to complete the activity 2 The helper provides more than half the effort to complete the activity 1 Dependent. The helper does all the effort to complete an activity 7 Patient refused to complete or attempt activity 9 The patient did not perform the activity before the current illness or injury 88 Not attempted due to Medical conditions or safety concerns Transfers (B, C, W/C) (FIM): 3 Scootin Sit to/from Stand: 3 Weight Bearing Right Lower Extremity: Right Weight Bearing/Tolerated Left Lower Extremity: Left Weight Bearing/Tolerated Gait Training Does the Patient Walk?: Yes Gait (FIM): 1 Distance (FIM): 1=up to 49 ft Distance: 10' x 2 Gait Level of Assist: 3 Gait Persons Needed: 1 Gait Assistive Device: Parallel Bars Patient walked in parallel bars with moderate assist from the PT for stability and safety. Wheelchair Training Does the Pt Use a Wheelchair?: Yes Wheelchair (FIM): 6 Distance: >300' Wheelchair Level of Assist: 6 Type of Wheelchair: Manual Patient maneuvers W/C on her own. PT is there with her only during therapy sessions. Exercises NuStep Minutes: 12 (For LE muscular strength and endurance) NuStep Workload: 7 Assessment Current Status: Good Progress Patient was very excited to walk in the parallel bars. She continues to show progress in PT. PT will continue to progress therapeutic interventions as the patient tolerates. PT Short Term Goals Short Term Goals Time Frame: Jun 27, 2017 Gait (FIM): 1 Distance (FIM): 1=up to 49 ft Wheelchair (FIM): 6 (met) Wheelchair Distance: 150'x2 Wheelchair Level of Assist: 6 PT Asic Engineer Goals [facility] Goals PT [facility] Goals Time Frame: Jul 11, 2017 Transfers (B,C,W/C) (FIM): 4 Sit to Lying (QC): 4 Lying-Sitting on Side/Bed(QC): 4 Sit to Stand (QC): 4 Rollin Roll Left to Right (QC): 4 Chair/Zgk-qs-Whkbq Xfer(QC): 4 Car Transfer (QC): 4 Does the Patient Walk: No and Walking Goal IS indicated Gait (FIM): 2 Gait distance (FIM): 0=274-62 ft Distance: 50' Walk 10 feet (QC): 3 Walk 10ft-Uneven Surface(QC): 3 Walk 50ft with 2 Turns (QC): 3 Gait Level of Assist: 4 Gait Assistive Device: FWW PT Plan Problem List Problem List: Activity Tolerance, Functional Strength, Safety, Balance, Gait, Transfer Treatment/Plan Treatment Plan: Continue Plan of Care Treatment Plan: Bed Mobility, Education, Functional Activity Yris, Functional Strength, Group Therapy, Gait, Safety, Therapeutic Exercise, Transfers Treatment Duration: Jul 11, 2017 Frequency: At least 5 of 7 days/Wk (IRF) Estimated Hrs Per Day: 1.5 hours per day Patient and/or Family Agrees t: Yes Time/GCodes Time In: 1433 Time Out: 1503 Total Billed Treatment Time: 30 Total Billed Treatment 1 visit Ex 15 min GT 15 min SHELLY OJEDA PT Jul 10, 2017 15:07
[2017-07-10 18:00] VITALS: BP 106/71
--- NOTE | 2017-07-10 20:15 | PM & R (SOAP) Progress Note ---
Subjective Time Seen by Provider: 19:30 Subjective/Events-last exam Patient was seen in common area of unit this evening.Functional transfers varies with patients pain levels and endurance Appears a bit down this evening Asks for pain pill for breakthrough pain Passed message on to mixer whipped topping of Systems Musculoskeletal: leg pain Objective Exam Last Set of Vital Signs Vital Signs Date Time Temp Pulse Resp B/P (MAP) Pulse Ox O2 Delivery O2 Flow Rate FiO2 07/10/17 18:00 99.6 110 18 106/71 95 Room Air 07/06/17 09:00 98.00 Capillary Refill : Less Than 3 Seconds I&O Intake and Output 07/11/17 00:00 Intake Total 1342 ml Balance 1342 ml Intake Oral 1342 ml # Voids 8 General: Alert, Oriented X3, Cooperative, Mild Distress HEENT: Atraumatic, PERRLA, EOMI, Mucous Memb Moist/[place] Neck: Supple, No JVD Lungs: Clear to Auscultation Heart: Regular Rate Abdomen: Normal Bowel Sounds, Soft, No Tenderness Extremities: No Edema, Other (contractures both ankles) Neuro: Sensation Intact, Other (SLR bilate to 30 degrees) Assessment/Plan Assessment 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 t Team Conference hed yesterday-See report for full functional update and POC and ELOS Discharge set tentatively for friday07-14-17-Will confirm with SW tomorrow ALEXUS MERCADO MD Jul 10, 2017 20:15
[2017-07-10] MEDS: MIRTAZAPINE 15 MG (REMERON) TAB PO SCH (21:15)
[2017-07-10] MEDS: MELATONIN 3 MG TABLET PO SCH (21:15)
[2017-07-10] MEDS: GABAPENTIN 300 MG (NEURONTIN) CAP PO SCH (21:15)
[2017-07-10] MEDS: traZODone 100 MG (DESYREL) TAB PO SCH (21:15)
[2017-07-10] MEDS: LIDODERM PATCH REMOVAL TP SCH (21:17)
[2017-07-11] MEDS: HYDROcodone/APAP 5 MG/325 MG (LORTAB) TAB PO PRN ×4 (04:11→19:29)
[2017-07-11 05:00] VITALS: BP 108/68
[2017-07-11] MEDS: THIAMINE 100 MG (VITAMIN B-1) TAB PO SCH (06:28)
[2017-07-11] MEDS: MULTIVIT W/MINERALS TAB (THERAGRAN M) PO SCH (06:28)
[2017-07-11] MEDS: ZINC SULFATE 220 MG CAPSULE PO SCH (06:28)
[2017-07-11] MEDS: ALPRAZolam 1 MG (XANAX) TAB PO PRN ×2 (06:46→15:14)
[2017-07-11] MEDS: CYCLOBENZAPRINE 10 MG (FLEXERIL) TAB PO PRN ×2 (06:46→15:27)
--- NOTE | 2017-07-11 07:57 | Occupational Ther Daily Note ---
OT Current Status-Daily Note Subjective Pt alert, sitting in w/c. Pt agreed to therapy. No c/o pain at this time. Mental Status/Objective Patient Orientation: Person, Place, Time, Situation Functional [place] Measure 0=Not Assessed/NA 4=Minimal Assistance 1=Total Assistance 5=Supervision or Setup 2=Maximal Assistance 6=Modified [place] 3=Moderate Assistance 7=Complete [place] ADL-Treatment Functional [place] Measure 0=Not Assessed/NA 4=Minimal Assistance 1=Total Assistance 5=Supervision or Setup 2=Maximal Assistance 6=Modified [place] 3=Moderate Assistance 7=Complete IndependenceIRFPAI Quality Coding Scale 6 Independent with activity with or without an assistive device 5 Patient requires set up or clean up by helper. Patient completes activity by themselves 4 Supervision or touching assist (CGA). [place] provide cues , steadying assist 3 The helper provides less than half the effort to complete the activity 2 The helper provides more than half the effort to complete the activity 1 Dependent. The helper does all the effort to complete an activity 7 Patient refused to complete or attempt activity 9 The patient did not perform the activity before the current illness or injury 88 Not attempted due to Medical conditions or safety concerns Eating (FIM): 6 (Dentures. Pt able to open containers/packages and use regular utensils to cut food and feed self.) Eating (QC): 6 Bathing (FIM): 6 (Sitting on tub transfer bench and using grabbars and hand held shower pt is able to complete bathing then pt is able to dry self. Part on tub bench then finishing while lying on bed.) Bathing Location: L Arm, R Arm, L Upper Leg, R Upper Leg, L Lower Leg ( including foot), R Lower Leg (including foot), Chest, Abdomen, Buttocks, Perineal Area Shower/Bathe Self (QC): 6 Upper Body (FIM): 6 (Pt retrieved clothing at w/c level then completed upper body dressing on the bed.) Upper Body Dressing (QC): 6 Lower Body Dressing (FIM): 6 (Pt retrieved clothing at w/c level then donned clothing lying on bed. Pt able to doff clothing in sitting or in bed.) Lower Body Dressing (QC): 6 On/Off Footwear (QC): 6 Transfers (B, C, W/C) (FIM): 5 (SBA using transfer board.) Tub Transfer(FIM): 5 (Using transfer board and tub transfer bench, pt is SBA.) OT Short Term Goals Short Term Goals Time Frame: Jun 27, 2017 Lower Body Dressing(FIM): 2 Toileting(FIM): 2 Toilet/Commode Transfer(FIM): 2 Shower Transfer(FIM): 2 Additional Short Term Goals: 2-Verbalize Understanding, 3-ImproveStrength/Yris 1=Demonstrate adherence to instructed precautions during ADL tasks. 2=Patient will verbalize/demonstrate understanding of assistive devices/ modifications for ADL. 3=Patient will improve strength/tolerance for activity to enable patient to perform ADL's. OT Quality Control Engineering Technician Goals Quality Control Engineering Technician Goals Time Frame: Jul 11, 2017 Eating (FIM): 5 Eating (QC): 5 Groomin Oral Hygiene (QC): 5 Bathing(FIM): 4 Shower/Bathe Self (QC): 4 Upper Body Dressing(FIM): 5 Upper Body Dressing (QC): 5 Lower Body Dressing(FIM): 4 Lower Body Dressing (QC): 3 On/Off Footwear (QC): 4 Toileting(FIM): 4 Toileting Hygiene (QC): 4 Toilet/Commode Transfer(FIM): 4 Toilet/Commode Transfer (QC): 4 Shower Transfer(FIM): 4 Additional Goals: 1-Demonstrate ADL Tasks, 2-Verbalize Understanding, 3- ImproveStrength/Yris 1=Demonstrate adherence to instructed precautions during ADL tasks. 2=Patient will verbalize/demonstrate understanding of assistive devices/ modifications for ADL. 3=Patient will improve strength/tolerance for activity to enable patient to perform ADL's. OT Education/Plan Discharge Recommendations Plan/Recommendations: Continue POC Treatment Plan/Plan of Care Patient would benefit from OT for education, treatment and training to promote independence in ADL's, mobility, safety and/or upper extremity function for ADL' s. Plan of Care: ADL Retraining, Functional Mobility, Group Exercise/Act as Ind, UE Funct Exercise/Act Treatment Duration: Jul 11, 2017 Frequency: At least 5 of 7 days/Wk (IRF) Estimated Hrs Per Day: 1.5 hours per day Agreement: Yes Rehab Potential: Fair Time/GCodes Start Time: 07:00 Stop Time: 08:00 Total Time Billed (hr/min): 60 Billed Treatment Time 1 visit-ADL 4 (60 min) JAME SIERRA Jul 11, 2017 07:57
--- NOTE | 2017-07-11 08:18 | Progress Note (SOAP) ---
Subjective Time Seen by Provider: 08:15 Subjective/Events-last exam Nolan Montoya. Patient improving. Patient able to hold couple body on a walker. Patient walking with walker with help. Patient voices no complaints Objective Exam Vital Signs Date Time Temp Pulse Resp B/P (MAP) Pulse Ox O2 Delivery O2 Flow Rate FiO2 07/11/17 05:00 98.8 108 16 108/68 96 Room Air 07/10/17 20:20 Room Air 07/10/17 18:00 99.6 110 18 106/71 95 Room Air 07/10/17 09:00 Room Air Capillary Refill : Less Than 3 Seconds General Appearance: No Apparent Distress, WD/WN Assessment/Plan Assessment/Plan Assess & Plan/Chief Complaint 06/24/17. Patient doing better with therapy o of upper extremities. Pickett Montoya. History of hallucinations. Patient legs needs more work. . 06/25/17. Pickett Montoya.. Upper extremity therapy improving. . 06/26/17. Patient positive today. Patient not complaining of much pain. Patient happy. Patient a work in progress. . . Pickett Montoya syndrome. Patient states she's working hard. Patient improved with upper extremity. Patient a work in progress. . 06/30/17. Pickett Montoya syndrome. Patient is improving. Patient transferring better. . 07/02/17. Pickett Montoya syndrome. Patient doing better with her upper extremities. Patient complaining of pain in leg. . 07/03/17. Pickett Montoya syndrome. Talk to patient about pain medication. Increased gabapentin. . 07/04/17. Pickett Montoya. Patient improving with upper extremities. . 07/07/17. Nolan Montoya. patient improving. Patient working area . Pickett Montoya syndrome. Patient doing more. 07/08/17. Patient states she's doing things that she couldn't do before. . 07/09/17. Pickett Montoya syndrome. Patient doing more. Patient voicing no complaints . . 07/10/17. Pickett Montoya syndrome. Patient mentally doing better. Patient physically doing better. Patient positive about herself. . 07/11/17. nolan Montoya syndrome. Patient stable enough to stand up with walker. Patient moving feet with help Clinical Quality Measures DVT/VTE Risk/Contraindication: Risk Factor Score Per Nursin RFS Level Per Nursing on Admit: 2=Moderate AFSANEH QUIJANO DO Jul 11, 2017 08:18
--- NOTE | 2017-07-11 09:00 | Physical Therapy Daily Note ---
PT Daily Note-Current Subjective Patient sitting EOB finishing up breakfast pre tx, agrees to PT, has pain of 2-3 /10 in her legs. Appearance Patient at EOB post tx, has nurse call, phone, tray, all needs met. Mental Status Patient Orientation: Normal For Age Transfers Functional [place] Measure 0=Not Assessed/NA 4=Minimal Assistance 1=Total Assistance 5=Supervision or Setup 2=Maximal Assistance 6=Modified [place] 3=Moderate Assistance 7=Complete IndependenceIRFPAI Quality Coding Scale 6 Independent with activity with or without an assistive device 5 Patient requires set up or clean up by helper. Patient completes activity by themselves 4 Supervision or touching assist (CGA). [place] provide cues , steadying assist 3 The helper provides less than half the effort to complete the activity 2 The helper provides more than half the effort to complete the activity 1 Dependent. The helper does all the effort to complete an activity 7 Patient refused to complete or attempt activity 9 The patient did not perform the activity before the current illness or injury 88 Not attempted due to Medical conditions or safety concerns Transfers (B, C, W/C) (FIM): 4 Scootin Rollin Supine to/from Sit: 6 Sit to/from Stand: 4 Bed to/from Chair: 4 Min assist for sit to stand and cues for hand placement, patient can perform a sliding transfer without a board with CGA. Weight Bearing Right Lower Extremity: Right Weight Bearing/Tolerated Left Lower Extremity: Left Weight Bearing/Tolerated Gait Training Gait (FIM): 2 Distance: 20'x3, 100' Gait Level of Assist: 4 Gait Persons Needed: 1 Gait Assistive Device: FWW Patient was able to ambulate 100' with a rolling walker with CGA and wheelchair follow. Her arms are much stronger and left ankle still tends to roll but less than before. Exercises NuStep Minutes: 15 NuStep Workload: 7 Treatments bed mobility, transfers, ambulation, functional strengthening Assessment Current Status: Good Progress greatly improve ambulation PT Short Term Goals Short Term Goals Time Frame: Jun 27, 2017 Gait (FIM): 1 Distance (FIM): 1=up to 49 ft Wheelchair (FIM): 6 (met) Wheelchair Distance: >300' Wheelchair Level of Assist: 6 PT Lion Trainer Goals Skilled Nursing Goals PT Skilled Nursing Goals Time Frame: Jul 11, 2017 Transfers (B,C,W/C) (FIM): 4 Sit to Lying (QC): 4 Lying-Sitting on Side/Bed(QC): 4 Sit to Stand (QC): 4 Rollin Roll Left to Right (QC): 4 Chair/Vxo-hj-Tpwgt Xfer(QC): 4 Car Transfer (QC): 4 Does the Patient Walk: No and Walking Goal IS indicated Gait (FIM): 2 Gait distance (FIM): 3=861-37 ft Distance: 50' Walk 10 feet (QC): 3 Walk 10ft-Uneven Surface(QC): 3 Walk 50ft with 2 Turns (QC): 3 Gait Level of Assist: 4 Gait Assistive Device: FWW PT Plan Problem List Problem List: Activity Tolerance, Functional Strength, Safety, Balance, Gait, Transfer, ROM Treatment/Plan Treatment Plan: Continue Plan of Care Treatment Plan: Bed Mobility, Education, Functional Activity Yris, Functional Strength, Group Therapy, Gait, Safety, Therapeutic Exercise, Transfers Treatment Duration: Jul 11, 2017 Frequency: At least 5 of 7 days/Wk (IRF) Estimated Hrs Per Day: 1.5 hours per day Patient and/or Family Agrees t: Yes Safety Risks/Education Patient Education: Gait Training, Transfer Techniques, Correct Positioning, Safety Issues Teaching Recipient: Patient Teaching Methods: Demonstration, Discussion Response to Teaching: Reinforcement Needed Time/GCodes Time In: 800 Time Out: 900 Total Billed Treatment Time: 60 Total Billed Treatment 1 visit EX 15' GT 45' GERALDO FERRER PT Jul 11, 2017 09:00
--- NOTE | 2017-07-11 09:07 | PM & R (SOAP) Progress Note ---
Subjective Time Seen by Provider: 07:55 Subjective/Events-last exam Patient was seen in her room this AM Patient feeling better this AM Patient agreeable to discharge on Friday the .Patient MIn assist for transfers Objective Exam Last Set of Vital Signs Vital Signs Date Time Temp Pulse Resp B/P (MAP) Pulse Ox O2 Delivery O2 Flow Rate FiO2 07/11/17 05:00 98.8 108 16 108/68 96 Room Air 07/06/17 09:00 98.00 Capillary Refill : Less Than 3 Seconds I&O Intake and Output 07/12/17 00:00 Intake Total 550 ml Balance 550 ml Intake Oral 550 ml # Voids 3 General: Alert, Oriented X3, Cooperative, Mild Distress HEENT: Atraumatic, PERRLA, EOMI, Mucous Memb Moist/[place] Neck: Supple, No JVD Lungs: Clear to Auscultation Heart: Regular Rate Abdomen: Normal Bowel Sounds, Soft, No Tenderness Extremities: No Edema, Other (contractures both ankles) Neuro: Sensation Intact, Other (SLR bilate to 30 degrees) Assessment/Plan Assessment 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 t Team Conference held 07-09-17-See report for full functional update and POC and ELOS Discharge remains set tentatively for friday07-14-17. ALEXUS MERCADO MD Jul 11, 2017 09:07
[2017-07-11] MEDS ORDERED: MIRT15TA8 PO (09:17)
[2017-07-11] MEDS ORDERED: GABA-488 PO (09:17)
[2017-07-11] MEDS ORDERED: GABA600T2 PO (09:17)
[2017-07-11] MEDS ORDERED: CARV6.252 PO (09:17)
[2017-07-11] MEDS ORDERED: FENT1PAT9 TD (09:17)
[2017-07-11] MEDS ORDERED: ARIP2TAB3 PO (09:17)
[2017-07-11] MEDS: LIDOCAINE (LIDODERM) 5% PATCH TOP SCH (09:35)
[2017-07-11] MEDS: VITAMIN E 400 INTLU CAP PO SCH (09:35)
[2017-07-11] MEDS: VITAMIN D2 50,000 UNITS (1.25 MG) CAP PO SCH (09:36)
[2017-07-11] MEDS: OLANZapine 2.5 MG (ZyPREXA) TAB PO SCH (09:36)
[2017-07-11] MEDS: ARIPIPRAZOLE 2 MG (ABILIFY) TAB PO SCH (09:36)
[2017-07-11] MEDS: GABAPENTIN 600 MG (NEURONTIN) TAB PO SCH ×2 (09:36→13:16)
[2017-07-11] MEDS: PYRIDOXINE (VITAMIN B-6) 50 MG TABLET PO SCH (09:36)
[2017-07-11] MEDS: FOLIC ACID 1 MG TAB PO SCH (09:36)
[2017-07-11] MEDS: ASCORBIC ACID (VIT C) 500 MG TABLET PO SCH ×2 (09:36→20:52)
[2017-07-11] MEDS: SENNA W/DOCUSATE (SENOKOT S) TABLET PO SCH ×2 (09:37→20:49)
[2017-07-11] MEDS: CARVEDILOL 6.25 MG (COREG) TAB PO SCH ×2 (09:37→20:49)
[2017-07-11] MEDS: POLYETHYLENE GLYCOL 17 GM (MIRALAX) PACK PO SCH ×2 (10:24→20:52)
[2017-07-11] MEDS: BETAMETHASONE/CLOTRIM CREAM (LOTRISONE) 45 GM TP SCH ×2 (10:25→20:53)
--- NOTE | 2017-07-11 14:54 | Physical Therapy Daily Note ---
PT Daily Note-Current Subjective Patient is in her W/C upon PT meeting this patient. She states that her hands are feeling numb today and her elbows are sore. She agrees to PT. Pain Numeric Pain Scale: 5-Moderate Pain Location Body Site: Hand Pain Description: Tingling, Numbness Comment: Bilateral hand numbness Appearance Patient appears healthy in general. Mental Status Patient Orientation: Normal For Age Transfers Functional [place] Measure 0=Not Assessed/NA 4=Minimal Assistance 1=Total Assistance 5=Supervision or Setup 2=Maximal Assistance 6=Modified [place] 3=Moderate Assistance 7=Complete IndependenceIRFPAI Quality Coding Scale 6 Independent with activity with or without an assistive device 5 Patient requires set up or clean up by helper. Patient completes activity by themselves 4 Supervision or touching assist (CGA). [place] provide cues , steadying assist 3 The helper provides less than half the effort to complete the activity 2 The helper provides more than half the effort to complete the activity 1 Dependent. The helper does all the effort to complete an activity 7 Patient refused to complete or attempt activity 9 The patient did not perform the activity before the current illness or injury 88 Not attempted due to Medical conditions or safety concerns Transfers (B, C, W/C) (FIM): 3 Sit to/from Stand: 3 Patient requires mod assist from the PT with rising from sit to stand. Patient also needs mod assist with standing due to LE strength and bilateral plantarflexed feet. Weight Bearing Right Lower Extremity: Right Weight Bearing/Tolerated Left Lower Extremity: Left Weight Bearing/Tolerated Gait Training Does the Patient Walk?: Yes Gait (FIM): 2 Distance (FIM): 3=075-08 ft Distance: 75' Gait Level of Assist: 3 Gait Persons Needed: 1 Gait Assistive Device: FWW Patient walks with FWW and mod assist from the therapist. Patient has an antalgic gait pattern bearing weight through her arms on the FWW. PT assists with safety and stability. Exercises Supine Ex: Resisted flex/ext (seated resisted knee flexion and extension bilateral) Supine Reps: 10 Seated Therapy Exercises: Long arc quads (bilateral 2# ), Hip flexion ( bilateral 2#) Seated Reps: [address] Ex=Flex, Abd, Ext (hip flexion; PT mod assist w/ standing) Assessment Current Status: Good Progress Patient has shown improved gait pattern the last few therapy visits. Patient shows good effort with PT and is continuing to progress as her condition allows. PT will continue to progress gait training and therapeutic exercise as patient tolerates. PT Short Term Goals Short Term Goals Time Frame: Jun 27, 2017 Gait (FIM): 1 Distance (FIM): 1=up to 49 ft Wheelchair (FIM): 6 (met) Wheelchair Distance: >300' Wheelchair Level of Assist: 6 PT [facility] Goals Cane Pusher Goals PT Cane Pusher Goals Time Frame: Jul 11, 2017 Transfers (B,C,W/C) (FIM): 4 Sit to Lying (QC): 4 Lying-Sitting on Side/Bed(QC): 4 Sit to Stand (QC): 4 Rollin Roll Left to Right (QC): 4 Chair/Cwh-uh-Jwora Xfer(QC): 4 Car Transfer (QC): 4 Does the Patient Walk: No and Walking Goal IS indicated Gait (FIM): 2 Gait distance (FIM): 4=106-27 ft Distance: 50' Walk 10 feet (QC): 3 Walk 10ft-Uneven Surface(QC): 3 Walk 50ft with 2 Turns (QC): 3 Gait Level of Assist: 4 Gait Assistive Device: FWW PT Plan Problem List Problem List: Activity Tolerance, Functional Strength, Safety, Balance, Gait, Transfer Treatment/Plan Treatment Plan: Continue Plan of Care Treatment Plan: Bed Mobility, Education, Functional Activity Yris, Functional Strength, Group Therapy, Gait, Safety, Therapeutic Exercise, Transfers Treatment Duration: Jul 11, 2017 Frequency: At least 5 of 7 days/Wk (IRF) Estimated Hrs Per Day: 1.5 hours per day Patient and/or Family Agrees t: Yes Time/GCodes Time In: 1415 Time Out: 1445 Total Billed Treatment Time: 30 Total Billed Treatment 1 visit Ex 12 min GT 18 min SHELLY OJEDA PT Jul 11, 2017 14:54
--- NOTE | 2017-07-11 14:56 | Occupational Ther Daily Note ---
OT Current Status-Daily Note Subjective Pt alert, sitting in w/c. Pt agreed to therapy. Pt c/o pain in hands, 6/10. Mental Status/Objective Functional [place] Measure 0=Not Assessed/NA 4=Minimal Assistance 1=Total Assistance 5=Supervision or Setup 2=Maximal Assistance 6=Modified [place] 3=Moderate Assistance 7=Complete [place] ADL-Treatment Functional [place] Measure 0=Not Assessed/NA 4=Minimal Assistance 1=Total Assistance 5=Supervision or Setup 2=Maximal Assistance 6=Modified [place] 3=Moderate Assistance 7=Complete IndependenceIRFPAI Quality Coding Scale 6 Independent with activity with or without an assistive device 5 Patient requires set up or clean up by helper. Patient completes activity by themselves 4 Supervision or touching assist (CGA). [place] provide cues , steadying assist 3 The helper provides less than half the effort to complete the activity 2 The helper provides more than half the effort to complete the activity 1 Dependent. The helper does all the effort to complete an activity 7 Patient refused to complete or attempt activity 9 The patient did not perform the activity before the current illness or injury 88 Not attempted due to Medical conditions or safety concerns Other Treatment Pt was able to maneuver w/c to therapy gym by self. Pt then completed arm bike for 5 min at 10 [place] resistance without breaks or c/o pain to increase strength and activity tolerance. Then completed paraffin bath to increase AROM and decrease pain. Pt reported after paraffin that pain had decreased to 3/10. After therapy, pt maneuvered w/c to [facility]. All needs met in room. OT Short Term Goals Short Term Goals Time Frame: Jun 27, 2017 Lower Body Dressing(FIM): 2 Toileting(FIM): 2 Toilet/Commode Transfer(FIM): 2 Shower Transfer(FIM): 2 Additional Short Term Goals: 2-Verbalize Understanding, 3-ImproveStrength/[place] 1=Demonstrate adherence to instructed precautions during ADL tasks. 2=Patient will verbalize/demonstrate understanding of assistive devices/ modifications for ADL. 3=Patient will improve strength/tolerance for activity to enable patient to perform ADL's. OT Buffing Line Set Up Worker Goals Fdc Goals Time Frame: Jul 11, 2017 Eating (FIM): 5 Eating (QC): 5 Groomin Oral Hygiene (QC): 5 Bathing(FIM): 4 Shower/Bathe Self (QC): 4 Upper Body Dressing(FIM): 5 Upper Body Dressing (QC): 5 Lower Body Dressing(FIM): 4 Lower Body Dressing (QC): 3 On/Off Footwear (QC): 4 Toileting(FIM): 4 Toileting Hygiene (QC): 4 Toilet/Commode Transfer(FIM): 4 Toilet/Commode Transfer (QC): 4 Shower Transfer(FIM): 4 Additional Goals: 1-Demonstrate ADL Tasks, 2-Verbalize Understanding, 3- ImproveStrength/Yris 1=Demonstrate adherence to instructed precautions during ADL tasks. 2=Patient will verbalize/demonstrate understanding of assistive devices/ modifications for ADL. 3=Patient will improve strength/tolerance for activity to enable patient to perform ADL's. OT Education/Plan Discharge Recommendations Plan/Recommendations: Continue POC Treatment Plan/Plan of Care Patient would benefit from OT for education, treatment and training to promote independence in ADL's, mobility, safety and/or upper extremity function for ADL' s. Plan of Care: ADL Retraining, Functional Mobility, Group Exercise/Act as Ind, UE Funct Exercise/Act Treatment Duration: Jul 11, 2017 Frequency: At least 5 of 7 days/Wk (IRF) Estimated Hrs Per Day: 1.5 hours per day Agreement: Yes Rehab Potential: Fair Time/GCodes Start Time: 13:30 Stop Time: 14:00 Total Time Billed (hr/min): 30 Billed Treatment Time 1 visit-FA 2 (30 min) JAME SIERRA Jul 11, 2017 14:56
[2017-07-11 17:29] VITALS: BP 104/61
[2017-07-11] MEDS: MIRTAZAPINE 15 MG (REMERON) TAB PO SCH (20:49)
[2017-07-11] MEDS: MELATONIN 3 MG TABLET PO SCH (20:49)
[2017-07-11] MEDS: GABAPENTIN 300 MG (NEURONTIN) CAP PO SCH (20:52)
[2017-07-11] MEDS: traZODone 100 MG (DESYREL) TAB PO SCH (20:52)
[2017-07-11] MEDS: LIDODERM PATCH REMOVAL TP SCH (20:54)
[2017-07-12 06:25] VITALS: BP 111/72
[2017-07-12] MEDS: THIAMINE 100 MG (VITAMIN B-1) TAB PO SCH (06:28)
[2017-07-12] MEDS: MULTIVIT W/MINERALS TAB (THERAGRAN M) PO SCH (06:28)
[2017-07-12] MEDS: ZINC SULFATE 220 MG CAPSULE PO SCH (06:28)
[2017-07-12] MEDS: HYDROcodone/APAP 5 MG/325 MG (LORTAB) TAB PO PRN ×2 (06:39→17:59)
[2017-07-12] MEDS: ALPRAZolam 1 MG (XANAX) TAB PO PRN ×2 (07:05→19:38)
[2017-07-12] MEDS: CYCLOBENZAPRINE 10 MG (FLEXERIL) TAB PO PRN ×2 (07:06→18:31)
[2017-07-12] MEDS: GABAPENTIN 600 MG (NEURONTIN) TAB PO SCH ×2 (08:53→13:59)
[2017-07-12] MEDS: OLANZapine 2.5 MG (ZyPREXA) TAB PO SCH (08:53)
[2017-07-12] MEDS: ARIPIPRAZOLE 2 MG (ABILIFY) TAB PO SCH (08:53)
[2017-07-12] MEDS: VITAMIN E 400 INTLU CAP PO SCH (08:53)
[2017-07-12] MEDS: PYRIDOXINE (VITAMIN B-6) 50 MG TABLET PO SCH (08:53)
[2017-07-12] MEDS: LIDOCAINE (LIDODERM) 5% PATCH TOP SCH (08:53)
[2017-07-12] MEDS: ASCORBIC ACID (VIT C) 500 MG TABLET PO SCH ×2 (08:54→21:13)
[2017-07-12] MEDS: CARVEDILOL 6.25 MG (COREG) TAB PO SCH ×2 (08:54→21:13)
[2017-07-12] MEDS: FOLIC ACID 1 MG TAB PO SCH (08:54)
[2017-07-12] MEDS: SENNA W/DOCUSATE (SENOKOT S) TABLET PO SCH ×2 (08:54→21:12)
[2017-07-12] MEDS: BETAMETHASONE/CLOTRIM CREAM (LOTRISONE) 45 GM TP SCH ×2 (08:54→21:12)
[2017-07-12] MEDS: POLYETHYLENE GLYCOL 17 GM (MIRALAX) PACK PO SCH ×2 (08:59→21:13)
[2017-07-12] MEDS: fentaNYL PATCH 50 MCG (DURAGESIC) TD SCH (10:47)
--- NOTE | 2017-07-12 10:50 | Physical Therapy Daily Note ---
PT Daily Note-Current Subjective Pt. emotional and states she misses her children, hopes she can stay on the path of good progress and get home safely and successfully Pain Numeric Pain Scale: 0-No Pain Mental Status Patient Orientation: Normal For Age Transfers Functional [place] Measure 0=Not Assessed/NA 4=Minimal Assistance 1=Total Assistance 5=Supervision or Setup 2=Maximal Assistance 6=Modified [place] 3=Moderate Assistance 7=Complete IndependenceIRFPAI Quality Coding Scale 6 Independent with activity with or without an assistive device 5 Patient requires set up or clean up by helper. Patient completes activity by themselves 4 Supervision or touching assist (CGA). [place] provide cues , steadying assist 3 The helper provides less than half the effort to complete the activity 2 The helper provides more than half the effort to complete the activity 1 Dependent. The helper does all the effort to complete an activity 7 Patient refused to complete or attempt activity 9 The patient did not perform the activity before the current illness or injury 88 Not attempted due to Medical conditions or safety concerns Transfers (B, C, W/C) (FIM): 3 Scootin Sit to/from Stand: 3 sit to stand SPTs w/c to nustep all min to mod assist Weight Bearing Right Lower Extremity: Right Weight Bearing/Tolerated Left Lower Extremity: Left Weight Bearing/Tolerated Gait Training Does the Patient Walk?: Yes Gait (FIM): 3 Distance (FIM): 3=150 ft (150x1) Gait Level of Assist: 4 Gait Persons Needed: 1 Gait Assistive Device: FWW w/c to follow, left ankle supination Wheelchair Training Does the Pt Use a Wheelchair?: Yes Wheelchair (FIM): 6 Wheelchair Distance: 3=150 ft (300 plus) Wheelchair Level of Assist: 6 Type of Wheelchair: Manual Exercises NuStep Minutes: 10 NuStep Workload: 7 Assessment Current Status: Good Progress PT Short Term Goals Short Term Goals Time Frame: Jun 27, 2017 Gait (FIM): 1 Distance (FIM): 1=up to 49 ft Wheelchair (FIM): 6 (met) Wheelchair Distance: >300' Wheelchair Level of Assist: 6 PT Half-Way Goals Environmental Service Aide Goals PT Half-Way Goals Time Frame: Jul 11, 2017 Transfers (B,C,W/C) (FIM): 4 Sit to Lying (QC): 4 Lying-Sitting on Side/Bed(QC): 4 Sit to Stand (QC): 4 Rollin Roll Left to Right (QC): 4 Chair/Ucs-me-Rqglp Xfer(QC): 4 Car Transfer (QC): 4 Does the Patient Walk: No and Walking Goal IS indicated Gait (FIM): 2 Gait distance (FIM): 7=222-71 ft Distance: 50' Walk 10 feet (QC): 3 Walk 10ft-Uneven Surface(QC): 3 Walk 50ft with 2 Turns (QC): 3 Gait Level of Assist: 4 Gait Assistive Device: FWW PT Plan Treatment/Plan Treatment Plan: Continue Plan of Care Treatment Plan: Bed Mobility, Education, Functional Activity Yris, Functional Strength, Group Therapy, Gait, Safety, Therapeutic Exercise, Transfers Treatment Duration: Jul 11, 2017 Frequency: At least 5 of 7 days/Wk (IRF) Estimated Hrs Per Day: 1.5 hours per day Patient and/or Family Agrees t: Yes Safety Risks/Education Patient Education: Gait Training, Transfer Techniques, Correct Positioning, Disease Process, Safety Issues Teaching Recipient: Patient Teaching Methods: Demonstration, Discussion Response to Teaching: Verbalize Understanding, Return Demonstration, Reinforcement Needed Time/GCodes Time In: 1015 Time Out: 1045 Total Billed Treatment Time: 30 Total Billed Treatment 1,GT20m,EX10m G Codes Necessary: CASSIA Carrasco PTA Jul 12, 2017 10:50
[2017-07-12 18:24] VITALS: BP 120/78
[2017-07-12] MEDS: traZODone 100 MG (DESYREL) TAB PO SCH (21:12)
[2017-07-12] MEDS: GABAPENTIN 300 MG (NEURONTIN) CAP PO SCH (21:13)
[2017-07-12] MEDS: MIRTAZAPINE 15 MG (REMERON) TAB PO SCH (21:13)
[2017-07-12] MEDS: MELATONIN 3 MG TABLET PO SCH (21:13)
[2017-07-12] MEDS: LIDODERM PATCH REMOVAL TP SCH (21:15)
[2017-07-13] MEDS: ALPRAZolam 1 MG (XANAX) TAB PO PRN ×3 (03:31→20:04)
[2017-07-13] MEDS: CYCLOBENZAPRINE 10 MG (FLEXERIL) TAB PO PRN ×3 (03:32→20:04)
[2017-07-13 05:54] VITALS: BP 106/70
[2017-07-13] MEDS: ZINC SULFATE 220 MG CAPSULE PO SCH (06:20)
[2017-07-13] MEDS: THIAMINE 100 MG (VITAMIN B-1) TAB PO SCH (06:20)
[2017-07-13] MEDS: MULTIVIT W/MINERALS TAB (THERAGRAN M) PO SCH (06:20)
[2017-07-13] MEDS: HYDROcodone/APAP 5 MG/325 MG (LORTAB) TAB PO PRN ×2 (06:38→14:42)
[2017-07-13] MEDS: ASCORBIC ACID (VIT C) 500 MG TABLET PO SCH ×2 (08:48→20:04)
[2017-07-13] MEDS: ARIPIPRAZOLE 2 MG (ABILIFY) TAB PO SCH (08:48)
[2017-07-13] MEDS: VITAMIN E 400 INTLU CAP PO SCH (08:48)
[2017-07-13] MEDS: FOLIC ACID 1 MG TAB PO SCH (08:48)
[2017-07-13] MEDS: LIDOCAINE (LIDODERM) 5% PATCH TOP SCH (08:48)
[2017-07-13] MEDS: PYRIDOXINE (VITAMIN B-6) 50 MG TABLET PO SCH (08:48)
[2017-07-13] MEDS: GABAPENTIN 600 MG (NEURONTIN) TAB PO SCH ×2 (08:48→12:02)
[2017-07-13] MEDS: OLANZapine 2.5 MG (ZyPREXA) TAB PO SCH (08:48)
[2017-07-13] MEDS: SENNA W/DOCUSATE (SENOKOT S) TABLET PO SCH ×2 (08:48→20:04)
[2017-07-13] MEDS: CARVEDILOL 6.25 MG (COREG) TAB PO SCH ×2 (08:49→20:04)
[2017-07-13] MEDS: POLYETHYLENE GLYCOL 17 GM (MIRALAX) PACK PO SCH ×2 (08:49→20:07)
[2017-07-13] MEDS: BETAMETHASONE/CLOTRIM CREAM (LOTRISONE) 45 GM TP SCH ×2 (09:04→20:04)
[2017-07-13 18:45] VITALS: BP 114/76
[2017-07-13] MEDS: traZODone 100 MG (DESYREL) TAB PO SCH (20:04)
[2017-07-13] MEDS: LIDODERM PATCH REMOVAL TP SCH (20:04)
[2017-07-13] MEDS: GABAPENTIN 300 MG (NEURONTIN) CAP PO SCH (20:04)
[2017-07-13] MEDS: MELATONIN 3 MG TABLET PO SCH (20:04)
[2017-07-13] MEDS: MIRTAZAPINE 15 MG (REMERON) TAB PO SCH (20:04)
[2017-07-14 05:34] VITALS: BP 120/69
[2017-07-14] MEDS: ALPRAZolam 1 MG (XANAX) TAB PO PRN ×2 (06:16→12:45)
[2017-07-14] MEDS: THIAMINE 100 MG (VITAMIN B-1) TAB PO SCH (06:16)
[2017-07-14] MEDS: MULTIVIT W/MINERALS TAB (THERAGRAN M) PO SCH (06:16)
[2017-07-14] MEDS: ZINC SULFATE 220 MG CAPSULE PO SCH (06:16)
[2017-07-14] MEDS: CYCLOBENZAPRINE 10 MG (FLEXERIL) TAB PO PRN ×2 (06:17→14:44)
[2017-07-14] MEDS: HYDROcodone/APAP 5 MG/325 MG (LORTAB) TAB PO PRN ×2 (06:50→14:44)
--- NOTE | 2017-07-14 07:52 | Occupational Ther Daily Note ---
OT Current Status-Daily Note Subjective Pt alert, sitting in w/c. Pt agreed to therapy. No c/o pain at this time. Pt to discharge today. Mental Status/Objective Patient Orientation: Person, Place, Time, Situation Functional [place] Measure 0=Not Assessed/NA 4=Minimal Assistance 1=Total Assistance 5=Supervision or Setup 2=Maximal Assistance 6=Modified [place] 3=Moderate Assistance 7=Complete [place] ADL-Treatment Functional [place] Measure 0=Not Assessed/NA 4=Minimal Assistance 1=Total Assistance 5=Supervision or Setup 2=Maximal Assistance 6=Modified [place] 3=Moderate Assistance 7=Complete IndependenceIRFPAI Quality Coding Scale 6 Independent with activity with or without an assistive device 5 Patient requires set up or clean up by helper. Patient completes activity by themselves 4 Supervision or touching assist (CGA). [place] provide cues , steadying assist 3 The helper provides less than half the effort to complete the activity 2 The helper provides more than half the effort to complete the activity 1 Dependent. The helper does all the effort to complete an activity 7 Patient refused to complete or attempt activity 9 The patient did not perform the activity before the current illness or injury 88 Not attempted due to Medical conditions or safety concerns Eating (FIM): 6 (Dentures. Pt able to open packages and containers. Uses regular utensils to cut food and fee self.) Eating (QC): 6 Grooming (FIM): 6 (At w/c level, pt is able to complete.) Oral Hygiene (QC): 6 Bathing (FIM): 6 (Pt is able to complete all bathing sitting on tub seat in tub using grabbars and hand held shower. Pt dries self in shower then finishes drying buttocks after transferring to bed.) Bathing Location: L Arm, R Arm, L Upper Leg, R Upper Leg, L Lower Leg ( including foot), R Lower Leg (including foot), Chest, Abdomen, Buttocks, Perineal Area Shower/Bathe Self (QC): 6 Upper Body (FIM): 6 (Retrieves clothing at w/c level. Dons clothing while in bed.) Upper Body Dressing (QC): 6 Lower Body Dressing (FIM): 6 (Retrieves clothing at w/c level. Dons clothing in bed. Pt able to doff clothing sitting or in bed.) Lower Body Dressing (QC): 6 On/Off Footwear (QC): 6 (Dons socks shoes in bed. Doffs either by sitting or lying in bed.) Toileting (FIM): 6 (Pt uses sliding board to transfer onto toilet then pt hikes pants down over hips then cleanses self and hikes pants up over hips to be able to complete transfer back.) Toileting Hygiene (QC): 6 Transfers (B, C, W/C) (FIM): 6 (Using sliding board transfer to transfer from one surface to another by self. Safety concerns.) Toilet/Commode Transfer (FIM): 5 (Supervision. Using regular BSC pt is able to place sliding board and transfer on/off. At home pt has drop arm commode which will give her increased independence.) Toilet Transfer (QC): 5 Tub Transfer(FIM): 6 (Pt has tub shower at home. Pt has demonstrated ability to complete a tubbench transfer and tub seat transfer with sliding board.) After therapy, pt sitting in w/c with call light/phone in reach. All needs met in room. OT Short Term Goals Short Term Goals Time Frame: Jun 27, 2017 Lower Body Dressing(FIM): 2 Toileting(FIM): 2 Toilet/Commode Transfer(FIM): 2 Shower Transfer(FIM): 2 Additional Short Term Goals: 2-Verbalize Understanding, 3-ImproveStrength/Yris 1=Demonstrate adherence to instructed precautions during ADL tasks. 2=Patient will verbalize/demonstrate understanding of assistive devices/ modifications for ADL. 3=Patient will improve strength/tolerance for activity to enable patient to perform ADL's. OT Longterm Goals Longterm Goals Time Frame: Jul 11, 2017 Eating (FIM): 5 (met-07/14/2017) Eating (QC): 5 (met-07/14/2017) Groomin (met-07/14/2017) Oral Hygiene (QC): 5 (met-07/14/2017) Bathing(FIM): 4 (met-07/14/2017) Shower/Bathe Self (QC): 4 (met-07/14/2017) Upper Body Dressing(FIM): 5 (met-07/14/2017) Upper Body Dressing (QC): 5 (met-07/14/2017) Lower Body Dressing(FIM): 4 (met-07/14/2017) Lower Body Dressing (QC): 3 (met-07/14/2017) On/Off Footwear (QC): 4 (met-07/14/2017) Toileting(FIM): 4 (met-07/14/2017) Toileting Hygiene (QC): 4 (met-07/14/2017) Toilet/Commode Transfer(FIM): 4 (met-07/14/2017) Toilet/Commode Transfer (QC): 4 (met-07/14/2017) Tub Transfer(FIM): 5 (Pt has tub/shower at home. Worked on transfers into tub to become independent for home.CHEYANNE Kingsley/Jose Luis) Shower Transfer(FIM): 4 (Pt has tub/shower at home. Worked on transfers into tub to become independent for home.) Additional Goals: 1-Demonstrate ADL Tasks, 2-Verbalize Understanding, 3- ImproveStrength/Yris 1=Demonstrate adherence to instructed precautions during ADL tasks. 2=Patient will verbalize/demonstrate understanding of assistive devices/ modifications for ADL. 3=Patient will improve strength/tolerance for activity to enable patient to perform ADL's. OT Education/Plan Discharge Recommendations Plan/Recommendations: Continue POC Treatment Plan/Plan of Care Patient would benefit from OT for education, treatment and training to promote independence in ADL's, mobility, safety and/or upper extremity function for ADL' s. Plan of Care: ADL Retraining, Functional Mobility, Group Exercise/Act as Ind, UE Funct Exercise/Act Treatment Duration: Jul 11, 2017 Frequency: At least 5 of 7 days/Wk (IRF) Estimated Hrs Per Day: 1.5 hours per day Agreement: Yes Rehab Potential: Fair Time/GCodes Start Time: 07:00 Stop Time: 08:00 Total Time Billed (hr/min): 60 Billed Treatment Time 1 visit-ADL 4 (60 min) JAME SIERRA Jul 14, 2017 07:52
[2017-07-14] MEDS: SENNA W/DOCUSATE (SENOKOT S) TABLET PO SCH (08:46)
[2017-07-14] MEDS: CARVEDILOL 6.25 MG (COREG) TAB PO SCH (08:46)
[2017-07-14] MEDS: OLANZapine 2.5 MG (ZyPREXA) TAB PO SCH (08:46)
[2017-07-14] MEDS: POLYETHYLENE GLYCOL 17 GM (MIRALAX) PACK PO SCH (08:46)
[2017-07-14] MEDS: GABAPENTIN 600 MG (NEURONTIN) TAB PO SCH ×2 (08:46→13:04)
[2017-07-14] MEDS: LIDOCAINE (LIDODERM) 5% PATCH TOP SCH (08:46)
[2017-07-14] MEDS: ARIPIPRAZOLE 2 MG (ABILIFY) TAB PO SCH (08:46)
[2017-07-14] MEDS: PYRIDOXINE (VITAMIN B-6) 50 MG TABLET PO SCH (08:46)
[2017-07-14] MEDS: FOLIC ACID 1 MG TAB PO SCH (08:46)
[2017-07-14] MEDS: VITAMIN E 400 INTLU CAP PO SCH (08:46)
[2017-07-14] MEDS: ASCORBIC ACID (VIT C) 500 MG TABLET PO SCH (08:46)
[2017-07-14] MEDS: BETAMETHASONE/CLOTRIM CREAM (LOTRISONE) 45 GM TP SCH (08:47)
--- NOTE | 2017-07-14 08:47 | Progress Note (SOAP) ---
Subjective Time Seen by Provider: 08:45 Subjective/Events-last exam patient doing much better. Patient to be discharged today. [place] P[place] syndrome. Patient has a positive attitude and outlook Objective Exam Vital Signs Date Time Temp Pulse Resp B/P (MAP) Pulse Ox O2 Delivery O2 Flow Rate FiO2 07/14/17 05:34 98.7 107 18 120/69 96 Room Air 07/13/17 22:03 Room Air 07/13/17 20:00 Room Air 07/13/17 18:45 98.8 119 16 114/76 95 Room Air 07/13/17 09:00 Room Air Capillary Refill : Less Than 3 Seconds General Appearance: No Apparent Distress HEENT: Normal ENT Inspection, Pharynx Normal Neck: Full Range of Motion, Non Tender Respiratory: No Accessory Muscle Use, No Respiratory Distress Cardiovascular: Regular Rate, Rhythm, No Murmur Gastrointestinal: non tender, soft Assessment/Plan Assessment/Plan Assess & Plan/Chief Complaint 06/24/17. Patient doing better with therapy o of upper extremities. [place]. History of hallucinations. Patient legs needs more work. . 06/25/17. [place].. Upper extremity therapy improving. . 06/26/17. Patient positive today. Patient not complaining of much pain. Patient happy. Patient a work in progress. . . [place] Poe syndrome. Patient states she's working hard. Patient improved with upper extremity. Patient a work in progress. . 06/30/17. [place] P[place] syndrome. Patient is improving. Patient transferring better. . 07/02/17. [place] P[place] syndrome. Patient doing better with her upper extremities. Patient complaining of pain in leg. . 07/03/17. [place] P[place] syndrome. Talk to patient about pain medication. Increased gabapentin. . 07/04/17. [place] Poe. Patient improving with upper extremities. . 07/07/17. [place]. patient improving. Patient working area . [place] P[place] syndrome. Patient doing more. 07/08/17. Patient states she's doing things that she couldn't do before. . 07/09/17. [place] Poe syndrome. Patient doing more. Patient voicing no complaints . . 07/10/17. [place] Poe syndrome. Patient mentally doing better. Patient physically doing better. Patient positive about herself. . 07/11/17. nolan Poe syndrome. Patient stable enough to stand up with walker. Patient moving feet with help . 07/14/17. [place] Poe syndrome. Patient be discharged today . Patient's attitude positive. Patient has improved much Clinical Quality Measures DVT/VTE Risk/Contraindication: Risk Factor Score Per Nursin RFS Level Per Nursing on Admit: 2=Moderate AFSANEH QUIJANO DO Jul 14, 2017 08:47
--- NOTE | 2017-07-14 08:49 | Physical Therapy Daily Note ---
PT Daily Note-Current Subjective Patient in wheelchair pre tx, agrees to PT, has pain of 2-3/10 in her legs, has some increased swelling in legs. Patient is discharging later today. Appearance Patient in wheelchair post tx, she is mod I with wheelchair mobility. Mental Status Patient Orientation: Normal For Age Transfers Functional [place] Measure 0=Not Assessed/NA 4=Minimal Assistance 1=Total Assistance 5=Supervision or Setup 2=Maximal Assistance 6=Modified [place] 3=Moderate Assistance 7=Complete IndependenceIRFPAI Quality Coding Scale 6 Independent with activity with or without an assistive device 5 Patient requires set up or clean up by helper. Patient completes activity by themselves 4 Supervision or touching assist (CGA). [place] provide cues , steadying assist 3 The helper provides less than half the effort to complete the activity 2 The helper provides more than half the effort to complete the activity 1 Dependent. The helper does all the effort to complete an activity 7 Patient refused to complete or attempt activity 9 The patient did not perform the activity before the current illness or injury 88 Not attempted due to Medical conditions or safety concerns Transfers (B, C, W/C) (FIM): 4 Scootin Rollin Roll Left to Right (QC): 6 Supine to/from Sit: 6 Sit to/from Stand: 4 Sit to Lying (QC): 6 Sit to Stand (QC): 3 Chair/Jrr-op-Jmtbe Xfer(QC): 3 Bed to/from Chair: 4 Patient performs bed mobility with mod I. She performs sit to stand and stand pivot transfers with min assist. She performs a sliding board transfer with CGA. Weight Bearing Right Lower Extremity: Right Weight Bearing/Tolerated Left Lower Extremity: Left Weight Bearing/Tolerated Gait Training Gait (FIM): 2 Distance: 20'x2, 50' Walk 10 feet (QC): 4 Walk 50 ft with 2 Turns(QC): 4 Walk 150 ft (QC): 88 Walking 10ft/uneven surface-QC: 88 Gait Level of Assist: 4 Gait Persons Needed: 1 Gait Assistive Device: FWW Patient can ambulate 50' with a rolling walker with CGA (including 50' with at least 2 turns of 90 degrees). She has an unstable left ankle that tends to roll , especially with fatigue and her distance has been purposefully limited because of that. Wheelchair Training Does the Pt Use a Wheelchair?: Yes Wheelchair (FIM): 6 Wheel 50 ft with 2 turns (QC): 6 Wheel 150 ft (QC): 6 Type of Wheelchair: Manual Stair Training Patient has not performed stairs due to her unstable left ankle and bilateral ankle contractures. Exercises Standing: Hip Abduction, Heel/toe raises, Marching Standing Reps: 15 LAQ alternating for 5 min Treatments bed mobility and transfers, ambulation, functional strengthening Assessment Current Status: Fair Progress improving ambulation and mobility in general PT Short Term Goals Short Term Goals Time Frame: Jun 27, 2017 Gait (FIM): 1 Distance (FIM): 1=up to 49 ft Wheelchair (FIM): 6 (met) Wheelchair Distance: >300' Wheelchair Level of Assist: 6 PT Halfway Goals Bow Machine Operator Goals PT Bow Machine Operator Goals Time Frame: Jul 11, 2017 Transfers (B,C,W/C) (FIM): 4 (met) Sit to Lying (QC): 4 (met) Lying-Sitting on Side/Bed(QC): 4 (met) Sit to Stand (QC): 4 Rollin Roll Left to Right (QC): 4 (met) Chair/Mnb-pm-Jampr Xfer(QC): 4 Car Transfer (QC): 4 Does the Patient Walk: No and Walking Goal IS indicated Gait (FIM): 2 (met) Gait distance (FIM): 7=643-86 ft Distance: 50' Walk 10 feet (QC): 3 (met) Walk 10ft-Uneven Surface(QC): 3 Walk 50ft with 2 Turns (QC): 3 Gait Level of Assist: 4 Gait Assistive Device: FWW PT Plan Problem List Problem List: Activity Tolerance, Functional Strength, Safety, Balance, Gait, Transfer, Bed Mobility, ROM Treatment/Plan Treatment Plan: Continue Plan of Care Treatment Plan: Bed Mobility, Education, Functional Activity Yris, Functional Strength, Group Therapy, Gait, Safety, Therapeutic Exercise, Transfers Treatment Duration: Jul 11, 2017 Frequency: At least 5 of 7 days/Wk (IRF) Estimated Hrs Per Day: 1.5 hours per day Patient and/or Family Agrees t: Yes Safety Risks/Education Patient Education: Gait Training, Transfer Techniques, Correct Positioning, W/ C Management, Safety Issues Teaching Recipient: Patient Teaching Methods: Demonstration, Discussion Response to Teaching: Reinforcement Needed Time/GCodes Time In: 800 Time Out: 845 Total Billed Treatment Time: 45 Total Billed Treatment 1 visit EX 10' GT 20' FA 15' GERALDO FERRER PT Jul 14, 2017 08:49
--- NOTE | 2017-07-14 18:15 | PM & R (SOAP) Progress Note ---
Subjective Time Seen by Provider: 18:00 Subjective/Events-last exam Patient was seen in her room this evening Spouse presents to take patient home with HHC Objective Exam Last Set of Vital Signs Vital Signs Date Time Temp Pulse Resp B/P (MAP) Pulse Ox O2 Delivery O2 Flow Rate FiO2 07/14/17 09:00 Room Air 07/14/17 05:34 98.7 107 18 120/69 96 07/12/17 18:24 98.00 98.00 Capillary Refill : Less Than 3 Seconds I&O Intake and Output 07/15/17 00:00 Intake Total 600 ml Balance 600 ml Intake Oral 600 ml # Voids 3 General: Alert, Oriented X3, Cooperative, Mild Distress HEENT: Atraumatic, PERRLA, EOMI, Mucous Memb Moist/[place] Neck: Supple, No JVD Lungs: Clear to Auscultation Heart: Regular Rate Abdomen: Normal Bowel Sounds, Soft, No Tenderness Extremities: No Edema, Other (contractures both ankles) Neuro: Sensation Intact, Other (SLR bilate to 30 degrees) Assessment/Plan Assessment 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 ALEXUS MERCADO MD Jul 14, 2017 18:15
[2017-07-14 18:31] VITALS: BP 97/59
[2017-07-14 19:16] VITALS: BP 97/59
--- NOTE | 2017-07-15 11:46 | Physical Therapy Rehab Re-Cert ---
PT Re-Certification Form Physical Therapy Treatment Plan: Continue Plan of Care Bed Mobility, Education, Functional Activity Yris, Functional Strength, Group Therapy, Gait, Safety, Therapeutic Exercise, Transfers Treatment Duration: 1 more week Frequency: At least 5 of 7 days/Wk (IRF) Estimated Hrs Per Day: 1.5 hours per day Patient and/or Family Agrees t: Yes Rehab Potential: Fair Continue current treatment of transfer training, ambulation, functional strengthening, balance training, and stretching/ROM PT Short Term Goals Short Term Goals Time Frame: Jun 27, 2017 Gait (FIM): 1 Distance (FIM): 1=up to 49 ft Wheelchair (FIM): 6 (met) Wheelchair Distance: >300' Wheelchair Level of Assist: 6 PT Integrated Specialist Goals Integrated Specialist Goals PT Integrated Specialist Goals Time Frame: Jul 11, 2017 Transfers (B,C,W/C) (FIM): 4 (met) Gait (FIM): 2 (met) Gait distance (FIM): 6=778-00 ft Distance: 50' Gait Level of Assist: 4 Gait Assistive Device: GERALDO DAWSON PT Jul 15, 2017 11:46
--- NOTE | 2017-07-15 11:52 | Therapy Team Discharge Summary ---
Therapy Discharge Summary Discharge Recommendations Date of Discharge Jul 14, 2017 at 18:15 Therapy D/C Recommendations: Home w/ Family Support, [facility] (TCU/[facility]) Physical Therapy Patient came to rehab for weakness/debility post Guillain [place]. Upon admission patient performs bed mobility with max assist and was dependent for transfers, and was able to propel a manual wheelchair 200' with SBA. Patient has been performing bed mobility and transfer training, balance and endurance training, functional strengthening, gait training, and education. Patient has made fair progress but has only met her bed mobility residential goals and part of her ambulation terminal system operator goals. Now, patient performs bed mobility with mod I and transfers with min assist (stand pivot and sliding board), ambulates 50' with a rolling walker with CGA (including 50' with at least 2 turns of 90 degrees but not 10' over an uneven surface), and is mod I with a manual wheelchair. No stairs at this time due to weakness and ankle contractures. Patient has been discharged from this facility and will be discharged from PT at this time. Occupational Therapy Decreased Activ Tolerance, Decreased UE Strength, Dependent Transfers, Impaired Coordination, Impaired Funct Balance, Impaired I ADL's, Impaired Self-Care Skills PT Care Home Goals Manager Art Goals PT Care Home Goals Time Frame: Jul 11, 2017 Transfers (B,C,W/C) (FIM): 4 (met) Roll Left to Right (QC): 4 (met) Sit to Lying (QC): 4 (met) Lying-Sitting on Side/Bed(QC): 4 (met) Sit to Stand (QC): 4 Chair/Zhl-zl-Nvxyk Xfer(QC): 4 Car Transfer (QC): 4 Does the Patient Walk: No and Walking Goal IS indicated Gait (FIM): 2 (met) Gait distance (FIM): 9=254-72 ft Distance: 50' Walk 10 feet (QC): 3 (met) Walk 10ft-Uneven Surface(QC): 3 Walk 50ft with 2 Turns (QC): 3 Gait Level of Assist: 4 Gait Assistive Device: FWW OT Manager Art Goals Care Home Goals Time Frame: Jul 11, 2017 Eating (FIM): 5 (met-07/14/2017) Eating (QC): 5 (met-07/14/2017) Oral Hygiene (QC): 5 (met-07/14/2017) Grooming(FIM): 5 (07/14/2017) Bathing(FIM): 4 (07/14/2017) Shower/Bathe Self (QC): 4 (07/14/2017) Upper Body Dressing(FIM): 5 (07/14/2017) Upper Body Dressing (QC): 5 (07/14/2017) Lower Body Dressing(FIM): 4 (07/14/2017) Lower Body Dressing (QC): 3 (07/14/2017) On/Off Footwear (QC): 4 (07/14/2017) Toileting(FIM): 4 (07/14/2017) Toileting Hygiene (QC): 4 (07/14/2017) Toilet/Commode Transfer(FIM): 4 (07/14/2017) Toilet/Commode Transfer (QC): 4 (07/14/2017) Tub Transfer(FIM): 5 (Pt has tub/shower at home. Worked on transfers into tub to become independent for home.TRINI Kingsley) Shower Transfer(FIM): 4 (Pt has tub/shower at home. Worked on transfers into tub to become independent for home.) Additional Goals: 1-Demonstrate ADL Tasks, 2-Verbalize Understanding, 3- ImproveStrength/Yris 1=Demonstrate adherence to instructed precautions during ADL tasks. 2=Patient will verbalize/demonstrate understanding of assistive devices/ modifications for ADL. 3=Patient will improve strength/tolerance for activity to enable patient to perform ADL's. GERALDO FERRER PT Jul 15, 2017 11:52
--- NOTE | 2017-07-15 12:29 | Occ Therapy Rehab Re-Cert ---
OT Re-Certification Form Plan of Care: ADL Retraining, Functional Mobility, Group Exercise/Act as Ind, UE Funct Exercise/Act This is a late note for 07/12/17. Pt is progressing toward goals. Continue current plan of care and goals. Frequency: At least 5 of 7 days/Wk (IRF) Estimated Hrs Per Day: 1.5 hours per day Agreement: Yes Rehab Potential: Fair OT Short Term Goals Short Term Goals Time Frame: Jun 27, 2017 Lower Body Dressing(FIM): 2 Toileting(FIM): 2 Toilet/Commode Transfer(FIM): 2 Shower Transfer(FIM): 2 Additional Short Term Goals: 2-Verbalize Understanding, 3-ImproveStrength/Yris 1=Demonstrate adherence to instructed precautions during ADL tasks. 2=Patient will verbalize/demonstrate understanding of assistive devices/ modifications for ADL. 3=Patient will improve strength/tolerance for activity to enable patient to perform ADL's. OT Nursing Home Goals Personnel Placement Specialist Goals Time Frame: Jul 11, 2017 Eating (FIM): 5 (met-07/14/2017) Grooming(FIM): 5 (met-07/14/2017) Bathing(FIM): 4 (met-07/14/2017) Upper Body Dressing(FIM): 5 (met-07/14/2017) Lower Body Dressing(FIM): 4 (met-07/14/2017) Toileting(FIM): 4 (met-07/14/2017) Toilet/Commode Transfer(FIM): 4 (met-07/14/2017) Tub Transfer(FIM): 5 (Pt has tub/shower at home. Worked on transfers into tub to become independent for home.CHEYANNE Kingsley/Jose Luis) Shower Transfer(FIM): 4 (Pt has tub/shower at home. Worked on transfers into tub to become independent for home.) Additional Goals: 1-Demonstrate ADL Tasks, 2-Verbalize Understanding, 3- ImproveStrength/Yris 1=Demonstrate adherence to instructed precautions during ADL tasks. 2=Patient will verbalize/demonstrate understanding of assistive devices/ modifications for ADL. 3=Patient will improve strength/tolerance for activity to enable patient to perform ADL's. SERENA MARES OT Jul 15, 2017 12:29
--- NOTE | 2017-07-15 12:36 | Therapy Team Discharge Summary ---
Therapy Discharge Summary Discharge Recommendations Date of Discharge Jul 14, 2017 at 18:15 Therapy D/C Recommendations: Home w/ Family Support, Long Term (TCU/NH) Occupational Therapy Pt admitted to ARU with weakness/debility post Guillain [place]. On admission pt required total assist for transfers and LE dressing and min assist for grooming and UE dressing. Skilled OT intervention focused on ADL training, transfers, strengthening, and safety education. Pt made good progress and by discharge is completing transfers with supervision and all other basic ADLs with modified independence. Pt met OT LTG. Pt discharged home with family support. D/c ARU OT. Decreased Activ Tolerance, Decreased UE Strength, Dependent Transfers, Impaired Coordination, Impaired Funct Balance, Impaired I ADL's, Impaired Self-Care Skills PT Shelter Goals Shelter Goals PT Technical Service Rep Goals Time Frame: Jul 11, 2017 Transfers (B,C,W/C) (FIM): 4 (met) Roll Left to Right (QC): 4 (met) Sit to Lying (QC): 4 (met) Lying-Sitting on Side/Bed(QC): 4 (met) Sit to Stand (QC): 4 Chair/Hph-eq-Fjcil Xfer(QC): 4 Car Transfer (QC): 4 Does the Patient Walk: No and Walking Goal IS indicated Gait (FIM): 2 (met) Gait distance (FIM): 8=281-47 ft Distance: 50' Walk 10 feet (QC): 3 (met) Walk 10ft-Uneven Surface(QC): 3 Walk 50ft with 2 Turns (QC): 3 Gait Level of Assist: 4 Gait Assistive Device: FWW OT Shelter Goals Shelter Goals Time Frame: Jul 11, 2017 Eating (FIM): 5 (met-07/14/2017) Eating (QC): 5 (met-07/14/2017) Oral Hygiene (QC): 5 (met-07/14/2017) Grooming(FIM): 5 (met-07/14/2017) Bathing(FIM): 4 (met-07/14/2017) Shower/Bathe Self (QC): 4 (met-07/14/2017) Upper Body Dressing(FIM): 5 (met-07/14/2017) Upper Body Dressing (QC): 5 (met-07/14/2017) Lower Body Dressing(FIM): 4 (met-07/14/2017) Lower Body Dressing (QC): 3 (met-07/14/2017) On/Off Footwear (QC): 4 (met-07/14/2017) Toileting(FIM): 4 (met-07/14/2017) Toileting Hygiene (QC): 4 (met-07/14/2017) Toilet/Commode Transfer(FIM): 4 (met-07/14/2017) Toilet/Commode Transfer (QC): 4 (met-07/14/2017) Tub Transfer(FIM): 5 (Pt has tub/shower at home. Worked on transfers into tub to become independent for home.CHEYANNE Kingslye/Jose Luis) Shower Transfer(FIM): 4 (Pt has tub/shower at home. Worked on transfers into tub to become independent for home.) Additional Goals: 1-Demonstrate ADL Tasks, 2-Verbalize Understanding, 3- ImproveStrength/Yris 1=Demonstrate adherence to instructed precautions during ADL tasks. 2=Patient will verbalize/demonstrate understanding of assistive devices/ modifications for ADL. 3=Patient will improve strength/tolerance for activity to enable patient to perform ADL's. SERENA MARES OT Jul 15, 2017 12:36
--- NOTE | 2017-07-18 08:10 | DISCHARGE SUMMARY ---
DATE OF SERVICE: HISTORY OF PRESENT ILLNESS: The patient is a 37-year-old female who was in her usual state of health until this past December when she developed progressive weakness. 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 She subsequently went on to two rehab facilities and in the home with her in [place], [place]. He found it difficult to care for her and she subsequently went to a local care center where she developed delirium, felt to be due to UTI with resulting admission at [facility] on 06/07. Her UTI was treated. She was cognitively cleared, but left with increased weakness from all this. She takes gabapentin and hydrocodone for neuropathic pain in her legs and hands. She had been on MS Contin in the past as well. 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 They live in a one-story home in [place], [place] with the young children. PAST MEDICAL HISTORY: She did have tachycardia, leukocytosis, and hallucinations associated with UTI and her urine culture was positive for E. coli, which responded to Macrodantin and cephalosporins. She also takes Flexeril for spasms p.r.n. and she is on medications for anxiety and depression as well including Abilify. She has had rotator cuff repair in the past, hysterectomy and cholecystectomy. MEDICAL COURSE: The patient was followed by Dr. Tineo and Dr. Saenz while on rehab unit. Medications were adjusted for her anxiety and depression with good results. Medications were adjusted for her breakthrough pain with good results, but she was placed on a Duragesic patch. This slowed her progress at time in therapies, but once these medications were adjusted she did much better and she was able to return home with her spouse. She was afebrile during her stay. Pulse remained somewhat tachycardic at times 116 on 07/14, respiration was 18, blood pressure 97/59, O2 sat 95% on room air. She was assessed by behavioral health at [facility], [facility]. Impression was proactive depression and anxiety to her condition. CBC on 06/26 showed WBC 7.7, H and H 9.1/28, RBC 2.79, MCV 101. Chemistry revealed serum potassium 3.2 on 06/20, replacement provided, 3.5 on 06/26. Calcium elevated at 11.5 on 06/20, 10.8 on 06/26. She may have followup with her PCP at [facility] in [place] regarding follow up for this. Her liver function test was also somewhat elevated with AST at 101 on 06/20, alkaline phos 391. She may have followup with her PCP at [facility] in [place] regarding this. Total protein and albumin was 6.2/2.8. She was provided with supplements. Her appetite and mood and pain control all improved. REHABILITATION COURSE: As outlined above, progress was slowed at times due to her mood and poorly controlled pain. This did improve with adjustment in medications as per above. She was assessed by speech therapy upon admission and found to be cognitively intact and they signed off. OT notes upon admission, she required total assist for transfers and lower body dressing, and was mid assist for grooming and upper body dressing. She made good progress and by discharge was completing transfers with supervision and all other basic ADLs with modified independence. PT notes upon admission, the patient performs bed mobility with max assist and was dependent for transfers and was able to propel a manual wheelchair 200-feet with standby assist. The patient has made fair progress and upon discharge she is modified independent for bed mobility, min assist for transfers either stand pivot or with sliding board, can ambulate 50-feet with a wheeled walker with contact guard and is modified independent for wheelchair propulsion with a manual wheelchair. DISCHARGE INSTRUCTIONS: The patient will have home health care. She is discharged to home in [place], [place] with her spouse. She will have follow up with her PCP at [facility] and follow up with neurology. Continue current diet. Follow up labs with her PCP regarding elevated liver function tests and serum calcium. DISCHARGE MEDICATIONS: Abilify 2.5 mg p.o. daily, Coreg 6.25 mg p.o. b.i.d., fentanyl patch 50 mcg topically every 3 days, gabapentin 900 mg p.o. each day at bedtime and 600 mg at 9:00 a.m. and 1300 hours, mirtazapine 15 mg p.o. each day at bedtime, Tylenol 650 mg p.o. q.6 hours p.r.n. mild pain, Xanax 1 mg p.o. q.6 hours p.r.n. anxiety, vitamin C 500 mg p.o. b.i.d., clotrimazole and betamethasone cream topically b.i.d. p.r.n. rash, Flexeril 10 mg p.o. t.i.d. p.r.n. muscle spasms, Benadryl 25 mg p.o. q.6 hours p.r.n. itch, folic acid 1 mg p.o. daily, hydrocodone APAP 10/325 one tablet p.o. q.4 h. p.r.n. breakthrough pain, lidocaine patch 1 patch daily off in 12 hours, Mylanta 30 mL p.o. q.4 h. p.r.n. dyspepsia, magnesium 400 mg p.o. b.i.d., melatonin 9 mg p.o. each day at bedtime, multivitamins with iron one tablet p.o. daily, nystatin powder topically t.i.d., MiraLAX 17 grams p.o. b.i.d., vitamin B6 50 mg p.o. daily, Senokot-S two tablets p.o. b.i.d., simethicone 80 mg p.o. q. 6 hours p.r.n. gas, thiamine 100 mg p.o. daily, trazodone 100 mg p.o. each day at bedtime, vitamin A 10,000 units p.o. daily, vitamin E 400 units p.o. daily, zinc sulfate 220 mg p.o. daily, vitamin D 50,000 units p.o. every Friday. DISCHARGE DIAGNOSES: 1. 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 2. Anemia, improving. 3. Prior right rotator cuff repair. 4. 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 5. 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 6. Anxiety/depression, improved with medication adjustment. 7. Hypokalemia, replaced, resolved. 8. Elevated liver function tests. We will follow up with primary care physician. 9. Hypercalcemia. We will have follow up labs with primary care physician. 10. Hypoalbuminemia. We will have repeat values with primary care physician. CONDITION AT DISCHARGE: Improved and stable. PROGNOSIS: Rehab prognosis appears good for some continued improvement with home health therapies. Hopefully, she will be able to return to independent living with some assistance from spouse and family as needed. Job ID: [id number] DocumentID: [id number] Dictated Date: 07/17/2017 13:46:28 Derrick Boat Runner Date: 07/18/2017 05:02:55 Dictated By: ALEXUS TINEO MD
== END 2017-07-14 18:15 | disposition home health service (06) | DRG 948 ==
PROVIDERS: ADMIT Physical Medicine & Rehabilitation; ATTEND Physical Medicine & Rehabilitation
DX: R53.1 Weakness (principal); M62.471 Contracture of muscle, right ankle and foot; M62.472 Contracture of muscle, left ankle and foot; M79.661 Pain in right lower leg; M79.662 Pain in left lower leg; M79.641 Pain in right hand; M79.642 Pain in left hand; G89.29 Other chronic pain; G65.0 Sequelae of Guillain-Barre syndrome; F41.9 Anxiety disorder, unspecified; F32.9 Major depressive disorder, single episode, unspecified; E87.6 Hypokalemia; D64.9 Anemia, unspecified; E88.09 Other disorders of plasma-protein metabolism, not elsewhere classified
CPT/HCPCS: 36415; 80048; 80053; 85025; 85027